=== PATIENT | female | born 1955 | race Caucasian/White ===

== ENCOUNTER → 2016-09-08 | Outpatient (CLI) | payer OTHER ==
[~2016-09-08] MED LIST: ASPI81TA21 PO; ATEN50TA PO; ATOR-22 PO; INSUINJ4 SQ; KETO2SHA; LTN/10 PO; METF1000 PO; NVLGI SC; NYST80OI; SERT50TA PO; SITA100T3 PO; TYLOTC500 PO
== END | disposition home or self-care (01) ==
LOC: C.LABPVFM 14:44
PROVIDERS: ATTEND Family Medicine
DX: J02.9 Acute pharyngitis, unspecified (principal)

== ENCOUNTER → 2016-10-02 | Outpatient (CLI) | payer OTHER ==
[2016-10-02 12:37] LABS: BLOOD UREA NITROGEN 16 mg/dl (7-18); BUN/CREATININE RATIO 17.6 (10-20); CALCIUM 9.3 mg/dl (8.5-10.1); CARBON DIOXIDE 29 mmol/L (21-32); CHLORIDE 99 mmol/L (98-107); CREATININE 0.89 mg/dl (0.60-1.20); GLUCOSE 185 mg/dl (70-99); POTASSIUM 4.6 mmol/L (3.5-5.1); SODIUM 136 mmol/L (136-145)
[2016-10-02 12:48] LABS: ESTIMATED AVERAGE GLUCOSE 157 mg/dl; HA1C FLAG Normal (Normal)
== END | disposition home or self-care (01) ==
LOC: C.LABBFT 07:46
PROVIDERS: ATTEND Nurse Practitioner Family
DX: Z11.59 Encounter for screening for other viral diseases (principal); E11.9 Type 2 diabetes mellitus without complications

== ENCOUNTER → 2016-10-03 | Outpatient (CLI) | payer OTHER ==
[2016-10-03 15:27] LABS: RATIO 21.9 mcg/mg (0-30.0)
== END | disposition home or self-care (01) ==
LOC: C.LABSPEC 14:01
PROVIDERS: ATTEND Nurse Practitioner Family
DX: E11.9 Type 2 diabetes mellitus without complications (principal)

== ENCOUNTER → 2016-10-29 | Outpatient (CLI) | payer OTHER | END | disposition home or self-care (01) | LOC: C.LABPVFM 12:23 | PROVIDERS: ATTEND Nurse Practitioner | DX: R30.0 Dysuria (principal) ==

== ENCOUNTER → 2016-11-18 | Outpatient (CLI) | payer OTHER | END | disposition home or self-care (01) | LOC: C.LABSPEC 17:09 | PROVIDERS: ATTEND Urology | DX: R10.2 Pelvic and perineal pain (principal) ==

== ENCOUNTER → 2017-02-06 | Outpatient (CLI) | payer OTHER ==
--- NOTE | 2017-02-06 16:01 | MAMMOGRAPHY REPORT ---
BILATERAL DIGITAL SCREENING MAMMOGRAM WITH CAD: 02/06/2017 CLINICAL HISTORY: Routine screening. Patient has no complaints. TECHNIQUE: Current study was also evaluated with a Computer Aided Detection (CAD) system. Bilateral CC and MLO views were obtained. COMPARISON: Comparison is made to exams dated: 08/01/2009 mammogram - [facility], 08/03/2008, 08/03/2008, 07/31/2008, and 07/29/2007. BREAST COMPOSITION: There are scattered areas of fibroglandular density in both breasts. FINDINGS: No suspicious masses, calcifications, or areas of architectural distortion are noted in ei ther breast. There has been no significant interval change compared to prior exams. Scattered bilate ral benign-appearing calcifications are noted. IMPRESSION: ACR BI-RADS CATEGORY 2: BENIGN There is no mammographic evidence of malignancy. A 1 year screening mammogram is recommended. The pa tient will receive written notification of the results. Approximately 10% of breast cancers are not detected with mammography. A negative mammographic report should not delay biopsy if a clinically suggestive mass is present. Liliana Oliveira M.D. ah/:02/06/2017 14:50:08 Superintendent [employer]: Karissa RICE(R)(M), [facility] letter sent: Normal 1/2 BI-RADS Code: ACR BI-RADS Category 2: Benign
== END | disposition home or self-care (01) ==
LOC: C.MAMM 14:24
PROVIDERS: ATTEND Nurse Practitioner
DX: Z12.31 Encounter for screening mammogram for malignant neoplasm of breast (principal)

== ENCOUNTER → 2017-04-29 | Outpatient (CLI) | payer OTHER ==
[2017-04-29 12:30] LABS: ALT/SGPT 23 U/L (12-78); BLOOD UREA NITROGEN 18 mg/dl (7-18); CALCIUM 9.5 mg/dl (8.5-10.1); CARBON DIOXIDE 29 mmol/L (21-32); CHLORIDE 98 mmol/L (98-107); CHOLESTEROL 174 mg/dl (0-200); CREATININE 0.94 mg/dl (0.60-1.20); GLUCOSE 209 mg/dl (70-99); MAGNESIUM 2.3 mg/dl (1.8-2.4); POTASSIUM 4.2 mmol/L (3.5-5.1); SODIUM 133 mmol/L (136-145); TRIGLYCERIDES 207 mg/dl (0-150); VERY LOW DENSITY LIPOPROT CALC 41 mg/dl
[2017-04-29 12:36] LABS: ESTIMATED AVERAGE GLUCOSE 169 mg/dl; HA1C FLAG Normal (Normal)
[2017-04-29 12:39] LABS: ALB/GLOB RATIO 0.9 (0.9-2); ALKALINE PHOSPHATASE 75 U/L (45-117); AST/SGOT 14 U/L (15-37); CHOLESTEROL/HDL RATIO 3.6; HDL CHOLESTEROL 48 mg/dl; LDL CHOLESTEROL CALCULATED 85 mg/dl
== END | disposition home or self-care (01) ==
LOC: C.LABBFT 07:41
PROVIDERS: ATTEND Nurse Practitioner
DX: E11.9 Type 2 diabetes mellitus without complications (principal); G62.9 Polyneuropathy, unspecified; E78.5 Hyperlipidemia, unspecified; E83.42 Hypomagnesemia

== ENCOUNTER → 2017-10-23 | Outpatient (CLI) | payer OTHER | END | disposition home or self-care (01) | LOC: C.LABPVFM 18:06 | PROVIDERS: ATTEND Nurse Practitioner Family | DX: R39.9 Unspecified symptoms and signs involving the genitourinary system (principal) ==

== ENCOUNTER → 2017-11-16 | Outpatient (CLI) | payer OTHER ==
--- NOTE | 2017-11-16 11:07 | DIAGNOSTIC IMAGING REPORT ---
CHEST 2 VIEWS ROUTINE CLINICAL HISTORY: 62 years-old Female presenting with COPD with acute bronchitis. TECHNIQUE: PA and lateral views of the chest were obtained. COMPARISON: 11/09/2013. FINDINGS: Atherosclerosis of the aortic arch. Tortuosity of the descending thoracic aorta. Cardiac silhouette top normal in size. Lungs and pleural spaces clear. Degenerative changes of the thoracic spine. Upper abdomen normal. IMPRESSION: 1. No acute cardiopulmonary disease. Electronically signed by: Carlos A Mccain M.D. 11/16/2017 11:06 AM Dictated Date/Time: 11/16/2017 11:04 AM
== END | disposition home or self-care (01) ==
LOC: C.RADPV 10:51
PROVIDERS: ATTEND Nurse Practitioner
DX: J44.0 Chronic obstructive pulmonary disease with (acute) lower respiratory infection (principal)

== ENCOUNTER 2017-12-01 15:45 | Emergency (ER) | payer OTHER ==
[~2017-12-01] VITALS: Ht 165.1 cm; Wt 117.2 kg
[~2017-12-01 15:45] MED LIST changes: +ASPI-319 PO; -ASPI81TA21 PO
[2017-12-01 15:52] VITALS: TEMP 36.4
[2017-12-01] MEDS ORDERED: ONDANSETRON INJ 2 MG/ML 2 ML VIAL IV STA (15:57)
[2017-12-01] MEDS ORDERED: SODIUM CHLORIDE 0.9% 1000ML 1,000 ML IV STA (15:57)
--- NOTE | 2017-12-01 16:16 | DIAGNOSTIC IMAGING REPORT ---
CHEST ONE VIEW PORTABLE CLINICAL HISTORY: Acute change in mental status. Weakness. COMPARISON STUDY: 11/16/2017 FINDINGS: The cardiac and mediastinal contours are normal. There is no evidence of focal pulmonary consolidation. There is no evidence of failure. No pleural effusions are visualized.[ There is minor left basilar atelectasis. IMPRESSION: No active disease in the chest. Electronically signed by: Kory Nicholson M.D. 12/01/2017 4:15 PM Dictated Date/Time: 12/01/2017 4:14 PM
[2017-12-01 16:40] VITALS: Ht 165.1 cm; Wt 117.2 kg
[2017-12-01 16:42] VITALS: O2SAT 92
[2017-12-01 16:59] LABS: BASO % 0.7 %; BASO ABS # 0.07 K/uL (0-0.2); EOS % 4.7 %; EOS ABS # 0.46 K/uL (0-0.5); HEMATOCRIT 39.7 % (37-47); HEMOGLOBIN 13.4 g/dL (12.0-16.0); IG# 0.02 K/uL (0.00-0.02); LYMPH % 13.2 %; MEAN CELL VOLUME 84.8 fL (80-100); MEAN CORPUSCULAR HEMOGLOBIN 28.6 pg (25-34); MEAN CORPUSCULAR HGB CONC 33.8 g/dl (32-36); MEAN PLATELET VOLUME 9.9 fL (7.4-10.4); MONO % 11.1 %; MONO ABS # 1.09 K/uL (0.11-0.59); NEUT % 70.1 %; NEUT ABS # 6.92 K/uL (1.4-6.5); PLATELET COUNT 231 K/uL (130-400); RED CELL DISTRIBUTION WIDTH CV 16.2 % (11.5-14.5); WHITE BLOOD COUNT 9.86 K/uL (4.8-10.8)
--- NOTE | 2017-12-01 17:03 | DIAGNOSTIC IMAGING REPORT ---
CT HEAD WITHOUT CONTRAST (CT) CLINICAL HISTORY: Acute change in mental status. COMPARISON STUDY: No previous studies for comparison. TECHNIQUE: Axial CT of the brain is performed from the vertex to the skull base. IV contrast was not administered for this examination. A dose lowering technique was utilized adhering to the principles of ALARA. CT DOSE: 601.98 mGy.cm FINDINGS: No intra or extra-axial mass lesions are visualized. There is no CT evidence of acute cortical infarction. There is no evidence of midline shift. There is no acute hemorrhage. No calvarial fractures are visualized. There are patchy white matter hypodensities likely on a small vessel basis. There is a small right cerebellar lacunar infarct There is no evidence of pathologic ventricular dilatation. There is no evidence of acute sinusitis IMPRESSION: No acute intracranial findings Electronically signed by: Kory Nicholson M.D. 12/01/2017 5:02 PM Dictated Date/Time: 12/01/2017 5:01 PM
[2017-12-01 17:07] LABS: INR 0.9 (0.9-1.1)
[2017-12-01 17:17] LABS: ALBUMIN 3.8 gm/dl (3.4-5.0); ALT/SGPT 20 U/L (12-78); AST/SGOT 10 U/L (15-37); BLOOD UREA NITROGEN 15 mg/dl (7-18); CALCIUM 9.4 mg/dl (8.5-10.1); CARBON DIOXIDE 29 mmol/L (21-32); CREATININE 0.92 mg/dl (0.60-1.20); GLUCOSE 148 mg/dl (70-99); LIPASE 176 U/L (73-393); POTASSIUM 3.7 mmol/L (3.5-5.1); SODIUM 134 mmol/L (136-145)
[2017-12-01 17:27] LABS: ALKALINE PHOSPHATASE 70 U/L (45-117); TOTAL PROTEIN 7.7 gm/dl (6.4-8.2)
[2017-12-01] MEDS ORDERED: METO50TA8 PO (17:33)
[2017-12-01] MEDS ORDERED: MAGN400T6 PO (17:33)
[2017-12-01] MEDS ORDERED: FLUT0.15 NAE (17:33)
[2017-12-01] MEDS ORDERED: METF-384 PO (17:33)
[2017-12-01] MEDS ORDERED: SIMV20TA2 PO (17:33)
[2017-12-01] MEDS ORDERED: DSWCR TOP (17:33)
[2017-12-01] MEDS ORDERED: ASPI81TA28 PO (17:33)
[2017-12-01] MEDS ORDERED: GABA-112 PO (17:33)
[2017-12-01] MEDS ORDERED: NVLGI/PEN SQ (17:33)
[2017-12-01] MEDS ORDERED: UMEC1AER INH (17:33)
[2017-12-01] MEDS ORDERED: SERT-234 PO (17:33)
[2017-12-01] MEDS ORDERED: HYDR12.55 PO (17:33)
[2017-12-01] MEDS ORDERED: FLUT1INH INH (17:33)
[2017-12-01] MEDS ORDERED: LISI-729 PO (17:33)
[2017-12-01] MEDS ORDERED: INSU1.2I SQ (17:33)
[2017-12-01] MEDS ORDERED: ONDA4TAB10 SL (18:32)
[2017-12-01] MEDS ORDERED: MECL1TAB42 PO (18:32)
--- NOTE | 2017-12-01 19:06 | EMERGENCY ROOM VISIT NOTE ---
History Report prepared by Areli: Maira Reyes Under the Supervision of: Dr. Cedric Muhammad D.O. First contact with patient: 15:55 Chief Complaint: DIZZY Stated Complaint: DIZZY,VOMITING,SWEATING,CHEST PAIN History of Present Illness The patient is a 62 year old female who presents to the Emergency Room with complaints of an episode of dizziness around 1400 today. The patient started having a frontal headache earlier today. She then started having left ear ache and pain down her shoulder and back. She is having jabbing pains in her left chest. Then at work today, she got up to put away a file and started feeling very dizzy. The room seemed to be spinning. She sat down and became diaphoretic. She had a hard time walking and her coworker had to help her to the bathroom where she vomited. She has never experienced this before. She does not identify anything that improves or worsens her symptoms. She currently has a mild headache and some chest pain. She denies any history of stroke or [place]. Source of History: patient Onset: 1400 Position: head Quality: other (dizziness) Timing: other (episodic) Associated Symptoms: + headache, + diaphoresis, + chest pain, + vomiting, + back pain Note: Pt reports left ear pain. Review of Systems See HPI for pertinent positives & negatives. A total of 10 systems reviewed and were otherwise negative. Past Medical & Surgical Medical Problems: (1) Diabetes (2) Hypertension Family History Diabetes mellitus Heart disease Hypertension Kidney disease Kidney stones Social History Smoking Status: Former Smoker Alcohol Use: occasionally Drug Use: none Marital Status: Occupation Status: employed Current/Historical Medications Scheduled Aspirin (Aspirin Ec), 81 MG PO DAILY Fluticasone Furoate-Vilanterol (Breo Ellipta), 1 PUFF INH DAILY Fluticasone Propionate (Nasal) (Flonase Allergy Relief), 1 SPRAY RADU BID Gabapentin (Neurontin), 200 MG PO HS Hydrochlorothiazide (Hydrochlorothiazide), 12.5 MG PO DAILY Insulin Aspart (Novolog Flexpen), 1 DOSE SQ AC Insulin Glargine (Toujeo Solostar), 90 UNITS SQ HS Lisinopril (Prinivil), 5 MG PO DAILY Magnesium Oxide (Mag-Ox), 400 MG PO DAILY Metformin Hcl (Glucophage), 1,000 MG PO BID Metoprolol Succ (Toprol Xl) (Toprol-Xl), 50 MG PO DAILY Ondasetron Odt (Zofran Odt), 4 MG SL Q6H Sertraline (Zoloft), 100 MG PO DAILY Simvastatin (Zocor), 20 MG PO HS Umeclidinium-Vilanterol (Anoro Ellipta 62.5-25 Mcg/INH), 1 PUFF INH DAILY Scheduled PRN Desonide 0.05% (Desowen 0.05%), 1 APPLN TOP UD PRN for PSORIASIS Meclizine Hcl (Meclizine Hcl), 1 TAB PO TID PRN for Dizziness or Vertigo Allergies Coded Allergies: Codeine (Verified Allergy, Unknown, `, 12/01/17) Physical Exam Vital Signs Date Time Temp Pulse Resp B/P (MAP) Pulse Ox O2 Delivery O2 Flow Rate FiO2 12/01/17 19:29 81 20 146/76 95 Room Air 12/01/17 17:38 72 12/01/17 17:31 80 16 124/82 92 Room Air 12/01/17 16:43 85 20 142/74 92 Room Air 12/01/17 16:42 92 Room Air 12/01/17 16:42 92 Room Air 12/01/17 15:52 36.4 84 16 141/91 95 Room Air Physical Exam GENERAL: Patient is awake, alert, and mildly anxious appearing. EYES: The conjunctivae are clear. The pupils are round and reactive. EARS, NOSE, MOUTH AND THROAT: The nose is without any evidence of any deformity. Mucous membranes are moist tongue is midline NECK: The neck is nontender and supple. RESPIRATORY: Normal respiratory effort is noted there is no evidence of wheezing rhonchi or rales CARDIOVASCULAR: Regular rate and rhythm noted there no murmurs rubs or gallops normal S1 normal S2 GASTROINTESTINAL: The abdomen is soft. Bowel sounds are present in all quadrants. Abdomen is nontender MUSCULOSKELETAL/EXTREMITIES: There is no evidence of gross deformity full range of motion is noted in the hips and shoulders SKIN: There is no obvious evidence of any rash. There are no petechiae, pallor or cyanosis noted. NEUROLOGIC: Patient is awake alert and oriented x3 strength is symmetric patellar reflexes are 2+ bilaterally Medical Decision & Procedures ER Provider Diagnostic Interpretation: X-ray results as stated below per interpretation by me and the radiologist. Radiology results as stated below per my review and radiologist interpretation: CHEST ONE VIEW PORTABLE CLINICAL HISTORY: Acute change in mental status. Weakness. COMPARISON STUDY: 11/16/2017 FINDINGS: The cardiac and mediastinal contours are normal. There is no evidence of focal pulmonary consolidation. There is no evidence of failure. No pleural effusions are visualized.[ There is minor left basilar atelectasis. IMPRESSION: No active disease in the chest. Electronically signed by: Kory Nicholson M.D. 12/01/2017 4:15 PM Dictated Date/Time: 12/01/2017 4:[address] HEAD WITHOUT CONTRAST (CT) CLINICAL HISTORY: Acute change in mental status. COMPARISON STUDY: No previous studies for comparison. TECHNIQUE: Axial CT of the brain is performed from the vertex to the skull base. IV contrast was not administered for this examination. A dose lowering technique was utilized adhering to the principles of ALARA. CT DOSE: 601.98 mGy.cm FINDINGS: No intra or extra-axial mass lesions are visualized. There is no CT evidence of acute cortical infarction. There is no evidence of midline shift. There is no acute hemorrhage. No calvarial fractures are visualized. There are patchy white matter hypodensities likely on a small vessel basis. There is a small right cerebellar lacunar infarct There is no evidence of pathologic ventricular dilatation. There is no evidence of acute sinusitis IMPRESSION: No acute intracranial findings Electronically signed by: Kory Nicholson M.D. 12/01/2017 5:02 PM Dictated Date/Time: 12/01/2017 5:01 PM Laboratory Results 12/01/17 16:35 Red Blood Count 4.68, Mean Corpuscular Volume 84.8, Mean Corpuscular Hemoglobin 28.6, Mean Corpuscular Hemoglobin Concent 33.8, Mean Platelet Volume 9.9, Neutrophils (%) (Auto) 70.1, Lymphocytes (%) (Auto) 13.2, Monocytes (%) (Auto) 11.1, Eosinophils (%) (Auto) 4.7, Basophils (%) (Auto) 0.7, Neutrophils # (Auto ) 6.92, Lymphocytes # (Auto) 1.30, Monocytes # (Auto) 1.09, Eosinophils # (Auto ) 0.46, Basophils # (Auto) 0.07 12/01/17 16:35 Test 12/01/17 16:35 12/01/17 18:10 White Blood Count 9.86 K/uL (4.8-10.8) Red Blood Count 4.68 M/uL (4.2-5.4) Hemoglobin 13.4 g/dL (12.0-16.0) Hematocrit 39.7 % (37-47) Mean Corpuscular Volume 84.8 fL (80-100) Mean Corpuscular Hemoglobin 28.6 pg (25-34) Mean Corpuscular Hemoglobin Concent 33.8 g/dl (32-36) Platelet Count 231 K/uL (130-400) Mean Platelet Volume 9.9 fL (7.4-10.4) Neutrophils (%) (Auto) 70.1 % Lymphocytes (%) (Auto) 13.2 % Monocytes (%) (Auto) 11.1 % Eosinophils (%) (Auto) 4.7 % Basophils (%) (Auto) 0.7 % Neutrophils # (Auto) 6.92 K/uL (1.4-6.5) Lymphocytes # (Auto) 1.30 K/uL (1.2-3.4) Monocytes # (Auto) 1.09 K/uL (0.11-0.59) Eosinophils # (Auto) 0.46 K/uL (0-0.5) Basophils # (Auto) 0.07 K/uL (0-0.2) RDW Standard Deviation 50.0 fL (36.4-46.3) RDW Coefficient of Variation 16.2 % (11.5-14.5) Immature Granulocyte % (Auto) 0.2 % Immature Granulocyte # (Auto) 0.02 K/uL (0.00-0.02) Prothrombin Time 9.4 SECONDS (9.0-12.0) Prothromb Time International Ratio 0.9 (0.9-1.1) Activated Partial Thromboplast Time 27.0 SECONDS (21.0-31.0) Partial Thromboplastin Ratio 1.0 Anion Gap 8.0 mmol/L (3-11) Est Creatinine Clear Calc Drug Dose 81.2 ml/min Estimated GFR () 77.3 Estimated GFR (Non- 66.7 BUN/Creatinine Ratio 15.9 (10-20) Calcium Level 9.4 mg/dl (8.5-10.1) Magnesium Level 2.1 mg/dl (1.8-2.4) Total Bilirubin 0.3 mg/dl (0.2-1) Direct Bilirubin < 0.1 mg/dl (0-0.2) Aspartate Amino Transf (AST/SGOT) 10 U/L (15-37) Alanine Aminotransferase (ALT/SGPT) 20 U/L (12-78) Alkaline Phosphatase 70 U/L (45-117) Troponin I < 0.015 ng/ml (0-0.045) Total Protein 7.7 gm/dl (6.4-8.2) Albumin 3.8 gm/dl (3.4-5.0) Lipase 176 U/L (73-393) Thyroid Stimulating Hormone (TSH) 1.080 uIu/ml (0.300-4.500) Urine Color YELLOW Urine Appearance CLEAR (CLEAR) Urine pH 6.0 (4.5-7.5) Urine Specific [place] 1.016 (1.000-1.030) Urine Protein NEG (NEG) Urine Glucose (UA) 1+ (NEG) Urine Ketones NEG (NEG) Urine Occult Blood NEG (NEG) Urine Nitrite NEG (NEG) Urine Bilirubin NEG (NEG) Urine Urobilinogen NEG (NEG) Urine Leukocyte Esterase SMALL (NEG) Urine WBC (Auto) 1-5 /hpf (0-5) Urine RBC (Auto) 0-4 /hpf (0-4) Urine Hyaline Casts (Auto) 0 /lpf (0-5) Urine Epithelial Cells (Auto) 20-30 /lpf (0-5) Urine Bacteria (Auto) NEG (NEG) Laboratory results per my review. Medications Administered Medications (Trade) Dose Ordered Sig/Cyn Route Start Time Stop Time Status Last Admin Dose Admin Ondansetron HCl (Zofran Inj) 4 mg NOW STAT IV 12/01/17 15:57 12/01/17 15:59 DC 12/01/17 16:33 4 MG Sodium Chloride 1,000 ml @ 999 mls/hr Q1H1M STAT IV 12/01/17 15:57 12/01/17 16:57 DC 12/01/17 16:33 999 MLS/HR ECG Per My Interpretation Indication: chest pain Rate (beats per minute): 84 Rhythm: normal sinus Findings: no ectopy, other (no acute ST segment abnormality) Comparison ECG Date: 29-Jul-2012 Change: no significant change ED Course 1556: The patient was evaluated in room C7. A complete history and physical examination were performed. 1557: NSS 1,000 ml @ 999 mls/hr IV, Zofran Inj 4 mg IV. 182: Upon reevaluation, the patient is resting comfortably. I discussed the results and treatment plan with her. She verbalized agreement of the treatment plan. She was discharged home. 193: The patient is ambulating normally on discharge. Medical Decision Prior records/ancillary studies reviewed. Triage Nursing notes reviewed. The patient's history was concerning for dizziness and vertigo. Differential diagnosis: Etiologies such as benign positional vertigo, dehydration, hypovolemia, anemia, tumor, infection, hypoglycemia, electrolyte abnormalities, cardiac sources, intracerebral event, toxicologic, neurologic, as well as others were entertained. The patient is a 62-year-old female who presented to the emergency department for an evaluation of vertigo. The patient was treated with IV fluids and Zofran in the emergency department. On subsequent reevaluation she was feeling much better. I discussed patient's laboratory and radiographic studies with her. I also discussed some of the causes of vertigo. I do not feel this represents a central cause for vertigo at this time given the patient's symptoms and her workup. She was encouraged to continue all medications as prescribed and follow-up with her primary care physician. She was also encouraged to discuss further workup as well as MRI of the brain or possibly referral to ENT if symptoms do not improve. Otherwise she was encouraged to return the emergency department immediately if symptoms change worsening the need arises. Medication Reconcilliation Current Medication List: was personally reviewed by me Blood Pressure Screening Patient's blood pressure: Normal blood pressure Blood pressure disposition: Did not require urgent referral Impression Primary Impression: Vertigo Scribe Attestation The scribe's documentation has been prepared under my direction and personally reviewed by me in its entirety. I confirm that the note above accurately reflects all work, treatment, procedures, and medical decision making performed by me. Departure Information Dispostion Home / Self-Care Prescriptions Meclizine Hcl (MECLIZINE HCL) 25 Mg Tab 1 TAB PO TID Y for Dizziness or Vertigo for 10 Days, #30 TAB Prov: Cedric Muhammad, DO 12/01/17 Ondasetron Odt (ZOFRAN ODT) 4 Mg Tab 4 MG SL Q6H for Nausea, #15 TAB Prov: Cedric Muhammad, 12/01/17 Referrals Lizy Ngo C.R.N.P (PCP) Forms HOME CARE DOCUMENTATION FORM, IMPORTANT VISIT INFORMATION Patient Instructions ED Dizziness [facility], My [facility] Additional Instructions Call your family doctor to schedule a follow-up appointment. Rest and avoid any strenuous activity. Try to avoid driving until you are feeling better. Discussed the possibility with your family doctor that he may require further study such as an ear nose and throat evaluation or an MRI of the brain. Return to the emergency department immediately if symptoms change worsen or the need arises.
[2017-12-01 19:29] VITALS: BP 146/76; PULSE 81; O2SAT 95
== END 2017-12-01 19:31 | disposition home or self-care (01) ==
LOC: C.EDB 15:46 → C.EDC 19:31
DX: R42 Dizziness and giddiness (principal); H92.02 Otalgia, left ear; M25.519 Pain in unspecified shoulder; M54.9 Dorsalgia, unspecified; R07.9 Chest pain, unspecified; R61 Generalized hyperhidrosis; E11.9 Type 2 diabetes mellitus without complications; I10 Essential (primary) hypertension; Z79.82 Long term (current) use of aspirin; Z79.899 Other long term (current) drug therapy; Z79.4 Long term (current) use of insulin; Z79.84 Long term (current) use of oral hypoglycemic drugs; Z79.51 Long term (current) use of inhaled steroids; Z88.6 Allergy status to analgesic agent; Z83.3 Family history of diabetes mellitus; Z82.49 Family history of ischemic heart disease and other diseases of the circulatory system; Z84.1 Family history of disorders of kidney and ureter

== ENCOUNTER → 2017-12-25 | Outpatient (CLI) | payer OTHER ==
[~2017-12-25] MED LIST changes: -ASPI-319 PO; +ASPI81TA28 PO; -ATEN50TA PO; -ATOR-22 PO; +DSWCR TOP; +FLUT0.15 NAE; +FLUT1INH INH; +GABA-112 PO; +HYDR12.55 PO; +INSU1.2I SQ; -INSUINJ4 SQ; -KETO2SHA; +LISI-729 PO; -LTN/10 PO; +MAGN400T6 PO; +METF-384 PO; -METF1000 PO; +METO50TA8 PO; -NVLGI SC; +NVLGI/PEN SQ; -NYST80OI; +ONDA4TAB10 SL; +SERT-234 PO; -SERT50TA PO; +SIMV20TA2 PO; -SITA100T3 PO; -TYLOTC500 PO; +UMEC1AER INH
--- NOTE | 2017-12-25 14:37 | DIAGNOSTIC IMAGING REPORT ---
L-SPINE MIN 4 VIEWS ROUTINE HISTORY: Pain LOW BACK PAIN COMPARISON: None. FINDINGS: There is no fracture. Minimal grade 1 anterolisthesis of L4 on L5. This is approximately 3 mm. Moderate degenerative change posterior elements. Considerable degenerative disc change L5-S1. IMPRESSION: 1. Considerable degenerative disc change L5-S1. 2. Grade 1 anterolisthesis of L4 and L5 associated with degenerative changes of the posterior elements. 3. Otherwise negative study. The above report was generated using voice recognition software. It may contain grammatical, syntax or spelling errors. Electronically signed by: Humberto Finnegan M.D. 12/25/2017 2:35 PM Dictated Date/Time: 12/25/2017 2:34 PM
[2017-12-26 06:49] LABS: HEMOGLOBIN A1C 7.6 % (4.5-5.6)
== END | disposition home or self-care (01) ==
LOC: C.LABPVFM 13:58
PROVIDERS: ATTEND Nurse Practitioner
DX: M54.5 Low back pain (principal); M25.511 Pain in right shoulder; E11.9 Type 2 diabetes mellitus without complications; E55.9 Vitamin D deficiency, unspecified; M53.87 Other specified dorsopathies, lumbosacral region

== ENCOUNTER → 2018-03-10 | Outpatient (CLI) | payer OTHER ==
--- NOTE | 2018-03-15 10:40 | POLYSOMNOGRAPH REPORT ---
CLINICAL DATA: The patient is a 62-year-old female with a BMI of 44.28. She has symptoms including snoring, daytime sleepiness, and morning headache. This was an in-lab overnight polysomnography. SLEEP ARCHITECTURE: The total sleep period was 405.5 minutes. The total sleep time was 259 minutes. The sleep efficiency was severely reduced to 56%. The sleep onset latency was markedly prolonged to 57.5 minutes. REM latency was prolonged to 322 minutes. There was only 1 REM period during the night. Sleep consisted of stage N1 9%, stage N2 82%, stage N3 0%, stage REM 10%. AROUSAL DATA: The patient had a total of 77 arousals including 18 spontaneous, 31 respiratory, 1 PLM, and 27 snoring arousals. The arousal index was 18. PLM DATA: The patient had a total of 40 periodic limb movements of sleep for a PLM index of 9.3. There was only 1 arousal associated with limb movements for a PLM arousal index of 0.2. EKG DATA: The cardiac rates ranged from 58-97 beats per minute. The average heart rate was 80 beats per minute. RESPIRATORY DATA: Ms. Duron had a total of 161 respiratory events including 9 obstructive apneas and 152 hypopneas. Hypopneas were scored according to the 4% desaturation rule. The longest apnea was 41.4 seconds. The mean duration of the hypopneas was 17.8 seconds. The apnea hypopnea index was elevated at 37.3 events per hour. This represents moderately severe obstructive sleep apnea. OXIMETRY DATA: The average saturation for the night was 87%. The minimum saturation was 62%. There was a total of 331.2 minutes with saturations less than 89%. ACCIDENT REPORT CLERK COMMENTS: Ms. Duron slept in the right, left, and supine positions. No cardiac arrhythmia noted. No bruxism noted. Snoring was noted and scored as a 3 on a scale of 1 through 5. Ms. Duron awoke to use the restroom 4 times during the night. She stated she does not sleep as well as she does in her own bed. The patient was very restless, tossing and turning, drinking water, and up to the restroom often. She had wanted to end the study at 1:30 a.m. but kept going. Respiratory events were seen when she did sleep. IMPRESSION: 1. Obstructive sleep apnea - moderately severe. 2. Nocturnal hypoxia. COMMENTS: The patient has moderately severe sleep apnea. Most of the events occurred in the second half of the night. There was a greater frequency of the events when she was supine. Her apnea hypopnea index in the supine position was 47. Events were also increased during REM sleep. She had severe oxygen desaturations at times. This was most pronounced during REM sleep. RECOMMENDATIONS: 1. It is advised that the patient be given a trial of nasal CPAP. 2. Weight loss is advised in light of the elevation of body mass index at 44.28. 3. The patient should avoid sleeping in the supine position. During the study, she had increased events while she was supine.
== END | disposition home or self-care (01) ==
LOC: C.NEUR 20:00
PROVIDERS: ATTEND Physician Assistant
DX: G47.33 Obstructive sleep apnea (adult) (pediatric) (principal); G47.36 Sleep related hypoventilation in conditions classified elsewhere

== ENCOUNTER → 2018-03-11 | Outpatient (CLI) | payer OTHER ==
[2018-03-11 13:10] LABS: BLOOD UREA NITROGEN 26 mg/dl (7-18); CREATININE 1.17 mg/dl (0.60-1.20)
== END | disposition home or self-care (01) ==
LOC: C.LABPVFM 07:01
PROVIDERS: ATTEND Nurse Practitioner Family
DX: E11.9 Type 2 diabetes mellitus without complications (principal); I73.9 Peripheral vascular disease, unspecified

== ENCOUNTER → 2018-03-15 | Outpatient (CLI) | payer OTHER ==
--- NOTE | 2018-03-15 10:30 | DIAGNOSTIC IMAGING REPORT ---
(CHEST) THORAX WITHOUT CT DOSE: 793.57 mGy.cm CLINICAL HISTORY: 62 years-old Female with J98.4 Chronic restrictive lung disease TECHNIQUE: Multiaxial CT images of the chest were performed without contrast. A dose lowering technique was utilized adhering to the principles of ALARA. COMPARISON: CTA abdomen and pelvis of same day, chest radiograph 12/01/2017 FINDINGS: Hypodense 1.5 x 1.2 cm nodule of the left thyroid lobe with adjacent coarse calcification. Mildly prominent mediastinal lymph nodes are present along with a mildly enlarged right peritracheal 1.7 x 1.07 renal lymph node on image 105 series 4. This lymph node demonstrates a normal-appearing fatty hilum. The heart is normal in size without pericardial effusion. Coronary arterial and aortic annular calcifications are noted. There is is no thoracic aortic aneurysm identified. The left vertebral artery emanates strictly from the aortic arch. The unopacified pulmonary arterial tree is unremarkable. Mild paraseptal emphysematous changes about the lung apices. No pneumothorax or pleural effusion. Minimal dependent subsegmental bibasilar groundglass densities suggest atelectasis. Ill-defined 9 mm subpleural groundglass opacity of the lateral basal segment left lower lobe on image 175 series 4. There are 2 solid nodules within the right lung apex measuring up to 2 mm which are likely benign. No suspicious appearing pulmonary nodules. The central airways appear patent. No acute process of the imaged upper abdomen. Hepatic steatosis. Soft tissues are unremarkable. Calcifications are noted about the left breast parenchyma. The bones appear to be intact. Multilevel spondylitic spurring of the spine. IMPRESSION: 1. Mild emphysema without acute intrathoracic abnormality identified. 2. Minimal dependent subsegmental bibasilar groundglass opacities suggest atelectasis with scarring. 3. Ill-defined 9 mm groundglass opacity of the lateral basal segment left lower lobe may also reflect atelectasis or scarring, however precautionary follow-up CT of the chest recommended to exclude progressive abnormality. 4. Mildly enlarged right paratracheal lymph node is likely reactive. Please refer to below summary of Fleischner criteria recommendations for follow-up of incidental CT nodules (Ryan Edwards, Guidelines for management of small pulmonary nodules detected on CT scans: A statement from the Fleischner Society, Radiology 237: [phone].) Note: newly detected indeterminate nodule in persons 35 years of age or older. * Low risk patients: minimal or absent history of smoking and/or other known risk factors * high risk patients: history of smoking or of other known risk factors (e.g. first degree relative with lung cancer, or exposure to asbestos, radon, uranium) * if a nodule up to 8 mm is partly solid or is ground glass further follow-up is required after 24 months to exclude possible slow growing adenocarcinoma (GA) SUBSOLID NODULES Solitary pure ground-glass nodule * nodule size <6 mm - no CT follow-up required * nodule size >=6 mm - follow-up CT at 6-12 months, then every 2 years until 5 years The above report was generated using voice recognition software. It may contain grammatical, syntax or spelling errors. Electronically signed by: Melvin King M.D. 03/15/2018 10:28 AM Dictated Date/Time: 03/15/2018 10:16 AM
== END | disposition home or self-care (01) ==
LOC: C.CTS 09:53
PROVIDERS: ATTEND Physician Assistant
DX: J98.4 Other disorders of lung (principal); I73.9 Peripheral vascular disease, unspecified

== ENCOUNTER → 2018-03-15 | Outpatient (CLI) | payer OTHER ==
[~2018-03-15] MED LIST changes: +OPTIRAY 320 IV PRN
--- NOTE | 2018-03-15 10:39 | DIAGNOSTIC IMAGING REPORT ---
CT ANGIO AA PRAVEENA LE RUNOFF CT DOSE: 2435.01 mGy.cm CLINICAL HISTORY: Peripheral arterial disease. TECHNIQUE: CT angiography of the abdomen and legs was performed in a dynamic helical fashion during intravenous administration 118 cc of series of Optiray 320. MIP imaging was acquired. A dose lowering technique was utilized adhering to the principles of ALARA. COMPARISON STUDY: None. FINDINGS: The lung bases reveal atelectatic changes. There is hepatic steatosis. No hepatic masses are visualized. Visualized portions of the gallbladder are unremarkable. No splenic lesions are visualized. No pancreatic masses are visualized. There are no adrenal masses. No solid renal masses are visualized. There is no hydronephrosis. There is colonic diverticulosis. There are uterine fibroids present. There is mild bladder wall thickening. There is mild atheromatous plaque within the abdominal aorta. There is no evidence of aortic stenosis. There is no evidence of aortic aneurysm. There is no evidence of superior mesenteric artery or celiac artery stenosis. There is no evidence of renal artery stenosis. Inferior mesenteric artery is patent. There are mild atheromatous changes present within the right common and external iliac arteries. There is no evidence of hemodynamically significant stenosis. There is no evidence for hemodynamically significant right common femoral artery stenosis. There are mild to moderate atheromatous changes present within the distal superficial femoral artery and proximal popliteal artery. There is no evidence of hemodynamically significant stenosis. There are atheromatous changes present within the 3 runoff vessels, but three-vessel runoff is visualized to the ankle. There are moderate atheromatous changes present within the left common and external iliac arteries. There is no evidence of hemodynamically significant stenosis. There is no evidence of hemodynamically significant left common femoral artery stenosis. There is scattered atheromatous plaque within the superficial femoral artery. There is no evidence of hemodynamic significant left superficial femoral artery stenosis. There are minor atheromatous changes within the left popliteal artery. There is no evidence of left popliteal artery hemodynamically significant stenosis. There is three-vessel runoff on the left at the level the ankle. IMPRESSION: 1. No evidence of aortic aneurysm 2. No evidence of celiac, superior mesenteric, or renal artery stenosis 3. Mild atheromatous changes within both lower extremities, but no evidence of hemodynamically significant stenosis. Three-vessel runoff to both ankles. Electronically signed by: Kory Nicholson M.D. 03/15/2018 10:38 AM Dictated Date/Time: 03/15/2018 10:27 AM
== END | disposition home or self-care (01) ==
LOC: C.CTS 09:23
PROVIDERS: ATTEND Internal Medicine Interventional Cardiology
DX: I73.9 Peripheral vascular disease, unspecified (principal)

== ENCOUNTER 2022-02-09 22:55 | Inpatient (IN) ==
[2022-02-09] MEDS ORDERED: MoRPHine SULFATE 4 MG/ML 1 ML CARP\\VIAL IV STA (23:12)
[2022-02-09] MEDS ORDERED: ONDANSETRON INJ 2 MG/ML 2 ML VIAL IV STA (23:12)
[2022-02-09] MEDS ORDERED: SODIUM CHLORIDE 0.9% 1000ML 1,000 ML IV ONE (23:12)
--- NOTE | 2022-02-09 23:18 | Emergency Department Note ---
History of Present Illness General Chief complaint: Shortness of Breath/Dyspnea Stated complaint: SOB, NAUSEA Time Seen by Provider: 02/09/22 23:04 History of Present Illness Maximum Pain Intensity: 7 This 66-year-old female patient significant past medical history of diabetes and hypertension as well as morbid obesity presents to the emergency department today for evaluation of epigastric abdominal pain, right shoulder pain, and some associated shortness of breath. The patient states symptoms began about 2 hours prior to arrival. She has not taken any medications for her symptoms. She states she ate spaghetti for dinner last night. Symptoms began after lying down and going to sleep. The patient notes her pain is a 7/10. She is also experiencing some right shoulder pain. She states the pain in the epigastrium is causing some shortness of breath. The patient denies any chest pain. There is some nausea without vomiting. The patient does have a history of pancreatitis, and states her symptoms she is experiencing at this time feels somewhat similar in nature. She rates her pain 7/10 and describes it as sharp and burning. Home Medications Medication Instructions Recorded Confirmed Type aspirin 81 mg tablet,delayed 81 mg PO QAM tab 03/21/19 02/09/22 History release lancets 33 gauge (Guo Xian Scientific and Technical CorporationTouch Delica #100 ea 03/21/19 10/25/21 History Lancets) mupirocin 2 % topical ointment 1 appln TOP BID #15 gm 09/02/19 02/09/22 Rx inhalational spacing device #1 ea 09/28/19 10/25/21 Rx (Aerochamber MV) nebulizers (Compact Ultrasonic #1 ea 01/12/20 10/25/21 Rx Nebulizer) diphenhydramine 25 1 tab PO HS 05/06/21 02/09/22 History mg-acetaminophen 500 mg tablet (Tylenol PM Extra Strength) pen needle, diabetic 32 gauge x #500 ea 07/25/21 10/25/21 Rx 5/32" (BD Ultra-Fine Melissa Pen Needle) Novolog Flexpen U-100 Insulin 100 See Rx Instructions SQ TIDM #45 ml 09/23/21 02/09/22 Rx unit/mL (3 mL) subcutaneous NS (insulin aspart U-100) blood sugar diagnostic (Guo X[employer] and [employer] CorporationTouch #500 ea 12/02/21 Rx Verio test strips) desonide 0.05 % topical cream 1 applic TOPICAL DAILY PRN #180 g 12/02/21 02/09/22 Rx hydrochlorothiazide 12.5 mg capsule 12.5 mg PO QAM #90 cap 12/02/21 02/09/22 Rx metformin 1,000 mg tablet 1,000 mg PO BID #180 tab 12/02/21 02/09/22 Rx metoprolol succinate 50 mg 50 mg PO QAM #90 tab 12/02/21 02/09/22 Rx tablet,extended release 24 hr pantoprazole 40 mg tablet,delayed 40 mg PO DAILY #90 tab 12/02/21 02/09/22 Rx release sertraline 100 mg tablet (Zoloft) 100 mg PO HS #90 tab 12/02/21 02/09/22 Rx simvastatin 20 mg tablet 20 mg PO QPM #90 tab 12/02/21 02/09/22 Rx fluocinolone 0.01 % topical body 1 applic TOPICAL BID PRN #354.84 ml 12/09/21 02/09/22 Rx oil insulin glargine U-300 conc 300 90 unit SUBCUT HS #27 ml 12/09/21 02/09/22 Rx unit/mL (1.5 mL) subcutaneous pen (Toujeo SoloStar U-300 Insulin) nitrofurantoin 100 mg PO Q12H 7 Days #14 cap 02/06/22 02/09/22 Rx monohydrate/macrocrystals 100 mg capsule (Macrobid) Allergies Allergy/AdvReac Type Severity Reaction Status Date / Time amoxicillin [From Augmentin] AdvReac Intermediate nausea Verified 02/09/22 23:54 clavulanic acid AdvReac Intermediate nausea Verified 02/09/22 23:54 [From Augmentin] codeine AdvReac Intermediate Gastrointestinal Verified 02/09/22 23:54 Upset Past Med/Surg History Medical History Anxiety Belching Bladder wall thickening Bloating COPD (chronic obstructive pulmonary disease) no inh DM type 2 (diabetes mellitus, type 2) Epigastric pain History of pancreatitis unk etiology HLD (hyperlipidemia) HTN (hypertension) Morbid obesity Osteoarthritis PAD (peripheral artery disease) PONV (postoperative nausea and vomiting) Sleep apnea unable to tolerate CPAP SOB (shortness of breath) on exertion recent echo with [facility] pulm --> per pt, [facility] pulm recommending stress test (pt unsure of echo results) -- stress test not yet scheduled. Surgical History H/O colonoscopy History of cardiac cath History of tonsillectomy and adenoidectomy History of tooth extraction History of tubal ligation History of wisdom tooth extraction Family History Unknown No problems noted. Mother Diabetes Kidney stone Hypertension Grandfather No problems noted. Aunt Breast cancer Grandfather (Maternal) Diabetes Other Family history non-contributory No family history of abnormal heart rhythm Denies family history of Ovarian cancer Prostate cancer Colorectal cancer Social History Smoking Status: Former smoker Tobacco Type: Cigarettes Cigarettes Per Day: 50-60; Second Hand Exposure: No; Hx Alcohol Use: Yes Hx Substance Use: No Preferred Language: Swazi Communication Ability: Effective Inspector Receiving Required: No Beliefs That Will Affect Care: Episcopalian Episcopalian Beliefs: Confucianist Current Living Situation: Spouse Feels Safe at Home: Yes caffeine: Yes (coffee) Dental Care, Regularly: No Physical Activity Frequency: Does not Exercise Seatbelt Use: sometimes Sunscreen Use: No Assistive Devices: Denture - Upper, Denture - Lower and Glasses Review of Systems A total of 10 systems reviewed and were otherwise negative Physical Exam Vital Signs Vital Signs - 24 hr 02/09/22 22:59 02/09/22 23:07 02/09/22 23:23 Temperature 36.1 C L Temperature Source Temporal Artery Scan Pulse Rate 94 H 90 Pulse Rate from SpO2 Sensor 90 Respiratory Rate 19 20 Respiratory Effort / Characteristics Non-Labored Spontaneous Respiratory Depth Normal Respiratory Pattern Regular Blood Pressure 217/108 H Blood Pressure Mean 144 Pulse Oximetry 92 92 93 Oxygen Delivery Method Room Air Room Air Oxygen Flow Rate Sepsis Recent Fever Within 48 Hours No Sepsis New/Unexplained Change in Mental Status N/A Sepsis Action Taken by Nursing No Action Required Oxygen Flow Rate - Titration Pulse Oximetry Post Tiitration 02/09/22 23:30 02/10/22 00:00 02/10/22 00:06 Temperature Temperature Source Pulse Rate 89 87 Pulse Rate from SpO2 Sensor 89 87 Respiratory Rate 18 19 Respiratory Effort / Characteristics Respiratory Depth Respiratory Pattern Blood Pressure 176/91 H 188/113 H Blood Pressure Mean 119 138 Pulse Oximetry 95 96 88 L Oxygen Delivery Method Nasal Cannula Oxygen Flow Rate 0 Sepsis Recent Fever Within 48 Hours Sepsis New/Unexplained Change in Mental Status Sepsis Action Taken by Nursing Oxygen Flow Rate - Titration 2 Pulse Oximetry Post Tiitration 95 02/10/22 00:45 02/10/22 00:47 02/10/22 00:49 Temperature Temperature Source Pulse Rate 113 H 103 H Pulse Rate from SpO2 Sensor 103 H Respiratory Rate 22 23 Respiratory Effort / Characteristics Respiratory Depth Respiratory Pattern Blood Pressure 219/85 H Blood Pressure Mean 129 Pulse Oximetry 66 L 86 L Oxygen Delivery Method Room Air Oxygen Flow Rate Sepsis Recent Fever Within 48 Hours Sepsis New/Unexplained Change in Mental Status Sepsis Action Taken by Nursing Oxygen Flow Rate - Titration Pulse Oximetry Post Tiitration 02/10/22 01:00 02/10/22 01:30 02/10/22 02:00 Temperature Temperature Source Pulse Rate 92 H 92 H 91 H Pulse Rate from SpO2 Sensor 91 H 92 H 91 H Respiratory Rate 20 19 29 H Respiratory Effort / Characteristics Respiratory Depth Respiratory Pattern Blood Pressure 182/91 H 187/102 H 160/77 H Blood Pressure Mean 121 130 104 Pulse Oximetry 96 96 95 Oxygen Delivery Method Oxygen Flow Rate Sepsis Recent Fever Within 48 Hours Sepsis New/Unexplained Change in Mental Status Sepsis Action Taken by Nursing Oxygen Flow Rate - Titration Pulse Oximetry Post Tiitration 02/10/22 02:30 02/10/22 03:00 Temperature Temperature Source Pulse Rate 90 87 Pulse Rate from SpO2 Sensor 89 87 Respiratory Rate 28 H 20 Respiratory Effort / Characteristics Respiratory Depth Respiratory Pattern Blood Pressure 160/88 H 160/82 H Blood Pressure Mean 112 108 Pulse Oximetry 94 93 Oxygen Delivery Method Oxygen Flow Rate Sepsis Recent Fever Within 48 Hours Sepsis New/Unexplained Change in Mental Status Sepsis Action Taken by Nursing Oxygen Flow Rate - Titration Pulse Oximetry Post Tiitration VITALS: Vitals are noted on the nurse's note and reviewed by myself. Vital signs stable. GENERAL: This is a 66-year-old obese, in no acute distress, nondiaphoretic, well-developed well-nourished. SKIN: The skin was without rashes, erythema, edema, or bruising. There is no tenting of the skin. Capillary refill less than 2 seconds. HEAD: Normocephalic atraumatic. EYES: Conjunctivae without injection, sclerae without icterus. NECK: Supple without nuchal rigidity. No lymphadenopathy. Cervical spine is nontender. No JVD. HEART: Regular rate and rhythm without murmurs gallops or rubs. LUNGS: Clear to auscultation bilaterally without wheezes, rales or rhonchi. No retractions or accessory muscle use. ABDOMEN: Positive bowel sounds x 4. Epigastric tenderness palpation. Abdomen is soft, nontender, without masses or organomegaly. Browning sign negative. No guarding or rebound tenderness. No CVA tenderness bilaterally MUSCULOSKELETAL: No muscle atrophy, erythema, or edema noted. Full range of motion without joint tenderness in all extremities. No tenderness to palpation. Normal gait. Strength 5/5 throughout. NEURO: Patient was alert and oriented to person place and time. No focal neurological deficits. Course Course The patient was seen and evaluated as above. An order was placed for continuous cardiac monitoring. The monitor shows a normal sinus rhythm at a rate of 87 bpm. IV access obtained, labs drawn. Patient medicated with IV fluids, morphine, Zofran, GI cocktail, Pepcid Imaging performed and reviewed by myself, Dr. Muhammad, and radiologist as noted. Labs reviewed by myself. I discussed the findings with the patient at bedside. I discussed the case with my attending. We discussed the case with Dr. Patrick, [place] Hospitalist physician. He did agree to see and evaluate the patient. Please see his dictation regarding ongoing management of this patient Administered Medications Discontinued Medications Al Hydrox/Mg Hydrox/Simethicone (Gi Cocktail Ed Use) 1 dose PO ONE ONE Stop: 02/09/22 23:22 Last Admin: 02/10/22 00:02 Dose: 1 dose Documented by: [id number] Sodium Chloride (Nss 1000ml) 1,000 mls @ 999 mls/hr IV .Q1H1M ONE Stop: 02/10/22 00:12 Last Admin: 02/09/22 23:22 Dose: 999 mls/hr Documented by: [id number] Famotidine (Pepcid 20mg Iv Push) 20 mg in 5 mls @ 2.5 mls/min IV NOW STA Stop: 02/09/22 23:22 Last Admin: 02/09/22 23:23 Dose: 2.5 mls/min Documented by: [id number] Ceftriaxone Sodium (Rocephin) 2,000 mg in 70 mls @ 140 mls/hr IV NOW STA Stop: 02/10/22 01:51 Last Infusion: 02/10/22 02:47 Dose: 0 mls/hr Documented by: [id number] Admin: 02/10/22 02:10 Dose: 140 mls/hr Documented by: [id number] Ioversol (Optiray 320 100ml) 100 ml IV ONCE ONE Stop: 02/10/22 00:42 Last Admin: 02/10/22 00:42 Dose: 93 ml Documented by: [id number] Morphine Sulfate (Morphine Sulfate 4 Mg/Ml 1 Ml Carp\\Vial) 4 mg IV NOW STA Stop: 02/09/22 23:13 Last Admin: 02/09/22 23:23 Dose: Not Given Documented by: [id number] Ondansetron HCl (Ondansetron Inj 2 Mg/Ml 2 Ml Vial) 4 mg IV NOW STA Stop: 02/09/22 23:13 Last Admin: 02/09/22 23:21 Dose: 4 mg Documented by: [id number] Medical Decision Making Differential Diagnosis Etiologies such as appendicitis, diverticulitis, obstruction, inflammatory bowel disease, renal colic, PUD, biliary pathology, pancreatitis, mesenteric ischemia, aortic pathology, infections, genitourinary, UTI, perforated viscus, cardiac etiology, pulmonary etiology, as well as others were entertained. Medical Records Attestation: I reviewed the patient's medical records. Home Medications Current Medication List: was personally reviewed by me Laboratory Data Attestation: I reviewed the patient's lab results. Leukocytosis with a white blood cell count of 11.37. No significant anemia, thrombocytopenia. Renal, hepatic function, and electrolytes without significant abnormality. Lipase 28. INR 0.9. High-sensitivity troponin 4.9. Urinalysis negative for evidence of infection. Influenza, COVID-19 testing negative Result diagrams: 02/09/22 23:12 02/09/22 23:12 Lab Results 02/09/22 02/09/22 02/09/22 Range/Units 23:12 23:12 23:12 WBC 11.37 H (4.8-10.8) K/uL RBC 4.92 (4.2-5.4) M/uL Hgb 12.5 (12.0-16.0) g/dL Hct 39.6 (37-47) % MCV 80.5 (80-100) fL MCH 25.4 (25-34) pg MCHC 31.6 L (32-36) g/dL RDW Std Deviation 48.9 H (36.4-46.3) fL RDW Coeff of Radha 16.6 H (11.5-14.5) % Plt Count 260 (130-400) K/uL MPV 10.0 (7.4-10.4) fL Immature Gran % (Auto) 0.3 % Neut % (Auto) 72.6 % Lymph % (Auto) 10.2 % Brooks % (Auto) 11.4 % Eos % (Auto) 5.0 % Baso % (Auto) 0.5 % Neut # (Auto) 8.25 H (1.4-6.5) K/uL Lymph # (Auto) 1.16 L (1.2-3.4) K/uL Brooks # (Auto) 1.30 H (0.11-0.59) K/uL Eos # (Auto) 0.57 H (0-0.5) K/uL Baso # (Auto) 0.06 (0-0.2) K/uL Immature Gran # (Auto) 0.03 H (0.00-0.02) K/uL PT 9.8 (9.0-12.0) Seconds INR 0.9 (0.9-1.1) APTT 27.9 (21.0-31.0) Seconds PTT Ratio 1.0 Sodium 134 L (136-145) mmol/L Potassium 4.2 (3.5-5.1) mmol/L Chloride 96 L (98-107) mmol/L Carbon Dioxide 28 (21-32) mmol/L Anion Gap 10 (3-11) BUN 16 (6-23) mg/dl Creatinine 0.87 (0.6-1.2) mg/dl Est Cr Clr Drug Dosing 81.5 ml/min Est GFR ( Amer) 80.5 ml/min Est GFR (Non-Af Amer) 69.4 ml/min BUN/Creatinine Ratio 18.4 (10-20) Glucose 249 H (70-99(Fasting)) mg/dl Calcium 9.6 (8.5-10.1) mg/dl Magnesium 1.7 (1.7-2.4) mg/dl Total Bilirubin 0.4 (0.2-1.0) mg/dl AST 13 (13-39) U/L ALT 12 (7-52) U/L Alkaline Phosphatase 65 (34-104) U/L Troponin I High Sens 4.9 (0-14) pg/ml Total Protein 7.2 (6.0-8.3) gm/dl Albumin 3.9 (3.4-5.0) gm/dl Globulin 3.3 (2.5-4.0) gm/dl Albumin/Globulin Ratio 1.2 (0.9-2) Lipase 28 (11-82) U/L Urine Color Urine Appearance (Clear) Urine pH (4.5-7.5) Ur Specific [place] (1.000-1.030) Urine Protein (Negative) Urine Glucose (UA) (Negative) Urine Ketones (Negative) Urine Blood (Negative) Urine Nitrite (Negative) Urine Bilirubin (Negative) Urine Urobilinogen (Negative) Ur Leukocyte Esterase (Negative) Urine WBC (Auto) (0-5) /hpf Urine RBC (Auto) (0-4) /hpf U Hyaline Cast (Auto) (0-5) /lpf U Epithel Cells (Auto) (0-5) /lpf Urine Bacteria (Auto) (Negative) SARS-CoV-2 (PCR) (Negative) Influenza Type A (PCR) (Neg) Influenza Type B (PCR) (Neg) RSV (RT-PCR) (Neg) 02/10/22 02/10/22 Range/Units 00:50 01:15 WBC (4.8-10.8) K/uL RBC (4.2-5.4) M/uL Hgb (12.0-16.0) g/dL Hct (37-47) % MCV (80-100) fL MCH (25-34) pg MCHC (32-36) g/dL RDW Std Deviation (36.4-46.3) fL RDW Coeff of Radha (11.5-14.5) % Plt Count (130-400) K/uL MPV (7.4-10.4) fL Immature Gran % (Auto) % Neut % (Auto) % Lymph % (Auto) % Brooks % (Auto) % Eos % (Auto) % Baso % (Auto) % Neut # (Auto) (1.4-6.5) K/uL Lymph # (Auto) (1.2-3.4) K/uL Brooks # (Auto) (0.11-0.59) K/uL Eos # (Auto) (0-0.5) K/uL Baso # (Auto) (0-0.2) K/uL Immature Gran # (Auto) (0.00-0.02) K/uL PT (9.0-12.0) Seconds INR (0.9-1.1) APTT (21.0-31.0) Seconds PTT Ratio Sodium (136-145) mmol/L Potassium (3.5-5.1) mmol/L Chloride (98-107) mmol/L Carbon Dioxide (21-32) mmol/L Anion Gap (3-11) BUN (6-23) mg/dl Creatinine (0.6-1.2) mg/dl Est Cr Clr Drug Dosing ml/min Est GFR ( Amer) ml/min Est GFR (Non-Af Amer) ml/min BUN/Creatinine Ratio (10-20) Glucose (70-99(Fasting)) mg/dl Calcium (8.5-10.1) mg/dl Magnesium (1.7-2.4) mg/dl Total Bilirubin (0.2-1.0) mg/dl AST (13-39) U/L ALT (7-52) U/L Alkaline Phosphatase (34-104) U/L Troponin I High Sens (0-14) pg/ml Total Protein (6.0-8.3) gm/dl Albumin (3.4-5.0) gm/dl Globulin (2.5-4.0) gm/dl Albumin/Globulin Ratio (0.9-2) Lipase (11-82) U/L Urine Color Yellow Urine Appearance Cloudy A (Clear) Urine pH 5.0 (4.5-7.5) Ur Specific [place] 1.035 H (1.000-1.030) Urine Protein 2+ H (Negative) Urine Glucose (UA) Negative (Negative) Urine Ketones Trace H (Negative) Urine Blood Negative (Negative) Urine Nitrite Negative (Negative) Urine Bilirubin Negative (Negative) Urine Urobilinogen Negative (Negative) Ur Leukocyte Esterase Trace H (Negative) Urine WBC (Auto) 10-30 H (0-5) /hpf Urine RBC (Auto) 0-4 (0-4) /hpf U Hyaline Cast (Auto) 1-5 (0-5) /lpf U Epithel Cells (Auto) >30 H (0-5) /lpf Urine Bacteria (Auto) Negative (Negative) SARS-CoV-2 (PCR) NEGATIVE (Negative) Influenza Type A (PCR) Negative (Neg) Influenza Type B (PCR) Negative (Neg) RSV (RT-PCR) Negative (Neg) Imaging Data My Impression: CXR, reviewed by myself: Cardiomegaly, pulmonary vascular congestion, no free air under the diaphragm Radiologist's Impression: CT ABDOMEN & PELVIS With Contrast: No evidence of acute intra-abdominal pathology. The gallbladder is decompressed. Moderate to the pancreas. The common bile duct is normal. No evidence of hydronephrosis or urinary calculi. The appendix is normal. There is millimeters fat-containing umbilical hernia. Diverticulosis of the descending and sigmoid colon. Calcified fibroid uterus. Mild to heavy calcified atherosclerotic disease of the aorta and iliac arteries. Advanced disc degeneration at L5-S1. Comparison made to prior CT scan of the abd omen pelvis from2018. Radiologist: Irene Nava MD ECG Data Attestation: I personally reviewed and interpreted this ECG as follows: Indication: + abdominal pain and + SOB/dyspnea Rate (beats per minute): 93 Rhythm: + normal sinus ECG Jones: + Normal ECG ST segments: no ST depression, no ST elevation or no T-wave inversions Comparison ECG Date: from (08/05/2018) Change: no significant change Blood Pressure Blood Pressure Findings: Elevated blood pressure MDM Narrative This 66-year-old female patient presents to the emergency department today for evaluation of sudden onset of epigastric pain, right shoulder pain, and shortness of breath which she associated to be with the pain. The patient had the above work-up. Cardiac work-up generally negative. Lipase 28. CT imaging of the abdomen/pelvis without acute intra-abdominal pathology. Chest x-ray with some mild cardiomegaly, pulmonary vascular congestion, slightly increased from previous. Patient's abdominal pain did improve with medications provided, Pepcid, GI cocktail, morphine, and Zofran. Suspect some reflux given patient's onset of symptoms after eating spaghetti. I discussed case with my attending physician. The patient did have an episode of hypoxia at 66% on room air while ambulating to the bathroom. She does seem to desat with any ambulation and significant movement. The patient will be admitted to the hospitalist service due to the hypoxia. Please see hospitalist dictation regarding ongoing management care of this patient The chart was completed utilizing [employer] Speech voice recognition software. Grammatical errors, random word insertions, pronoun errors, and incomplete sentences are an occasional consequence of this system due to software limitations, ambient noise, and hardware issues. Any formal questions or concerns about the content, text, or information contained within the body of this dictation should be directly addressed to the provider for clarification. Impression & Plan Epigastric abdominal pain, Dyspnea on exertion, Hypoxia Discharge Plan Visit Data Chief Complaint: Shortness of Breath/Dyspnea Stated Complaint: SOB, NAUSEA ED Provider: Cedric Muhammad ED Midlevel Provider: Sury Smith Discharge Problem: Epigastric abdominal pain, Dyspnea on exertion, Hypoxia Patient Disposition: Admitted As Inpatient Forms Stand Alone Forms: My [facility] Prescriptions Prescriptions: No Action (DME) pen needle, diabetic [BD Ultra-Fine Melissa Pen Needle] 32 gauge x 5/32" needle See Dose Instructions .ROUTE .MEDSUPPLY Qty: 500 RF: 1 Novolog Flexpen U-100 Insulin 100 unit/mL (3 mL) insulin pen See Rx Instructions SQ TIDM Qty: 45 RF: 3 metoprolol succinate 50 mg tablet extended release 24 hr 50 mg PO QAM Qty: 90 RF: 3 (DME) OneTouch Verio test strips Strip See Dose Instructions .ROUTE .MEDSUPPLY Qty: 500 RF: 3 desonide 0.05 % cream 1 applic topical DAILY PRN (Reason: skin irritation) Qty: 180 RF: 3 pantoprazole 40 mg tablet,delayed release (DR/EC) 40 mg PO DAILY Qty: 90 RF: 3 simvastatin 20 mg tablet 20 mg PO QPM Qty: 90 RF: 3 metformin 1,000 mg tablet 1,000 mg PO BID Qty: 180 RF: 3 sertraline [Zoloft] 100 mg tablet 100 mg PO HS Qty: 90 RF: 3 hydrochlorothiazide 12.5 mg capsule 12.5 mg PO QAM Qty: 90 RF: 3 Toujeo SoloStar U-300 Insulin 300 unit/mL (1.5 mL) insulin pen 90 unit subcut HS Qty: 27 RF: 3 fluocinolone 0.01 % oil 1 applic topical BID PRN (Reason: itching) Qty: 354.84 RF: 3 nitrofurantoin monohyd/m-cryst [Macrobid] 100 mg capsule 100 mg PO Q12H 7 Days Qty: 14 RF: 0 (DME) Aerochamber MV Spacer See Rx Instructions .ROUTE .MEDSUPPLY Qty: 1 RF: 0 mupirocin 2 % ointment 1 appln TOP BID Qty: 15 RF: 0 (DME) lancets [OneTouch Delica Lancets] 33 gauge misc See Dose Instructions .ROUTE .MEDSUPPLY Qty: 100 RF: 0 (DME) Compact Ultrasonic Nebulizer Misc See Rx Instructions .ROUTE .MEDSUPPLY Qty: 1 RF: 0 aspirin 81 mg tablet,delayed release (DR/EC) 81 mg PO QAM RF: 0 diphenhydramine-acetaminophen [Tylenol PM Extra Strength] 25-500 mg Tablet 1 tab PO HS RF: 0 Referrals Referrals: Lizy Ngo CRNP [Primary Care Provider] -
[2022-02-09] MEDS ORDERED: FAMOTIDINE 20MG IV PUSH 20 MG/5 ML SYR IV STA (23:21)
[2022-02-09] MEDS ORDERED: GI COCKTAIL ED USE PO ONE (23:21)
[2022-02-09 23:24] LABS: Basophils # (auto) 0.06 K/uL (0-0.2); Basophils % (auto) 0.5 %; Eosinophils # (auto) 0.57 K/uL (0-0.5); Hematocrit (blood only) 39.6 % (37-47); Hemoglobin 12.5 g/dL (12.0-16.0); Immature Granulocytes # (auto) 0.03 K/uL (0.00-0.02); Immature Granulocytes % (auto) 0.3 %; Lymphocytes # (auto) 1.16 K/uL (1.2-3.4); Lymphocytes % (auto) 10.2 %; Mean Corpuscular Hemoglobin 25.4 pg (25-34); Mean Corpuscular Hgb Conc 31.6 g/dL (32-36); Mean Corpuscular Volume 80.5 fL (80-100); Monocytes % (auto) 11.4 %; Neutrophils # (auto) 8.25 K/uL (1.4-6.5); Neutrophils % (auto) 72.6 %; Platelet Count 260 K/uL (130-400); RDW Coefficient of Variation 16.6 % (11.5-14.5); RDW Standard Deviation 48.9 fL (36.4-46.3); Red Blood Count 4.92 M/uL (4.2-5.4); White Blood Count 11.37 K/uL (4.8-10.8)
[2022-02-09 23:49] LABS: INR 0.9 (0.9-1.1); Partial Thromboplastin Time 27.9 Seconds (21.0-31.0); Prothrombin Time 9.8 Seconds (9.0-12.0)
[2022-02-09 23:56] LABS: Troponin I High Sensitivity 4.9 pg/ml (0-14)
[2022-02-09 23:57] LABS: Albumin Globulin Ratio 1.2 (0.9-2); Albumin Level 3.9 gm/dl (3.4-5.0); BUN Creatinine Ratio 18.4 (10-20); Bilirubin,Total 0.4 mg/dl (0.2-1.0); Calcium 9.6 mg/dl (8.5-10.1); Creatinine Clr Calc Pharmacy 81.5 ml/min; Est GFR (African American) 80.5 ml/min; Est GFR (Non-African American) 69.4 ml/min; Globulin 3.3 gm/dl (2.5-4.0); Magnesium 1.7 mg/dl (1.7-2.4); Potassium 4.2 mmol/L (3.5-5.1); Total Protein 7.2 gm/dl (6.0-8.3)
[2022-02-10] MEDS ORDERED: OPTIRAY 320 100ml IV ONE (00:41)
[2022-02-10 01:07] LABS: Appearance Urine Cloudy (Clear); Bacteria Urine Automated Negative (Negative); Bilirubin Urine Negative (Negative); Blood Urine Negative (Negative); Color Urine Yellow; Epithelial Cell Urine Auto >30 /lpf (0-5); Glucose Urine UA Negative (Negative); Ketones Urine Trace (Negative); Leukocyte Esterase Urine Trace (Negative); Nitrite Urine Negative (Negative); Protein Urine 2+ (Negative); RBC Urine Automated 0-4 /hpf (0-4); Specific Gravity Urine 1.035 (1.000-1.030); Urobilinogen Urine Negative (Negative)
[2022-02-10] MEDS ORDERED: cefTRIAXone SODIUM 2,000 MG/70 ML BAG IV STA (01:22)
[2022-02-10 02:15] LABS: Influenza A virus by PCR Negative (Neg); Influenza B virus by PCR Negative (Neg); RSV by PCR Negative (Neg); SARS CoV2 RNA(COVID-19) InHosp NEGATIVE (Negative)
[2022-02-10] MEDS ORDERED: GLUCAGON FOR INJ 1 MG VIAL SQ PRN (03:23)
[2022-02-10] MEDS ORDERED: GLUCOSE 40% GEL 15 GM TUBE PO PRN (03:23)
[2022-02-10] MEDS ORDERED: GLUCOSE 10 TABS/TUBE PO PRN (03:23)
[2022-02-10] MEDS ORDERED: CARBOHYDRATES FOR HYPOGLYCEMIA PO PRN (03:23)
[2022-02-10] MEDS ORDERED: DEXTROSE 50% 50 ML SYRINGE IV PRN (03:23)
--- NOTE | 2022-02-10 04:42 | History & Physical Report ---
Date of Service February 10, 2022 Assessment & Plan (1) Chest pain: Plan: Chest and epigastric pain/dyspnea/hypoxia/LV dysfunction noted on echocardiogram/hypertension The patient will be admitted to telemetry for serial cardiac enzymes, serial EKG's, cardiac rhythm monitoring and a 2-D echocardiogram with Dopplers. Continue metoprolol succinate, HCTZ, aspirin. Multiple risk factors for vascular disease: Hypertension, diabetes mellitus, obesity, family history and hyperlipidemia If cardiac work-up is negative, attention should be turned to her esophagus, as she has had dilatation of esophageal stricture by Dr. Oconnell last year (2) Hypoxia: Plan: Hypoxia /obesity hypoventilation syndrome/chronic restrictive lung disease- Nasal cannula oxygen, titrate to keep pulse ox 90-92% May benefit from a trial of inhalers and consideration for sleep study once cardiac work-up is complete (3) Diabetes mellitus: Plan: Diabetes mellitus- In hospital reduce glargine from 90 to 60 units subcu at bedtime Placed on NovoLog coverage scale Check hemoglobin A1c (4) S/P balloon dilatation of esophageal stricture: Plan: Did undergo dilatation by Dr. Oconnell last year, with a recurrence that may have caused her symptoms that she had this evening (5) Hyperlipidemia: Plan: Continue simvastatin Check a fasting lipid panel (6) PAD (peripheral artery disease): (7) Depression: Plan: Continue sertraline (8) Chronic restrictive lung disease: (9) Hypertension: Plan: Continue metoprolol succinate, HCTZ and aspirin (10) Ventricular diastolic dysfunction determined by echocardiography: Plan: See above History of Present Illness Chief Complaint: The patient presents to the emergency department with complaint of epigastric abdominal discomfort, right shoulder pain and shortness of breath that she felt that she was laying down trying to sleep this evening. Primary Care Provider: NAZ Ayala The patient is a 66-year-old female with a past medical history including esophageal stricture status postdilatation, hypertension, hyperlipidemia, dep ression, lumbosacral degenerative disc disease, chronic restrictive lung disease, PAD, vitamin D deficiency, JACQUIE and obesity. The patient reports that she had spaghetti for dinner late last evening, and hours later while attempting to sleep developed the above symptoms. She became more concerned when she developed sweats, that that did not seem to be improving, called her , who brought her to the ED for assessment. Allergies Allergy/AdvReac Type Severity Reaction Status Date / Time amoxicillin [From Augmentin] AdvReac Intermediate nausea Verified 02/09/22 23:54 clavulanic acid AdvReac Intermediate nausea Verified 02/09/22 23:54 [From Augmentin] codeine AdvReac Intermediate Gastrointestinal Verified 02/09/22 23:54 Upset Home Medications Medication Instructions Recorded Confirmed Type aspirin 81 mg tablet,delayed 81 mg PO QAM tab 03/21/19 02/09/22 History release lancets 33 gauge (OneTouch Delica #100 ea 03/21/19 10/25/21 History Lancets) mupirocin 2 % topical ointment 1 appln TOP BID #15 gm 09/02/19 02/09/22 Rx inhalational spacing device #1 ea 09/28/19 10/25/21 Rx (Aerochamber MV) nebulizers (Compact Ultrasonic #1 ea 01/12/20 10/25/21 Rx Nebulizer) diphenhydramine 25 1 tab PO HS 05/06/21 02/09/22 History mg-acetaminophen 500 mg tablet (Tylenol PM Extra Strength) pen needle, diabetic 32 gauge x #500 ea 07/25/21 10/25/21 Rx 5/32" (BD Ultra-Fine Melissa Pen Needle) Novolog Flexpen U-100 Insulin 100 See Rx Instructions SQ TIDM #45 ml 09/23/21 02/09/22 Rx unit/mL (3 mL) subcutaneous NS (insulin aspart U-100) blood sugar diagnostic [facility]a 12/02/21 Rx Verio test strips) desonide 0.05 % topical cream 1 applic TOPICAL DAILY PRN #180 g 12/02/21 02/09/22 Rx hydrochlorothiazide 12.5 mg capsule 12.5 mg PO QAM #90 cap 12/02/21 02/09/22 Rx metformin 1,000 mg tablet 1,000 mg PO BID #180 tab 12/02/21 02/09/22 Rx metoprolol succinate 50 mg 50 mg PO QAM #90 tab 12/02/21 02/09/22 Rx tablet,extended release 24 hr pantoprazole 40 mg tablet,delayed 40 mg PO DAILY #90 tab 12/02/21 02/09/22 Rx release sertraline 100 mg tablet (Zoloft) 100 mg PO HS #90 tab 12/02/21 02/09/22 Rx simvastatin 20 mg tablet 20 mg PO QPM #90 tab 12/02/21 02/09/22 Rx fluocinolone 0.01 % topical body 1 applic TOPICAL BID PRN #354.84 ml 12/09/21 02/09/22 Rx oil insulin glargine U-300 conc 300 90 unit SUBCUT HS #27 ml 12/09/21 02/09/22 Rx unit/mL (1.5 mL) subcutaneous pen (Toujeo SoloStar U-300 Insulin) nitrofurantoin 100 mg PO Q12H 7 Days #14 cap 02/06/22 02/09/22 Rx monohydrate/macrocrystals 100 mg capsule (Macrobid) Past Med/Surg History Medical History (Updated 02/10/22 @ 04:35 by Pb Patrick MD) Anxiety Belching Bladder wall thickening Bloating COPD (chronic obstructive pulmonary disease) no inh DM type 2 (diabetes mellitus, type 2) Epigastric pain History of pancreatitis unk etiology HLD (hyperlipidemia) HTN (hypertension) Morbid obesity Osteoarthritis PAD (peripheral artery disease) PONV (postoperative nausea and vomiting) Sleep apnea unable to tolerate CPAP SOB (shortness of breath) on exertion recent echo with S pulm --> per pt, S pulm recommending stress test (pt unsure of echo results) -- stress test not yet scheduled. Surgical History (Updated 02/10/22 @ 04:35 by Pb Patrick MD) H/O colonoscopy History of cardiac cath approx 10 years ago - [place] - no stents History of tonsillectomy and adenoidectomy History of tooth extraction History of tubal ligation History of wisdom tooth extraction S/P balloon dilatation of esophageal stricture Family History Unknown No problems noted. Mother Diabetes Kidney stone Hypertension Grandfather No problems noted. Aunt Breast cancer Grandfather (Maternal) Diabetes Other Family history non-contributory No family history of abnormal heart rhythm Denies family history of Ovarian cancer Prostate cancer Colorectal cancer Social History Smoking Status: Former smoker Tobacco Type: Cigarettes Cigarettes Per Day: 50-60; Second Hand Exposure: No; Hx Alcohol Use: Yes Hx Substance Use: No Preferred Language: Bots[place] Communication Ability: Effective Oracle Sql Developer Required: No Beliefs That Will Affect Care: Gnosticism Gnosticism Beliefs: Baptism Current Living Situation: Spouse Feels Safe at Home: Yes caffeine: Yes (coffee) Dental Care, Regularly: No Physical Activity Frequency: Does not Exercise Seatbelt Use: sometimes Sunscreen Use: No Assistive Devices: Denture - Upper, Denture - Lower and Glasses Review of Systems Review of Systems: The patient denies palpitations, lower extremity swelling, sore throat, fevers, chills, sweats, nausea, vomiting, diarrhea , constipation, pelvic pain, blood in urine or stool, dysuria, urinary frequency or urgency, lightheadedness, dizziness, headache, memory loss, loss of consciousness, rash, abnormal bruising or bleeding, imbalance, focal or generalized weakness, numbness or tingling in arms or legs, generalized arthralgias or myalgias, back or neck pain, or night sweats. The review of systems is otherwise negative other than for that already noted above, and at least 10 systems have been reviewed. Physical Exam Physical Exam: The patient is awake, alert and oriented 3, well developed and well nourished, normocephalic and atraumatic, lying in bed and in no acute distress. HEENT--PERRL, EOMI, mucous membranes and oropharynx normal. Neck--supple. No JVD. No bruits. Thyroid normal, trachea midline, no adenopathy. Heart--normal S1 and S2. No murmurs, rubs or gallops. Lungs--clear bilaterally, no respiratory distress, no accessory muscle use. Abdomen--normal bowel sounds and soft. Nontender. Nondistended. Obese Extremities--no cyanosis or clubbing. No edema. Dermatologic--normal skin turgor, normal color, no abnormal lymph nodes, no rash. Neurologic--cranial nerves II through XII grossly intact. Rheumatologic--normal range of motion. Psychiatric--normal affect. Results & Data Results & Data ([facility]) Vital Signs (Past 12 Hours) Vital Signs Temp Pulse Resp BP Pulse Ox 02/10/22 03:00 87 20 160/82 H 93 02/10/22 02:30 90 28 H 160/88 H 94 02/10/22 02:00 91 H 29 H 160/77 H 95 02/10/22 01:30 92 H 19 187/102 H 96 02/10/22 01:00 92 H 20 182/91 H 96 02/10/22 00:49 103 H 23 219/85 H 86 L 02/10/22 00:47 113 H 22 02/10/22 00:45 66 L 02/10/22 00:06 88 L 02/10/22 00:00 87 19 188/113 H 96 02/09/22 23:30 89 18 176/91 H 95 02/09/22 23:23 90 20 93 02/09/22 23:07 92 02/09/22 22:59 36.1 C L 94 H 19 217/108 H 92 Laboratory Results Laboratory Results WBC 11.37 K/uL (4.8-10.8) H 02/09/22 23:12 RBC 4.92 M/uL (4.2-5.4) 02/09/22 23:12 Hgb 12.5 g/dL (12.0-16.0) 02/09/22 23:12 Hct 39.6 % (37-47) 02/09/22 23:12 MCV 80.5 fL (80-100) 02/09/22 23:12 MCH 25.4 pg (25-34) 02/09/22 23:12 MCHC 31.6 g/dL (32-36) L 02/09/22 23:12 RDW Std Deviation 48.9 fL (36.4-46.3) H 02/09/22 23:12 RDW Coeff of Radha 16.6 % (11.5-14.5) H 02/09/22 23:12 Plt Count 260 K/uL (130-400) 02/09/22 23:12 MPV 10.0 fL (7.4-10.4) 02/09/22 23:12 Immature Gran % (Auto) 0.3 % 02/09/22 23:12 Neut % (Auto) 72.6 % 02/09/22 23:12 Lymph % (Auto) 10.2 % 02/09/22 23:12 [place] % (Auto) 11.4 % 02/09/22 23:12 Eos % (Auto) 5.0 % 02/09/22 23:12 Baso % (Auto) 0.5 % 02/09/22 23:12 Neut # (Auto) 8.25 K/uL (1.4-6.5) H 02/09/22 23:12 Lymph # (Auto) 1.16 K/uL (1.2-3.4) L 02/09/22 23:12 [place] # (Auto) 1.30 K/uL (0.11-0.59) H 02/09/22 23:12 Eos # (Auto) 0.57 K/uL (0-0.5) H 02/09/22 23:12 Baso # (Auto) 0.06 K/uL (0-0.2) 02/09/22 23:12 Immature Gran # (Auto) 0.03 K/uL (0.00-0.02) H 02/09/22 23:12 PT 9.8 Seconds (9.0-12.0) 02/09/22 23:12 INR 0.9 (0.9-1.1) 02/09/22 23:12 APTT 27.9 Seconds (21.0-31.0) 02/09/22 23:12 PTT Ratio 1.0 02/09/22 23:12 Sodium 134 mmol/L (136-145) L 02/09/22 23:12 Potassium 4.2 mmol/L (3.5-5.1) 02/09/22 23:12 Chloride 96 mmol/L (98-107) L 02/09/22 23:12 Carbon Dioxide 28 mmol/L (21-32) 02/09/22 23:12 Anion Gap 10 (3-11) 02/09/22 23:12 BUN 16 mg/dl (6-23) 02/09/22 23:12 Creatinine 0.87 mg/dl (0.6-1.2) 02/09/22 23:12 Est Cr Clr Drug Dosing 81.5 ml/min 02/09/22 23:12 Est GFR ( Amer) 80.5 ml/min 02/09/22 23:12 Est GFR (Non-Af Amer) 69.4 ml/min 02/09/22 23:12 BUN/Creatinine Ratio 18.4 (10-20) 02/09/22 23:12 Glucose 249 mg/dl (70-99(Fasting)) H 02/09/22 23:12 Calcium 9.6 mg/dl (8.5-10.1) 02/09/22 23:12 Magnesium 1.7 mg/dl (1.7-2.4) 02/09/22 23:12 Total Bilirubin 0.4 mg/dl (0.2-1.0) 02/09/22 23:12 AST 13 U/L (13-39) 02/09/22 23:12 ALT 12 U/L (7-52) 02/09/22 23:12 Alkaline Phosphatase 65 U/L (34-104) 02/09/22 23:12 Troponin I High Sens 4.9 pg/ml (0-14) 02/09/22 23:12 Total Protein 7.2 gm/dl (6.0-8.3) 02/09/22 23:12 Albumin 3.9 gm/dl (3.4-5.0) 02/09/22 23:12 Globulin 3.3 gm/dl (2.5-4.0) 02/09/22 23:12 Albumin/Globulin Ratio 1.2 (0.9-2) 02/09/22 23:12 Lipase 28 U/L (11-82) 02/09/22 23:12 Urine Color Yellow 02/10/22 00:50 Urine Appearance Cloudy (Clear) A 02/10/22 00:50 Urine pH 5.0 (4.5-7.5) 02/10/22 00:50 Ur Specific [place] 1.035 (1.000-1.030) H 02/10/22 00:50 Urine Protein 2+ (Negative) H 02/10/22 00:50 Urine Glucose (UA) Negative (Negative) 02/10/22 00:50 Urine Ketones Trace (Negative) H 02/10/22 00:50 Urine Blood Negative (Negative) 02/10/22 00:50 Urine Nitrite Negative (Negative) 02/10/22 00:50 Urine Bilirubin Negative (Negative) 02/10/22 00:50 Urine Urobilinogen Negative (Negative) 02/10/22 00:50 Ur Leukocyte Esterase Trace (Negative) H 02/10/22 00:50 Urine WBC (Auto) 10-30 /hpf (0-5) H 02/10/22 00:50 Urine RBC (Auto) 0-4 /hpf (0-4) 02/10/22 00:50 U Hyaline Cast (Auto) 1-5 /lpf (0-5) 02/10/22 00:50 U Epithel Cells (Auto) >30 /lpf (0-5) H 02/10/22 00:50 Urine Bacteria (Auto) Negative (Negative) 02/10/22 00:50 SARS-CoV-2 (PCR) NEGATIVE (Negative) 02/10/22 01:15 Influenza Type A (PCR) Negative (Neg) 02/10/22 01:15 Influenza Type B (PCR) Negative (Neg) 02/10/22 01:15 RSV (RT-PCR) Negative (Neg) 02/10/22 01:15 Code Status & VTE Plan Code Status Full code VTE Prophylaxis Plan VTE Prophylaxis will be ordered: Yes PG Care Time/CCT Total # of Minutes Spent Total Time Spent with Patient: Total time spent is greater than 50% in coordination of care (as documented) at patient's floor/unit and/or counseling patient: Coding Level of Care Code 76975 Initial Inpt Care Lvl 3 Diagnoses Hypoxia R09.02 Diabetes mellitus E11.9 Depression F32.9 Hyperlipidemia E78.5 PAD (peripheral artery disease) I73.9 Chest pain R07.9 Chronic restrictive lung disease J98.4 S/P balloon dilatation of esophageal stricture Z98.890 Hypertension I10 Ventricular diastolic dysfunction determined by echocardiography I51.9
[2022-02-10] MEDS ORDERED: NITROGLYCERIN SL 0.4 MG/TAB TAB SL PRN (05:31)
[2022-02-10] MEDS ORDERED: ACETAMINOPHEN 325 MG TAB PO PRN (05:31)
[2022-02-10] MEDS ORDERED: ONDANSETRON INJ 2 MG/ML 2 ML VIAL IV PRN (05:31)
--- NOTE | 2022-02-10 06:49 | XRay Report ---
XR chest 1V portable HISTORY: 66 years-old Female Dyspnea acute shortness of breath COMPARISON: CT abdomen and pelvis of same day, chest radiograph 02/21/2020 TECHNIQUE: Portable AP view of the chest FINDINGS: The cardiac silhouette is enlarged. Atherosclerosis of the thoracic aorta. No pneumothorax, pleural e ffusion, airspace consolidation or overt pulmonary edema. There is unchanged interstitial coarsening of the lung bases with suggested pulmonary vascular congestion. Degenerative changes of the shoulders and spine. Right shoulder rotator cuff calcific tendinosis. Gaseous distention of the stomach. IMPRESSION: Cardiomegaly with pulmonary vascular congestion. ACT 112: Negative or not required by law. The above report was generated using voice recognition software. It may contain grammatical, syntax o r spelling errors. Electronically signed by: Carlos King M.D. 02/10/2022 6:48 AM
--- NOTE | 2022-02-10 07:30 | CT Scan Report ---
CT OF THE ABDOMEN AND PELVIS WITH CONTRAST CLINICAL HISTORY: Epigastric pain. COMPARISON STUDY: Pelvic ultrasound August 28, 2020. CT of the abdomen and pelvis September 27, 2018 . TECHNIQUE: Following IV administration of 93 mL of Optiray, axial images of the abdomen and pelvis we re obtained from the lung bases to the proximal femurs. Images were reviewed in the axial, sagittal, and coronal planes. IV contrast was administered without complication. Automated exposure control wa s utilized for the study. A dose lowering technique was utilized adhering to the principles of ALARA . CT DOSE: 1601.92 mGy.cm FINDINGS: A 6 mm solid noncalcified right lower lobe nodule on axial image 32 of 481 is new since [facility] CT of October 06, 2019. This mild interlobular septal thickening within the lower lungs. Mild car diomegaly is noted. No pneumatosis, free air or portal venous gas is present. Mild splenomegaly is un changed. There is probable hepatic steatosis. No hepatic lesions are present. There is no biliary or pancreatic ductal dilatation. Adrenal glands, kidneys and pancreas are unremarkable. There is no sushil pancreatic or pericholecystic infiltration. Colonic diverticulosis is noted without evidence for acut e diverticulitis. There is no evidence for a bowel obstruction. The appendix is normal. Multiple susp ected fibroids are similar to prior CT. Moderately enlarged right inguinal lymph nodes have increased in size since prior exam. Index right inguinal node measures 1.9 cm in short axis diameter. It previ ously measured 1.4 cm. Left inguinal lymph nodes are within normal limits. IMPRESSION: 1. No acute process within the abdomen or pelvis. 2. Moderately enlarged right inguinal lymph nodes which have increased in size since prior exam. Thes e are pathologically indeterminate. This finding will be called/faxed to ordering provider at time of dictation. 3. New 6 mm right lower lobe pulmonary nodule. Nonemergent chest CT is recommended for further evalua tion of the lungs. 4. Colonic diverticulosis without evidence for acute diverticulitis. No bowel obstruction. No bowel w all thickening. ACT 112: Positive. There are findings on this exam that require communication between the performing entity and the patient following Patient Test Result Information Act ([place] Act 112) guidelines. Electronically signed by: Rolando Paz M.D. 02/10/2022 7:28 AM
[2022-02-10 07:43] LABS: Estimated Average Glucose 183 mg/dl
[2022-02-10] MEDS: ASPIRIN 81 MG ECTAB PO SCH (08:00)
[2022-02-10] MEDS: METOPROLOL SUCC 50MG EXT REL TAB PO SCH (08:00)
[2022-02-10] MEDS: PANTOprazole 40 MG TAB PO SCH (08:00)
[2022-02-10] MEDS: hydroCHLOROthiazide 25 MG TAB PO SCH (08:01)
[2022-02-10] MEDS: MUPIROCIN 2% OINT 22 GM TUBE TOP SCH ×2 (08:03→20:50)
[2022-02-10] MEDS: INSULIN ASPART PER UNIT SC SCH ×4 (08:09→20:53)
--- NOTE | 2022-02-10 08:31 | Electrocardiogram Report ---
Test Reason : Blood Pressure : / mmHG Vent. Rate : 093 BPM Atrial Rate : 093 BPM P-R Int : 134 ms QRS Dur : 078 ms QT Int : 352 ms P-R-T Axes : 043 007 042 degrees QTc Int : 437 ms Normal sinus rhythm Normal ECG When compared with ECG of 05-AUG-2018 15:08, No significant change was found Confirmed by Steve Maddox ([id number]) on 02/10/2022 8:31:19 AM Referred By: REFERRED SELF Confirmed By:Steve Maddox
[2022-02-10] MEDS ORDERED: ASPIRIN 81 MG ECTAB PO SCH (09:00)
[2022-02-10] MEDS ORDERED: metFORMIN HCL 500 MG TAB PO SCH (09:00)
--- NOTE | 2022-02-10 09:42 | CT Scan Report ---
CT OF THE CHEST WITHOUT IV CONTRAST CLINICAL HISTORY: lung nodule follow up COMPARISON STUDY: Chest CT December 09, 2018. Chest CT October 14, 2019, Chest radiograph February [address] DOSE: 939.60 mGy.cm TECHNIQUE: Axial images of the chest were obtained without IV contrast. Images were reviewed in the axial, sagittal, and coronal planes. IV contrast was not administered for this examination. Automat ed exposure control was utilized for the study. A dose lowering technique was utilized adhering to t he principles of ALARA. FINDINGS: Mild cardiomegaly is noted. There is no pericardial effusion. Mildly enlarged mediastinal lymph nodes have increased in size since prior chest CT of October 14, 2019. Index right paratrachea l lymph node on image 106 of 291 measures 1.1 cm in short axis diameter. Index subcarinal lymph node measures 1.1 cm. Prominent right axillary lymph node measures 0.9 cm in short axis diameter. There is no pneumothorax or pleural effusion. Hypodense left lobe thyroid nodule similar to prior CT. A 6 mm solid noncalcified right lower lobe pulmonary nodule on axial image 198 of [address] of Sep ru2019. A 5 mm left lower lobe nodule on image 165 has slightly increased in size. An adjacen t smaller nodule has also slightly increased in size. Additional smaller nodules are unchanged. Inter lobular septal thickening is noted with mild groundglass opacities. There is mild upper lobe prior do minant paraseptal emphysema. No consolidation to suggest pneumonia. No acute fracture or suspicious l esion within the visualized bony thorax. IMPRESSION: 1. 6 mm solid noncalcified right lower lobe pulmonary nodule which is new since CT of October 14 20. This is pathologically indeterminate and can be followed according to the attached recommendation s. 2. Slight increase in size of several adjacent left lower lobe pulmonary nodules which measure up to 5 mm. These can be assessed on follow-up CT. 3. Mildly enlarged mediastinal lymph nodes and prominent right axillary lymph node, as described abov e. This adenopathy is nonspecific and can be assessed on follow-up CT. A lymphoproliferative process cannot be excluded. 4. Findings suggestive of mild interstitial pulmonary edema. 5. Cardiomegaly. Please refer to below summary of Fleischner criteria recommendations for follow-up of incidental CT n cathie Edwards, Guidelines for management of small pulmonary nodules detected on CT scans: A star younger from the Fleischner Society, Radiology 237: 168-510 1992.) SOLID NODULES Solitary nodule size: <6 mm * low risk patients: no follow-up needed * high risk patients: optional CT at 12 months Solitary nodule size: 6-8 mm * low risk patients: follow-up at 6-12 months, then consider further follow-up at 18-24 months * high risk patients: initial follow-up CT at 6-12 months and then at 18-24 months if no change Solitary nodule size: >8 mm * either low or high risk patients - consider follow-up CT at 3 months, and/or CT-PET, and/or biopsy Multiple nodules size: <6 mm * low risk patients: no routine follow-up * high risk patients: optional CT at 12 months Multiple nodules size: 6-8 mm * low risk patients: follow-up at 3-6 months, then consider further follow-up at 18-24 months * high risk patients: follow-up at 3-6 months, then at 18-24 months if no change Multiple nodules size: >8 mm * low risk patients: follow-up at 3-6 months, then consider further follow-up at 18-24 months * high risk patients: follow-up at 3-6 months, then at 18-24 months if no change Note: newly detected indeterminate nodule in persons 35 years of age or older. * low risk patients: minimal or absent history of smoking and/or other known risk factors * high risk patients: history of smoking or of other known risk factors (e.g. first degree relative with lung cancer, or exposure to asbestos, radon, uranium) * if a nodule up to 8 mm is partly solid or is ground glass further follow-up is required after 24 m onths to exclude possible slow growing adenocarcinoma ([place]) ACT 112: Positive. There are findings on this exam that require communication between the performing entity and the patient following Patient Test Result Information Act ([place] Act 112) guidelines. Electronically signed by: Rolando Paz M.D. 02/10/2022 9:39 AM
--- NOTE | 2022-02-10 10:01 | XCELERA ---
[id number]
--- NOTE | 2022-02-10 18:13 | Hospitalist Progress Note ---
Date of Service February 10, 2022 Assessment & Plan (1) Chest pain: Plan: Cardiac chest pain, suspect epigastric EKG without acute ST segment changes on admission A1c 8.0, suboptimal control discussed with patient. Postprandial hyperglycemia, SSI tightened. High-sensitivity troponin 4.9, 4.6 on recheck Very low suspicion for ACS. On morning assessment no clinical signs of ACS Symptoms have resolved at time of bedside assessment, patient is tolerating p.o. without pain/difficulty swallowing We will continue to follow overnight, if remaining stable outpatient referral to GI for follow-up and repeat endoscopy as outpatient. Did have stricture dilation by Dr. Oconnell within the last year Echo with EF 55-60%, LV normal in structure and function. No regional wall motion abnormalities appreciated. 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 Metformin held on admit. Hypoxia No wheezing on exam, trace basilar crackles ?Obesity hypoventilation syndrome vs mild pulm edema Recommend outpatient sleep study and PFTs when at baseline CT with mild interstitial pulmonary edema, trialed Lasix p.o. dose x1 No overt heart failure, EF normal Pulmonary nodules, inguinal lymphadenopathy CT chest shows 6 mm noncalcified right lower lobe pulmonary nodule new, slight increase in adjacent left lobe pulmonary nodules up to 5 mm. Prominent right axillary lymph node and mildly enlarged mediastinal lymph node. Recommended for repeat CT in 3 months Inguinal lymphadenopathy previously stable for multiple years with increase of 0.4 cm.? Reactive. Does have history of intermittent overlying right inguinal psoriasis. Did discuss briefly with onc, recommend interval CT follow-up at 3 months, could consider excisional biopsy if superficial not easily palpated on exam. Patient okay with 3-month surveillance at this time. Stable fibroids similar to prior CT. No sign of [employer] OFFICER malignancy on CT abdomen. (2) Hypoxia: Plan: As noted (3) Diabetes mellitus: Plan: As noted (4) S/P balloon dilatation of esophageal stricture: Plan: Did undergo dilatation by Dr. Oconnell last year, with a recurrence that may have caused her symptoms that she had this evening (5) Hyperlipidemia: Plan: Continue simvastatin (6) PAD (peripheral artery disease): (7) Depression: Plan: Continue sertraline (8) Chronic restrictive lung disease: (9) Hypertension: Plan: Continue metoprolol succinate, HCTZ and aspirin (10) Ventricular diastolic dysfunction determined by echocardiography: Plan: See above Admission and Anticipated Discharge Date Admission Date: February 10, 2022 Jose Ortiz is seen at the bedside this morning and on afternoon reassessment. She reports that her symptoms have resolved, she has not had recurrent chest pain, chest pressure, shoulder pain, shortness of breath, difficulty breathing. She does endorse that she has a psoriasis flare intermittently which sometimes develops plaques at her right inguinal fold. Otherwise she reports she feels okay. No cough. Review of Systems Review of Systems: All systems reviewed & are unremarkable except as noted in Subjective Physical Exam Physical Exam: General: A&Ox3. NAD. Cooperative. HEENT: Atraumatic, normocephalic. Vision and hearing grossly intact Pulm: Trace basilar crackles which clear on deep breathing, otherwise clear with good air movement Symmetrical chest rise. No increase in work of breathing. No respiratory distress. Cardiac: RRR, -mrg. Radial pulses intact and symmetrical. Abdominal: Nontender, nondistended, soft. BS present. Inguinal adenopathy appreciated on CT not able to be appreciated on physical exam. No focal mass or tenderness. Overlying rash with light scale is present. No erythema/purulence/discharge. Lower extremities are intact, sensation intact in hands and feet to soft touch. No ulcerations. Left leg with keratotic growth, patient reports she follows with dermatology for this and has been noted to be benign Results & Data Results & Data ([facility]) Vital Signs (Past 12 Hours) Vital Signs Temp Pulse Pulse Resp BP Pulse Ox 02/10/22 16:00 69 02/10/22 15:09 36.4 C L 76 18 136/84 95 02/10/22 11:08 37.0 C 76 18 160/82 H 97 02/10/22 08:00 80 96 02/10/22 07:58 36.3 C L 64 21 160/74 H 94 PG Care Time/CCT Total # of Minutes Spent Total Time Spent with Patient: Total time spent is greater than 50% in coordination of care (as documented) at patient's floor/unit and/or counseling patient: Coding Level of Care Code 07086 Subseq Hosp Care Lvl 2 Diagnoses Chest pain R07.9 Hypoxia R09.02 Diabetes mellitus E11.9 S/P balloon dilatation of esophageal stricture Z98.890 Hyperlipidemia E78.5 PAD (peripheral artery disease) I73.9 Depression F32.9 Chronic restrictive lung disease J98.4 Hypertension I10 Ventricular diastolic dysfunction determined by echocardiography I51.9
[2022-02-10] MEDS ORDERED: INSULIN GLARGINE SOLOSTAR 100 UNITS/ML 3 ML PEN SC SCH ×2 (21:00)
[2022-02-10] MEDS ORDERED: diphenhydrAMINE Capsule 25 MG CAP PO SCH (21:00)
[2022-02-10] MEDS ORDERED: ACETAMINOPHEN 500 MG TAB PO SCH (21:00)
[2022-02-10] MEDS ORDERED: SIMVASTATIN 20 MG TAB PO SCH (21:00)
[2022-02-10] MEDS ORDERED: SERTRALINE HCL 100 MG TABLET PO SCH (21:00)
[2022-02-11 07:07] LABS: Basophils # (auto) 0.04 K/uL (0-0.2); Basophils % (auto) 0.4 %; Eosinophils # (auto) 0.42 K/uL (0-0.5); Eosinophils % (auto) 4.2 %; Hemoglobin 11.8 g/dL (12.0-16.0); Immature Granulocytes # (auto) 0.04 K/uL (0.00-0.02); Immature Granulocytes % (auto) 0.4 %; Lymphocytes # (auto) 0.87 K/uL (1.2-3.4); Lymphocytes % (auto) 8.6 %; Mean Corpuscular Hemoglobin 24.1 pg (25-34); Mean Corpuscular Hgb Conc 30.3 g/dL (32-36); Mean Corpuscular Volume 79.6 fL (80-100); Monocytes # (auto) 0.92 K/uL (0.11-0.59); Monocytes % (auto) 9.1 %; Neutrophils # (auto) 7.77 K/uL (1.4-6.5); Neutrophils % (auto) 77.3 %; Platelet Count 247 K/uL (130-400); RDW Coefficient of Variation 16.7 % (11.5-14.5); RDW Standard Deviation 48.1 fL (36.4-46.3); White Blood Count 10.06 K/uL (4.8-10.8)
[2022-02-11 07:18] LABS: Albumin Level 3.8 gm/dl (3.4-5.0); BUN Creatinine Ratio 22.5 (10-20); Calcium 9.1 mg/dl (8.5-10.1); Creatinine Clr Calc Pharmacy 88.4 ml/min; Est GFR (Non-African American) 76.8 ml/min; Phosphorus 3.8 mg/dl (2.5-4.9); Potassium 4.2 mmol/L (3.5-5.1)
--- NOTE | 2022-02-11 08:09 | Electrocardiogram Report ---
Test Reason : Blood Pressure : / mmHG Vent. Rate : 083 BPM Atrial Rate : 083 BPM P-R Int : 146 ms QRS Dur : 078 ms QT Int : 376 ms P-R-T Axes : 058 020 039 degrees QTc Int : 441 ms Normal sinus rhythm Normal ECG When compared with ECG of 09-FEB-2022 23:07, No significant change was found Confirmed by Steve Maddox ([id number]) on 02/11/2022 8:09:45 AM Referred By: REFERRED SELF Confirmed By:Steve Maddox
[2022-02-11] MEDS: PANTOprazole 40 MG TAB PO SCH (08:11)
[2022-02-11] MEDS: ASPIRIN 81 MG ECTAB PO SCH (08:12)
[2022-02-11] MEDS: MUPIROCIN 2% OINT 22 GM TUBE TOP SCH (08:12)
[2022-02-11] MEDS: METOPROLOL SUCC 50MG EXT REL TAB PO SCH (08:12)
[2022-02-11] MEDS: hydroCHLOROthiazide 25 MG TAB PO SCH (08:12)
[2022-02-11] MEDS: INSULIN ASPART PER UNIT SC SCH ×2 (08:13→12:08)
[2022-02-11 08:40] LABS: Ferritin 26.8 ng/ml (8-388)
[2022-02-11] MEDS ORDERED: FUROSEMIDE 20 MG TAB PO SCH (09:00)
[2022-02-11] MEDS ORDERED: IRON SUCROSE 300 MG in SODIUM CHLORIDE 0.9% 250 ML IV ONE (10:30)
--- NOTE | 2022-02-11 11:55 | Discharge Summary ---
Date of Service February 11, 2022 Admission HPI Per Admitting Provider The patient is a 66-year-old female with a past medical history including esophageal stricture status postdilatation, hypertension, hyperlipidemia, depression, lumbosacral degenerative disc disease, chronic restrictive lung disease, PAD, vitamin D deficiency, JACQUIE and obesity. The patient reports that she had spaghetti for dinner late last evening, and hours later while attempting to sleep developed the above symptoms. She became more concerned when she developed sweats, that that did not seem to be improving, called her , who brought her to the ED for assessment. Principal Diagnosis Noncardiac chest pain Discharge Exam General: A&Ox3. NAD. Cooperative. HEENT: Atraumatic, normocephalic. Vision and hearing grossly intact Pulm: CTAB with good air movement Symmetrical chest rise. No increase in work of breathing. No respiratory distress. Cardiac: RRR, -mrg. Radial pulses intact and symmetrical. Abdominal: Trace epigastric tenderness, nondistended, soft. BS present. Discharge Data Allergies Allergy/AdvReac Type Severity Reaction Status Date / Time amoxicillin [From Augmentin] AdvReac Intermediate nausea Verified 02/09/22 23:54 clavulanic acid AdvReac Intermediate nausea Verified 02/09/22 23:54 [From Augmentin] codeine AdvReac Intermediate Gastrointestinal Verified 02/09/22 23:54 Upset Consultations 02/10/22 02:35 ED Decision to Admit Stat Ordered Studies 02/09/22 23:12 CT abd pelvis IV con only Urgent 02/10/22 07:46 CT chest diagnostic wo con Routine Hospital Course (1) Chest pain: Diana is a six 6-year-[age] female who presented with chest pain and for cardiac rule out. EKG did not show any acute ST segment abnormalities, high- sensitivity troponin was normal, and she did not show any further clinical signs of ACS. Her chest pain did improve although she had intermittent epigastric discomfort but was tolerating meals well without pain/nausea/vomiting at time of discharge. Echo showed normal LV structure and function and EF of 55-60%. Iron studies showed iron deficiency with a xf Saturation of 11%. She received 1 dose of Venofer, was discharged to continue oral iron supplementation every other day. Her imaging evaluation did show an inguinal lymph node increased in size, and pulmonary nodules as noted below. Colon cancer screening required. To do as outpatient: 1. Follow-up with PCP. Repeat CBC, continue iron supplementations, repeat iron studies in 3 to 6 months as outpatient 2. Follow-up with GI, consider outpatient EGD. Patient symptoms improved, has had stricture dilation last year. 3. Continue ferrous sulfate 325 mg every other day 4. Repeat CT of both the chest and inguinal region for surveillance in 3 months. Discussed briefly with oncology, given her history and overlying psoriasis would perform the CT of the inguinal region at 3 months rather than 1 month. If remains enlarged or concerns for pathologic change, would pursue excisional biopsy at that time. Colonoscopy as below 5. No acute bleeding, patient with iron deficiency anemia. No history of colorectal cancer. Colon diverticulosis appreciated without diverticulitis on imaging. 6. Close interval followup for outpatient colonoscopy/colon cancer screening. Iron deficiency, Needs colon cancer screening evidence of chronic iron deficiency without active bleeding Hemoglobin stable during admission, no signs of active bleeding. hgb 12.5 at admit Venofer given, oral iron repletion ordered Given iron deficiency anemia and lymph node as noted above recommend patient have close follow-up outpatient colonoscopy Cardiac chest pain, suspect noncardiac EKG without acute ST segment changes on admission A1c 8.0, suboptimal control discussed with patient. Postprandial hyperglycemia, SSI tightened. High-sensitivity troponin 4.9, 4.6 on recheck Very low suspicion for ACS. On morning assessment no clinical signs of ACS Symptoms have resolved at time of bedside assessment, patient is tolerating p.o. without pain/difficulty swallowing Echo with EF 55-60%, LV normal in structure and function. No regional wall motion abnormalities appreciated. Hypertension Continue hydrochlorothiazide Continue metoprolol succinate Continue aspirin Normotensive on assessment today Type 2 diabetes mellitus A1c 8.0% Insulin dose reduced on admission for hospital diet, with hyperglycemia and high 100s, SSI narrowed to 25/10 STUNTMAN regimen: Metformin 1 g twice daily, NovoLog, glargine 90 units at bedtime. Metformin held on admit. Hypoxia No wheezing on exam, trace basilar crackles ?Obesity hypoventilation syndrome vs mild pulm edema Recommend outpatient sleep study and PFTs when at baseline CT with mild interstitial pulmonary edema, trialed Lasix p.o. dose x1 No overt heart failure, EF normal Pulmonary nodules, inguinal lymphadenopathy CT chest shows 6 mm noncalcified right lower lobe pulmonary nodule new, slight increase in adjacent left lobe pulmonary nodules up to 5 mm. Prominent right axillary lymph node and mildly enlarged mediastinal lymph node. Recommended for repeat CT in 3 months Inguinal lymphadenopathy previously stable for multiple years with increase of 0.4 cm.? Reactive. Does have history of intermittent overlying right inguinal psoriasis. Did discuss briefly with onc, recommend interval CT follow-up at 3 months, could consider excisional biopsy if superficial not easily palpated on exam. Patient okay with 3-month surveillance at this time. Stable fibroids similar to prior CT. No sign of CAD INTERN malignancy on CT abdomen. - Colon cancer screneing as above History of esophageal stricture, GERD Has seen GI for dilation in the past Continue PPI, continue famotidine Symptoms improved at time of discharge Discharge outpatient GI follow-up and potential outpatient EGD. Colonoscopy as previously noted Hemoglobin stable during admission, iron deficiency treated as noted (2) Hypoxia: As noted (3) Diabetes mellitus: As noted (4) S/P balloon dilatation of esophageal stricture: Did undergo dilatation by Dr. Oconnell last year, with a recurrence that may have caused her symptoms that she had this evening (5) Hyperlipidemia: Continue simvastatin (6) PAD (peripheral artery disease): (7) Depression: Continue sertraline (8) Chronic restrictive lung disease: (9) Hypertension: Continue metoprolol succinate, HCTZ and aspirin (10) Ventricular diastolic dysfunction determined by echocardiography: See above Total Time Total Time Spent Total Time Spent (In Minutes): Total time spend day of discharge 70 minutes including counseling, direct patient care, documentation, and review of labs/images. Discharge Plan Discharge Items Patient Disposition: Home - Self-Care Reason For Visit: CHEST PAIN, SOB Discharge Diagnosis: Noncardiac chest pain Activity: Resume your previous activity Non-emergency contact: Primary Care Provider and Administrative Technician Call non-emergency contact if: you have any medication questions, your symptoms worsen and your pain is not controlled Follow-up/Referrals: Lizy Ngo CRNP [Primary Care Provider] - 02/19/22 11:30 am Juan Oconnell DO [Physician] - 02/18/22 1:00 pm (THIS APPOINTMENT WILL BE WITH HIS PAKEVYN.) Diet: Heart Healthy Addtl Attending Provider Instructions: You are seen in the hospital for chest pain. You had a cardiac eval including an EKG which did not show any signs of ischemia, serial high-sensitivity troponins which did not show any elevation suggestive of heart damage, and a ultrasound of your heart which showed normal heart pumping and wall motion. It is unlikely that your symptoms were coming from your heart. You do have a history of esophageal stricture with dilation. On day of discharge you have had improvement in your symptoms, and were tolerating a regular diet. You are breathing well on room air, your heart rate was normal, and you were doing clinically well at time of discharge. During your hospitalization pulmonary nodules and inguinal lymphadenopathy was appreciated. A CT of your chest showed a 6 mm noncalcified right lower lobe pulmonary nodule new, slight increase in adjacent left lobe pulmonary nodules up to 5 mm. Prominent right axillary lymph node and mildly enlarged mediastinal lymph node. He also had a right inguinal lymph node which had previously been slightly enlarged but stable for several years which was slightly increased and with overlying psoriasis. This was discussed during admission, and was not freely palpable for easy excision. Was discussed with oncology, recommended for interval CT follow-up of both the chest and inguinal lymph node at 3 months. During mission a peripheral smear did not show any lymphocyte abnormalities, however your red blood cells did show evidence of low iron. Follow-up iron studies showed that you are iron deficient. You are prescribed IV iron x1 during hospitalization, and every other day iron when you return home. You did not show evidence of acute bleeding during admission, and your hemoglobin was stable. Low iron and abnormal lymph nodes can be concerning for colorectal cancer. It is important to have colon cancer screening. Your hemoglobin was stable, and you did not have active bleeding so this can be performed as an outpatient. A followup appointment is being scheduled for you with GI. You have been prescribed ferrous sulfate 325 mg by mouth every other day. This can cause your stools to be dark, and cause constipation. Please have a follow-up visit with your primary care provider to discuss your CT findings above and to make sure appropriate follow-up is scheduled. A follow-up appoint is being scheduled for you with your day porter, they may wish to schedule a repeat endoscopy for you as an outpatient. If your symptoms worsen or return, or you are unable to tolerate solids/liquids please seek medical reevaluation. If you develop any new or worsening symptoms including fever, chills, sweats, chest pain, chest pressure, difficulty breathing, uncontrolled nausea/vomiting, rash, wheezing, passing out or nearly passing out, bleeding, black/bloody bowel movements, or other new or concerning symptoms please call your primary care physician, or call 911 for re-evaluation in the emergency department if you are very concerned. Pending Studies at Discharge: No Stand-Alone Forms: [facility] [employer], Smoking Cessation Medications and DC Order Prescriptions: New ferrous sulfate 325 mg (65 mg iron) tablet,delayed release (DR/EC) 325 mg PO Q OTHER DAY Qty: 30 RF: 0 famotidine 10 mg tablet 10 mg PO BID PRN (Reason: gerd) Qty: 60 RF: 0 Continued (DME) pen needle, diabetic [BD Ultra-Fine Melissa Pen Needle] 32 gauge x 5/32" needle See Dose Instructions .ROUTE .MEDSUPPLY Qty: 500 RF: 1 Novolog Flexpen U-100 Insulin 100 unit/mL (3 mL) insulin pen See Rx Instructions SQ TIDM Qty: 45 RF: 3 metoprolol succinate 50 mg tablet extended release 24 hr 50 mg PO QAM Qty: 90 RF: 3 (DME) OneTouch Verio test strips Strip See Dose Instructions .ROUTE .MEDSUPPLY Qty: 500 RF: 3 desonide 0.05 % cream 1 applic topical DAILY PRN (Reason: skin irritation) Qty: 180 RF: 3 pantoprazole 40 mg tablet,delayed release (DR/EC) 40 mg PO DAILY Qty: 90 RF: 3 simvastatin 20 mg tablet 20 mg PO QPM Qty: 90 RF: 3 metformin 1,000 mg tablet 1,000 mg PO BID Qty: 180 RF: 3 sertraline [Zoloft] 100 mg tablet 100 mg PO HS Qty: 90 RF: 3 hydrochlorothiazide 12.5 mg capsule 12.5 mg PO QAM Qty: 90 RF: 3 Toujeo SoloStar U-300 Insulin 300 unit/mL (1.5 mL) insulin pen 90 unit subcut HS Qty: 27 RF: 3 fluocinolone 0.01 % oil 1 applic topical BID PRN (Reason: itching) Qty: 354.84 RF: 3 nitrofurantoin monohyd/m-cryst [Macrobid] 100 mg capsule 100 mg PO Q12H 7 Days Qty: 14 RF: 0 (DME) Aerochamber MV Spacer See Rx Instructions .ROUTE .MEDSUPPLY Qty: 1 RF: 0 mupirocin 2 % ointment 1 appln TOP BID Qty: 15 RF: 0 (DME) lancets [OneTouch Delica Lancets] 33 gauge misc See Dose Instructions .ROUTE .MEDSUPPLY Qty: 100 RF: 0 (DME) Compact Ultrasonic Nebulizer Misc See Rx Instructions .ROUTE .MEDSUPPLY Qty: 1 RF: 0 aspirin 81 mg tablet,delayed release (DR/EC) 81 mg PO QAM RF: 0 diphenhydramine-acetaminophen [Tylenol PM Extra Strength] 25-500 mg Tablet 1 tab PO HS RF: 0 Discharge Orders: Discharge Order (Routine); Ordered 02/11/22 Ordered By: Carlos A Niño/Other Patient Handouts: Managing Type 2 Diabetes Admission Data Admit Date/Time: 02/10/22 04:26 Attending Provider: Carlos A Tai Admit Provider: Pb Patrick Primary Care Provider: Lizy Ngo Other Providers: Pb Patrick Other Interventions: Discharge Summary Assessment (RN) Last Done: 02/11/22 12:19 Coding Level of Care Code D/C DAY MANAGEMENT >30 MINS Diagnoses Chest pain R07.9 Hypoxia R09.02 Diabetes mellitus E11.9 S/P balloon dilatation of esophageal stricture Z98.890 Hyperlipidemia E78.5 PAD (peripheral artery disease) I73.9 Depression F32.9 Chronic restrictive lung disease J98.4 Hypertension I10 Ventricular diastolic dysfunction determined by echocardiography I51.9
[2022-02-11] MEDS ORDERED: INSULIN GLARGINE SOLOSTAR 100 UNITS/ML 3 ML PEN SC SCH ×3 (21:00)
== END 2022-02-11 13:12 | disposition home or self-care (01) | DRG 392 ==
LOC: ED 22:55 → 2S 02-10 04:26 → SUATTDRO 02-10 04:26 → 2S 02-10 05:23 → 2W 02-10 18:24

== ENCOUNTER 2023-04-09 03:30 | Observation (INO) ==
[2023-04-09] MEDS ORDERED: LORazepam 2 MG/1 ML VIAL IV STA (05:15)
[2023-04-09] MEDS ORDERED: SODIUM CHLORIDE 0.9% 500 ML IV ONE (05:15)
[2023-04-09] MEDS ORDERED: ONDANSETRON INJ 2 MG/ML 2 ML VIAL IV STA (05:15)
--- NOTE | 2023-04-09 05:25 | Emergency Department Note ---
Impression & Plan Intractable vomiting, Vertigo Admit to the [facility] ED Provider Note NAME: KIMMY FERRARA AGE: 67 SEX: F ARRIVES VIA: Walk-In INFORMANT: Patient ED PROVIDER(S): Anna Rodriguez DO CHIEF COMPLAINT: Nausea/vomiting/diarrhea; dizziness PLAN: Disposition: Admit to the [facility] Condition: Guarded MEDICAL DECISION MAKING: This is a 67-year-old female patient who presents to the emergency department with severe nausea/vomiting/diarrhea and dizziness. The patient was seen here in the emergency department earlier today with similar presentation. A comprehensive work-up was performed and she was diagnosed with vertigo. Patient was feeling much better and was discharged home. Around 2 AM this morning, the patient's symptoms returned and she was unable to walk. Her brought her back to the emergency department for further evaluation. Laboratory studies reveal no significant electrolyte abnormality. The patient is not hypoglycemic. There is no significant leukocytosis to suggest new infection. There is no evidence of DIRK. Patient was given a dose of IV Zofran for her nausea and a dose of IV Ativan for the vertiginous symptoms. Upon repeat assessment, the patient was sleeping soundly. The patient underwent a comprehensive work-up yesterday here in the emergency department to rule out a posterior circulation stroke including CT of the brain, CTA of the head and neck which were all interpreted by radiology as negative. The patient has tried taking meclizine at home but has gotten no relief of her symptoms. She has received IV normal saline solution here in the ER along with IV Ativan. I have discussed the case with the overnight physician who will pass along the information to the daylight team. Triage Nursing notes reviewed and agree with them. Additional history obtained from patient's who is at the bedside Prior medical records reviewed including her ED visit from yesterday Vital Signs: reviewed and remarkable for mild hypertension Differential diagnosis: Vertigo, dehydration, posterior circulation stroke ER treatment provided: IV normal saline bolus IV Zofran IV Ativan Diagnostics interpreted by me: ECG: Normal sinus rhythm at a rate of [address] segment elevation or signs of ischemia. There is no ectopy. Cardiac Monitoring: Normal sinus rhythm at a rate of 85 Laboratory studies: See below HPI: 67/F arrives for evaluation of nausea/vomiting/diarrhea. Patient awoke at 2 AM with significant recurrence of her symptoms. She was unable to walk. She had significant vomiting and diarrhea. Her was able to help her to the bathroom. By history, the patient developed lightheadedness and nausea 3 days ago. She went to sleep that evening and woke up the next day feeling normal. She had a normal day. Yesterday morning she woke up feeling nauseated again and then developed significant dizziness, vomiting and diarrhea which brought her to the emergency department yesterday. She had comprehensive work-up at that time to rule out posterior circulation stroke as well as other etiologies. She was diagnosed with vertigo and treated with IV fluids, meclizine and lorazepam. The patient was feeling well upon discharge. She went home and slept around 4 PM in the evening until 7 PM. She awoke at that time to eat and take her usual evening medication. Her explains that she went back to sleep at that time. The patient then awoke at 2 AM this morning with the above symptoms. PAST MEDICAL HISTORY:See Below PAST SURGICAL HISTORY:See Below FAMILY HISTORY:See Below SOCIAL HISTORY:See Below HOME MEDICATIONS:See list ALLERGIES:See list VITALS:See Below PHYSICAL EXAMINATION: HEENT: Head - normocephalic and atraumatic. Pupils are equal, round, and reactive to light. Extraocular eye muscles are intact and sclera are anicteric. Ears - bilaterally patent canals with noninjected tympanic membranes and no evidence of hemotympanum. Nose - moist nasal mucosa without discharge. Mouth - moist buccal mucosa. Oropharynx is nonerythematous and there is no tonsillar exudate or edema noted. Neck: Supple; no JVD or cervical lymphadenopathy. Heart: Regular rate and rhythm. There is a normal S1 and S2 with no murmurs, clicks, or gallops appreciated. Lungs: Clear to auscultation bilaterally with no wheezes, rales, or rhonchi. Abdomen: Soft, completely nontender, nondistended, with good bowel sounds. There are no palpable pulsatile masses or hepatosplenomegaly. There is no guarding, rigidity, or rebound noted. Extremities: No evidence of cyanosis, clubbing, or edema. There are easily palpable peripheral pulses. Neuro:The patient is awake and alert, oriented to day, time, and place. Muscle strength is 5/5 in all 4 extremities. 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 There are no cerebellar signs. ED COURSE: Times/Reassessments: 445: Patient was evaluated in room A-10. A complete history and physical was performed. A twelve-lead EKG was obtained as described above. An order was placed for continuous cardiac monitoring. The patient was in a normal sinus rhythm at a rate of 85. An IV lock was initiated and labs were drawn as above to compare to yesterday's labs. The patient was bolused with IV normal saline solution and given a dose of IV Zofran and IV Ativan. Patient was sleeping at this time. Anna Rodriguez DO Past Med/Surg History Medical History Anxiety Bladder wall thickening COPD (chronic obstructive pulmonary disease) Diabetes mellitus Esophageal dysphagia History of COVID-19 History of pancreatitis HLD (hyperlipidemia) HTN (hypertension) Inguinal adenopathy Mediastinal lymphadenopathy Osteoarthritis Peripheral neuropathy PONV (postoperative nausea and vomiting) Pulmonary nodule, left Sleep apnea Surgical History H/O colonoscopy History of cardiac cath History of esophagogastroduodenoscopy (EGD) History of lymph node biopsy History of tonsillectomy and adenoidectomy History of tooth extraction History of tubal ligation History of wisdom tooth extraction S/P balloon dilatation of esophageal stricture S/P cataract surgery Family History Unknown No problems noted. Mother Diabetes Kidney stone Hypertension Grandfather No problems noted. Aunt Breast cancer Grandfather (Maternal) Diabetes Other Family history non-contributory No family history of abnormal heart rhythm Denies family history of Ovarian cancer Prostate cancer Colorectal cancer Social History Smoking Status: Former smoker Tobacco Type: Cigarettes Age Started Using Tobacco: 14; Age Quit Using Tobacco: 54; packs per day: 2; Cigarettes Per Day: 50-60; Second Hand Exposure: No; Do You Dip or Chew Tobacco: No; Hx Alcohol Use: Yes Alcohol type: hard liquor Alcohol Intake Frequency: 2-4 x/Month Hx Substance Use: No Preferred Language: Salvadorean Communication Ability: Effective Visual Impairment: No Limitations Hearing Ability: Normal Creative Services Intern Required: No Beliefs That Will Affect Care: None marital status: Current Living Situation: Spouse current occupational status: employed current occupation: [employer] How many Children do You have: 1 Feels Safe at Home: Yes Childhood Exposure to Second-Hand Smoke: Yes Diet: regular caffeine: Yes (coffee) during the past year weight has: decreased > 10 lbs Dental Care, Regularly: No Physical Activity Frequency: Does not Exercise Seatbelt Use: never Sunscreen Use: No Assistive Devices: Denture - Upper, Denture - Lower and Glasses Allergies Allergies Allergy/AdvReac Type Severity Reaction Status Date / Time amoxicillin [From Augmentin] AdvReac Intermediate nausea Verified 04/08/23 10:49 clavulanic acid AdvReac Intermediate nausea Verified 04/08/23 10:49 [From Augmentin] codeine AdvReac Intermediate Gastrointestinal Verified 04/08/23 10:49 Upset Home Meds Home Medications Medication Instructions Recorded Confirmed aspirin 81 mg tablet,delayed 81 mg PO QAM 03/21/19 04/08/23 release diphenhydramine 25 1 tab PO HS 05/06/21 04/08/23 mg-acetaminophen 500 mg tablet (Tylenol PM Extra Strength) mupirocin 2 % topical ointment 1 appln topical BID PRN Skin 09/05/22 04/08/23 Irritation insulin aspart U-100 100 unit/mL See Rx Instructions subcut TIDM 11/17/22 04/08/23 (3 mL) subcutaneous pen (Novolog FlexPen U-100 Insulin aspart) simvastatin 20 mg tablet 20 mg PO HS 02/13/23 04/08/23 Previous Rx's Medication Instructions Recorded desonide 0.05 % topical cream 1 applic topical DAILY PRN skin 12/02/21 irritation #180 grams miscellaneous medical supply #1 ea 05/22/22 Diabetic Shoes #1 ea 05/30/22 lancing device with lancets kit #1 ea 07/04/22 (MafengwoTouch Delica Plus Lancing Device kit) lancets 33 gauge ([employer] Delica #400 ea 07/07/22 Lancets) blood sugar diagnostic (GridXuch #400 ea 07/09/22 Ultra Test strips) blood-glucose meter (GridXuch #1 ea 07/30/22 Verio Meter) metoprolol succinate 50 mg 50 mg PO QAM #90 tabs 11/03/22 tablet,extended release 24 hr sertraline 100 mg tablet (Zoloft) 100 mg PO HS #90 tabs 11/03/22 omeprazole 40 mg capsule,delayed 40 mg PO DAILY #90 caps 11/17/22 release metformin 1,000 mg tablet 1,000 mg PO BID #180 tabs 12/03/22 Diabetic Shoes #1 ea 01/07/23 insulin glargine U-300 conc 300 100 unit (0.3333 mL) subcut HS #27 02/10/23 unit/mL (1.5 mL) subcutaneous pen mL (Toujeo SoloStar U-300 Insulin) losartan 50 mg-hydrochlorothiazide 1 tab PO DAILY #90 tabs 02/24/23 12.5 mg tablet clobetasol 0.05 % topical cream 1 applic topical DAILY #30 grams 03/18/23 meclizine 25 mg tablet 25 mg PO TID PRN dizziness #30 tabs 04/08/23 Results & Data (ED) Vital Signs Vital Signs - 24 hr 04/09/23 03:40 04/09/23 04:04 04/09/23 03:51 Temperature 36.8 C Temperature Source Temporal Artery Scan Pulse Rate 87 90 Pulse Rate [Apical] 85 Pulse Rhythm [Apical] Pulse Strength [Apical] Respiratory Rate 16 18 Respiratory Effort / Characteristics Non-Labored Spontaneous Respiratory Depth Normal Respiratory Pattern Regular Blood Pressure 156/83 H Blood Pressure [Right Arm] 152/76 H Blood Pressure Mean 107 Blood Pressure Mean [Right Arm] 101 Blood Pressure Position [Right Arm] Pulse Oximetry 91 92 Oxygen Delivery Method Room Air Room Air Oxygen Flow Rate Sepsis Recent Fever Within 48 Hours No Sepsis New/Unexplained Change in Mental Status No Sepsis Action Taken by Nursing No Action Required Oxygen Flow Rate - Titration Pulse Oximetry Post Tiitration 04/09/23 04:11 04/09/23 05:28 04/09/23 05:29 Temperature Temperature Source Pulse Rate 91 H Pulse Rate [Apical] 89 Pulse Rhythm [Apical] Pulse Strength [Apical] Respiratory Rate 18 18 Respiratory Effort / Characteristics Respiratory Depth Respiratory Pattern Blood Pressure Blood Pressure [Right Arm] 145/86 H Blood Pressure Mean Blood Pressure Mean [Right Arm] 105 Blood Pressure Position [Right Arm] Pulse Oximetry 88 L 94 95 Oxygen Delivery Method Nasal Cannula Nasal Cannula Oxygen Flow Rate 0 2 2 Sepsis Recent Fever Within 48 Hours Sepsis New/Unexplained Change in Mental Status Sepsis Action Taken by Nursing Oxygen Flow Rate - Titration 2 Pulse Oximetry Post Tiitration 93 04/09/23 07:00 Temperature Temperature Source Pulse Rate Pulse Rate [Apical] 88 Pulse Rhythm [Apical] Regular Pulse Strength [Apical] Normal Respiratory Rate 18 Respiratory Effort / Characteristics Non-Labored Respiratory Depth Normal Respiratory Pattern Regular Blood Pressure Blood Pressure [Right Arm] 145/86 H Blood Pressure Mean Blood Pressure Mean [Right Arm] 105 Blood Pressure Position [Right Arm] Lying Pulse Oximetry 95 Oxygen Delivery Method Room Air Oxygen Flow Rate Sepsis Recent Fever Within 48 Hours Sepsis New/Unexplained Change in Mental Status Sepsis Action Taken by Nursing Oxygen Flow Rate - Titration Pulse Oximetry Post Tiitration Laboratory Data 04/09/23 05:15 04/09/23 05:15 Lab Results 04/09/23 04/09/23 Range/Units 05:15 05:15 WBC 11.05 H (4.8-10.8) K/ul RBC 4.80 (4.20-5.40) M/uL Hgb 12.6 (12.0-16.0) g/dl Hct 40.1 (37.0-47.0) % MCV 83.5 (80.0-100.0) fL MCH 26.3 (25.0-34.0) pg MCHC 31.4 L (32.0-36.0) g/dL RDW Std Deviation 50.4 H (36.4-46.3) fL RDW Coeff of Radha 16.6 H (11.5-14.5) % Plt Count 244 (130-400) K/uL MPV 10.6 (9.4-12.4) fL Immature Gran % (Auto) 0.4 % Neut % (Auto) 84.0 % Lymph % (Auto) 7.8 % Deuel % (Auto) 7.2 % Eos % (Auto) 0.3 % Baso % (Auto) 0.3 % Neut # (Auto) 9.29 H (1.40-6.50) K/uL Lymph # (Auto) 0.86 L (1.20-3.40) K/uL Deuel # (Auto) 0.80 H (0.11-0.59) K/uL Eos # (Auto) 0.03 (0.00-0.50) K/uL Baso # (Auto) 0.03 (0.00-0.20) K/uL Immature Gran # (Auto) 0.04 (0.01-0.20) K/uL Sodium 138 (136-145) mmol/L Potassium 4.0 (3.5-5.1) mmol/L Chloride 101 (98-107) mmol/L Carbon Dioxide 27 (21-32) mmol/L Anion Gap 10 (3-11) BUN 18 (6-23) mg/dl Creatinine 0.71 (0.6-1.2) mg/dl Est Cr Clr Drug Dosing Not Reportable Est GFR ( Amer) 102.2 ml/min Est GFR (Non-Af Amer) 88.1 ml/min BUN/Creatinine Ratio 25.4 H (10-20) Glucose 175 H (70-99(Fasting)) mg/dl Calcium 9.3 (8.6-10.3) mg/dl Total Bilirubin 0.4 (0.2-1.0) mg/dl AST 11 L (13-39) U/L ALT 11 (7-52) U/L Alkaline Phosphatase 62 (34-104) U/L Troponin I High Sens 3.5 D (0-14) pg/ml Total Protein 7.3 (6.0-8.3) gm/dl Albumin 4.0 (3.4-5.0) gm/dl Globulin 3.3 (2.5-4.0) gm/dl Albumin/Globulin Ratio 1.2 (0.9-2) Administered Medications Discontinued Medications Sodium Chloride (Nss) 500 mls @ 999 mls/hr IV .Q31M ONE Stop: 04/09/23 05:45 Last Infusion: 04/09/23 06:11 Dose: 0 mls/hr Documented By: Admin: 04/09/23 05:25 Dose: 999 mls/hr Documented By: JENNIFER Lorazepam (Lorazepam 2 Mg/1 Ml Vial) 1 mg IV NOW STA Stop: 04/09/23 05:16 Last Admin: 04/09/23 05:22 Dose: 1 mg Documented By: JENNIFER Ondansetron HCl (Ondansetron Inj 2 Mg/Ml 2 Ml Vial) 4 mg IV NOW STA Stop: 04/09/23 05:16 Last Admin: 04/09/23 05:22 Dose: 4 mg Documented By: JENNIFER Discharge Plan Visit Data Chief Complaint: Vertigo Stated Complaint: VERTIGO ED Provider: Anna Rodriguez Discharge Problem: Intractable vomiting, Vertigo Forms Stand Alone Forms: My [facility] Prescriptions Prescriptions: No Action desonide 0.05 % cream 1 applic topical DAILY PRN (Reason: skin irritation) Qty: 180 3RF (DME) miscellaneous medical supply [facility] [place], [place] See Rx Instructions .ROUTE .MEDSUPPLY Qty: 1 0RF Rx Instructions: pulse oximeter to be used as needed. J98.4, U07.1 (DME) lancing device with lancets [OneTouch Delica Plus Lanc Dev] Kit See Rx Instructions .Route Qty: 1 0RF Rx Instructions: TEST 4 TIMES DAILY OR DIRECTED (DME) lancets [OneTouch Delica Lancets] 33 [place] [facility] [place] Dose Instructions .ROUTE .MEDSUPPLY Qty: 400 3RF Rx Instructions: Test blood sugars 4 times daily or as directed (DME) OneTouch Ultra Test Strip See Rx Instructions .Route Qty: 400 3RF Rx Instructions: TEST 4 TIMES DAILY OR DIRECTED sertraline [Zoloft] 100 mg tablet 100 mg PO HS Qty: 90 3RF metoprolol succinate 50 mg tablet extended release 24 hr 50 mg PO QAM Qty: 90 3RF Rx Instructions: TAKE ONE TABLET BY MOUTH ONE TIME DAILY metformin 1,000 mg tablet 1,000 mg PO BID Qty: 180 3RF Rx Instructions: TAKE ONE TABLET BY MOUTH TWICE DAILY Toujeo SoloStar U-300 Insulin 300 unit/mL (1.5 mL) insulin pen 100 unit subcut HS Qty: 27 3RF losartan-hydrochlorothiazide 50-12.5 mg tablet 1 tab PO DAILY Qty: 90 2RF Rx Instructions: Take one tablet by mouth once daily. (DME) Diabetic Shoes [facility] [place], [place] See Rx Instructions .Route Qty: 1 0RF Rx Instructions: As directed-E11.69 Novolog FlexPen U-100 Insulin 100 unit/mL (3 mL) insulin pen See Rx Instructions SQ TIDM Rx Instructions: subcut three times daily with meals 30 units- breakfast, Lunch = 25 units, Dinner = 20 units plus sliding scale, max 80 u daily omeprazole 40 mg capsule,delayed release(DR/EC) 40 mg PO DAILY Qty: 90 3RF Rx Instructions: Take one tablet once daily. (DME) Diabetic Shoes Misc See Rx Instructions .Route Qty: 1 0RF Rx Instructions: As directed-E11.9 (DME) blood-glucose meter [OneTouch Verio Meter] Misc See Rx Instructions .Route Qty: 1 0RF Rx Instructions: As directed clobetasol 0.05 % cream 1 applic topical DAILY Qty: 30 2RF aspirin 81 mg tablet,delayed release (DR/EC) 81 mg PO QAM mupirocin 2 % ointment 1 appln TOP BID PRN (Reason: Skin Irritation) meclizine 25 mg tablet 25 mg PO TID PRN (Reason: dizziness) Qty: 30 0RF diphenhydramine-acetaminophen [Tylenol PM Extra Strength] 25-500 mg Tablet 1 tab PO HS simvastatin 20 mg tablet 20 mg PO HS Referrals Referrals: Manju Khan MD [Primary Care Provider] -
[2023-04-09 05:50] LABS: Basophils # (auto) 0.03 K/uL (0.00-0.20); Basophils % (auto) 0.3 %; Eosinophils # (auto) 0.03 K/uL (0.00-0.50); Eosinophils % (auto) 0.3 %; Hematocrit (blood only) 40.1 % (37.0-47.0); Hemoglobin 12.6 g/dl (12.0-16.0); Immature Granulocytes # (auto) 0.04 K/uL (0.01-0.20); Immature Granulocytes % (auto) 0.4 %; Lymphocytes # (auto) 0.86 K/uL (1.20-3.40); Lymphocytes % (auto) 7.8 %; Mean Corpuscular Hemoglobin 26.3 pg (25.0-34.0); Mean Corpuscular Hgb Conc 31.4 g/dL (32.0-36.0); Mean Corpuscular Volume 83.5 fL (80.0-100.0); Mean Platelet Volume 10.6 fL (9.4-12.4); Monocytes % (auto) 7.2 %; Neutrophils # (auto) 9.29 K/uL (1.40-6.50); Platelet Count 244 K/uL (130-400); RDW Coefficient of Variation 16.6 % (11.5-14.5); RDW Standard Deviation 50.4 fL (36.4-46.3); White Blood Count 11.05 K/ul (4.8-10.8)
[2023-04-09 06:10] LABS: Alanine Aminotransferase 11 U/L (7-52); Albumin Globulin Ratio 1.2 (0.9-2); Alkaline Phosphatase 62 U/L (34-104); Anion Gap 10 (3-11); Aspartate Aminotransferase 11 U/L (13-39); BUN Creatinine Ratio 25.4 (10-20); Bilirubin,Total 0.4 mg/dl (0.2-1.0); Blood Urea Nitrogen 18 mg/dl (6-23); Calcium 9.3 mg/dl (8.6-10.3); Carbon Dioxide 27 mmol/L (21-32); Chloride 101 mmol/L (98-107); Est GFR (African American) 102.2 ml/min; Est GFR (Non-African American) 88.1 ml/min; Globulin 3.3 gm/dl (2.5-4.0); Glucose 175 mg/dl (70-99(Fasting)); Sodium 138 mmol/L (136-145); Total Protein 7.3 gm/dl (6.0-8.3)
[2023-04-09 06:18] LABS: Troponin I High Sensitivity 3.5 pg/ml (0-14)
[2023-04-09] MEDS ORDERED: GLUCOSE 10 TAB/TUBE PO PRN (11:03)
[2023-04-09] MEDS ORDERED: CARBOHYDRATES FOR HYPOGLYCEMIA PO PRN (11:03)
[2023-04-09] MEDS ORDERED: GLUCOSE 40% GEL 15 GM TUBE PO PRN (11:03)
[2023-04-09] MEDS ORDERED: GLUCAGON FOR INJ 1 MG VIAL SQ PRN (11:03)
[2023-04-09] MEDS ORDERED: DEXTROSE 50% 50 ML SYRINGE IV PRN (11:03)
[2023-04-09] MEDS ORDERED: Patient's HEIGHT &/or WEIGHT Needed STA (11:08)
[2023-04-09] MEDS ORDERED: methylPREDNISolone 40 MG in SYRINGE 0 ML IV SCH (11:30)
--- NOTE | 2023-04-09 11:35 | History & Physical Report ---
Date of Service April 09, 2023 Assessment & Plan (1) Vertigo: Plan: This appears to be benign positional vertigo. Brain MRI scan negative for CVA. We will treat with scheduled meclizine, parenteral steroids, and bedrest. (2) Diabetes mellitus type 2 in obese: Plan: Lantus discontinued. Start NPH insulin 30 units twice daily with breakfast and supper. Sliding scale coverage (3) Hypertension: Plan: Stable. Continue current medical manage (4) Hyperlipidemia: Plan: Stable. Continue current medical manage (5) Morbid obesity with BMI of 40.0-44.9, adult: Plan: Significant weight loss recommended (6) Chronic restrictive lung disease: Plan: Stable. No intervention necessary at this time Plan Hopefully home soon on meclizine dosing and a tapering dose of prednisone Admission and Anticipated Discharge Date Admission Date: April 09, 2023 History of Present Illness Chief Complaint: Vertigo, nausea and vomiting Primary Care Provider: Manju Khan MD 67-year-old female in previously good health who developed vertigo 3 to 4 days ago accompanied by nausea and vomiting. She has been seen twice now in the ED. The other day her brain MRI scan was negative for acute CVA. She has no focal weakness or loss of vision. This appears to be benign positional vertigo. She will be placed on observation for meclizine, Solu-Medrol, and nausea treatment. She states she takes Lantus 100 units at bedtime. Insulin will be switched to NPH 30 units twice daily along with sliding scale coverage. Diabetic diet ordered. Hopefully she will improve rapidly and can go home tomorrow, April 10 Allergies Allergy/AdvReac Type Severity Reaction Status Date / Time amoxicillin [From Augmentin] AdvReac Intermediate nausea Verified 04/08/23 10:49 clavulanic acid AdvReac Intermediate nausea Verified 04/08/23 10:49 [From Augmentin] codeine AdvReac Intermediate Gastrointestinal Verified 04/08/23 10:49 Upset Home Medications Medication Instructions Recorded Confirmed Type aspirin 81 mg tablet,delayed 81 mg PO QAM 03/21/19 04/09/23 History release diphenhydramine 25 1 tab PO HS 05/06/21 04/09/23 History mg-acetaminophen 500 mg tablet (Tylenol PM Extra Strength) desonide 0.05 % topical cream 1 applic topical DAILY PRN skin 12/02/21 04/09/23 Rx irritation #180 grams miscellaneous medical supply #1 ea 05/22/22 04/02/23 Rx Diabetic Shoes #1 ea 05/30/22 04/02/23 Rx lancing device with lancets kit #1 ea 07/04/22 04/02/23 Rx ([employer] TechnologiesTouch Delica Plus Lancing Device kit) lancets 33 gauge ([employer]Touch Delica #400 ea 07/07/22 04/02/23 Rx Lancets) blood sugar diagnostic (OneTouch #400 ea 07/09/22 04/02/23 Rx Ultra Test strips) blood-glucose meter (OneTouch #1 ea 07/30/22 04/02/23 Rx Verio Meter) mupirocin 2 % topical ointment 1 appln topical BID PRN Skin 09/05/22 04/09/23 History Irritation metoprolol succinate 50 mg 50 mg PO QAM #90 tabs 11/03/22 04/09/23 Rx tablet,extended release 24 hr sertraline 100 mg tablet (Zoloft) 100 mg PO HS #90 tabs 11/03/22 04/09/23 Rx insulin aspart U-100 100 unit/mL See Rx Instructions subcut TIDM 11/17/22 04/09/23 History (3 mL) subcutaneous pen (Novolog FlexPen U-100 Insulin aspart) omeprazole 40 mg capsule,delayed 40 mg PO DAILY #90 caps 11/17/22 04/09/23 Rx release metformin 1,000 mg tablet 1,000 mg PO BID #180 tabs 12/03/22 04/09/23 Rx Diabetic Shoes #1 ea 01/07/23 04/02/23 Rx insulin glargine U-300 conc 300 100 unit (0.3333 mL) subcut HS #27 02/10/23 Rx unit/mL (1.5 mL) subcutaneous pen mL (Toujeo SoloStar U-300 Insulin) simvastatin 20 mg tablet 20 mg PO HS 02/13/23 04/09/23 History losartan 50 mg-hydrochlorothiazide 1 tab PO DAILY #90 tabs 02/24/23 04/09/23 Rx 12.5 mg tablet clobetasol 0.05 % topical cream 1 applic topical DAILY #30 grams 03/18/23 04/09/23 Rx meclizine 25 mg tablet 25 mg PO TID PRN dizziness #30 tabs 04/08/23 04/09/23 Rx Past Med/Surg History Medical History Anxiety Bladder wall thickening COPD (chronic obstructive pulmonary disease) Diabetes mellitus Esophageal dysphagia History of COVID-19 History of pancreatitis HLD (hyperlipidemia) HTN (hypertension) Inguinal adenopathy Mediastinal lymphadenopathy Osteoarthritis Peripheral neuropathy PONV (postoperative nausea and vomiting) Pulmonary nodule, left Sleep apnea Surgical History H/O colonoscopy History of cardiac cath History of esophagogastroduodenoscopy (EGD) History of lymph node biopsy History of tonsillectomy and adenoidectomy History of tooth extraction History of tubal ligation History of wisdom tooth extraction S/P balloon dilatation of esophageal stricture S/P cataract surgery Family History Unknown No problems noted. Mother Diabetes Kidney stone Hypertension Grandfather No problems noted. Aunt Breast cancer Grandfather (Maternal) Diabetes Other Family history non-contributory No family history of abnormal heart rhythm Denies family history of Ovarian cancer Prostate cancer Colorectal cancer Social History Smoking Status: Former smoker Tobacco Type: Cigarettes Age Started Using Tobacco: 14; Age Quit Using Tobacco: 54; packs per day: 2; Cigarettes Per Day: 50-60; Second Hand Exposure: No; Do You Dip or Chew Tobacco: No; Hx Alcohol Use: Yes Alcohol type: hard liquor Alcohol Intake Frequency: 2-4 x/Month Hx Substance Use: No Preferred Language: Armenian Communication Ability: Effective Visual Impairment: No Limitations Hearing Ability: Normal Bmet Required: No Beliefs That Will Affect Care: None marital status: Current Living Situation: Spouse current occupational status: employed current occupation: [employer] How many Children do You have: 1 Feels Safe at Home: Yes Childhood Exposure to Second-Hand Smoke: Yes Diet: regular caffeine: Yes (coffee) during the past year weight has: decreased > 10 lbs Dental Care, Regularly: No Physical Activity Frequency: Does not Exercise Seatbelt Use: never Sunscreen Use: No Assistive Devices: Denture - Upper, Denture - Lower and Glasses Review of Systems Review of Systems: Constitutional-no fever or chills ENT-no blurred vision, no double vision, no epistaxis, no sore throat Respiratory-no cough, no wheezing, no shortness of breath Cardiac-no palpitations, no chest pain, no syncope GI-no nausea, vomiting, diarrhea, melena, hematochezia -no urinary retention, no urinary incontinence, no dysuria, no hematuria Musculoskeletal-no joint pain, no muscle tenderness Skin-no bruising, no rashes, no pruritus Neuro-vertigo. No focal weakness Psych-no depression, no anxiety Physical Exam Physical Exam: General-alert and oriented x3, no fevers, no chills HEENT-head atraumatic and normocephalic, pupils equal and reactive to light, extraocular muscles intact. No overt nystagmus Neck-no lymphadenopathy or thyromegaly, trachea midline Chest-clear to auscultation percussion. No rales wheezing or rhonchi Cardiac-regular rate and rhythm, normal S1 and S2 Abdomen-normal bowel sounds, nontender, no hepatosplenomegaly Extremities-no cyanosis, clubbing, or edema Neuro-cranial nerves II through XII intact, motor and sensory function within normal limits, strength symmetrical , no focal deficits Psych-normal affect, normal mood Results & Data Results & Data Vital Signs (Past 12 Hours) Vital Signs Temp Pulse Pulse Resp BP BP Pulse Ox 04/09/23 09:00 84 18 145/86 H 97 04/09/23 07:48 88 04/09/23 07:00 88 18 145/86 H 95 04/09/23 05:29 91 H 18 95 04/09/23 05:28 89 18 145/86 H 94 04/09/23 04:11 88 L 04/09/23 03:51 90 04/09/23 04:04 85 18 152/76 H 92 04/09/23 03:40 36.8 C 87 16 156/83 H 91 O2 Del Method O2 Flow Rate 04/09/23 09:00 Room Air 04/09/23 07:48 04/09/23 07:00 Room Air 04/09/23 05:29 Nasal Cannula 2 04/09/23 05:28 Nasal Cannula 2 04/09/23 04:11 0 04/09/23 03:51 04/09/23 04:04 Room Air 04/09/23 03:40 Room Air Laboratory Results 04/09/23 05:15 04/09/23 05:15 PG Care Time/CCT Total # of Minutes Spent Total Time Spent with Patient: Total time spent is greater than 50% in coordination of care (as documented) at patient's floor/unit and/or counseling patient: Coding Level of Care Code 04278 INT INP/OBS CARE 3/75MIN Diagnoses Vertigo R42 Diabetes mellitus type 2 in obese E11.69; E66.9 Hypertension I10 Hyperlipidemia E78.5 Morbid obesity with BMI of 40.0-44.9, adult E66.01; Z68.41 Chronic restrictive lung disease J98.4
[2023-04-09] MEDS ORDERED: ONDANSETRON INJ 2 MG/ML 2 ML VIAL IV PRN (12:04)
[2023-04-09] MEDS: methylPREDNISolone 40 MG in SYRINGE 0 ML IV SCH ×2 (12:11→19:33)
[2023-04-09] MEDS: INSULIN HUMAN NPH SC SCH ×2 (12:11→17:37)
[2023-04-09] MEDS: SODIUM CHLORIDE 0.9% 1000ML 1,000 ML IV SCH ×2 (12:14→22:32)
[2023-04-09] MEDS: INSULIN ASPART PER UNIT CHARGE SC SCH ×3 (13:30→21:49)
[2023-04-09] MEDS: MECLIZINE HCL 25 MG TAB PO SCH ×2 (14:22→21:20)
--- NOTE | 2023-04-09 16:59 | Electrocardiogram Report ---
Test Reason : Blood Pressure : / mmHG Vent. Rate : 088 BPM Atrial Rate : 088 BPM P-R Int : 116 ms QRS Dur : 076 ms QT Int : 378 ms P-R-T Axes : 024 005 049 degrees QTc Int : 457 ms Normal sinus rhythm Normal ECG When compared with ECG of 08-APR-2023 09:22, No significant change was found Confirmed by Steve Maddox ([id number]) on 04/09/2023 4:59:16 PM Referred By: REFERRED SELF Confirmed By:Steve Maddox
[2023-04-09] MEDS: metFORMIN HCL 500 MG TAB PO SCH (17:39)
[2023-04-09] MEDS: ACETAMINOPHEN 325 MG TAB PO PRN (17:39)
[2023-04-09] MEDS: SERTRALINE HCL 100 MG TABLET PO SCH (21:20)
[2023-04-10] MEDS: methylPREDNISolone 40 MG in SYRINGE 0 ML IV SCH ×3 (04:09→19:34)
[2023-04-10] MEDS: INSULIN ASPART PER UNIT CHARGE SC SCH ×4 (07:53→21:12)
[2023-04-10] MEDS: ASPIRIN 81 MG ECTAB PO SCH (08:32)
[2023-04-10] MEDS: INSULIN HUMAN NPH SC SCH ×2 (08:32→16:46)
[2023-04-10] MEDS: MECLIZINE HCL 25 MG TAB PO SCH ×3 (08:32→19:34)
[2023-04-10] MEDS: metFORMIN HCL 500 MG TAB PO SCH ×2 (08:32→16:47)
[2023-04-10] MEDS: METOPROLOL SUCC 50MG EXT REL TAB PO SCH (08:32)
[2023-04-10] MEDS: ACETAMINOPHEN 325 MG TAB PO PRN ×2 (08:36→21:17)
[2023-04-10] MEDS: SODIUM CHLORIDE 0.9% 1000ML 1,000 ML IV SCH ×2 (11:38→22:39)
--- NOTE | 2023-04-10 14:45 | Hospitalist Progress Note ---
Date of Service April 10, 2023 Assessment & Plan (1) Vertigo: Plan: This appears to be benign positional vertigo. Brain MRI scan negative for CVA. We will treat with scheduled meclizine, parenteral steroids, and bedrest. Improving (2) Diabetes mellitus type 2 in obese: Plan: Lantus discontinued. Start NPH insulin 30 units twice daily with breakfast and supper. Sliding scale coverage. Glucose has improved considerably (3) Hypertension: Plan: Stable. Continue current medical manage (4) Hyperlipidemia: Plan: Stable. Continue current medical manage (5) Morbid obesity with BMI of 40.0-44.9, adult: Plan: Significant weight loss recommended (6) Chronic restrictive lung disease: Plan: Stable. No intervention necessary at this time Plan Hopefully home soon on meclizine dosing and a tapering dose of prednisone. Lantus has also been discontinued and she is now on NPH insulin. Probably tomorrow, April 11 Admission and Anticipated Discharge Date Admission Date: April 09, 2023 Subjective Awake and alert. No distress. She looks and feels better. Probable discharge to home tomorrow, April 11. Glucose is stable at 135 this morning. Oral intake is not at baseline. Continue IV fluids for now. We will discontinue hydrochlorothiazide permanently due to its propensity to cause hyperglycemia in some patients Review of Systems Review of Systems: Constitutional-no fever or chills ENT-no blurred vision, no double vision, no epistaxis, no sore throat Respiratory-no cough, no wheezing, no shortness of breath Cardiac-no palpitations, no chest pain, no syncope GI-no nausea, vomiting, diarrhea, melena, hematochezia -no urinary retention, no urinary incontinence, no dysuria, no hematuria Musculoskeletal-no joint pain, no muscle tenderness Skin-no bruising, no rashes, no pruritus Neuro-vertigo. No focal weakness Psych-no depression, no anxiety Physical Exam Physical Exam: General-alert and oriented x3, no fevers, no chills HEENT-head atraumatic and normocephalic, pupils equal and reactive to light, extraocular muscles intact. No overt nystagmus Neck-no lymphadenopathy or thyromegaly, trachea midline Chest-clear to auscultation percussion. No rales wheezing or rhonchi Cardiac-regular rate and rhythm, normal S1 and S2 Abdomen-normal bowel sounds, nontender, no hepatosplenomegaly Extremities-no cyanosis, clubbing, or edema Neuro-cranial nerves II through XII intact, motor and sensory function within normal limits, strength symmetrical , no focal deficits Psych-normal affect, normal mood Results & Data Results & Data Vital Signs (Past 12 Hours) Vital Signs Temp Pulse Resp BP Pulse Ox O2 Del Method O2 Flow Rate 04/10/23 07:44 36.9 C 86 19 124/66 97 Nasal Cannula 2 Laboratory Results 04/09/23 05:15 04/09/23 05:15 PG Care Time/CCT Total # of Minutes Spent Total Time Spent with Patient: Total time spent is greater than 50% in coordination of care (as documented) at patient's floor/unit and/or counseling patient: Coding Level of Care Code 43149 SUB INP/OBS CARE 3/50MIN Diagnoses Vertigo R42 Diabetes mellitus type 2 in obese E11.69; E66.9 Hypertension I10 Hyperlipidemia E78.5 Morbid obesity with BMI of 40.0-44.9, adult E66.01; Z68.41 Chronic restrictive lung disease J98.4
[2023-04-10] MEDS: SERTRALINE HCL 100 MG TABLET PO SCH (19:34)
[2023-04-11] MEDS: methylPREDNISolone 40 MG in SYRINGE 0 ML IV SCH ×2 (02:43→10:48)
[2023-04-11] MEDS: INSULIN ASPART PER UNIT CHARGE SC SCH ×2 (08:08→12:19)
[2023-04-11] MEDS: ASPIRIN 81 MG ECTAB PO SCH (08:09)
[2023-04-11] MEDS: MECLIZINE HCL 25 MG TAB PO SCH (08:09)
[2023-04-11] MEDS: metFORMIN HCL 500 MG TAB PO SCH (08:09)
[2023-04-11] MEDS: METOPROLOL SUCC 50MG EXT REL TAB PO SCH (08:09)
[2023-04-11] MEDS: INSULIN HUMAN NPH SC SCH (08:12)
[2023-04-11] MEDS ORDERED: LOSARTAN POTASSIUM 50 MG TAB PO SCH (10:15)
[2023-04-11] MEDS: SODIUM CHLORIDE 0.9% 1000ML 1,000 ML IV SCH (10:50)
[2023-04-11] MEDS: ACETAMINOPHEN 325 MG TAB PO PRN (10:52)
--- NOTE | 2023-04-11 12:18 | Discharge Summary ---
Date of Service April 11, 2023 Admission HPI Per Admitting Provider 67-year-old female in previously good health who developed vertigo 3 to 4 days ago accompanied by nausea and vomiting. She has been seen twice now in the ED. The other day her brain MRI scan was negative for acute CVA. She has no focal weakness or loss of vision. This appears to be benign positional vertigo. She will be placed on observation for meclizine, Solu-Medrol, and nausea treatment. She states she takes Lantus 100 units at bedtime. Insulin will be switched to NPH 30 units twice daily along with sliding scale coverage. Diabetic diet ordered. Hopefully she will improve rapidly and can go home tomorrow, April 10 Principal Diagnosis Benign positional vertigo, uncontrolled type 2 diabetes Discharge Exam General-alert and oriented x3, no fevers, no chills HEENT-head atraumatic and normocephalic, pupils equal and reactive to light, extraocular muscles intact. No overt nystagmus Neck-no lymphadenopathy or thyromegaly, trachea midline Chest-clear to auscultation percussion. No rales wheezing or rhonchi Cardiac-regular rate and rhythm, normal S1 and S2 Abdomen-normal bowel sounds, nontender, no hepatosplenomegaly Extremities-no cyanosis, clubbing, or edema Neuro-cranial nerves II through XII intact, motor and sensory function within normal limits, strength symmetrical , no focal deficits Psych-normal affect, normal mood Discharge Data Allergies Allergy/AdvReac Type Severity Reaction Status Date / Time amoxicillin [From Augmentin] AdvReac Intermediate nausea Verified 04/08/23 10:49 clavulanic acid AdvReac Intermediate nausea Verified 04/08/23 10:49 [From Augmentin] codeine AdvReac Intermediate Gastrointestinal Verified 04/08/23 10:49 Upset Consultations 04/09/23 07:12 ED Decision to Admit Stat Hospital Course (1) Vertigo: This appears to be benign positional vertigo. Brain MRI scan negative for CVA. Much improved with meclizine, parenteral steroids, and bedrest. She will continue meclizine at discharge along with a prednisone tapering dose (2) Diabetes mellitus type 2 in obese: Lantus discontinued. Glucose is much better controlled on NPH insulin 30 units twice daily with breakfast and supper. Sliding scale coverage. NPH dosage may need to be down titrated further as she weans off the prednisone. She has been instructed on how to do this herself (3) Hypertension: Stable. Hydrochlorothiazide has been discontinued since thiazide diuretics can aggravate hyperglycemia. Losartan was restarted todayApril 11 (4) Hyperlipidemia: Stable. Continue current medical manage (5) Morbid obesity with BMI of 40.0-44.9, adult: Significant weight loss recommended (6) Chronic restrictive lung disease: Stable. No intervention necessary at this time Plan Home todayApril 11 Total Time Total Time Spent Total Time Spent (In Minutes): 45 minutes Discharge Plan Discharge Items Patient Disposition: Home - Self-Care Reason For Visit: BPV Discharge Diagnosis: Benign positional vertigo, uncontrolled type 2 diabetes Activity: Resume your previous activity Non-emergency contact: Primary Care Provider Call non-emergency contact if: your symptoms worsen Follow-up/Referrals: Manju Khan MD [Primary Care Provider] - Diet: Carb Consistent or DM2 Addtl Attending Provider Instructions: Stop Lantus and Toujeo. Continue NPH insulin as directed twice daily. Take meclizine for 5 more days along with a tapering dose of prednisone. Hydrochlorothiazide has also been discontinued Pending Studies at Discharge: No Stand-Alone Forms: My niid[employer]to, Work/School Release, Smoking Cessation Medications and DC Order Prescriptions: New losartan 50 mg Tablet 50 mg PO QAM Qty: 30 0RF meclizine 25 mg Tablet 25 mg PO TID Qty: 20 0RF Humulin N NPH Insulin KwikPen 100 unit/mL (3 mL) insulin pen 30 unit subcut BID Qty: 15 3RF prednisone 10 mg tablet See Rx Instructions .ROUTE .COMPLEX Qty: 12 0RF Rx Instructions: 10 mg orally 3 times a day for 2 days, then 10 mg twice a day for 2 days, then 10 mg once a day for 2 days, then stop Continued desonide 0.05 % cream 1 applic topical DAILY PRN (Reason: skin irritation) Qty: 180 3RF (DME) miscellaneous medical supply Misc See Rx Instructions .ROUTE .MEDSUPPLY Qty: 1 0RF Rx Instructions: pulse oximeter to be used as needed. J98.4, U07.1 (DME) lancing device with lancets [[employer] Delica Plus Lanc Dev] Kit See Rx Instructions .Route Qty: 1 0RF Rx Instructions: TEST 4 TIMES DAILY OR DIRECTED (DME) lancets [OneTouch Delica Lancets] 33 gauge misc See Dose Instructions .ROUTE .MEDSUPPLY Qty: 400 3RF Rx Instructions: Test blood sugars 4 times daily or as directed (DME) OneTouch Ultra Test Strip See Rx Instructions .Route Qty: 400 3RF Rx Instructions: TEST 4 TIMES DAILY OR DIRECTED sertraline [Zoloft] 100 mg tablet 100 mg PO HS Qty: 90 3RF metoprolol succinate 50 mg tablet extended release 24 hr 50 mg PO QAM Qty: 90 3RF Rx Instructions: TAKE ONE TABLET BY MOUTH ONE TIME DAILY metformin 1,000 mg tablet 1,000 mg PO BID Qty: 180 3RF Rx Instructions: TAKE ONE TABLET BY MOUTH TWICE DAILY (DME) Diabetic Shoes Misc See Rx Instructions .Route Qty: 1 0RF Rx Instructions: As directed-E11.69 omeprazole 40 mg capsule,delayed release(DR/EC) 40 mg PO DAILY Qty: 90 3RF Rx Instructions: Take one tablet once daily. (DME) Diabetic Shoes Misc See Rx Instructions .Route Qty: 1 0RF Rx Instructions: As directed-E11.9 (DME) blood-glucose meter [OneTouch Verio Meter] Mis See Rx Instructions .Route Qty: 1 0RF Rx Instructions: As directed clobetasol 0.05 % cream 1 applic topical DAILY Qty: 30 2RF aspirin 81 mg tablet,delayed release (DR/EC) 81 mg PO QAM mupirocin 2 % ointment 1 appln TOP BID PRN (Reason: Skin Irritation) diphenhydramine-acetaminophen [Tylenol PM Extra Strength] 25-500 mg Tablet 1 tab PO HS simvastatin 20 mg tablet 20 mg PO HS Discontinued Toujeo SoloStar U-300 Insulin 300 unit/mL (1.5 mL) insulin pen 100 unit subcut HS Qty: 27 3RF losartan-hydrochlorothiazide 50-12.5 mg tablet 1 tab PO DAILY Qty: 90 2RF Rx Instructions: Take one tablet by mouth once daily. Novolog FlexPen U-100 Insulin 100 unit/mL (3 mL) insulin pen See Rx Instructions SQ TIDM Rx Instructions: subcut three times daily with meals 30 units- breakfast, Lunch = 25 units, Dinner = 20 units plus sliding scale, max 80 u daily meclizine 25 mg tablet 25 mg PO TID PRN (Reason: dizziness) Qty: 30 0RF Discharge Orders: Discharge Order (Routine); Ordered 04/11/23 Ordered By: Naman Damian Admission Data Admit Date/Time: 04/09/23 09:59 Attending Provider: Naman Damian Admit Provider: Naman Damian Primary Care Provider: Manju Khan Other Providers: Naman Damian Coding Level of Care Code 71286 INP/OBS DISCH >30 MIN Diagnoses Vertigo R42 Diabetes mellitus type 2 in obese E11.69; E66.9 Hypertension I10 Hyperlipidemia E78.5 Morbid obesity with BMI of 40.0-44.9, adult E66.01; Z68.41 Chronic restrictive lung disease J98.4
== END 2023-04-11 13:34 | disposition home or self-care (01) ==
LOC: ED 03:30 → EDINP 03:30 → 3E 19:44

== ENCOUNTER 2023-10-01 13:20 | Inpatient (IN) ==
--- NOTE | 2023-10-01 13:38 | ED Triage Note ---
Date of Service October 01, 2023 Provider in Triage Author: [place] History of Present Illness This patient was briefly evaluated while in triage. An abbreviated physical exam was performed. This patient is a 68-year-old Female who presents to the ED for evaluation of multiple complaints. The patient reports that she was diagnosed with a UTI last week. She had another repeat urinalysis on Thursday, with cultures completed yesterday. The patient is currently on an antibiotic. Patient reports that a week and a half ago, she also had a CT scan last week, showing an enlarged spleen and liver. The patient reports difficulty breathing since awakening this morning. The patient called her PCP, who recommended that she come to the emergency department to rule out sepsis. The patient reports pain everywhere. Physical Exam CONSTITUTIONAL: Healthy and well nourished. Patient does not appear toxic. HEENT: No scleral icterus or conjunctival injection. NECK: Full active range of motion without discomfort. LYMPHATICS: No cervical chain adenopathy. RESPIRATORY: Patient is mildly tachypneic with distant breath sounds. No crackles, wheezing or rhonchi. CARDIOVASCULAR: Tachycardic but regular rhythm with no murmurs, rubs or gallops. GASTROINTESTINAL: Bowel sounds present in all quadrants. INTEGUMENTARY: No rash or other significant dermatologic conditions noted. HEMATOLOGIC: No ecchymosis or petechiae. PSYCHIATRIC: Positive affect. NEUROLOGIC: No focal neurologic deficits noted. Initial orders for labs and / or imaging were placed and patient was placed in the waiting area until a bed is available. Please see further documentation for the full ED course.
--- NOTE | 2023-10-01 13:54 | Emergency Department Note ---
Impression & Plan Acute hypoxemic respiratory failure, Pulmonary edema, Septic shock ED Provider Note Name: KIMMY FERRARA Age: 68 Sex: Female Arrives Via: Walk-In Informant: Patient, who gives further information regarding patient's recent history ED Provider: Bola Esposito MD Chief Complaint: Respiratory distress Impression: As per impressions above Medical Decision Making: Very pleasant 68-year-old female with a history of GERD, hypertension, diabetes, hyperlipidemia who has had recurrent UTIs and notes recent UTI that was started on Macrobid a few days ago. Patient with rapidly worsening shortness of breath throughout this morning. Not feeling well generalized ill. On arrival patient is hypoxic low-grade fever. Septic workup initiated. Chest x-ray initially questionable infiltrates at bases no overt lobar infiltrate. Patient rapidly decompensated while in department requiring increasing oxygenation and then becoming more more obtunded. With obtundation she was noted to vomit at 1 point though no clear aspiration per nursing. With all this clearly intubation was indicated I discussed this with the at bedside he is agreeable to it. Patient's blood pressure initially was quite hypertensive though difficult to tell if this was body habitus and stress. Prior to intubation patient blood pressure in the 200s but postintubation blood pressure in the 90s when good pressure was able to be taken with outpatient agitated. She was not given any antihypertensives of note. Intubation right relatively smoothly. I did opt to use rocuronium as patient's initial potassium was elevated though no clear evidence of hyperkalemia on other workup so I think this was just hemolyzed [id number] test. During intubation patient was noted to be difficult to bag. There is no clear secretions within the trachea but there was some retained secretions in the posterior pharynx. Did take him minute or so to bag her back up and she definitely was requiring some increased peak pressures. Patient is becoming increasingly febrile and with difficulty bagging her we did go ahead and give her some steroids DuoNeb empiric antibiotics. She had been initially given a liter of fluids but on chest x-ray now has what appears to be either pulmonary edema versus ARDS. I am a bit hesitant to give further boluses of fluid in the setting of concern for fluid overload thus after initial liter and developing hypotension she was switched to Levophed. Given the rapid respiratory compromise and tachycardia and a father who had had history of PEs we proceeded to get a CT PE scan of the chest. This does not reveal any PEs but does show possible infiltrate/aspiration versus pulmonary edema versus viral infection. Reviewed with critical care team early on who agree with approach broad-spectrum antibiotics and pending viral panels. Discussed ventilatory management as well. Hospitalist was consulted as well who evaluated her and placed admission orders. Patient had multiple peripheral IVs. 1 did infiltrate however no evidence of neurovascular compromise no evidence of compartment syndrome on my evaluation. Plan for warm compresses. She is still able to receive Levophed and propofol. Discussed with hospitalist and plan still is to go to ICU and evaluate for central line. Multiple repeat evaluations patient throughout the entirety of her stay. Extensive discussion with family including and daughter and son-in-law. Triage/Nursing Notes reviewed by Me Differential:Reactive airway disease, pneumonia, pneumothorax, COPD, CHF, infections, cardiac ischemia, pulmonary embolism, musculoskeletal, gastrointestinal, as well as other pathologies. Vital Signs: reviewed and remarkable for hypoxia, febrile, hyper then hypotensive Interventions: 1 L normal saline bolus IV, Zosyn IV, vancomycin IV, Decadron IV, DuoNeb continuous, Levophed IV, propofol IV, fentanyl IV Labs:ED labs Reviewed by me and remarkable for multiple lab abnormalities including elevated white blood cell count, elevated lactic acid. COVID testing is negative on [employer]. Multiple other tests reviewed by me Imagin view chest x-ray on arrival interpretation by me reveals questionable infiltrates versus poor inspiratory effort no overt lobar infiltrate. 1 view chest x-ray postintubation per my interpretation reveals ET tube in proper position with bilateral infiltrates consistent with ARDS/pulmonary edema which are new from previous chest x-ray. CT of the chest angiography. Informal interpretation by me reveals no significant pulmonary embolism but does show diffuse inflammatory changes throughout questionable aspirations bilateral lower lungs as well as peripheral infiltrates. EKG:As per my interpretation. Indication shortness of breath. Sinus tachycardia 120 bpm QTc of 435. There is no ectopy nor ischemia. When compared to EKG of April 09, 2023 there is no significant change noted. Cardiac/Tele Monitoring: Cardiac Monitoring: An Order was placed for continuous cardiac monitoring. The monitor shows a rate of 120 with a sinus tach rhythm. Consults:Dr Maribel SOLO & Dr Zaire GIBBS Hospitalist Plan: Disposition: Hospitalization Condition: Critically ill History of Present Illness: 68-year-old female arrives for evaluation of shortness of breath. Patient notes she has been dealing with UTI fevers chills for the last few days. She was diagnosed with E. coli UTI and started on an antibiotic yesterday. This morning she awoke feeling severely shortness of breath. She notes she was able to get to work but she was so short of breath getting around she left early. She was advised to come to the ER for evaluation. Patient states that she just feels like she cannot catch her breath. She denies any specific chest pain, syncope, lightheadedness, leg swelling, calf pain or other concerning signs or symptoms. She has no history of DVT or PE but she does note that her father of a PE. She denies any nausea, vomiting, other concerning signs or symptoms. She does have a history of COPD and does note some mild wheezing last few hours but this feels different than her typical respiratory issues. Past Medical History: Recurrent UTIs, GERD, hypertension, diabetes, hyperlipidemia Home Medications:See Below Allergies: Augmentin, codeine Vitals:Blood Pressure: 167/83, Pulse 117, RR 18, T 37.5C, O2 80% on RA Physical Exam: GENERAL: Patient is ill appearing and in moderate distress. RESPIRATORY: Moderate tachypnea and dyspnea with mild expiratory wheezing though otherwise lung negron are clear. CARDIOVASCULAR: Tachycardic no murmur appreciated EXTREMITIES: Normal motion all extremities, no cyanosis, no edema. NEUROLOGIC: Alert and oriented. No focal neurologic deficits appreciated SKIN: No rash, no jaundice, no diaphoresis. PSYCH: Appropriate GCS: 15 ED Course: Times/Reassessments: Many repeat evaluations of patient throughout stay. With development of hypotension she was started on Levophed Sepsis Re-evaluation: 3:50pm on 10/01/23. Sepsis focused examination completed by me and showed patient hypotensive febrile. Given IV Tylenol and started on Levophed. Sats much improved and bagging a bit easier. Procedures: Endotracheal Intubation Indication: Respiratory Failure The patient was being bagged by respiratory with BVM. Suction, airway equipment, RSI drugs, respiratory equipment, and appropriate personnel were prepared prior to the initiation of the procedure. Dentures were removed and patient was deeply suctioned. A time out was taken. Induction was performed with rocuronium and etomidate. After observing the clinical benefit of the medications, the airway was easily visualized utilizing a #3 glide scope. A 7.5 size ETT tube was placed atraumatically to 23 cm using standard technique. The cuff inflated without signs of malfunction. There were bilateral breath sounds, positive colormetric change, no gastric sounds, a good capnography waveform, and post procedure pulse oximetry was 92%. Post intubation sedation and paralysis was administered using fentanyl and propofol. There were no complications. Critical Care: I have personally spent 120 minutes of critical care time in the direct management of this patient. Acute respiratory failure with development of septic shock requiring resuscitation and management.. This was a life/limb threatening event. This 120 minutes is in excess of all separately billable procedures. Bola Esposito MD Past Med/Surg History Medical History (Updated 10/01/23 @ 16:49 by Carlos A Tai MD) Hyperlipidemia Diabetes mellitus type 2 in obese Diabetes mellitus Type 2 Mediastinal lymphadenopathy History of COVID-19 05/2022; congestion and resolved. Inguinal adenopathy Esophageal dysphagia Osteoarthritis History of pancreatitis unk etiology Anxiety HLD (hyperlipidemia) HTN (hypertension) Sleep apnea unable to tolerate CPAP COPD (chronic obstructive pulmonary disease) no inh PONV (postoperative nausea and vomiting) Pulmonary nodule, left Peripheral neuropathy Chronic restrictive lung disease Bladder wall thickening Morbid obesity with BMI of 40.0-44.9, adult Hypertension Surgical History S/P cataract surgery History of lymph node biopsy History of esophagogastroduodenoscopy (EGD) S/P balloon dilatation of esophageal stricture History of tooth extraction History of wisdom tooth extraction History of tonsillectomy and adenoidectomy History of cardiac cath History of tubal ligation H/O colonoscopy Family History Unknown No problems noted. Mother Diabetes Kidney stone Hypertension Grandfather No problems noted. Aunt Breast cancer Grandfather (Maternal) Diabetes Other Family history non-contributory No family history of abnormal heart rhythm Denies family history of Ovarian cancer Prostate cancer Colorectal cancer Social History Smoking Status: Never smoker Tobacco Type: Cigarettes Age Started Using Tobacco: 14; Age Quit Using Tobacco: 54; packs per day: 2; Cigarettes Per Day: 50-60; Second Hand Exposure: No; Do You Dip or Chew Tobacco: No; Hx Alcohol Use: Yes Alcohol type: wine Alcohol Intake Frequency: 2-4 x/Month Hx Substance Use: No Preferred Language: R[place] Communication Ability: Effective Visual Impairment: No Limitations Hearing Ability: Normal Client Integration Manager Required: No Beliefs That Will Affect Care: None marital status: Current Living Situation: Alone current occupational status: employed current occupation: [employer] How many Children do You have: 1 Feels Safe at Home: Yes Childhood Exposure to Second-Hand Smoke: Yes Diet: regular caffeine: Yes (coffee) during the past year weight has: decreased > 10 lbs Dental Care, Regularly: No Physical Activity Frequency: Does not Exercise Seatbelt Use: never Sunscreen Use: No Assistive Devices: Cane and Scooter/Electric Scooter Allergies Allergies Allergy/AdvReac Type Severity Reaction Status Date / Time amoxicillin [From Augmentin] AdvReac Intermediate nausea Verified 08/31/23 08:47 clavulanic acid AdvReac Intermediate nausea Verified 08/31/23 08:47 [From Augmentin] codeine AdvReac Intermediate Gastrointestinal Verified 08/31/23 08:47 Upset Home Meds Home Medications Medication Instructions Recorded Confirmed aspirin 81 mg tablet,delayed 81 mg PO QAM 03/21/19 10/01/23 release blood-glucose sensor (Dexcom G7 08/31/23 08/31/23 Sensor device) B12 See Rx Instructions .Route .COMPLEX 10/01/23 10/01/23 Vitamin D3 See Rx Instructions .Route .COMPLEX 10/01/23 10/01/23 diphenhydramine 25 2 tab PO HS 10/01/23 10/01/23 mg-acetaminophen 500 mg tablet (Tylenol PM Extra Strength) insulin aspart U-100 100 unit/mL 0 unit subcut UD 10/01/23 10/01/23 (3 mL) subcutaneous pen (Novolog FlexPen U-100 Insulin aspart) Previous Rx's Medication Instructions Recorded miscellaneous medical supply #1 ea 05/22/22 lancing device with lancets kit #1 ea 07/04/22 (IntelliChemuch DelBirthday Gorilla Plus Lancing Device kit) lancets 33 gauge ([employer]Line #400 ea 07/07/22 Lancets) blood sugar diagnostic (Best Before Media #400 ea 07/09/22 Ultra Test strips) blood-glucose meter (OneTouch #1 ea 07/30/22 Verio Meter) metoprolol succinate 50 mg 50 mg PO QAM #90 tabs 11/03/22 tablet,extended release 24 hr sertraline 100 mg tablet (Zoloft) 100 mg PO HS #90 tabs 11/03/22 omeprazole 40 mg capsule,delayed 40 mg PO DAILY #90 caps 11/17/22 release metformin 1,000 mg tablet 1,000 mg PO BID #180 tabs 12/03/22 insulin glargine U-300 conc 300 100 unit (0.3333 mL) subcut DAILY 04/21/23 unit/mL (3 mL) subcutaneous pen 90 days #30 mL (Toujeo Max U-300 SoloStar) losartan 50 mg-hydrochlorothiazide 1 tab PO DAILY #90 tabs 08/03/23 12.5 mg tablet simvastatin 40 mg tablet 40 mg PO HS #90 tabs 09/16/23 Results & Data (ED) Vital Signs Vital Signs - 24 hr 10/01/23 13:34 10/01/23 13:43 10/01/23 13:50 Temperature 37.5 C Temperature Source Temporal Artery Scan Pulse Rate 120 H 117 H 117 H Pulse Rate from SpO2 Sensor 118 H Respiratory Rate 18 34 H Respiratory Effort / Characteristics Non-Labored Spontaneous Respiratory Depth Normal Blood Pressure 167/83 H Blood Pressure Mean 111 Pulse Oximetry 80 L 97 Oxygen Delivery Method Room Air Fraction of Inspired Oxygen Sepsis Recent Fever Within 48 Hours No Sepsis New/Unexplained Change in Mental Status No Sepsis Action Taken by Nursing No Action Required End-Tidal CO2 10/01/23 13:50 10/01/23 14:00 10/01/23 14:10 Temperature Temperature Source Pulse Rate 120 H 120 H 128 H Pulse Rate from SpO2 Sensor 120 H 119 H 128 H Respiratory Rate 37 H 32 H 32 H Respiratory Effort / Characteristics Respiratory Depth Blood Pressure Blood Pressure Mean Pulse Oximetry 96 75 L 99 Oxygen Delivery Method Fraction of Inspired Oxygen Sepsis Recent Fever Within 48 Hours Sepsis New/Unexplained Change in Mental Status Sepsis Action Taken by Nursing End-Tidal CO2 10/01/23 14:20 10/01/23 14:28 10/01/23 14:28 Temperature Temperature Source Pulse Rate 133 H 135 H Pulse Rate from SpO2 Sensor 133 H 134 H Respiratory Rate 25 H Respiratory Effort / Characteristics Respiratory Depth Blood Pressure 224/164 H Blood Pressure Mean 179 Pulse Oximetry 97 90 Oxygen Delivery Method Fraction of Inspired Oxygen Sepsis Recent Fever Within 48 Hours Sepsis New/Unexplained Change in Mental Status Sepsis Action Taken by Nursing End-Tidal CO2 10/01/23 14:30 10/01/23 14:30 10/01/23 14:36 Temperature Temperature Source Pulse Rate 133 H Pulse Rate from SpO2 Sensor 134 H Respiratory Rate Respiratory Effort / Characteristics Respiratory Depth Blood Pressure 209/158 H 248/146 H Blood Pressure Mean 189 191 Pulse Oximetry 88 L Oxygen Delivery Method Fraction of Inspired Oxygen Sepsis Recent Fever Within 48 Hours Sepsis New/Unexplained Change in Mental Status Sepsis Action Taken by Nursing End-Tidal CO2 10/01/23 14:36 10/01/23 14:40 10/01/23 14:40 Temperature Temperature Source Pulse Rate 138 H 156 H Pulse Rate from SpO2 Sensor 138 H 156 H Respiratory Rate Respiratory Effort / Characteristics Respiratory Depth Blood Pressure 187/121 H Blood Pressure Mean 130 Pulse Oximetry 87 L 92 Oxygen Delivery Method Fraction of Inspired Oxygen Sepsis Recent Fever Within 48 Hours Sepsis New/Unexplained Change in Mental Status Sepsis Action Taken by Nursing End-Tidal CO2 10/01/23 14:45 10/01/23 14:45 10/01/23 14:50 Temperature Temperature Source Pulse Rate 147 H Pulse Rate from SpO2 Sensor 147 H Respiratory Rate Respiratory Effort / Characteristics Respiratory Depth Blood Pressure 219/108 H 162/94 H Blood Pressure Mean 140 119 Pulse Oximetry 94 Oxygen Delivery Method Fraction of Inspired Oxygen Sepsis Recent Fever Within 48 Hours Sepsis New/Unexplained Change in Mental Status Sepsis Action Taken by Nursing End-Tidal CO2 10/01/23 14:50 10/01/23 14:55 10/01/23 14:55 Temperature 38.2 C H 38.7 C H Temperature Source Pulse Rate 148 H 133 H Pulse Rate from SpO2 Sensor 148 H 133 H Respiratory Rate 18 Respiratory Effort / Characteristics Respiratory Depth Blood Pressure 114/69 Blood Pressure Mean 86 Pulse Oximetry 96 97 Oxygen Delivery Method Fraction of Inspired Oxygen Sepsis Recent Fever Within 48 Hours Sepsis New/Unexplained Change in Mental Status Sepsis Action Taken by Nursing End-Tidal CO2 68 10/01/23 14:57 10/01/23 14:57 10/01/23 15:00 Temperature 38.9 C H Temperature Source Pulse Rate 129 H Pulse Rate from SpO2 Sensor 127 H Respiratory Rate 20 Respiratory Effort / Characteristics Respiratory Depth Blood Pressure 97/63 L 92/60 L Blood Pressure Mean 73 76 Pulse Oximetry 96 Oxygen Delivery Method Fraction of Inspired Oxygen Sepsis Recent Fever Within 48 Hours Sepsis New/Unexplained Change in Mental Status Sepsis Action Taken by Nursing End-Tidal CO2 61 10/01/23 15:00 10/01/23 15:05 10/01/23 15:05 Temperature 39.2 C H 39.4 C H Temperature Source Pulse Rate 128 H 127 H Pulse Rate from SpO2 Sensor 128 H 126 H Respiratory Rate 20 24 Respiratory Effort / Characteristics Respiratory Depth Blood Pressure 80/52 L Blood Pressure Mean 63 Pulse Oximetry 97 97 Oxygen Delivery Method Fraction of Inspired Oxygen Sepsis Recent Fever Within 48 Hours Sepsis New/Unexplained Change in Mental Status Sepsis Action Taken by Nursing End-Tidal CO2 63 51 10/01/23 15:30 10/01/23 15:31 10/01/23 15:32 Temperature 39.4 C H Temperature Source Pulse Rate 124 H 112 H Pulse Rate from SpO2 Sensor 111 H Respiratory Rate 24 24 Respiratory Effort / Characteristics Respiratory Depth Blood Pressure 77/51 L Blood Pressure Mean 62 Pulse Oximetry 96 97 Oxygen Delivery Method Fraction of Inspired Oxygen 100 Sepsis Recent Fever Within 48 Hours Sepsis New/Unexplained Change in Mental Status Sepsis Action Taken by Nursing End-Tidal CO2 48 50 10/01/23 15:32 10/01/23 15:35 10/01/23 15:35 Temperature 39.3 C H 39.3 C H Temperature Source Pulse Rate 110 H 107 H Pulse Rate from SpO2 Sensor 110 H 107 H Respiratory Rate 24 24 Respiratory Effort / Characteristics Respiratory Depth Blood Pressure 79/49 L Blood Pressure Mean 58 Pulse Oximetry 97 97 Oxygen Delivery Method Fraction of Inspired Oxygen Sepsis Recent Fever Within 48 Hours Sepsis New/Unexplained Change in Mental Status Sepsis Action Taken by Nursing End-Tidal CO2 51 50 10/01/23 15:40 10/01/23 15:45 10/01/23 15:46 Temperature 39.2 C H 39.1 C H Temperature Source Pulse Rate 110 H 110 H Pulse Rate from SpO2 Sensor 111 H 109 H Respiratory Rate 24 24 Respiratory Effort / Characteristics Respiratory Depth Blood Pressure 86/50 L Blood Pressure Mean 63 Pulse Oximetry 97 97 Oxygen Delivery Method Fraction of Inspired Oxygen Sepsis Recent Fever Within 48 Hours Sepsis New/Unexplained Change in Mental Status Sepsis Action Taken by Nursing End-Tidal CO2 50 51 10/01/23 15:46 10/01/23 15:50 10/01/23 15:50 Temperature 39.1 C H 39.0 C H Temperature Source Pulse Rate 109 H 105 H Pulse Rate from SpO2 Sensor 108 H 105 H Respiratory Rate 24 24 Respiratory Effort / Characteristics Respiratory Depth Blood Pressure 91/56 L Blood Pressure Mean 61 Pulse Oximetry 97 98 Oxygen Delivery Method Fraction of Inspired Oxygen Sepsis Recent Fever Within 48 Hours Sepsis New/Unexplained Change in Mental Status Sepsis Action Taken by Nursing End-Tidal CO2 51 50 10/01/23 15:55 10/01/23 15:55 Temperature 38.9 C H Temperature Source Pulse Rate 101 H Pulse Rate from SpO2 Sensor 101 H Respiratory Rate 25 H Respiratory Effort / Characteristics Respiratory Depth Blood Pressure 94/58 L Blood Pressure Mean 82 Pulse Oximetry 96 Oxygen Delivery Method Fraction of Inspired Oxygen Sepsis Recent Fever Within 48 Hours Sepsis New/Unexplained Change in Mental Status Sepsis Action Taken by Nursing End-Tidal CO2 49 Laboratory Data 10/01/23 14:20 10/01/23 14:37 Lab Results 10/01/23 10/01/23 10/01/23 Range/Units 14:20 14:37 14:50 WBC 20.04 H (4.8-10.8) K/ul RBC 5.40 (4.20-5.40) M/uL Hgb 13.9 (12.0-16.0) g/dl Hct 44.1 (37.0-47.0) % MCV 81.7 (80.0-100.0) fL MCH 25.7 (25.0-34.0) pg MCHC 31.5 L (32.0-36.0) g/dL RDW Std Deviation 48.8 H (36.4-46.3) fL RDW Coeff of Radha 17.1 H (11.5-14.5) % Plt Count 241 (130-400) K/uL MPV 10.6 (9.4-12.4) fL Immature Gran % (Auto) 0.6 % Neut % (Auto) 92.2 % Lymph % (Auto) 2.9 % Mchenry % (Auto) 3.1 % Eos % (Auto) 0.8 % Baso % (Auto) 0.4 % Neut # (Auto) 18.44 H (1.40-6.50) K/uL Lymph # (Auto) 0.59 L (1.20-3.40) K/uL [place]hen[place] # (Auto) 0.63 H (0.11-0.59) K/uL Eos # (Auto) 0.17 (0.00-0.50) K/uL Baso # (Auto) 0.08 (0.00-0.20) K/uL Immature Gran # (Auto) 0.13 (0.01-0.20) K/uL Toxic Vacuolation 1+ ESR 56 H (0-30) mm/hr PT Cancelled INR Cancelled VBG pH 7.10 L (7.36-7.41) VBG pCO2 108 H (38-50) mmHg VBG pO2 50 mmHg VBG HCO3 34 mmol/L VBG O2 Saturation 67.3 % VBG Base Excess 0.1 mEq/L Sodium 135 L (136-145) mmol/L Potassium 4.1 (3.5-5.1) mmol/L Chloride 97 L (98-107) mmol/L Carbon Dioxide 31 (21-32) mmol/L Anion Gap 7 (3-11) BUN 17 (6-23) mg/dl Creatinine 0.89 (0.6-1.2) mg/dl Est Cr Clr Drug Dosing 78.5 ml/min Est GFR ( Amer) 77.2 ml/min Est GFR (Non-Af Amer) 66.6 ml/min BUN/Creatinine Ratio 19.1 (10-20) Glucose 163 H (70-99(Fasting)) mg/dl Lactate 2.9 H* (0.4-2.0) mmol/L Calcium 9.5 (8.6-10.3) mg/dl Total Bilirubin 0.3 (0.2-1.0) mg/dl AST 14 (13-39) U/L ALT 11 (7-52) U/L Alkaline Phosphatase 65 (34-104) U/L Troponin I High Sens 7.0 (0-14) pg/ml C-Reactive Protein 4.74 H (0-0.5) mg/dl B-Natriuretic Peptide 76 (0-100) pg/ml Total Protein 7.8 (6.0-8.3) gm/dl Albumin 4.4 (3.4-5.0) gm/dl Globulin 3.4 (2.5-4.0) gm/dl Albumin/Globulin Ratio 1.3 (0.9-2) Procalcitonin Cancelled Urine Color Yellow Urine Appearance Clear (Clear) Urine pH 5.5 (4.5-7.5) Ur Specific [place] 1.023 (1.000-1.030) Urine Protein 4+ H (Negative) Urine Glucose (UA) Negative (Negative) Urine Ketones Negative (Negative) Urine Blood 1+ H (Negative) Urine Nitrite Negative (Negative) Urine Bilirubin Negative (Negative) Urine Urobilinogen Negative (Negative) Ur Leukocyte Esterase Negative (Negative) Urine WBC (Auto) >30 H (0-5) /hpf Urine RBC (Auto) 5-10 H (0-4) /hpf U Hyaline Cast (Auto) 1-5 (0-5) /lpf U Epithel Cells (Auto) >30 H (0-5) /lpf Urine Bacteria (Auto) Negative (Negative) Ur Renal Epithelial Cell Not Reportable Adenovirus (PCR) (NotDetected) B. pertussis DNA (PCR) (NotDetected) B.parapertussis DNA PCR (NotDetected) C. pneumoniae DNA (PCR) (NotDetected) Coronavirus OC43 (PCR) (NotDetected) Coronavirus HKU1 (PCR) (NotDetected) Coronavirus 229E (PCR) (NotDetected) SARS-CoV-2 (PCR) (NotDetected) Coronavirus NL63 (PCR) (NotDetected) Human Metapneumovir PCR (NotDetected) Influenza Type A (PCR) (NotDetected) Influenza Type B (PCR) (NotDetected) M. pneumoniae (PCR) (NotDetected) Parainfluenza 1 (PCR) (NotDetected) Parainfluenza 2 (PCR) (NotDetected) Parainfluenza 3 (PCR) (NotDetected) Parainfluenza 4 (PCR) (NotDetected) RSV (PCR) (NotDetected) Entero/Rhino (PCR) (NotDetected) 10/01/23 Range/Units 15:31 WBC (4.8-10.8) K/ul RBC (4.20-5.40) M/uL Hgb (12.0-16.0) g/dl Hct (37.0-47.0) % MCV (80.0-100.0) fL MCH (25.0-34.0) pg MCHC (32.0-36.0) g/dL RDW Std Deviation (36.4-46.3) fL RDW Coeff of Radha (11.5-14.5) % Plt Count (130-400) K/uL MPV (9.4-12.4) fL Immature Gran % (Auto) % Neut % (Auto) % Lymph % (Auto) % [place] % (Auto) % Eos % (Auto) % Baso % (Auto) % Neut # (Auto) (1.40-6.50) K/uL Lymph # (Auto) (1.20-3.40) K/uL [place] # (Auto) (0.11-0.59) K/uL Eos # (Auto) (0.00-0.50) K/uL Baso # (Auto) (0.00-0.20) K/uL Immature Gran # (Auto) (0.01-0.20) K/uL Toxic Vacuolation ESR (0-30) mm/hr PT INR VBG pH (7.36-7.41) VBG pCO2 (38-50) mmHg VBG pO2 mmHg VBG HCO3 mmol/L VBG O2 Saturation % VBG Base Excess mEq/L Sodium (136-145) mmol/L Potassium (3.5-5.1) mmol/L Chloride (98-107) mmol/L Carbon Dioxide (21-32) mmol/L Anion Gap (3-11) BUN (6-23) mg/dl Creatinine (0.6-1.2) mg/dl Est Cr Clr Drug Dosing ml/min Est GFR ( Amer) ml/min Est GFR (Non-Af Amer) ml/min BUN/Creatinine Ratio (10-20) Glucose (70-99(Fasting)) mg/dl Lactate (0.4-2.0) mmol/L Calcium (8.6-10.3) mg/dl Total Bilirubin (0.2-1.0) mg/dl AST (13-39) U/L ALT (7-52) U/L Alkaline Phosphatase (34-104) U/L Troponin I High Sens (0-14) pg/ml C-Reactive Protein (0-0.5) mg/dl B-Natriuretic Peptide (0-100) pg/ml Total Protein (6.0-8.3) gm/dl Albumin (3.4-5.0) gm/dl Globulin (2.5-4.0) gm/dl Albumin/Globulin Ratio (0.9-2) Procalcitonin Urine Color Urine Appearance (Clear) Urine pH (4.5-7.5) Ur Specific [place] (1.000-1.030) Urine Protein (Negative) Urine Glucose (UA) (Negative) Urine Ketones (Negative) Urine Blood (Negative) Urine Nitrite (Negative) Urine Bilirubin (Negative) Urine Urobilinogen (Negative) Ur Leukocyte Esterase (Negative) Urine WBC (Auto) (0-5) /hpf Urine RBC (Auto) (0-4) /hpf U Hyaline Cast (Auto) (0-5) /lpf U Epithel Cells (Auto) (0-5) /lpf Urine Bacteria (Auto) (Negative) Ur Renal Epithelial Cell Adenovirus (PCR) Not Detected (NotDetected) B. pertussis DNA (PCR) Not Detected (NotDetected) B.parapertussis DNA PCR Not Detected (NotDetected) C. pneumoniae DNA (PCR) Not Detected (NotDetected) Coronavirus OC43 (PCR) Not Detected (NotDetected) Coronavirus HKU1 (PCR) Not Detected (NotDetected) Coronavirus 229E (PCR) Not Detected (NotDetected) SARS-CoV-2 (PCR) Not Detected (NotDetected) Coronavirus NL63 (PCR) Not Detected (NotDetected) Human Metapneumovir PCR Not Detected (NotDetected) Influenza Type A (PCR) Not Detected (NotDetected) Influenza Type B (PCR) Not Detected (NotDetected) M. pneumoniae (PCR) Not Detected (NotDetected) Parainfluenza 1 (PCR) Not Detected (NotDetected) Parainfluenza 2 (PCR) Not Detected (NotDetected) Parainfluenza 3 (PCR) Not Detected (NotDetected) Parainfluenza 4 (PCR) Not Detected (NotDetected) RSV (PCR) Not Detected (NotDetected) Entero/Rhino (PCR) Not Detected (NotDetected) Administered Medications Propofol (Diprivan) 1,000 mg in 100 mls @ 14.4 mls/hr IV .Q6H57M [facility]; Protocol Stop: 10/04/23 14:44 Last Admin: 10/01/23 16:12 Dose: 20 mcg/kg/min, 14.4 mls/hr Documented By: KELSEY Co-signed By: MI Vancomycin HCl 2,500 mg/ (Sodium Chloride) 550 mls @ 200 mls/hr IV NOW ONE Stop: 10/01/23 17:36 Last Admin: 10/01/23 15:54 Dose: 200 mls/hr Documented By: KELSEY Norepinephrine Bitartrate (Levophed/D5w) 4 mg in 250 mls @ 22.5 mls/hr IV .Q11H7M [facility]; Protocol Stop: 10/31/23 15:59 Last Titration: 10/01/23 16:08 Dose: 0.07 mcg/kg/min, 31.5 mls/hr Documented By: Admin: 10/01/23 15:35 Dose: 0.01 mcg/kg/min, 4.5 mls/hr Documented By: KELSEY Co-signed By: MARGO Discontinued Medications Fentanyl Citrate (Fentanyl Citrate Pf 100 Mcg/2 Ml Vial) 100 mcg IV NOW STA Stop: 10/01/23 14:42 Last Admin: 10/01/23 14:49 Dose: 100 mcg Documented By: SANDRA Sodium Chloride (Nss) 1,000 mls @ 999 mls/hr IV .Q1H1M STA Stop: 10/01/23 14:38 Last Admin: 10/01/23 14:49 Dose: 999 mls/hr Documented By: SANDRA Sodium Chloride (Nss) 1,000 mls @ 999 mls/hr IV .Q1H1M ONE Stop: 10/01/23 15:40 Last Admin: 10/01/23 15:54 Dose: 999 mls/hr Documented By: KELSEY Acetaminophen (Ofirmev) 1,000 mg in 100 mls @ 400 mls/hr IV NOW STA Stop: 10/01/23 15:10 Last Admin: 10/01/23 15:05 Dose: 400 mls/hr Documented By: JAY JAY Ioversol (Optiray 320 125ml) 118 ml IV ONCE ONE Stop: 10/01/23 15:22 Last Admin: 10/01/23 15:21 Dose: 118 ml Documented By: MARLENE Miscellaneous (Rapid Sequence Induction Bag) Confirm Administered Dose 1 each N/A .STK-MED ONE Stop: 10/01/23 14:27 Last Admin: 10/01/23 15:56 Dose: 1 each Documented By: KELSEY Lr (Stat Iv Infusion Titration Per Protocol) 1 each N/A NOW STA Stop: 10/01/23 15:48 Last Admin: 10/01/23 15:53 Dose: 0.05 each Documented By: KELSEY Norepinephrine Bitartrate (Norepinephrine/D5w 4 Mg/250 Ml) Confirm Administered Dose 4 mg IV .STK-MED ONE Stop: 10/01/23 15:02 Last Admin: 10/01/23 15:55 Dose: Not Given Documented By: KELSEY Imaging Data Radiologist's Impression: Chest X-Ray 10/01/23 13:38 XR chest 1V portable CLINICAL HISTORY: Hypoxia. COMPARISON STUDY: Chest radiograph September 01, 2023. Chest CT November 18, 2022. FINDINGS: Patient is mildly rotated. No pneumothorax or pleural effusion is present. Mild left basilar opacity favors atelectasis or epicardial fat pad. No consolidation to suggest pneumonia. Cardiomegaly is unchanged. Mediastinal contours are stable. There is no evidence for pulmonary edema. IMPRESSION: No acute cardiopulmonary findings. No significant change in appearance of the chest. ACT 112: Negative or not required by law. Electronically signed by: Rolando Paz M.D. 10/01/2023 2:19 PM Chest CTA 10/01/23 13:50 CT ANGIOGRAPHY OF THE CHEST, PULMONARY EMBOLUS PROTOCOL CLINICAL HISTORY: PE - hypoxia/tachycardia. COMPARISON STUDY: Chest CT November 18, 2022. Chest radiograph performed earlier today. TECHNIQUE: Following IV administration of 118 mL of Optiray, helical axial images of the chest were obtained utilizing the pulmonary embolus protocol. Maximal intensity projections and sagittal and coronal reformats were viewed on an independent 3D workstation. IV contrast was administered without complication. Automated exposure control was utilized for the study. A dose lowering technique was utilized adhering to the principles of ALARA. CT DOSE: 917.52 mGy.cm FINDINGS: Tip of endotracheal tube is 4.1 cm above the angel. Tip of nasogastric tube is within the gastric fundus. No pulmonary emboli are identified. There is no thoracic aortic dissection. There is mild cardiomegaly. No pericardial effusion. Mildly enlarged mediastinal and bilateral hilar lymph nodes are present. Index right paratracheal lymph node on image 164 of 231 measures 2 x 1 cm. There is no pneumothorax. No pleural effusion. Moderate dependent airspace opacities within the lungs are present. There are is interlobular septal thickening groundglass opacities within the lungs. Central airways are patent. IMPRESSION: 1. No pulmonary emboli identified. 2. Satisfactory positioning of the endotracheal and nasogastric tubes. 3. Moderate interstitial and alveolar pulmonary edema. 4. Superimposed dependent multifocal airspace opacities. The findings favor superimposed pneumonia or aspiration pneumonitis. 5. Prominent mediastinal and bilateral hilar lymph nodes. These may be reactive/related to pulmonary edema. ACT 112: Negative or not required by law. Electronically signed by: Rolando Paz M.D. 10/01/2023 3:52 PM Chest X-Ray 10/01/23 14:40 SUPINE PORTABLE AP CHEST RADIOGRAPH CLINICAL HISTORY: Intubation. COMPARISON STUDY: Chest radiograph performed earlier today. Chest CT November 18, 2022. FINDINGS: The tip of the endotracheal tube is 4.1 cm above the angel. Tip of nasogastric tube is within the gastric fundus. Interstitial thickening has developed. In part, this could be technical. Cardiomegaly is again noted. There is no interstitial thickening and patchy right lung opacities have developed. Allowing for supine technique, cardiomediastinal silhouette is stable. No pneumothorax or pleural effusion is identified. IMPRESSION: 1. Satisfactory positioning of the endotracheal and nasogastric tubes. 2. Interval development of interstitial thickening and patchy right lung opacities. Although possibly technical, the findings favor pulmonary edema or less likely an infectious process. ACT 112: Negative or not required by law. Electronically signed by: Rolando Paz M.D. 10/01/2023 3:04 PM Discharge Plan Visit Data Chief Complaint: Urinary Symptoms Stated Complaint: SOB, UTI, REF BY DOC, POSS SEPSIS ED Provider: Bola Esposito Discharge Problem: Acute hypoxemic respiratory failure, Pulmonary edema, Septic shock Forms Stand Alone Forms: [email or web address] Prescriptions Prescriptions: No Action (DME) miscellaneous medical supply Misc See Rx Instructions .ROUTE .MEDSUPPLY Qty: 1 0RF Rx Instructions: pulse oximeter to be used as needed. J98.4, U07.1 (DME) lancing device with lancets [5 Star QuarterbackTouch Delica Plus Lanc Dev] Kit See Rx Instructions .Route Qty: 1 0RF Rx Instructions: TEST 4 TIMES DAILY OR DIRECTED (DME) lancets [OneTouch Delica Lancets] 33 gauge [facility] [place] See Dose Instructions .ROUTE .MEDSUPPLY Qty: 400 3RF Rx Instructions: Test blood sugars 4 times daily or as directed (DME) OneTouch Ultra Test Strip See Rx Instructions .Route Qty: 400 3RF Rx Instructions: TEST 4 TIMES DAILY OR DIRECTED sertraline [Zoloft] 100 mg tablet 100 mg PO HS Qty: 90 3RF metoprolol succinate 50 mg tablet extended release 24 hr 50 mg PO QAM Qty: 90 3RF Rx Instructions: TAKE ONE TABLET BY MOUTH ONE TIME DAILY metformin 1,000 mg tablet 1,000 mg PO BID Qty: 180 3RF Rx Instructions: TAKE ONE TABLET BY MOUTH TWICE DAILY simvastatin 40 mg tablet 40 mg PO HS Qty: 90 1RF (DME) Dexcom G7 Sensor Device See Rx Instructions .ROUTE Rx Instructions: As directed omeprazole 40 mg capsule,delayed release(DR/EC) 40 mg PO DAILY Qty: 90 3RF Rx Instructions: Take one tablet once daily. (DME) blood-glucose meter [5 Star QuarterbackTouch Verio Meter] [facility] [place] See Rx Instructions .Route Qty: 1 0RF Rx Instructions: As directed losartan-hydrochlorothiazide 50-12.5 mg tablet 1 tab PO DAILY Qty: 90 3RF Rx Instructions: Take ONE tablet by mouth once daily. Toujeo Max U-300 SoloStar 300 unit/mL (3 mL) insulin pen 100 unit subcut DAILY 90 Days Qty: 30 3RF aspirin 81 mg tablet,delayed release (DR/EC) 81 mg PO QAM B12 See Rx Instructions .ROUTE .COMPLEX Rx Instructions: unknown dose diphenhydramine-acetaminophen [Tylenol PM Extra Strength] 25-500 mg Tablet 2 tab PO HS Vitamin D3 See Rx Instructions .ROUTE .COMPLEX Rx Instructions: unknown dose insulin aspart U-100 [Novolog FlexPen U-100 Insulin] 100 unit/mL (3 mL) insulin pen 0 unit subcut UD Rx Instructions: 35 u @breakfast 30 u @ lunch 25u @ supper Referrals Referrals: Manju Khan MD [Primary Care Provider] -
--- NOTE | 2023-10-01 14:21 | XRay Report ---
XR chest 1V portable CLINICAL HISTORY: Hypoxia. COMPARISON STUDY: Chest radiograph September 01, 2023. Chest CT November 18, 2022. FINDINGS: Patient is mildly rotated. No pneumothorax or pleural effusion is present. Mild left basila r opacity favors atelectasis or epicardial fat pad. No consolidation to suggest pneumonia. Cardiomega ly is unchanged. Mediastinal contours are stable. There is no evidence for pulmonary edema. IMPRESSION: No acute cardiopulmonary findings. No significant change in appearance of the chest. ACT 112: Negative or not required by law. Electronically signed by: Rolando Paz M.D. 10/01/2023 2:19 PM
[2023-10-01 14:47] LABS: Base Excess VBG 0.1 mEq/L; HCO3 VBG 34 mmol/L; Oxygen Saturation VBG 67.3 %; PCO2 VBG 108 mmHg (38-50); PO2 VBG 50 mmHg
[2023-10-01] MEDS: SODIUM CHLORIDE 0.9% 1,000 ML IV STA (14:49)
[2023-10-01] MEDS: fentaNYL citrate PF 100 MCG/2 ML VIAL IV STA (14:49)
[2023-10-01 14:51] LABS: Hematocrit (blood only) 44.1 % (37.0-47.0); Hemoglobin 13.9 g/dl (12.0-16.0); Mean Corpuscular Hemoglobin 25.7 pg (25.0-34.0); Mean Corpuscular Hgb Conc 31.5 g/dL (32.0-36.0); Mean Corpuscular Volume 81.7 fL (80.0-100.0); Mean Platelet Volume 10.6 fL (9.4-12.4); Platelet Count 241 K/uL (130-400); RDW Coefficient of Variation 17.1 % (11.5-14.5); RDW Standard Deviation 48.8 fL (36.4-46.3); White Blood Count 20.04 K/ul (4.8-10.8)
[2023-10-01] MEDS ORDERED: VANCOMYCIN CONSULT ACTIVE PRN (14:52)
[2023-10-01] MEDS: ACETAMINOPHEN 1,000 MG/100 ML VIAL IV STA (15:05)
--- NOTE | 2023-10-01 15:06 | XRay Report ---
SUPINE PORTABLE AP CHEST RADIOGRAPH CLINICAL HISTORY: Intubation. COMPARISON STUDY: Chest radiograph performed earlier today. Chest CT November 18, 2022. FINDINGS: The tip of the endotracheal tube is 4.1 cm above the angel. Tip of nasogastric tube is wit hin the gastric fundus. Interstitial thickening has developed. In part, this could be technical. Card iomegaly is again noted. There is no interstitial thickening and patchy right lung opacities have dev eloped. Allowing for supine technique, cardiomediastinal silhouette is stable. No pneumothorax or ple ural effusion is identified. IMPRESSION: 1. Satisfactory positioning of the endotracheal and nasogastric tubes. 2. Interval development of interstitial thickening and patchy right lung opacities. Although possibly technical, the findings favor pulmonary edema or less likely an infectious process. ACT 112: Negative or not required by law. Electronically signed by: Rolando Paz M.D. 10/01/2023 3:04 PM
[2023-10-01 15:10] LABS: Albumin Globulin Ratio 1.3 (0.9-2); Albumin Level 4.4 gm/dl (3.4-5.0); BUN Creatinine Ratio 19.1 (10-20); Bilirubin,Total 0.3 mg/dl (0.2-1.0); C Reactive Protein 4.74 mg/dl (0-0.5); Calcium 9.5 mg/dl (8.6-10.3); Creatinine Clr Calc Pharmacy 78.5 ml/min; Est GFR (African American) 77.2 ml/min; Est GFR (Non-African American) 66.6 ml/min; Globulin 3.4 gm/dl (2.5-4.0); Potassium 4.1 mmol/L (3.5-5.1); Total Protein 7.8 gm/dl (6.0-8.3)
[2023-10-01 15:10] LABS: Appearance Urine Clear (Clear); Bacteria Urine Automated Negative (Negative); Bilirubin Urine Negative (Negative); Blood Urine 1+ (Negative); Color Urine Yellow; Epithelial Cell Urine Auto >30 /lpf (0-5); Glucose Urine UA Negative (Negative); Ketones Urine Negative (Negative); Leukocyte Esterase Urine Negative (Negative); Nitrite Urine Negative (Negative); Protein Urine 4+ (Negative); Specific Gravity Urine 1.023 (1.000-1.030); Urobilinogen Urine Negative (Negative); WBC Urine Automated >30 /hpf (0-5); pH Urine 5.5 (4.5-7.5)
[2023-10-01 15:12] LABS: Basophils # (auto) 0.08 K/uL (0.00-0.20); Basophils % (auto) 0.4 %; Eosinophils # (auto) 0.17 K/uL (0.00-0.50); Eosinophils % (auto) 0.8 %; Immature Granulocytes # (auto) 0.13 K/uL (0.01-0.20); Immature Granulocytes % (auto) 0.6 %; Lymphocytes # (auto) 0.59 K/uL (1.20-3.40); Lymphocytes % (auto) 2.9 %; Monocytes # (auto) 0.63 K/uL (0.11-0.59); Monocytes % (auto) 3.1 %; Neutrophils # (auto) 18.44 K/uL (1.40-6.50); Neutrophils % (auto) 92.2 %; Toxic Vacuolation 1+
[2023-10-01] MEDS: OPTIRAY 320 125ml IV ONE (15:21)
[2023-10-01] MEDS: NOREPINEPHRINE/D5W 4 MG/250 ML PLCT IV SCH (15:35)
[2023-10-01] MEDS: STAT IV Infusion **Titration per Protocol STA ×2 (15:53→18:59)
--- NOTE | 2023-10-01 15:53 | CT Scan Report ---
CT ANGIOGRAPHY OF THE CHEST, PULMONARY EMBOLUS PROTOCOL CLINICAL HISTORY: PE - hypoxia/tachycardia. COMPARISON STUDY: Chest CT November 18, 2022. Chest radiograph performed earlier today. TECHNIQUE: Following IV administration of 118 mL of Optiray, helical axial images of the chest were o btained utilizing the pulmonary embolus protocol. Maximal intensity projections and sagittal and cor onal reformats were viewed on an independent 3D workstation. IV contrast was administered without co mplication. Automated exposure control was utilized for the study. A dose lowering technique was ut ilized adhering to the principles of ALARA. CT DOSE: 917.52 mGy.cm FINDINGS: Tip of endotracheal tube is 4.1 cm above the angel. Tip of nasogastric tube is within the gastric fundus. No pulmonary emboli are identified. There is no thoracic aortic dissection. There is mild cardiomegaly. No pericardial effusion. Mildly enlarged mediastinal and bilateral hilar lymph no juan miguel are present. Index right paratracheal lymph node on image 164 of 231 measures 2 x 1 cm. There is no pneumothorax. No pleural effusion. Moderate dependent airspace opacities within the lungs are pres ent. There are is interlobular septal thickening groundglass opacities within the lungs. Central airw ays are patent. IMPRESSION: 1. No pulmonary emboli identified. 2. Satisfactory positioning of the endotracheal and nasogastric tubes. 3. Moderate interstitial and alveolar pulmonary edema. 4. Superimposed dependent multifocal airspace opacities. The findings favor superimposed pneumonia or aspiration pneumonitis. 5. Prominent mediastinal and bilateral hilar lymph nodes. These may be reactive/related to pulmonary edema. ACT 112: Negative or not required by law. Electronically signed by: Rolando Paz M.D. 10/01/2023 3:52 PM
[2023-10-01] MEDS: SODIUM CHLORIDE 0.9% 1,000 ML IV ONE (15:54)
[2023-10-01] MEDS: VANCOMYCIN HCL 2,500 MG in SODIUM CHLORIDE 0.9% 500 ML IV ONE (15:54)
[2023-10-01] MEDS: NOREPINEPHRINE/D5W 4 MG/250 ML IV ONE (15:55)
[2023-10-01] MEDS: RAPID SEQUENCE INDUCTION BAG ONE (15:56)
[2023-10-01] MEDS ORDERED: ETOMIDATE 2 MG/ML 20 ML VIAL IV ONE (16:10)
[2023-10-01] MEDS ORDERED: ROCURONIUM BROMIDE 10 MG/ML 5 ML VIAL IV ONE (16:10)
[2023-10-01] MEDS: propofoL 1,000 MG/100 ML VIAL IV SCH (16:12)
--- NOTE | 2023-10-01 16:29 | History & Physical Report ---
Date of Service October 01, 2023 Assessment & Plan (1) Acute on chronic hypoxic respiratory failure: Plan: Acute hypoxic respiratory failure -DDx includes multifocal pneumonia, COVID,/pulmonary edema, negative pressure edema following aspiration event, and flash pulmonary edema 2/2 hypertensive emergency Patient is febrile on reassessment. With progressive shortness of breath since this morning, no prior history of CHF. Per family did have dry cough for 1 day. BioFire negative CTA with no evidence of PE. Multifocal airspace opacities consistent with superimposed pneumonia/aspiration pneumonitis are present. Patient has additional interstitial and alveolar pulmonary edema. Received Zosyn/vancomycin while in the ER Continued on cefepime/vancomycin. MRSA nare pending Patient is now hypotensive on pressors, no antihypertensive treatment indica diane Intubated, sedated. VBG 7.1/108/50/34, acute respiratory acidosis. ABG ordered x2 Stat echo completed, pending. Troponin is negative. No ischemic changes EKG shows NSR with normal intervals, normal QRS complexes, no ST elevation or depression, and no arrhythmias. (2) Sepsis: Plan: Severe sepsis with shock and elevated lactic Hypotensive, currently on norepinephrine uptitrated to 0.7. Goal MAP > 65 Suspected pulmonary source, treated with antibiotics as above. UA is contaminated but noninfected appearing. 4+ protein? Hypertensive nephropathy. Was placed on Macrobid as an outpatient, UCx from 09/28 positive for pansensitive E. coli which is covered by antibiotics as otherwise noted Lactate repeat ordered. 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 If prescribed 100 units insulin Toujeo at bedtime, and Lantus 35 units breakfast, 30 units lunch, 25 units NovoLog. While n.p.o. long-acting insulin reduced by 30% and sliding scale ordered based on 70 units of basal requirement. Pharmacy glycemic consult ordered due to critical illness and high requirement (4) COPD (chronic obstructive pulmonary disease): Plan: Reported history and With former tobacco use in remission. No home inhalers. PFTs 08/2019 with FEV1/FVC ratio 0.77 at that time, moderate restrictive disease (5) HTN (hypertension): Plan: Hypertension ? Hypertensive emergency on admission with pressures greater than 200 systolic, subsequently decompensated and hypotensive Metoprolol, losartanhydrochlorothiazide held. Resume MTP IV when BP stable to prevent BB withdrawal (6) Obstructive sleep apnea (adult) (pediatric): Plan: Intubated Plan DVT prophylaxis: Lovenox Disposition: ICU CODE STATUS: Full code Diet: N.p.o. History of Present Illness Primary Care Provider: Manju Khan MD Patient is seen in the ER, history is limited due to critical illness and intubation. Collateral collected from family at bedside. Diana felt overall well and was in her normal state of health last night. She woke up and did take her morning medications Fatigued and possible mild cough per but otherwise OK, slightly short of breath. went to work but left early due to feeling tired and unwell, reportedly left work due to worsened dyspnea. Was diagnosed with a UTI and started on Macrobid yesterday. Shortness of breath developed throughout the day today causing her to leave work early and come to the ER. Could not catch her breath while in the ER, continue to feel that she is planning. Was undergoing initial workup at that time and was hypertensive patient had an episode of vomiting and subsequently became confused and with respiratory distress and required intubation. Per family she did seem confused before she vomited this was new compared to this morning. Reports that she had not expressed any chest pain, chest pressure, or fevers. Had not had syncope/presyncope. No prior history of heart failure. Blood pressure has been otherwise reasonably well-controlled recently. Does have diabetes on fairly high insulin requirements and follows with endocrine for this Medical History: Reviewed Medications: Reviewed Surgical History: Reviewed Family history: Reviewed Allergies: Reviewed Social History: Former tobacco use in remission >10 yrs. No etoh use per family. Code Status: Full Allergies Allergy/AdvReac Type Severity Reaction Status Date / Time amoxicillin [From Augmentin] AdvReac Intermediate nausea Verified 08/31/23 08:47 clavulanic acid AdvReac Intermediate nausea Verified 08/31/23 08:47 [From Augmentin] codeine AdvReac Intermediate Gastrointestinal Verified 08/31/23 08:47 Upset Home Medications Medication Instructions Recorded Confirmed Type aspirin 81 mg tablet,delayed 81 mg PO QAM 03/21/19 10/01/23 History release miscellaneous medical supply #1 ea 05/22/22 08/03/23 Rx lancing device with lancets kit #1 ea 07/04/22 08/03/23 Rx (CHOOMOGOTouch Delica Plus Lancing Device kit) lancets 33 gauge (CHOOMOGOTouch Delica #400 ea 07/07/22 08/03/23 Rx Lancets) blood sugar diagnostic (OneTouch #400 ea 07/09/22 08/03/23 Rx Ultra Test strips) blood-glucose meter (OneTouch #1 ea 07/30/22 08/03/23 Rx Verio Meter) metoprolol succinate 50 mg 50 mg PO QAM #90 tabs 11/03/22 10/01/23 Rx tablet,extended release 24 hr sertraline 100 mg tablet (Zoloft) 100 mg PO HS #90 tabs 11/03/22 10/01/23 Rx omeprazole 40 mg capsule,delayed 40 mg PO DAILY #90 caps 11/17/22 10/01/23 Rx release metformin 1,000 mg tablet 1,000 mg PO BID #180 tabs 12/03/22 10/01/23 Rx insulin glargine U-300 conc 300 100 unit (0.3333 mL) subcut DAILY 04/21/23 10/01/23 Rx unit/mL (3 mL) subcutaneous pen 90 days #30 mL (Toujeo Max U-300 SoloStar) losartan 50 mg-hydrochlorothiazide 1 tab PO DAILY #90 tabs 08/03/23 10/01/23 Rx 12.5 mg tablet blood-glucose sensor (Dexcom G7 08/31/23 08/31/23 History Sensor device) simvastatin 40 mg tablet 40 mg PO HS #90 tabs 09/16/23 10/01/23 Rx B12 See Rx Instructions .Route .COMPLEX 10/01/23 10/01/23 History Vitamin D3 See Rx Instructions .Route .COMPLEX 10/01/23 10/01/23 History diphenhydramine 25 2 tab PO HS 10/01/23 10/01/23 History mg-acetaminophen 500 mg tablet (Tylenol PM Extra Strength) insulin aspart U-100 100 unit/mL 0 unit subcut UD 10/01/23 10/01/23 History (3 mL) subcutaneous pen (Novolog FlexPen U-100 Insulin aspart) Past Med/Surg History Medical History (Updated 10/01/23 @ 18:40 by Adalberto López MD, [facility]) Hyperlipidemia Diabetes mellitus type 2 in obese Diabetes mellitus Type 2 Mediastinal lymphadenopathy History of COVID-19 05/2022; congestion and resolved. Inguinal adenopathy Esophageal dysphagia Osteoarthritis History of pancreatitis unk etiology Anxiety HLD (hyperlipidemia) HTN (hypertension) Sleep apnea unable to tolerate CPAP COPD (chronic obstructive pulmonary disease) no inh PONV (postoperative nausea and vomiting) Pulmonary nodule, left Peripheral neuropathy Chronic restrictive lung disease Bladder wall thickening Morbid obesity with BMI of 40.0-44.9, adult Hypertension Surgical History S/P cataract surgery History of lymph node biopsy History of esophagogastroduodenoscopy (EGD) S/P balloon dilatation of esophageal stricture History of tooth extraction History of wisdom tooth extraction History of tonsillectomy and adenoidectomy History of cardiac cath 2013 - no stents History of tubal ligation H/O colonoscopy Family History Unknown No problems noted. Mother Diabetes Kidney stone Hypertension Grandfather No problems noted. Aunt Breast cancer Grandfather (Maternal) Diabetes Other Family history non-contributory No family history of abnormal heart rhythm Denies family history of Ovarian cancer Prostate cancer Colorectal cancer Social History Smoking Status: Never smoker Tobacco Type: Cigarettes Age Started Using Tobacco: 14; Age Quit Using Tobacco: 54; packs per day: 2; Cigarettes Per Day: 50-60; Second Hand Exposure: No; Do You Dip or Chew Tobacco: No; Hx Alcohol Use: Yes Alcohol type: wine Alcohol Intake Frequency: 2-4 x/Month Hx Substance Use: No Preferred Language: Faroese Communication Ability: Effective Visual Impairment: No Limitations Hearing Ability: Normal Epic Ambulatory Analysts Required: No Beliefs That Will Affect Care: None marital status: Current Living Situation: Alone current occupational status: employed current occupation: [employer] How many Children do You have: 1 Feels Safe at Home: Yes Childhood Exposure to Second-Hand Smoke: Yes Diet: regular caffeine: Yes (coffee) during the past year weight has: decreased > 10 lbs Dental Care, Regularly: No Physical Activity Frequency: Does not Exercise Seatbelt Use: never Sunscreen Use: No Assistive Devices: Cane and Scooter/Electric Scooter Physical Exam Physical Exam: General: Intubated, sedated HEENT: Atraumatic, normocephalic. PERLAA. Pulm: Diffusely coarse, scattered expiratory wheezes. ETT in place. Symmetrical chest rise. Cardiac: regular, tachycardic, -mrg. Radial pulses intact and symmetrical. Abdominal: nondistended, soft. BS present. Results & Data Results & Data Vital Signs (Past 12 Hours) Vital Signs Temp Pulse Resp BP Pulse Ox O2 Del Method FiO2 10/01/23 15:55 38.9 C H 101 H 25 H 96 10/01/23 15:55 94/58 L 10/01/23 15:50 39.0 C H 105 H 24 98 10/01/23 15:50 91/56 L 10/01/23 15:46 39.1 C H 109 H 24 97 10/01/23 15:46 86/50 L 10/01/23 15:45 39.1 C H 110 H 24 97 10/01/23 15:40 39.2 C H 110 H 24 97 10/01/23 15:35 79/49 L 10/01/23 15:35 39.3 C H 107 H 24 97 10/01/23 15:32 39.3 C H 110 H 24 97 10/01/23 15:32 77/51 L 10/01/23 15:31 39.4 C H 112 H 24 97 10/01/23 15:30 124 H 24 96 100 10/01/23 15:05 39.4 C H 127 H 24 97 10/01/23 15:05 80/52 L 10/01/23 15:00 39.2 C H 128 H 20 97 10/01/23 15:00 92/60 L 10/01/23 14:57 97/63 L 10/01/23 14:57 38.9 C H 129 H 20 96 10/01/23 14:55 38.7 C H 133 H 18 97 10/01/23 14:55 114/69 10/01/23 14:50 38.2 C H 148 H 96 10/01/23 14:50 162/94 H 10/01/23 14:45 147 H 94 10/01/23 14:45 219/108 H 10/01/23 14:40 187/121 H 10/01/23 14:40 156 H 92 10/01/23 14:36 138 H 87 L 10/01/23 14:36 248/146 H 10/01/23 14:30 133 H 88 L 10/01/23 14:30 209/158 H 10/01/23 14:28 135 H 90 10/01/23 14:28 224/164 H 10/01/23 14:20 133 H 25 H 97 10/01/23 14:10 128 H 32 H 99 10/01/23 14:00 120 H 32 H 75 L 10/01/23 13:50 120 H 37 H 96 10/01/23 13:50 117 H 10/01/23 13:43 117 H 34 H 97 10/01/23 13:34 37.5 C 120 H 18 167/83 H 80 L Room Air PG Care Time/CCT Total # of Minutes Spent Total Time Spent with Patient: Total time spent is greater than 50% in coordination of care (as documented) at patient's floor/unit and/or counseling patient: Coding Level of Care Code 58289 INT INP/OBS CARE 3/75MIN Diagnoses Acute on chronic hypoxic respiratory failure J96.21 Sepsis A41.9 Diabetes mellitus type 2 in obese E11.69; E66.9 COPD (chronic obstructive pulmonary disease) J44.9 HTN (hypertension) I10 Obstructive sleep apnea (adult) (pediatric) G47.33
[2023-10-01] MEDS ORDERED: PROPOFOL BOLUS FROM BAG IV PRN (16:34)
[2023-10-01] MEDS ORDERED: STAT IV Infusion **Titration per Protocol STA (16:34)
[2023-10-01 16:40] LABS: Adenovirus PCR Not Detected (NotDetected); Bordetella parapertussis PCR Not Detected (NotDetected); Bordetella pertussis PCR Not Detected (NotDetected); Chlamydia pneumoniae PCR Not Detected (NotDetected); Coronavirus 229E PCR Not Detected (NotDetected); Coronavirus CoV-2 (COVID19)PCR Not Detected (NotDetected); Coronavirus HKU1 PCR Not Detected (NotDetected); Coronavirus NL63 PCR Not Detected (NotDetected); Coronavirus OC43PCR Not Detected (NotDetected); Human Metapneumovirus PCR Not Detected (NotDetected); Influenza A PCR Not Detected (NotDetected); Influenza B PCR Not Detected (NotDetected); Mycoplasma pneumoniae PCR Not Detected (NotDetected); Parainfluenza Virus 1 PCR Not Detected (NotDetected); Parainfluenza Virus 2 PCR Not Detected (NotDetected); Parainfluenza Virus 3 PCR Not Detected (NotDetected); Parainfluenza Virus 4 PCR Not Detected (NotDetected); Respiratory Syncytial VirusPCR Not Detected (NotDetected); Rhinovirus/Enterovirus PCR Not Detected (NotDetected)
[2023-10-01] MEDS ORDERED: propofoL 1,000 MG/100 ML VIAL IV SCH (16:45)
[2023-10-01 17:31] LABS: Prothrombin Time 10.9 Seconds (9.0-12.0)
--- NOTE | 2023-10-01 17:39 | XCELERA ---
[id number] \\[email or web address]\[id number]
--- NOTE | 2023-10-01 18:02 | Critical Care Consultation ---
Date of Consultation October 01, 2023 Assessment & Plan (1) Sepsis: (2) Acute on chronic hypoxic respiratory failure: (3) Diabetes mellitus type 2 in obese: (4) Diabetic nephropathy associated with type 2 diabetes mellitus: (5) Urinary frequency: (6) HTN (hypertension): (7) Metabolic encephalopathy: (8) Obstructive sleep apnea (adult) (pediatric): (9) COPD (chronic obstructive pulmonary disease): Plan Reason Critically Ill: 68-year-old female with past medical history hypertension, diabetes, JACQUIE, presented to the hospital for shortness of breath. Needed to be intubated in the ER Neuro - [facility] ICU: Unable to assess --Metabolic encephalopathy TSH within normal limit Did have systolic blood pressure in the 200s in the ED. Hypertensive emergency is a possibility CT head has been ordered Cardiac - -- Hypertensive emergency Blood pressure responded to sedation and paralytics Continue to monitor EKG 10/01/2023 1352: shows normal sinus rhythm, normal axis, no ST-T wave changes Respiratory - -- VDRF Likely secondary to multilobar pneumonia Continue with ventilatory support Keep RASS -1 Daily sedation holidays and SBT's --History of COPD -- History of JACQUIE GI - No acute issues RENAL/LYTES - -- Monitor BUNs/creatinine Avoid nephrotoxic medication - Continue with Ross catheter ENDO - -- Diabetes type 2 Continue with ICU hyperglycemia protocol HEME - -- Leukocytosis Likely reactive to sepsis -- Monitor H&H ID - -- Multilobar pneumonia Respiratory bio fire negative for everything on 10/01/2023 Continue broad-spectrum antibiotics Procalcitonin 1.61, BNP 76 UA was negative for bacteria and leukocyte esterase --Prophylaxis VTE: Lovenox GI: Pantoprazole Lines: Peripheral Diet: N.p.o. Plan: Give loading dose of vancomycin, follow-up nasal MRSA if that is negative okay to discontinue vancomycin Continue with cefepime given allergy to amoxicillin Follow-up blood culture and urine culture Follow sputum culture Repeat ABG Follow-up repeat lactate, follow-up 2D echo Follow-up CT head I have personally spent 62 minutes of critical care time in the direct management of this patient. This is a life/limb threatening event. This includes time spent evaluating patient, direct bedside care, chart review, placing orders, interpretation of diagnostic studies, discussion with consultants, patient, and family members, as well as other required patient management activities. This time is exclusive of all separately billable procedures, and teaching time and separate from and in addition to any other critical care service time. History of Present Illness History of Present Illness 68-year-old female presented to the hospital with complaints of generalized weakness Past medical history: Hypertension, diabetes, obesity Pulmonary consulted as she was intubated in the ED History was obtained from previous chart as well as signout from Dr. Esposito as well as Dr. Talavera As per the charting patient was feeling shortness of breath at work. She was recently diagnosed with UTI for which she got Macrobid In the ED initially her vitals are within normal range. But she developed hypertensive emergency which was followed by throwing up and respiratory distress which required intubation. At the time of examination patient was intubated. Tidal volume 400, respiratory 25, PEEP of 10, 70% FiO2. Patient was given Zosyn in the ED. Allergies Allergy/AdvReac Type Severity Reaction Status Date / Time amoxicillin [From Augmentin] AdvReac Intermediate nausea Verified 08/31/23 08:47 clavulanic acid AdvReac Intermediate nausea Verified 08/31/23 08:47 [From Augmentin] codeine AdvReac Intermediate Gastrointestinal Verified 08/31/23 08:47 Upset Home Medications Medication Instructions Recorded Confirmed Type aspirin 81 mg tablet,delayed 81 mg PO QAM 03/21/19 10/01/23 History release miscellaneous medical supply #1 ea 05/22/22 08/03/23 Rx lancing device with lancets kit #1 ea 07/04/22 08/03/23 Rx (iSTAR Delica Plus Lancing Device kit) lancets 33 gauge (GameCrush #400 ea 07/07/22 08/03/23 Rx Lancets) blood sugar diagnostic (iSTAR #400 ea 07/09/22 08/03/23 Rx Ultra Test strips) blood-glucose meter (iSTAR #1 ea 07/30/22 08/03/23 Rx Verio Meter) metoprolol succinate 50 mg 50 mg PO QAM #90 tabs 11/03/22 10/01/23 Rx tablet,extended release 24 hr sertraline 100 mg tablet (Zoloft) 100 mg PO HS #90 tabs 11/03/22 10/01/23 Rx omeprazole 40 mg capsule,delayed 40 mg PO DAILY #90 caps 11/17/22 10/01/23 Rx release metformin 1,000 mg tablet 1,000 mg PO BID #180 tabs 12/03/22 10/01/23 Rx insulin glargine U-300 conc 300 100 unit (0.3333 mL) subcut DAILY 04/21/23 10/01/23 Rx unit/mL (3 mL) subcutaneous pen 90 days #30 mL (Toujeo Max U-300 SoloStar) losartan 50 mg-hydrochlorothiazide 1 tab PO DAILY #90 tabs 08/03/23 10/01/23 Rx 12.5 mg tablet blood-glucose sensor (Dexcom G7 08/31/23 08/31/23 History Sensor device) simvastatin 40 mg tablet 40 mg PO HS #90 tabs 09/16/23 10/01/23 Rx B12 See Rx Instructions .Route .COMPLEX 10/01/23 10/01/23 History Vitamin D3 See Rx Instructions .Route .COMPLEX 10/01/23 10/01/23 History diphenhydramine 25 2 tab PO HS 10/01/23 10/01/23 History mg-acetaminophen 500 mg tablet (Tylenol PM Extra Strength) insulin aspart U-100 100 unit/mL 0 unit subcut UD 10/01/23 10/01/23 History (3 mL) subcutaneous pen (Novolog FlexPen U-100 Insulin aspart) Patient History Medical History (Updated 10/01/23 @ 18:40 by Adalberto López MD, [facility]) Hyperlipidemia Diabetes mellitus type 2 in obese Diabetes mellitus Type 2 Mediastinal lymphadenopathy History of COVID-19 05/2022; congestion and resolved. Inguinal adenopathy Esophageal dysphagia Osteoarthritis History of pancreatitis unk etiology Anxiety HLD (hyperlipidemia) HTN (hypertension) Sleep apnea unable to tolerate CPAP COPD (chronic obstructive pulmonary disease) no inh PONV (postoperative nausea and vomiting) Pulmonary nodule, left Peripheral neuropathy Chronic restrictive lung disease Bladder wall thickening Morbid obesity with BMI of 40.0-44.9, adult Hypertension Surgical History S/P cataract surgery History of lymph node biopsy History of esophagogastroduodenoscopy (EGD) S/P balloon dilatation of esophageal stricture History of tooth extraction History of wisdom tooth extraction History of tonsillectomy and adenoidectomy History of cardiac cath 2013 - no stents History of tubal ligation H/O colonoscopy Family History Unknown No problems noted. Mother Diabetes Kidney stone Hypertension Grandfather No problems noted. Aunt Breast cancer Grandfather (Maternal) Diabetes Other Family history non-contributory No family history of abnormal heart rhythm Denies family history of Ovarian cancer Prostate cancer Colorectal cancer Social History Smoking Status: Never smoker Tobacco Type: Cigarettes Age Started Using Tobacco: 14; Age Quit Using Tobacco: 54; packs per day: 2; Cigarettes Per Day: 50-60; Second Hand Exposure: No; Do You Dip or Chew Tobacco: No; Hx Alcohol Use: Yes Alcohol type: wine Alcohol Intake Frequency: 2-4 x/Month Hx Substance Use: No Preferred Language: Citizen Of [place] Communication Ability: Effective Visual Impairment: No Limitations Hearing Ability: Normal Iap Displays Analyst Required: No Beliefs That Will Affect Care: None marital status: Current Living Situation: Alone current occupational status: employed current occupation: [employer] How many Children do You have: 1 Feels Safe at Home: Yes Childhood Exposure to Second-Hand Smoke: Yes Diet: regular caffeine: Yes (coffee) during the past year weight has: decreased > 10 lbs Dental Care, Regularly: No Physical Activity Frequency: Does not Exercise Seatbelt Use: never Sunscreen Use: No Assistive Devices: Cane and Scooter/Electric Scooter Review of Systems 2 Review of Systems: Unobtainable due to endotracheal tube Physical Exam 2 Physical Exam: Constitutional: No acute distress HEENT: EOMI, PERRLA Respiratory system: Decreased air entry bilaterally, no wheeze, no rhonchi, positive crackles bilateral lower lobes CVS: S1-S2 positive, no murmurs or gallops Abdomen: Soft, nontender, nondistended, positive bowel sounds x4, obese Extremities: +2 pulses bilaterally radialis/ dorsalis pedis, no cyanosis, +1 pitting edema bilateral lower extremity Neuro: Sedated Psych: Unable to assess G/U: Positive Ross Skin: no rashes, warm and dry Lymphatic: no cervical or axillary lymphadenopathy Results & Data Results & Data Vital Signs (Past 12 Hours) Vital Signs Temp Pulse Resp BP Pulse Ox O2 Del Method FiO2 10/01/23 17:55 38.3 C H 83 98 10/01/23 17:55 113/71 10/01/23 17:50 109/74 10/01/23 17:50 38.3 C H 84 97 10/01/23 17:45 102/82 10/01/23 17:45 38.3 C H 84 97 10/01/23 17:40 38.3 C H 86 95 10/01/23 17:40 103/74 10/01/23 17:40 103/74 10/01/23 17:35 38.2 C H 84 97 10/01/23 17:35 113/71 10/01/23 17:30 38.2 C H 83 25 H 96 10/01/23 17:30 112/77 10/01/23 17:25 110/72 10/01/23 17:25 38.2 C H 82 25 H 97 10/01/23 17:20 113/68 10/01/23 17:20 38.2 C H 82 25 H 97 10/01/23 17:15 38.3 C H 83 25 H 97 10/01/23 17:15 116/69 10/01/23 17:10 38.3 C H 83 25 H 96 10/01/23 17:10 115/68 10/01/23 17:05 106/65 10/01/23 17:05 38.4 C H 82 25 H 96 10/01/23 17:00 38.4 C H 83 25 H 95 10/01/23 17:00 90/62 L 10/01/23 16:55 38.4 C H 79 25 H 92 10/01/23 16:50 38.4 C H 76 25 H 93 10/01/23 16:45 38.4 C H 80 25 H 87 L 10/01/23 16:44 73/42 L 10/01/23 16:44 38.4 C H 80 25 H 91 10/01/23 16:42 38.4 C H 80 25 H 95 10/01/23 16:40 38.4 C H 84 25 H 94 10/01/23 16:35 38.4 C H 92 H 25 H 94 10/01/23 16:30 38.4 C H 90 25 H 94 10/01/23 16:30 87/56 L 10/01/23 16:25 38.4 C H 91 H 25 H 95 10/01/23 16:25 88/59 L 10/01/23 16:20 38.5 C H 94 H 25 H 94 10/01/23 16:20 96/62 L 10/01/23 16:15 91/60 L 10/01/23 16:15 38.6 C H 99 H 25 H 93 10/01/23 16:10 38.6 C H 106 H 25 H 93 10/01/23 16:10 90/68 L 10/01/23 16:05 38.7 C H 99 H 25 H 93 10/01/23 16:05 82/52 L 10/01/23 16:00 38.8 C H 101 H 25 H 94 10/01/23 16:00 87/58 L 10/01/23 15:55 38.9 C H 101 H 25 H 96 10/01/23 15:55 94/58 L 10/01/23 15:50 39.0 C H 105 H 24 98 10/01/23 15:50 91/56 L 10/01/23 15:46 39.1 C H 109 H 24 97 10/01/23 15:46 86/50 L 10/01/23 15:45 39.1 C H 110 H 24 97 10/01/23 15:40 39.2 C H 110 H 24 97 10/01/23 15:35 79/49 L 10/01/23 15:35 39.3 C H 107 H 24 97 10/01/23 15:32 39.3 C H 110 H 24 97 10/01/23 15:32 77/51 L 10/01/23 15:31 39.4 C H 112 H 24 97 10/01/23 15:30 124 H 24 96 100 10/01/23 15:05 39.4 C H 127 H 24 97 10/01/23 15:05 80/52 L 10/01/23 15:00 39.2 C H 128 H 20 97 10/01/23 15:00 92/60 L 10/01/23 14:57 97/63 L 10/01/23 14:57 38.9 C H 129 H 20 96 10/01/23 14:55 38.7 C H 133 H 18 97 10/01/23 14:55 114/69 10/01/23 14:50 38.2 C H 148 H 96 10/01/23 14:50 162/94 H 10/01/23 14:45 147 H 94 10/01/23 14:45 219/108 H 10/01/23 14:40 187/121 H 10/01/23 14:40 156 H 92 10/01/23 14:36 138 H 87 L 10/01/23 14:36 248/146 H 10/01/23 14:30 133 H 88 L 10/01/23 14:30 209/158 H 10/01/23 14:28 135 H 90 10/01/23 14:28 224/164 H 10/01/23 14:20 133 H 25 H 97 10/01/23 14:10 128 H 32 H 99 10/01/23 14:00 120 H 32 H 75 L 10/01/23 13:50 120 H 37 H 96 10/01/23 13:50 117 H 10/01/23 13:43 117 H 34 H 97 10/01/23 13:34 37.5 C 120 H 18 167/83 H 80 L Room Air Laboratory Results 10/01/23 14:20 10/01/23 14:37 Coding Level of Care Code 62812 CRITICAL CARE 1ST 30-74M Diagnoses Sepsis A41.9 Acute on chronic hypoxic respiratory failure J96.21 Diabetes mellitus type 2 in obese E11.69; E66.9 Diabetic nephropathy associated with type 2 diabetes mellitus E11.21 Urinary frequency R35.0 HTN (hypertension) I10 Metabolic encephalopathy G93.41 Obstructive sleep apnea (adult) (pediatric) G47.33 COPD (chronic obstructive pulmonary disease) J44.9
[2023-10-01] MEDS: PROPOFOL BOLUS FROM BAG IV PRN (18:14)
[2023-10-01] MEDS: PIPERACILLIN/TAZOBACTAM 4.5 GM/100 ML BAG IV ONE (18:42)
[2023-10-01] MEDS ORDERED: CARBOHYDRATES FOR HYPOGLYCEMIA PO PRN (18:55)
[2023-10-01] MEDS ORDERED: GLUCOSE 10 TAB/TUBE PO PRN (18:55)
[2023-10-01] MEDS ORDERED: GLUCOSE 40% GEL 15 GM TUBE PO PRN (18:55)
[2023-10-01] MEDS ORDERED: GLUCAGON FOR INJ 1 MG VIAL SQ PRN (18:55)
[2023-10-01] MEDS ORDERED: PHARMACY GLYCEMIC MGMT CONSULT PRN (18:55)
[2023-10-01] MEDS: ONDANSETRON INJ 2 MG/ML 2 ML VIAL ONE (18:59)
[2023-10-01] MEDS: PROPOFOL IV EMULSION 10 MG/ML 100 ML VIAL IV ONE (19:00)
[2023-10-01] MEDS: fentaNYL citrate 2,500 MCG/250 ML BAG IV SCH (19:01)
--- NOTE | 2023-10-01 19:43 | Pharmacy Report ---
Pharmacy PK ABX Note - Date of Service October 01, 2023 - Assessment and Plan Assessment 68 year old F receiving vancomycin/cefepime for treatment of sepsis- pulmonary source. Patient febrile on admission (Tmax 39.3 C), WBC 20, Procalcitonin 1.61. Patient is currently intubated requiring vasopressors. Pertinent microbiologic data includes: pending MRSA nasal swab, blood cultures and urine culture pending. Plan Vancomycin * Loading dose: 2500 mg IV x 1 * Maintenance dose: 1250 mg IV every 18 hours * Regimen is predicted to achieve target AUC/RAYMOND of 400-600 mg/L.hr * Random level to be ordered if continued >48 hours Pharmacy will continue to follow and will adjust dose/frequency as necessary. Thank you. Pharmacy has transitioned to AUC monitoring for vancomycin. AUC/RAYMOND is the preferred PK/PD target and is associated with decreased risk of nephrotoxicity compared to traditional trough targets.
[2023-10-01 20:09] LABS: iSTAT Allen Test Pass; iSTAT Art Bld Gas pCO2 Correct 48 mmHg (35-46); iSTAT Art Bld Gas pH Corrected 7.353 (7.35-7.45); iSTAT Arterial Blood Gas HCO3 27 meg/L (19-24); iSTAT Arterial Blood Gas pCO2 48 mmHg (35-46); iSTAT Arterial Blood Gas pH 7.35 (7.35-7.45); iSTAT Arterial Blood Gas pO2 81 mmHg (80-95); iSTAT Arterial Blood Gas pO2 C 81; iSTAT Carbon Dioxide 28 mmol/L (24-31); iSTAT FiO2 50 %; iSTAT Hematocrit 39 % (37-47); iSTAT Hemoglobin 13.3 g/dl (12.0-16.0); iSTAT Potassium 4.2 mmol/L (3.3-5.0); iSTAT Site R Radial; iSTAT Sodium 132 mmol/L (135-144)
[2023-10-01] MEDS: CEFEPIME 2,000 MG in SYRINGE 0 ML IV SCH (20:18)
[2023-10-01] MEDS: ENOXAPARIN INJ 40 MG/0.4 ML SYR SQ SCH (20:18)
--- NOTE | 2023-10-01 20:29 | CT Scan Report ---
Exam(s): CT HEAD Without Contrast EXAM: CT Head Without Intravenous Contrast CLINICAL HISTORY: Reason for exam: acute AMS. TECHNIQUE: Axial computed tomography images of the head/brain without intravenous contrast. CTDI is 36.74 mGy and DLP is 625.8 mGy-cm. Automated exposure control was utilized for the study. A dose lowering technique was utilized adhering to the principles of ALARA. COMPARISON: No relevant prior studies available. FINDINGS: Brain: No hemorrhage, extra-axial fluid collection, mass effect, or edema. Ventricles: Unremarkable. Bones/joints: Unremarkable. No fracture. Soft tissues: Unremarkable. Sinuses: Opacified right maxillary sinus. Mastoid air cells: Unremarkable as visualized. IMPRESSION: 1. No acute intracranial abnormality. Electronically signed by: Óscar Kathleen MD 10/01/23 20:29 PM
[2023-10-01] MEDS: INSULIN ASPART PER UNIT CHARGE SC SCH (20:39)
[2023-10-01] MEDS ORDERED: ICU Protocol for HYPERglycemia SCH (21:00)
[2023-10-02] MEDS ORDERED: STAT IV Infusion **Titration per Protocol STA (01:02)
[2023-10-02] MEDS: ACETAMINOPHEN 1,000 MG/100 ML VIAL IV PRN (01:28)
[2023-10-02] MEDS: INSULIN REGULAR 250 UNITS in SODIUM CHLORIDE 0.9% 247.5 ML IV SCH (01:39)
[2023-10-02] MEDS: INSULIN PROTOCOL GOAL RANGE ONE (01:42)
[2023-10-02] MEDS: SEVERE STRESS LEVEL ONE (01:43)
[2023-10-02] MEDS: VANCOMYCIN HCL 1,250 MG in SODIUM CHLORIDE 0.9% 250 ML IV SCH (03:06)
[2023-10-02 04:49] LABS: Basophils # (auto) 0.08 K/uL (0.00-0.20); Basophils % (auto) 0.5 %; Eosinophils % (auto) 1.4 %; Hematocrit (blood only) 39.2 % (37.0-47.0); Hemoglobin 12.2 g/dl (12.0-16.0); Immature Granulocytes # (auto) 0.07 K/uL (0.01-0.20); Immature Granulocytes % (auto) 0.5 %; Lymphocytes # (auto) 0.48 K/uL (1.20-3.40); Lymphocytes % (auto) 3.3 %; Mean Corpuscular Hemoglobin 25.3 pg (25.0-34.0); Mean Corpuscular Hgb Conc 31.1 g/dL (32.0-36.0); Mean Corpuscular Volume 81.2 fL (80.0-100.0); Mean Platelet Volume 10.7 fL (9.4-12.4); Monocytes # (auto) 1.28 K/uL (0.11-0.59); Monocytes % (auto) 8.7 %; Neutrophils # (auto) 12.56 K/uL (1.40-6.50); Neutrophils % (auto) 85.6 %; Platelet Count 259 K/uL (130-400); RDW Coefficient of Variation 16.9 % (11.5-14.5); RDW Standard Deviation 49.1 fL (36.4-46.3); Red Blood Count 4.83 M/uL (4.20-5.40); White Blood Count 14.67 K/ul (4.8-10.8)
[2023-10-02 05:06] LABS: Albumin Globulin Ratio 1.1 (0.9-2); Albumin Level 3.3 gm/dl (3.4-5.0); BUN Creatinine Ratio 20.3 (10-20); Bilirubin,Total 0.5 mg/dl (0.2-1.0); Calcium 8.6 mg/dl (8.6-10.3); Est GFR (African American) 49.7 ml/min; Est GFR (Non-African American) 42.9 ml/min; Globulin 3.1 gm/dl (2.5-4.0); Magnesium 1.5 mg/dl (1.7-2.4); Potassium 3.5 mmol/L (3.5-5.1); Total Protein 6.4 gm/dl (6.0-8.3)
--- NOTE | 2023-10-02 05:35 | Electrocardiogram Report ---
Test Reason : Blood Pressure : / mmHG Vent. Rate : 120 BPM Atrial Rate : 120 BPM P-R Int : 158 ms QRS Dur : 078 ms QT Int : 308 ms P-R-T Axes : 054 035 052 degrees QTc Int : 435 ms Sinus tachycardia Possible Left atrial enlargement Borderline ECG When compared with ECG of 09-APR-2023 03:52, No significant change was found Confirmed by Jackson Woody ([id number]) on 10/02/2023 5:34:44 AM Referred By: REFERRED SELF Confirmed By:Jackson Woody
--- NOTE | 2023-10-02 07:16 | Critical Care Progress Note ---
Date of Service October 02, 2023 Assessment & Plan (1) Sepsis: (2) Acute on chronic hypoxic respiratory failure: (3) Diabetes mellitus type 2 in obese: (4) Diabetic nephropathy associated with type 2 diabetes mellitus: (5) Urinary frequency: (6) HTN (hypertension): (7) Metabolic encephalopathy: (8) Obstructive sleep apnea (adult) (pediatric): (9) COPD (chronic obstructive pulmonary disease): Plan Reason Critically Ill: 68-year-old female with past medical history hypertension, diabetes, JACQUIE, presented to the hospital for shortness of breath. Needed to be intubated in the ER Neuro - [facility] ICU: Unable to assess --Metabolic encephalopathy --> resolved TSH within normal limit Did have systolic blood pressure in the 200s in the ED. Hypertensive emergency is a possibility CT head negative for any abnormalities Cardiac - --Elevated troponin Likely type II WA Trending down EKG does not show any ST-T wave changes, PVCs appreciated 2D echo 10/01/2023: EF 60-65%, RV not well-visualized, grade 1 diastolic dysfunction, RVSP normal -- Hypertensive emergency Blood pressure responded to sedation and paralytics Continue to monitor EKG 10/01/2023 1352: shows normal sinus rhythm, normal axis, no ST-T wave changes Respiratory - -- VDRF Likely secondary to multilobar pneumonia Continue with ventilatory support Keep RASS -1 Daily sedation holidays and SBT's --History of COPD -- History of JACQUIE Unable to tolerate CPAP GI - No acute issues RENAL/LYTES - -- DIRK Monitor BUN/creatinine Avoid nephrotoxic medications Strict ins and outs - Continue with Ross catheter ENDO - -- Diabetes type 2 Continue with ICU hyperglycemia protocol HEME - -- Leukocytosis Likely reactive to sepsis -- Monitor H&H ID - -- Multilobar pneumonia Respiratory bio fire negative for everything on 10/01/2023 Continue broad-spectrum antibiotics Nasal MRSA negative, vancomycin discontinued 10/02/2023 Procalcitonin 1.61, BNP 76 UA was negative for bacteria and leukocyte esterase Urine culture was positive for pansensitive E. coli on 09/28/2023 --Prophylaxis VTE: Lovenox GI: Pantoprazole Lines: Peripheral Diet: N.p.o. Plan: In/out: +3.4 L, urine output 700 mL AB.35/48/81 10/50% DC vancomycin. Potassium and magnesium being replaced Start the patient on D5 NS at 75 mill an hour given the DIRK.. Follow-up urine lites Add levofloxacin given the history of nausea and diarrhea, multilobar pneumonia QTc is 490. Keep a close eye on it Put the patient on pressure support with trial of extubation today. I have personally spent 43 minutes of critical care time in the direct management of this patient. This is a life/limb threatening event. This includes time spent evaluating patient, direct bedside care, chart review, placing orders, interpretation of diagnostic studies, discussion with consultants, patient, and family members, as well as other required patient management activities. This time is exclusive of all separately billable procedures, and teaching time and separate from and in addition to any other critical care service time. Admission and Anticipated Discharge Date Admission Date: October 01, 2023 Subjective Patient seen and examined at bedside. No acute distress, no events overnight Was on propofol 20 and fentanyl 25 at time of examination. Levophed 0.05 Patient was RASS -1 and she was answering all the questions appropriately Denied any headache, no nausea, no vomiting No chest pain, no abdominal pain. Patient's daughter was also in the room Review of Systems 2 Review of Systems: All systems reviewed & are unremarkable except as noted in Subjective and Unobtainable due to endotracheal tube Physical Exam 2 Physical Exam: Constitutional: No acute distress HEENT: EOMI, PERRLA Respiratory system: Decreased air entry bilaterally, no wheeze, no rhonchi, positive crackles bilateral lower lobes CVS: S1-S2 positive, no murmurs or gallops Abdomen: Soft, nontender, nondistended, positive bowel sounds x4, obese Extremities: +2 pulses bilaterally radialis/ dorsalis pedis, no cyanosis, +1 pitting edema bilateral lower extremity Neuro: Sedated, RASS -1, moving all extremities appropriately Psych: Unable to assess G/U: Positive Ross Skin: no rashes, warm and dry Lymphatic: no cervical or axillary lymphadenopathy Results & Data Results & Data Vital Signs (Past 12 Hours) Vital Signs Temp Pulse Pulse Resp BP BP Pulse Ox 10/02/23 06:30 103/56 L 10/02/23 06:30 37.4 C 71 26 H 10/02/23 06:15 102/57 L 10/02/23 06:15 37.4 C 71 26 H 10/02/23 06:00 101/53 L 10/02/23 06:00 37.5 C 72 26 H 10/02/23 05:45 94/57 L 10/02/23 05:45 37.5 C 73 26 H 10/02/23 05:30 97/58 L 10/02/23 05:30 37.5 C 72 26 H 10/02/23 05:15 37.5 C 73 26 H 10/02/23 05:15 103/57 L 10/02/23 05:00 102/58 L 10/02/23 05:00 37.6 C H 72 26 H 94 10/02/23 04:45 104/56 L 10/02/23 04:45 37.6 C H 71 26 H 10/02/23 04:30 100/53 L 10/02/23 04:30 37.6 C H 72 26 H 10/02/23 04:29 72 27 H 98 10/02/23 04:15 98/54 L 10/02/23 04:15 37.7 C H 74 26 H 10/02/23 04:00 90/61 L 10/02/23 04:00 37.7 C H 75 26 H 94 10/02/23 04:00 10/02/23 03:45 95/56 L 10/02/23 03:45 37.7 C H 74 26 H 10/02/23 03:30 37.8 C H 76 26 H 10/02/23 03:30 93/56 L 10/02/23 03:15 96/53 L 10/02/23 03:15 37.8 C H 73 26 H 10/02/23 03:00 91/58 L 10/02/23 03:00 37.9 C H 76 26 H 10/02/23 02:45 38.0 C H 79 26 H 10/02/23 02:45 89/55 L 10/02/23 02:30 91/58 L 10/02/23 02:30 37.9 C H 77 26 H 10/02/23 02:15 97/60 L 10/02/23 02:15 38.0 C H 79 26 H 10/02/23 02:00 91/64 L 10/02/23 02:00 38.0 C H 77 26 H 96 10/02/23 01:45 99/54 L 02/16/24 01:45 38.0 C H 79 26 H 10/02/23 01:43 26 H 10/02/23 01:30 99/56 L 10/02/23 01:30 38.0 C H 79 26 H 10/02/23 01:15 96/55 L 10/02/23 01:15 37.9 C H 78 31 H 10/02/23 01:00 100/56 L 10/02/23 01:00 37.9 C H 79 28 H 10/02/23 00:45 101/54 L 10/02/23 00:45 37.9 C H 79 28 H 10/02/23 00:30 104/56 L 10/02/23 00:30 37.9 C H 77 28 H 10/02/23 00:15 37.8 C H 79 28 H 10/02/23 00:15 104/54 L 10/02/23 00:00 97/64 L 10/02/23 00:00 37.8 C H 77 28 H 10/02/23 00:00 10/01/23 23:46 76 10/01/23 23:45 96/62 L 10/01/23 23:45 37.8 C H 77 28 H 10/01/23 23:30 37.8 C H 76 28 H 10/01/23 23:30 100/60 10/01/23 23:15 98/65 L 10/01/23 23:15 37.8 C H 78 28 H 10/01/23 23:01 37.8 C H 77 24 98 10/01/23 23:01 96/63 L 10/01/23 23:00 37.8 C H 75 24 10/01/23 22:51 76 28 H 99 10/01/23 22:45 111/65 10/01/23 22:45 37.8 C H 75 28 H 10/01/23 22:30 110/64 10/01/23 22:30 37.8 C H 76 28 H 10/01/23 22:16 37.8 C H 77 28 H 99 10/01/23 22:16 109/65 10/01/23 22:15 37.8 C H 75 28 H 10/01/23 22:07 164/82 H 10/01/23 22:07 37.7 C H 77 28 H 99 10/01/23 22:02 37.7 C H 81 28 H 99 10/01/23 22:02 95/46 L 10/01/23 22:00 37.7 C H 74 28 H 99 10/01/23 21:58 93/41 L 10/01/23 21:58 37.7 C H 79 28 H 99 10/01/23 21:51 10/01/23 21:46 37.7 C H 77 39 H 98 10/01/23 21:45 37.7 C H 76 31 H 98 10/01/23 21:31 37.8 C H 77 48 H 98 10/01/23 21:31 105/60 10/01/23 21:30 37.7 C H 74 39 H 98 10/01/23 21:15 37.9 C H 76 28 H 98 10/01/23 21:15 112/60 10/01/23 21:10 37.9 C H 79 28 H 98 10/01/23 21:01 97/42 L 10/01/23 21:01 38.0 C H 79 28 H 97 10/01/23 21:00 38.0 C H 79 28 H 98 10/01/23 20:55 38 C H 80 28 H 116/45 L 98 10/01/23 20:50 38.0 C H 84 28 H 97 10/01/23 20:46 38.0 C H 83 28 H 97 10/01/23 20:40 81 28 H 98 10/01/23 20:32 128/54 L 10/01/23 20:32 83 28 H 97 10/01/23 20:30 82 28 H 97 10/01/23 20:25 84 28 H 96 10/01/23 20:01 87 28 H 96 10/01/23 20:00 10/01/23 19:50 84 25 H 97 10/01/23 19:40 38.3 C H 83 25 H 97 10/01/23 19:31 120/50 L 10/01/23 19:31 38.3 C H 87 25 H 97 10/01/23 19:30 84 10/01/23 19:30 84 25 H 97 10/01/23 19:20 85 25 H 97 10/01/23 19:16 89 25 H 97 O2 Del Method FiO2 10/02/23 06:30 10/02/23 06:30 10/02/23 06:15 10/02/23 06:15 10/02/23 06:00 10/02/23 06:00 10/02/23 05:45 10/02/23 05:45 10/02/23 05:30 10/02/23 05:30 10/02/23 05:15 10/02/23 05:15 10/02/23 05:00 10/02/23 05:00 10/02/23 04:45 10/02/23 04:45 10/02/23 04:30 10/02/23 04:30 10/02/23 04:29 50 10/02/23 04:15 10/02/23 04:15 10/02/23 04:00 10/02/23 04:00 10/02/23 04:00 50 10/02/23 03:45 10/02/23 03:45 10/02/23 03:30 10/02/23 03:30 10/02/23 03:15 10/02/23 03:15 10/02/23 03:00 10/02/23 03:00 10/02/23 02:45 10/02/23 02:45 10/02/23 02:30 10/02/23 02:30 10/02/23 02:15 10/02/23 02:15 10/02/23 02:00 10/02/23 02:00 10/02/23 01:45 10/02/23 01:45 10/02/23 01:43 10/02/23 01:30 10/02/23 01:30 10/02/23 01:15 10/02/23 01:15 10/02/23 01:00 10/02/23 01:00 10/02/23 00:45 10/02/23 00:45 10/02/23 00:30 10/02/23 00:30 10/02/23 00:15 10/02/23 00:15 10/02/23 00:00 10/02/23 00:00 10/02/23 00:00 50 10/01/23 23:46 10/01/23 23:45 10/01/23 23:45 10/01/23 23:30 10/01/23 23:30 10/01/23 23:15 10/01/23 23:15 10/01/23 23:01 10/01/23 23:01 10/01/23 23:00 10/01/23 22:51 50 10/01/23 22:45 10/01/23 22:45 10/01/23 22:30 10/01/23 22:30 10/01/23 22:16 10/01/23 22:16 10/01/23 22:15 10/01/23 22:07 10/01/23 22:07 10/01/23 22:02 10/01/23 22:02 10/01/23 22:00 10/01/23 21:58 10/01/23 21:58 10/01/23 21:51 Mechanical Vent 50 10/01/23 21:46 10/01/23 21:45 10/01/23 21:31 10/01/23 21:31 10/01/23 21:30 10/01/23 21:15 10/01/23 21:15 10/01/23 21:10 10/01/23 21:01 10/01/23 21:01 10/01/23 21:00 10/01/23 20:55 Mechanical Vent 50 10/01/23 20:50 10/01/23 20:46 10/01/23 20:40 10/01/23 20:32 10/01/23 20:32 10/01/23 20:30 10/01/23 20:25 10/01/23 20:01 50 10/01/23 20:00 50 10/01/23 19:50 10/01/23 19:40 10/01/23 19:31 10/01/23 19:31 10/01/23 19:30 10/01/23 19:30 10/01/23 19:20 10/01/23 19:16 Laboratory Results 10/02/23 03:56 10/02/23 03:56 Coding Level of Care Code 05860 CRITICAL CARE 1ST 30-74M Diagnoses Sepsis A41.9 Acute on chronic hypoxic respiratory failure J96.21 Diabetes mellitus type 2 in obese E11.69; E66.9 Diabetic nephropathy associated with type 2 diabetes mellitus E11.21 Urinary frequency R35.0 HTN (hypertension) I10 Metabolic encephalopathy G93.41 Obstructive sleep apnea (adult) (pediatric) G47.33 COPD (chronic obstructive pulmonary disease) J44.9
[2023-10-02] MEDS: INSULIN ASPART PER UNIT CHARGE SC SCH (07:41)
[2023-10-02] MEDS: fentaNYL BOLUS from BAG IV PRN (07:41)
[2023-10-02] MEDS: MAGNESIUM SULFATE / D5W 1 GM/100 ML BAG IV SCH (07:53)
[2023-10-02 08:42] LABS: Troponin I High Sensitivity 613.8 pg/ml (0-14)
[2023-10-02 09:16] LABS: iSTAT Arterial Blood Gas HCO3 29 meg/L (19-24); iSTAT Arterial Blood Gas pCO2 65 mmHg (35-46); iSTAT Arterial Blood Gas pH 7.25 (7.35-7.45); iSTAT Arterial Blood Gas pO2 126 mmHg (80-95); iSTAT Carbon Dioxide 31 mmol/L (24-31); iSTAT Hematocrit 36 % (37-47); iSTAT Hemoglobin 12.2 g/dl (12.0-16.0); iSTAT Potassium 3.7 mmol/L (3.3-5.0); iSTAT Sodium 130 mmol/L (135-144)
--- NOTE | 2023-10-02 11:17 | Hospitalist Progress Note ---
Date of Service October 02, 2023 Assessment & Plan (1) Acute on chronic hypoxic respiratory failure: Plan: -Patient presented to the emergency department with worsening shortness of breath and was intubated -Etiology could be hypertensive urgency, sepsis pulmonary edema, obstructive sleep apnea, pneumonia BioFire negative CTA with no evidence of PE. Multifocal airspace opacities consistent with superimposed pneumonia/aspiration pneumonitis are present. Patient has additional interstitial and alveolar pulmonary edema. Received Zosyn/vancomycin while in the ER Continued on cefepime/vancomycin. 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 If prescribed 100 units insulin Toujeo at bedtime, and Lantus 35 units breakfast, 30 units lunch, 25 units NovoLog. While n.p.o. long-acting insulin reduced by 30% and sliding scale ordered based on 70 units of basal requirement. Pharmacy glycemic consult ordered due to critical illness and high requirement (4) COPD (chronic obstructive pulmonary disease): Plan: Reported history and With former tobacco use in remission. No home inhalers. PFTs 08/2019 with FEV1/FVC ratio 0.77 at that time, moderate restrictive disease (5) HTN (hypertension): Plan: Blood pressure was in 200 systolic upon admission However currently 118/63 (6) Obstructive sleep apnea (adult) (pediatric): Plan: Intubated Plan DVT prophylaxis: Lovenox Disposition: ICU CODE STATUS: Full code Diet: N.p.o. Admission and Anticipated Discharge Date Admission Date: October 01, 2023 Subjective Patient seen and examined, daughter by the bedside. Patient is still intubated and ventilated however she is awake and alert because sedation has been turned down Review of Systems Review of Systems: All systems reviewed are negative, apart from the ones contained in the history. Physical Exam Physical Exam: The patient is awake, alert and oriented 3, well developed and well nourished, normocephalic and atraumatic, lying in bed and in no acute distress. HEENT--PERRL, EOMI, mucous membranes and oropharynx mildly dry Neck--supple. No JVD. No bruits. Thyroid normal, trachea midline, no adenopathy. Heart--normal S1 and S2. No murmurs, rubs or gallops. Lungs--clear bilaterally, no respiratory distress, no accessory muscle use. Abdomen--normal bowel sounds and soft. Extremities--no cyanosis or clubbing. No edema. Dermatologic--normal skin turgor, normal color, no abnormal lymph nodes, no rash. Neurologic--cranial nerves II through XII grossly intact. Rheumatologic--normal range of motion. Psychiatric--normal affect. Results & Data Results & Data Vital Signs (Past 12 Hours) Vital Signs Temp Pulse Resp BP Pulse Ox O2 Del Method FiO2 10/02/23 09:00 118/63 10/02/23 09:00 99.3 F 90 16 93 10/02/23 08:45 113/63 10/02/23 08:45 99.3 F 88 17 95 10/02/23 08:30 88/60 L 10/02/23 08:30 99.3 F 80 11 L 90 10/02/23 08:30 50 10/02/23 08:28 91/53 L 10/02/23 08:28 99.3 F 76 26 H 93 10/02/23 08:16 99.3 F 79 26 H 92 10/02/23 08:16 86/50 L 10/02/23 08:15 99.3 F 77 26 H 92 10/02/23 08:00 108/61 10/02/23 08:00 99.3 F 80 26 H 91 10/02/23 08:00 86 10/02/23 08:00 Mechanical Vent 10/02/23 07:51 86 27 H 97 40 10/02/23 07:46 99.3 F 82 26 H 95 10/02/23 07:46 93/50 L 10/02/23 07:45 99.3 F 81 26 H 96 10/02/23 07:31 99.3 F 83 23 96 10/02/23 07:31 125/59 L 10/02/23 07:30 99.3 F 81 23 84 L 10/02/23 07:30 40 10/02/23 07:15 120/63 10/02/23 07:15 99.3 F 70 26 H 10/02/23 07:00 99.3 F 71 26 H 10/02/23 07:00 101/57 L 10/02/23 06:45 104/57 L 10/02/23 06:45 99.3 F 73 26 H 10/02/23 06:30 103/56 L 10/02/23 06:30 99.3 F 71 26 H 10/02/23 06:15 102/57 L 10/02/23 06:15 99.3 F 71 26 H 10/02/23 06:00 101/53 L 10/02/23 06:00 99.5 F 72 26 H 10/02/23 05:45 94/57 L 10/02/23 05:45 99.5 F 73 26 H 10/02/23 05:30 97/58 L 10/02/23 05:30 99.5 F 72 26 H 10/02/23 05:15 99.5 F 73 26 H 10/02/23 05:15 103/57 L 10/02/23 05:00 102/58 L 10/02/23 05:00 99.7 F H 72 26 H 94 10/02/23 04:45 104/56 L 10/02/23 04:45 99.7 F H 71 26 H 10/02/23 04:30 100/53 L 10/02/23 04:30 99.7 F H 72 26 H 10/02/23 04:29 72 27 H 98 50 10/02/23 04:15 98/54 L 10/02/23 04:15 99.9 F H 74 26 H 10/02/23 04:00 90/61 L 10/02/23 04:00 99.9 F H 75 26 H 94 10/02/23 04:00 50 10/02/23 03:45 95/56 L 10/02/23 03:45 99.9 F H 74 26 H 10/02/23 03:30 100.0 F H 76 26 H 10/02/23 03:30 93/56 L 10/02/23 03:15 96/53 L 10/02/23 03:15 100.0 F H 73 26 H 02/16/24 03:00 91/58 L 02/16/24 03:00 100.2 F H 76 26 H 10/02/23 02:45 100.4 F H 79 26 H 10/02/23 02:45 89/55 L 10/02/23 02:30 91/58 L 10/02/23 02:30 100.2 F H 77 26 H 10/02/23 02:15 97/60 L 10/02/23 02:15 100.4 F H 79 26 H 10/02/23 02:00 91/64 L 10/02/23 02:00 100.4 F H 77 26 H 96 10/02/23 01:45 99/54 L 10/02/23 01:45 100.4 F H 79 26 H 10/02/23 01:43 26 H 10/02/23 01:30 99/56 L 10/02/23 01:30 100.4 F H 79 26 H 10/02/23 01:15 96/55 L 10/02/23 01:15 100.2 F H 78 31 H 10/02/23 01:00 100/56 L 10/02/23 01:00 100.2 F H 79 28 H 10/02/23 00:45 101/54 L 10/02/23 00:45 100.2 F H 79 28 H 10/02/23 00:30 104/56 L 10/02/23 00:30 100.2 F H 77 28 H 10/02/23 00:15 100.0 F H 79 28 H 10/02/23 00:15 104/54 L 10/02/23 00:00 97/64 L 10/02/23 00:00 100.0 F H 77 28 H 10/02/23 00:00 50 10/01/23 23:46 76 10/01/23 23:45 96/62 L 10/01/23 23:45 100.0 F H 77 28 H 10/01/23 23:30 100.0 F H 76 28 H 10/01/23 23:30 100/60 10/01/23 23:15 98/65 L 10/01/23 23:15 100.0 F H 78 28 H PG Care Time/CCT Total # of Minutes Spent Total Time Spent with Patient: Total time spent is greater than 50% in coordination of care (as documented) at patient's floor/unit and/or counseling patient: Coding Level of Care Code 60782 SUB INP/OBS CARE 2/35MIN Diagnoses Acute on chronic hypoxic respiratory failure J96.21 Sepsis A41.9 Diabetes mellitus type 2 in obese E11.69; E66.9 COPD (chronic obstructive pulmonary disease) J44.9 HTN (hypertension) I10 Obstructive sleep apnea (adult) (pediatric) G47.33 Time Spent (min) 35
[2023-10-02] MEDS: D5W AND NSS 1,000 ML IV ONE (11:35)
[2023-10-02] MEDS: LANTUS PER UNIT CHARGE SC ONE ×2 (11:36→21:45)
[2023-10-02] MEDS: levoFLOXacin/D5W 750 MG/150 ML BAG IV SCH (11:36)
[2023-10-02] MEDS: POTASSIUM CHLORIDE / WTR 10 MEQ/100 ML PLCT IV SCH (11:36)
[2023-10-02] MEDS ORDERED: LANTUS PER UNIT CHARGE SQ SCH (12:00)
--- NOTE | 2023-10-02 12:14 | Electrocardiogram Report ---
Test Reason : Blood Pressure : / mmHG Vent. Rate : 086 BPM Atrial Rate : 086 BPM P-R Int : 142 ms QRS Dur : 080 ms QT Int : 410 ms P-R-T Axes : 033 027 037 degrees QTc Int : 490 ms Sinus rhythm with occasional Premature ventricular complexes Prolonged QT Abnormal ECG When compared with ECG of 01-OCT-2023 13:52, Premature ventricular complexes are now Present Confirmed by Cedric Harman ([id number]) on 10/02/2023 12:14:17 PM Referred By: REFERRED SELF Confirmed By:Cedric Harman
--- NOTE | 2023-10-02 12:24 | Pharmacy Report ---
Pharmacy Glycemic Short Note 2 - Date of Service October 02, 2023 - Glycemic Short BSG Results (Last 24 hours): 10/01/23 10/01/23 10/02/23 14:37 20:32 00:24 Glucose 163 H POC Glucose 251 H 268 H 10/02/23 10/02/23 10/02/23 01:34 02:37 03:41 Glucose POC Glucose 258 H 243 H 235 H 10/02/23 10/02/23 10/02/23 03:56 04:42 05:44 Glucose 228 H POC Glucose 222 H 186 H 10/02/23 10/02/23 07:34 09:56 Glucose POC Glucose 181 H 141 H OUTPATIENT ANTIDIABETIC REGIMEN: * Toujeo 100 units SC daily * Novolog FlexPen, 35 units w breakfast, 30 units w lunch, and 25 units w supper * Metformin 1000 mg po BID * HbA1c 7.5% on 08/31/23 ASSESSMENT: * 68 yo F w T2DM intubated in ICU 2nd multilobar PNA. Insulin drip started yesterday for hyperglycemia. No concern for DKA (AG and CO2 wnl) nor HHS (not hyperosmolar). * Discussed on ICU rounds today - complex case including high outpatient insulin requirements, currently NPO, starting [id number] IVF, prior inpatient history with significantly reduced insulin requirements as compared to reported outpatient regimen, and currently on pressors. OK to start basal insulin, but since unclear requirements, NPO plus ICU status, will start with very low dose. If the low dose successfully titrates insulin drip down, OK to stop. If not, will re-evaluate again tomorrow. PLAN FOR INPATIENT GLYCEMIC CONTROL: * Hold outpatient oral diabetes medications * Basal insulin * Lantus 30 units SQ x1 now. Additional 10-20 units tonight based on insulin drip rate, assuming drip is still >1 unit/hr * Continue insulin drip for now. Adjust goal to 140-180 mg/dL (to help facilitate dose reduction/transition off drip). Currently running at 4.4 units/hr * Insulin drip transition parameters (both) * BSG < 180 mg/dL x2 consecutive checks * Insulin drip rate < 1 unit/hr * Bolus insulin * None for now since NPO and on insulin drip
[2023-10-02] MEDS: [UNRECOGNIZED DRUG - OTHER] ONE (12:55)
[2023-10-02 14:05] LABS: Appearance Urine Turbid (Clear); Bacteria Urine Automated Negative (Negative); Bilirubin Urine Negative (Negative); Blood Urine Negative (Negative); Color Urine Dark Yellow; Epithelial Cell Urine Auto >30 /lpf (0-5); Glucose Urine UA Negative (Negative); Ketones Urine Negative (Negative); Leukocyte Esterase Urine Trace (Negative); Nitrite Urine Negative (Negative); Protein Urine 1+ (Negative); RBC Urine Automated 0-4 /hpf (0-4); Specific Gravity Urine 1.037 (1.000-1.030); Urobilinogen Urine Negative (Negative); WBC Urine Automated >30 /hpf (0-5)
[2023-10-02 14:16] LABS: Cast Urine Automated 0 /lpf (0-5)
[2023-10-02 14:33] LABS: Creatinine Urine Random 94.8 mg/dl; Potassium Random Urine 80.3 mmol/L
[2023-10-03] MEDS: DEXTROSE 50% 50 ML SYRINGE IV PRN (02:16)
[2023-10-03 04:46] LABS: Basophils # (auto) 0.02 K/uL (0.00-0.20); Basophils % (auto) 0.3 %; Eosinophils # (auto) 0.21 K/uL (0.00-0.50); Eosinophils % (auto) 2.9 %; Hematocrit (blood only) 34.7 % (37.0-47.0); Hemoglobin 10.8 g/dl (12.0-16.0); Immature Granulocytes # (auto) 0.03 K/uL (0.01-0.20); Immature Granulocytes % (auto) 0.4 %; Lymphocytes # (auto) 0.39 K/uL (1.20-3.40); Lymphocytes % (auto) 5.4 %; Mean Corpuscular Hemoglobin 25.7 pg (25.0-34.0); Mean Corpuscular Hgb Conc 31.1 g/dL (32.0-36.0); Mean Corpuscular Volume 82.6 fL (80.0-100.0); Mean Platelet Volume 10.4 fL (9.4-12.4); Monocytes # (auto) 0.73 K/uL (0.11-0.59); Monocytes % (auto) 10.1 %; Neutrophils # (auto) 5.86 K/uL (1.40-6.50); Neutrophils % (auto) 80.9 %; Platelet Count 167 K/uL (130-400); RDW Coefficient of Variation 17.2 % (11.5-14.5); RDW Standard Deviation 51.2 fL (36.4-46.3); White Blood Count 7.24 K/ul (4.8-10.8)
[2023-10-03 05:07] LABS: Albumin Globulin Ratio 1.1 (0.9-2); Albumin Level 3.3 gm/dl (3.4-5.0); Bilirubin,Total 0.5 mg/dl (0.2-1.0); Calcium 8.3 mg/dl (8.6-10.3); Creatinine Clr Calc Pharmacy 85.5 ml/min; Est GFR (African American) 85.2 ml/min; Est GFR (Non-African American) 73.5 ml/min; Potassium 3.8 mmol/L (3.5-5.1); Total Protein 6.3 gm/dl (6.0-8.3)
--- NOTE | 2023-10-03 07:33 | Critical Care Progress Note ---
Date of Service October 03, 2023 Assessment & Plan (1) Sepsis: (2) Acute on chronic hypoxic respiratory failure: (3) Diabetes mellitus type 2 in obese: (4) Diabetic nephropathy associated with type 2 diabetes mellitus: (5) Urinary frequency: (6) HTN (hypertension): (7) Metabolic encephalopathy: (8) Obstructive sleep apnea (adult) (pediatric): (9) COPD (chronic obstructive pulmonary disease): Plan Reason Critically Ill: 68-year-old female with past medical history hypertension, diabetes, JACQUIE, presented to the hospital for shortness of breath. Needed to be intubated in the ER Neuro - [facility] ICU: Unable to assess --Metabolic encephalopathy --> resolved TSH within normal limit Did have systolic blood pressure in the 200s in the ED. Hypertensive emergency is a possibility CT head negative for any abnormalities Cardiac - --Elevated troponin Likely type II IL Trending down EKG does not show any ST-T wave changes, PVCs appreciated 2D echo 10/01/2023: EF 60-65%, RV not well-visualized, grade 1 diastolic dysfunction, RVSP normal --Prolonged QTc QTc 490 on 10/02/2023 --> 469 10/03/2023 -- S/p hypertensive emergency Blood pressure responded to sedation and paralytics Continue to monitor EKG 10/01/2023 1352: shows normal sinus rhythm, normal axis, no ST-T wave changes Respiratory - -- S/p VDRF Likely secondary to multilobar pneumonia Extubated 10/02/2023 Continue with antibiotics for multilobar pneumonia --History of COPD -- History of JACQUIE Unable to tolerate CPAP GI - No acute issues RENAL/LYTES - -- S/p DIRK Monitor BUN/creatinine Avoid nephrotoxic medications Strict ins and outs - Continue with Ross catheter ENDO - -- Diabetes type 2 Continue with ICU hyperglycemia protocol HEME - -- Leukocytosis Likely reactive to sepsis -- Monitor H&H ID - -- Multilobar pneumonia Respiratory bio fire negative for everything on 10/01/2023 Continue broad-spectrum antibiotics Nasal MRSA negative, vancomycin discontinued 10/02/2023 Procalcitonin 1.61, BNP 76 UA was negative for bacteria and leukocyte esterase Urine culture was positive for pansensitive E. coli on 09/28/2023 --Prophylaxis VTE: Lovenox GI: Pantoprazole Lines: Peripheral Diet: N.p.o. Plan: In/out: +650, urine output 1560 Slight drop in hemoglobin compared to yesterday. Repeat H&H later today Potassium being replaced Continue with antibiotics Follow-up sputum culture Recommend BiPAP nightly and as needed shortness of breath Okay to be downgrade to medical floor Please note the above document was generated using voice recognition software. It may contain grammatical, syntax or spelling errors.Any formal questions or concerns about the content, text or information contained within the body of this dictation should be directly addressed to the provider for clarification. Admission and Anticipated Discharge Date Admission Date: October 01, 2023 Subjective Patient seen and examined at bedside. No acute distress, no adverse events overnight. Did use BiPAP overnight Was saturating 92% on 4 L nasal cannula. Was able to tolerate clear liquid diet. Will advance the diet Denies any headache, no nausea, no vomiting Asking if she could go home Bringing up dark brownish phlegm Review of Systems 2 Review of Systems: All systems reviewed & are unremarkable except as noted in Subjective Physical Exam 2 Physical Exam: Constitutional: No acute distress HEENT: EOMI, PERRLA Respiratory system: Decreased air entry bilaterally, no wheeze, no rhonchi, positive crackles bilateral lower lobes CVS: S1-S2 positive, no murmurs or gallops Abdomen: Soft, nontender, nondistended, positive bowel sounds x4, obese Extremities: +2 pulses bilaterally radialis/ dorsalis pedis, no cyanosis, +1 pitting edema bilateral lower extremity Neuro: Awake alert oriented x 3 Psych: Normal mood and affect G/U: Positive Ross Skin: no rashes, warm and dry Lymphatic: no cervical or axillary lymphadenopathy Results & Data Results & Data Vital Signs (Past 12 Hours) Vital Signs Temp Pulse Resp BP Pulse Ox O2 Del Method O2 Flow Rate 10/03/23 06:30 37.3 C 93 H 19 92 10/03/23 06:15 37.3 C 94 H 19 92 10/03/23 06:00 124/58 L 10/03/23 06:00 124/58 L 10/03/23 06:00 37.3 C 93 H 19 92 10/03/23 06:00 124/58 L 10/03/23 05:59 37.2 C 95 H 17 92 10/03/23 05:45 37.2 C 94 H 18 93 10/03/23 05:30 37.2 C 94 H 19 94 10/03/23 05:15 37.3 C 97 H 16 94 10/03/23 05:00 137/56 L 10/03/23 05:00 137/56 L 10/03/23 05:00 137/56 L 10/03/23 05:00 37.3 C 98 H 17 94 10/03/23 04:45 37.4 C 102 H 17 94 10/03/23 04:30 37.4 C 96 H 18 93 10/03/23 04:15 37.5 C 95 H 21 93 10/03/23 04:00 124/55 L 10/03/23 04:00 37.4 C 96 H 20 92 10/03/23 03:45 37.5 C 98 H 20 94 10/03/23 03:40 98 H 37 H 93 10/03/23 03:30 37.5 C 96 H 20 94 10/03/23 03:15 37.6 C H 100 H 21 93 10/03/23 03:00 37.6 C H 99 H 20 94 10/03/23 03:00 131/54 L 10/03/23 02:45 37.7 C H 99 H 20 93 10/03/23 02:30 37.7 C H 94 H 24 94 10/03/23 02:15 37.7 C H 97 H 20 89 L 10/03/23 02:00 124/46 L 10/03/23 02:00 37.6 C H 95 H 19 89 L 10/03/23 01:45 37.6 C H 96 H 23 91 10/03/23 01:30 37.6 C H 99 H 21 90 10/03/23 01:15 37.6 C H 101 H 20 92 10/03/23 01:00 116/53 L 10/03/23 01:00 37.6 C H 100 H 20 91 10/03/23 00:45 37.6 C H 100 H 25 H 91 10/03/23 00:30 37.6 C H 100 H 25 H 91 10/03/23 00:15 37.6 C H 99 H 22 92 10/03/23 00:00 125/50 L 10/03/23 00:00 37.6 C H 98 H 22 93 10/03/23 00:00 97 H 02/16/24 23:45 37.5 C 98 H 17 93 10/02/23 23:41 101 H 18 94 10/02/23 23:30 37.5 C 100 H 19 92 10/02/23 23:15 37.5 C 102 H 20 91 10/02/23 23:00 126/56 L 10/02/23 23:00 37.5 C 106 H 19 90 10/02/23 22:45 37.6 C H 105 H 22 91 10/02/23 22:30 37.6 C H 103 H 19 91 10/02/23 22:15 37.6 C H 105 H 16 89 L 10/02/23 22:00 37.6 C H 104 H 25 H 90 10/02/23 21:45 37.7 C H 101 H 32 H 92 10/02/23 21:30 37.7 C H 114 H 19 90 10/02/23 21:15 37.7 C H 98 H 20 92 10/02/23 21:01 37.7 C H 97 H 18 92 10/02/23 21:01 123/54 L 10/02/23 21:00 37.7 C H 99 H 17 92 10/02/23 20:45 37.7 C H 102 H 21 90 10/02/23 20:30 37.7 C H 103 H 22 90 10/02/23 20:15 37.7 C H 100 H 19 91 10/02/23 20:00 126/57 L 10/02/23 20:00 37.7 C H 100 H 18 90 10/02/23 20:00 Nasal Cannula 3 10/02/23 19:45 37.6 C H 98 H 22 91 FiO2 10/03/23 06:30 10/03/23 06:15 10/03/23 06:00 10/03/23 06:00 10/03/23 06:00 10/03/23 06:00 10/03/23 05:59 10/03/23 05:45 10/03/23 05:30 10/03/23 05:15 10/03/23 05:00 10/03/23 05:00 10/03/23 05:00 10/03/23 05:00 10/03/23 04:45 10/03/23 04:30 10/03/23 04:15 10/03/23 04:00 10/03/23 04:00 10/03/23 03:45 10/03/23 03:40 45 10/03/23 03:30 10/03/23 03:15 10/03/23 03:00 10/03/23 03:00 10/03/23 02:45 10/03/23 02:30 10/03/23 02:15 10/03/23 02:00 10/03/23 02:00 10/03/23 01:45 10/03/23 01:30 10/03/23 01:15 10/03/23 01:00 10/03/23 01:00 10/03/23 00:45 10/03/23 00:30 10/03/23 00:15 10/03/23 00:00 10/03/23 00:00 10/03/23 00:00 10/02/23 23:45 10/02/23 23:41 35 10/02/23 23:30 10/02/23 23:15 10/02/23 23:00 10/02/23 23:00 10/02/23 22:45 10/02/23 22:30 10/02/23 22:15 10/02/23 22:00 10/02/23 21:45 10/02/23 21:30 10/02/23 21:15 10/02/23 21:01 10/02/23 21:01 10/02/23 21:00 10/02/23 20:45 10/02/23 20:30 10/02/23 20:15 10/02/23 20:00 10/02/23 20:00 10/02/23 20:00 10/02/23 19:45 Laboratory Results 10/03/23 04:06 10/03/23 04:06 Diagnostic Findings 10/03/23 04:06 10/03/23 04:06 Coding Level of Care Code 32828 SUB INP/OBS CARE 3/50MIN Diagnoses Sepsis A41.9 Acute on chronic hypoxic respiratory failure J96.21 Diabetes mellitus type 2 in obese E11.69; E66.9 Diabetic nephropathy associated with type 2 diabetes mellitus E11.21 Urinary frequency R35.0 HTN (hypertension) I10 Metabolic encephalopathy G93.41 Obstructive sleep apnea (adult) (pediatric) G47.33 COPD (chronic obstructive pulmonary disease) J44.9
[2023-10-03 08:34] LABS: Magnesium 2.4 mg/dl (1.7-2.4); Phosphorus 2.9 mg/dl (2.5-4.9)
[2023-10-03] MEDS: INSULIN ASPART PER UNIT CHARGE SC SCH (08:40)
[2023-10-03] MEDS: LANTUS PER UNIT CHARGE SC ONE (08:41)
[2023-10-03 08:43] LABS: Troponin I High Sensitivity 235.9 pg/ml (0-14)
[2023-10-03] MEDS: POTASSIUM CHLORIDE CRTAB 20 MEQ TABCR PO ONE (10:13)
[2023-10-03] MEDS: ASPIRIN 81 MG ECTAB PO SCH (11:45)
[2023-10-03] MEDS: METOPROLOL SUCC 50MG EXT REL TAB PO SCH (11:45)
[2023-10-03] MEDS: PANTOprazole 40 MG TAB PO SCH (11:45)
--- NOTE | 2023-10-03 13:37 | Hospitalist Progress Note ---
Date of Service October 03, 2023 Assessment & Plan (1) Acute on chronic hypoxic respiratory failure: Plan: -Patient presented to the emergency department with worsening shortness of breath and was intubated -Etiology could be hypertensive urgency, sepsis pulmonary edema, obstructive sleep apnea, pneumonia BioFire negative CTA with no evidence of PE. Multifocal airspace opacities consistent with superimposed pneumonia/aspiration pneumonitis are present. Patient has additional interstitial and alveolar pulmonary edema. Received Zosyn/vancomycin while in the ER Continued on cefepime/vancomycin. 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 While n.p.o. long-acting insulin reduced by 30% and sliding scale ordered based on 70 units of basal requirement. Pharmacy glycemic consult ordered due to critical illness and high requirement (4) COPD (chronic obstructive pulmonary disease): Plan: Reported history and With former tobacco use in remission. No home inhalers. PFTs 08/2019 with FEV1/FVC ratio 0.77 at that time, moderate restrictive disease (5) HTN (hypertension): Plan: Blood pressure now under better control 150/90 today (6) Obstructive sleep apnea (adult) (pediatric): Plan: Continue BiPAP at night Plan DVT prophylaxis: Lovenox Disposition: Continue to monitor in stepdown hopefully discharge in next 48 hours CODE STATUS: Full code Diet: N.p.o. Admission and Anticipated Discharge Date Admission Date: October 01, 2023 Subjective Patient seen and examined, has been liberated from the vent, sitting up in the chair, saturating well on 4 L oxygen through nasal cannula. Will transfer out of ICU Review of Systems Review of Systems: All systems reviewed are negative, apart from the ones contained in the history. Physical Exam Physical Exam: The patient is awake, alert and oriented 3, well developed and well nourished, normocephalic and atraumatic, lying in bed and in no acute distress. HEENT--PERRL, EOMI, mucous membranes and oropharynx mildly dry Neck--supple. No JVD. No bruits. Thyroid normal, trachea midline, no adenopathy. Heart--normal S1 and S2. No murmurs, rubs or gallops. Lungs--clear bilaterally, no respiratory distress, no accessory muscle use. Abdomen--normal bowel sounds and soft. Extremities--no cyanosis or clubbing. No edema. Dermatologic--normal skin turgor, normal color, no abnormal lymph nodes, no rash. Neurologic--cranial nerves II through XII grossly intact. Rheumatologic--normal range of motion. Psychiatric--normal affect. Results & Data Results & Data Vital Signs (Past 12 Hours) Vital Signs Temp Pulse Resp BP Pulse Ox O2 Del Method O2 Flow Rate 10/03/23 10:30 98.4 F 86 16 150/90 H 100 10/03/23 10:00 86 21 10/03/23 09:30 87 18 10/03/23 09:00 96 H 24 10/03/23 08:30 99.0 F 94 H 18 92 10/03/23 08:00 126/54 L 10/03/23 08:00 126/54 L 10/03/23 08:00 99.1 F 92 H 18 91 10/03/23 08:00 Nasal Cannula 4 10/03/23 08:00 93 H 10/03/23 07:30 99.1 F 98 H 15 90 10/03/23 07:00 99.1 F 93 H 21 92 10/03/23 07:00 127/61 10/03/23 07:00 127/61 10/03/23 06:30 99.1 F 93 H 19 92 10/03/23 06:15 99.1 F 94 H 19 92 10/03/23 06:00 124/58 L 10/03/23 06:00 124/58 L 10/03/23 06:00 99.1 F 93 H 19 92 10/03/23 06:00 124/58 L 10/03/23 05:59 99.0 F 95 H 17 92 10/03/23 05:45 99.0 F 94 H 18 93 10/03/23 05:30 99.0 F 94 H 19 94 10/03/23 05:15 99.1 F 97 H 16 94 10/03/23 05:00 137/56 L 10/03/23 05:00 137/56 L 10/03/23 05:00 137/56 L 10/03/23 05:00 99.1 F 98 H 17 94 10/03/23 04:45 99.3 F 102 H 17 94 10/03/23 04:30 99.3 F 96 H 18 93 10/03/23 04:15 99.5 F 95 H 21 93 10/03/23 04:00 124/55 L 10/03/23 04:00 99.3 F 96 H 20 92 10/03/23 03:45 99.5 F 98 H 20 94 10/03/23 03:40 98 H 37 H 93 10/03/23 03:30 99.5 F 96 H 20 94 10/03/23 03:15 99.7 F H 100 H 21 93 10/03/23 03:00 99.7 F H 99 H 20 94 10/03/23 03:00 131/54 L 10/03/23 02:45 99.9 F H 99 H 20 93 10/03/23 02:30 99.9 F H 94 H 24 94 10/03/23 02:15 99.9 F H 97 H 20 89 L 10/03/23 02:00 124/46 L 10/03/23 02:00 99.7 F H 95 H 19 89 L 10/03/23 01:45 99.7 F H 96 H 23 91 FiO2 10/03/23 10:30 10/03/23 10:00 10/03/23 09:30 10/03/23 09:00 10/03/23 08:30 10/03/23 08:00 10/03/23 08:00 10/03/23 08:00 10/03/23 08:00 10/03/23 08:00 10/03/23 07:30 10/03/23 07:00 10/03/23 07:00 10/03/23 07:00 10/03/23 06:30 10/03/23 06:15 10/03/23 06:00 10/03/23 06:00 10/03/23 06:00 10/03/23 06:00 10/03/23 05:59 10/03/23 05:45 10/03/23 05:30 10/03/23 05:15 10/03/23 05:00 10/03/23 05:00 10/03/23 05:00 10/03/23 05:00 10/03/23 04:45 10/03/23 04:30 10/03/23 04:15 10/03/23 04:00 10/03/23 04:00 10/03/23 03:45 10/03/23 03:40 45 10/03/23 03:30 10/03/23 03:15 10/03/23 03:00 10/03/23 03:00 10/03/23 02:45 10/03/23 02:30 10/03/23 02:15 10/03/23 02:00 10/03/23 02:00 10/03/23 01:45 PG Care Time/CCT Total # of Minutes Spent Total Time Spent with Patient: Total time spent is greater than 50% in coordination of care (as documented) at patient's floor/unit and/or counseling patient: Coding Level of Care Code 50963 SUB INP/OBS CARE 2/35MIN Diagnoses Acute on chronic hypoxic respiratory failure J96.21 Sepsis A41.9 Diabetes mellitus type 2 in obese E11.69; E66.9 COPD (chronic obstructive pulmonary disease) J44.9 HTN (hypertension) I10 Obstructive sleep apnea (adult) (pediatric) G47.33 Time Spent (min) 35
[2023-10-03] MEDS: SERTRALINE HCL 100 MG TABLET PO SCH (20:45)
[2023-10-03] MEDS: SIMVASTATIN 40 MG TAB PO SCH (20:45)
[2023-10-03] MEDS: LANTUS PER UNIT CHARGE SC SCH (21:06)
[2023-10-04 06:39] LABS: Basophils # (auto) 0.04 K/uL (0.00-0.20); Basophils % (auto) 0.5 %; Eosinophils # (auto) 0.32 K/uL (0.00-0.50); Eosinophils % (auto) 4.2 %; Hematocrit (blood only) 34.1 % (37.0-47.0); Hemoglobin 10.6 g/dl (12.0-16.0); Immature Granulocytes # (auto) 0.02 K/uL (0.01-0.20); Immature Granulocytes % (auto) 0.3 %; Lymphocytes # (auto) 0.65 K/uL (1.20-3.40); Lymphocytes % (auto) 8.5 %; Mean Corpuscular Hemoglobin 25.5 pg (25.0-34.0); Mean Corpuscular Hgb Conc 31.1 g/dL (32.0-36.0); Mean Corpuscular Volume 82.2 fL (80.0-100.0); Mean Platelet Volume 10.2 fL (9.4-12.4); Monocytes # (auto) 0.89 K/uL (0.11-0.59); Monocytes % (auto) 11.7 %; Neutrophils # (auto) 5.71 K/uL (1.40-6.50); Neutrophils % (auto) 74.8 %; Platelet Count 174 K/uL (130-400); RDW Coefficient of Variation 17.2 % (11.5-14.5); RDW Standard Deviation 50.9 fL (36.4-46.3); Red Blood Count 4.15 M/uL (4.20-5.40); White Blood Count 7.63 K/ul (4.8-10.8)
[2023-10-04 06:53] LABS: Albumin Globulin Ratio 1.1 (0.9-2); Albumin Level 3.3 gm/dl (3.4-5.0); BUN Creatinine Ratio 26.4 (10-20); Bilirubin,Total 0.5 mg/dl (0.2-1.0); Calcium 8.9 mg/dl (8.6-10.3); Creatinine Clr Calc Pharmacy 97.7 ml/min; Est GFR (African American) 99.7 ml/min; Est GFR (Non-African American) 86.1 ml/min; Globulin 2.9 gm/dl (2.5-4.0); Potassium 4.3 mmol/L (3.5-5.1); Total Protein 6.2 gm/dl (6.0-8.3)
--- NOTE | 2023-10-04 07:55 | Electrocardiogram Report ---
Test Reason : Blood Pressure : / mmHG Vent. Rate : 089 BPM Atrial Rate : 089 BPM P-R Int : 128 ms QRS Dur : 074 ms QT Int : 386 ms P-R-T Axes : 040 023 047 degrees QTc Int : 469 ms Poor data quality, interpretation may be adversely affected Normal sinus rhythm Low voltage QRS Nonspecific ST abnormality Abnormal ECG When compared with ECG of 02-OCT-2023 10:08, Premature ventricular complexes are no longer Present Confirmed by Syed Benjamin ([id number]) on 10/04/2023 7:54:35 AM Referred By: REFERRED SELF Confirmed By:Syed Benjamin
--- NOTE | 2023-10-04 11:40 | Hospitalist Progress Note ---
Date of Service October 04, 2023 Assessment & Plan (1) Acute on chronic hypoxic respiratory failure: Plan: -Patient presented to the emergency department with worsening shortness of breath and was intubated -Etiology could be hypertensive urgency, sepsis pulmonary edema, obstructive sleep apnea, pneumonia BioFire negative CTA with no evidence of PE. Multifocal airspace opacities consistent with superimposed pneumonia/aspiration pneumonitis are present. Patient has additional interstitial and alveolar pulmonary edema. Received Zosyn/vancomycin while in the ER Continued on cefepime/vancomycin. 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 If prescribed 100 units insulin Toujeo at bedtime, and Lantus 35 units breakfast, 30 units lunch, 25 units NovoLog. While n.p.o. long-acting insulin reduced by 30% and sliding scale ordered based on 70 units of basal requirement. Pharmacy glycemic consult ordered due to critical illness and high requirement (4) COPD (chronic obstructive pulmonary disease): Plan: Reported history and With former tobacco use in remission. No home inhalers. PFTs 08/2019 with FEV1/FVC ratio 0.77 at that time, moderate restrictive disease (5) HTN (hypertension): Plan: Blood pressure now under better control 150/90 today (6) Obstructive sleep apnea (adult) (pediatric): Plan: Continue BiPAP at night (7) Acute UTI: Plan: Urinalysis suggestive Urine cultures growing E. coli pansensitive Discharge home on p.o. Levaquin for 5 days Plan DVT prophylaxis: Lovenox Disposition: Wean down oxygen, hopefully discharge in next 24 hours CODE STATUS: Full code Diet: N.p.o. Admission and Anticipated Discharge Date Admission Date: October 01, 2023 Subjective Patient seen and examined today, sitting up in the chair currently on 2 L oxygen through nasal cannula, feels much improved. Wants to go home Review of Systems Review of Systems: All systems reviewed are negative, apart from the ones contained in the history. Physical Exam Physical Exam: The patient is awake, alert and oriented 3, well developed and well nourished, normocephalic and atraumatic, lying in bed and in no acute distress. HEENT--PERRL, EOMI, mucous membranes and oropharynx mildly dry Neck--supple. No JVD. No bruits. Thyroid normal, trachea midline, no adenopathy. Heart--normal S1 and S2. No murmurs, rubs or gallops. Lungs--clear bilaterally, no respiratory distress, no accessory muscle use. Abdomen--normal bowel sounds and soft. Extremities--no cyanosis or clubbing. No edema. Dermatologic--normal skin turgor, normal color, no abnormal lymph nodes, no rash. Neurologic--cranial nerves II through XII grossly intact. Rheumatologic--normal range of motion. Psychiatric--normal affect. Results & Data Results & Data Vital Signs (Past 12 Hours) Vital Signs Temp Pulse Resp BP Pulse Ox 10/04/23 11:21 97.3 F L 87 26 H 133/88 90 10/04/23 03:09 98.1 F 81 19 177/80 H 92 10/04/23 01:31 86 10/04/23 00:00 86 PG Care Time/CCT Total # of Minutes Spent Total Time Spent with Patient: Total time spent is greater than 50% in coordination of care (as documented) at patient's floor/unit and/or counseling patient: Coding Level of Care Code 02384 SUB INP/OBS CARE 2/35MIN Diagnoses Acute on chronic hypoxic respiratory failure J96.21 Sepsis A41.9 Diabetes mellitus type 2 in obese E11.69; E66.9 COPD (chronic obstructive pulmonary disease) J44.9 HTN (hypertension) I10 Obstructive sleep apnea (adult) (pediatric) G47.33 Acute UTI N39.0 Time Spent (min) 35
--- NOTE | 2023-10-04 14:30 | Discharge Summary ---
Date of Service October 04, 2023 Admission HPI Per Admitting Provider Patient is seen in the ER, history is limited due to critical illness and intubation. Collateral collected from family at bedside. Diana felt overall well and was in her normal state of health last night. She woke up and did take her morning medications Fatigued and possible mild cough per but otherwise OK, slightly short of breath. went to work but left early due to feeling tired and unwell, reportedly left work due to worsened dyspnea. Was diagnosed with a UTI and started on Macrobid yesterday. Shortness of breath developed throughout the day today causing her to leave work early and come to the ER. Could not catch her breath while in the ER, continue to feel that she is planning. Was undergoing initial workup at that time and was hypertensive patient had an episode of vomiting and subsequently became confused and with respiratory distress and required intubation. Per family she did seem confused before she vomited this was new compared to this morning. Reports that she had not expressed any chest pain, chest pressure, or fevers. Had not had syncope/presyncope. No prior history of heart failure. Blood pressure has been otherwise reasonably well-controlled recently. Does have diabetes on fairly high insulin requirements and follows with endocrine for this Medical History: Reviewed Medications: Reviewed Surgical History: Reviewed Family history: Reviewed Allergies: Reviewed Social History: Former tobacco use in remission >10 yrs. No etoh use per family. Code Status: Full Principal Diagnosis Acute on chronic hypoxic respite failure, acute UTI Discharge Exam The patient is awake, alert and oriented 3, well developed and well nourished, normocephalic and atraumatic, lying in bed and in no acute distress. HEENT--PERRL, EOMI, mucous membranes and oropharynx mildly dry Neck--supple. No JVD. No bruits. Thyroid normal, trachea midline, no adenopathy. Heart--normal S1 and S2. No murmurs, rubs or gallops. Lungs--clear bilaterally, no respiratory distress, no accessory muscle use. Abdomen--normal bowel sounds and soft. Extremities--no cyanosis or clubbing. No edema. Dermatologic--normal skin turgor, normal color, no abnormal lymph nodes, no rash. Neurologic--cranial nerves II through XII grossly intact. Rheumatologic--normal range of motion. Psychiatric--normal affect. Discharge Data Allergies Allergy/AdvReac Type Severity Reaction Status Date / Time amoxicillin [From Augmentin] AdvReac Intermediate nausea Verified 08/31/23 08:47 clavulanic acid AdvReac Intermediate nausea Verified 08/31/23 08:47 [From Augmentin] codeine AdvReac Intermediate Gastrointestinal Verified 08/31/23 08:47 Upset Consultations 10/01/23 15:52 Consult Patient Account Analyst Routine 10/01/23 17:15 ED Decision to Admit Stat Ordered Studies 10/01/23 13:50 CT angio chest PE protocol Stat 10/01/23 16:38 CT head/brain wo con Stat Hospital Course (1) Acute on chronic hypoxic respiratory failure: -Patient presented to the emergency department with worsening shortness of breath and was intubated -Etiology could be hypertensive urgency, sepsis pulmonary edema, obstructive sleep apnea, pneumonia BioFire negative CTA with no evidence of PE. Multifocal airspace opacities consistent with superimposed pneumonia/aspiration pneumonitis are present. Patient has additional interstitial and alveolar pulmonary edema. Received Zosyn/vancomycin while in the ER Continued on cefepime/vancomycin. 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 While n.p.o. long-acting insulin reduced by 30% and sliding scale ordered based on 70 units of basal requirement. Pharmacy glycemic consult ordered due to critical illness and high requirement (4) COPD (chronic obstructive pulmonary disease): Reported history and With former tobacco use in remission. No home inhalers. PFTs 08/2019 with FEV1/FVC ratio 0.77 at that time, moderate restrictive disease (5) HTN (hypertension): Blood pressure now under better control 150/90 today (6) Obstructive sleep apnea (adult) (pediatric): Continue BiPAP at night (7) Acute UTI: Urinalysis suggestive Urine cultures growing E. coli pansensitive Discharge home on p.o. Levaquin for 5 days Plan DVT prophylaxis: Lovenox Disposition: Wean down oxygen, hopefully discharge in next 24 hours CODE STATUS: Full code Diet: N.p.o. Total Time Total Time Spent Total Time Spent (In Minutes): 35 Discharge Plan Discharge Items Patient Disposition: Home - Home Health Services Reason For Visit: ACUTE RESPIRATORY FAILURE Discharge Diagnosis: acute resp failure, UTI Activity: Resume your previous activity Non-emergency contact: Primary Care Provider Call non-emergency contact if: you have any medication questions and your symptoms worsen Follow-up/Referrals: Manju Khan MD [Primary Care Provider] - Diet: Regular Addtl Attending Provider Instructions: please follow up with your regular PCP as soon as possible Pending Studies at Discharge: No Stand-Alone Forms: My [employer], Smoking Cessation Medications and DC Order Prescriptions: New levofloxacin 500 mg tablet 500 mg PO DAILY 5 Days Qty: 5 0RF Continued (DME) miscellaneous medical supply [facility] [place] See Rx Instructions .ROUTE .MEDSUPPLY Qty: 1 0RF Rx Instructions: pulse oximeter to be used as needed. J98.4, U07.1 (DME) lancing device with lancets [OneTouch Delica Plus Lanc Dev] Kit See Rx Instructions .Route Qty: 1 0RF Rx Instructions: TEST 4 TIMES DAILY OR DIRECTED (DME) lancets [OneTouch Delica Lancets] 33 gauge [facility] [place] See Dose Instructions .ROUTE .MEDSUPPLY Qty: 400 3RF Rx Instructions: Test blood sugars 4 times daily or as directed (DME) OneTouch Ultra Test Strip See Rx Instructions .Route Qty: 400 3RF Rx Instructions: TEST 4 TIMES DAILY OR DIRECTED sertraline [Zoloft] 100 mg tablet 100 mg PO HS Qty: 90 3RF metoprolol succinate 50 mg tablet extended release 24 hr 50 mg PO QAM Qty: 90 3RF Rx Instructions: TAKE ONE TABLET BY MOUTH ONE TIME DAILY metformin 1,000 mg tablet 1,000 mg PO BID Qty: 180 3RF Rx Instructions: TAKE ONE TABLET BY MOUTH TWICE DAILY simvastatin 40 mg tablet 40 mg PO HS Qty: 90 1RF (DME) Dexcom G7 Sensor Device See Rx Instructions .ROUTE Rx Instructions: As directed omeprazole 40 mg capsule,delayed release(DR/EC) 40 mg PO DAILY Qty: 90 3RF Rx Instructions: Take one tablet once daily. (DME) blood-glucose meter [OneTouch Verio Meter] Misc See Rx Instructions .Route Qty: 1 0RF Rx Instructions: As directed losartan-hydrochlorothiazide 50-12.5 mg tablet 1 tab PO DAILY Qty: 90 3RF Rx Instructions: Take ONE tablet by mouth once daily. Toujeo Max U-300 SoloStar 300 unit/mL (3 mL) insulin pen 100 unit subcut DAILY 90 Days Qty: 30 3RF aspirin 81 mg tablet,delayed release (DR/EC) 81 mg PO QAM B12 See Rx Instructions .ROUTE .COMPLEX Rx Instructions: unknown dose diphenhydramine-acetaminophen [Tylenol PM Extra Strength] 25-500 mg Tablet 2 tab PO HS Vitamin D3 See Rx Instructions .ROUTE .COMPLEX Rx Instructions: unknown dose insulin aspart U-100 [Novolog FlexPen U-100 Insulin] 100 unit/mL (3 mL) insulin pen 0 unit subcut UD Rx Instructions: 35 u @breakfast 30 u @ lunch 25u @ supper Discharge Orders: Discharge Order (Routine); Ordered 10/04/23 Ordered By: Dequan Neves Admission Data Admit Date/Time: 10/01/23 16:47 Attending Provider: Dequan Neves Admit Provider: Carlos A Tai Primary Care Provider: Manju Khan Other Providers: Adalberto López; Carlos A Tai Coding Level of Care Code 64428 INP/OBS DISCH >30 MIN Diagnoses Acute on chronic hypoxic respiratory failure J96.21 Sepsis A41.9 Diabetes mellitus type 2 in obese E11.69; E66.9 COPD (chronic obstructive pulmonary disease) J44.9 HTN (hypertension) I10 Obstructive sleep apnea (adult) (pediatric) G47.33 Acute UTI N39.0 Time Spent (min) 35
== END 2023-10-04 16:11 | disposition home health service (06) | DRG 871 ==
LOC: ED 13:20 → SUATTDRO 16:47 → 1E 16:47 → 2E 10-03 09:56
DX: E11.9 Type 2 diabetes mellitus without complications; Z88.5 Allergy status to narcotic agent; N39.0 Urinary tract infection, site not specified; B96.20 Unspecified Escherichia coli [E. coli] as the cause of diseases classified elsewhere; J44.9 Chronic obstructive pulmonary disease, unspecified; Z79.899 Other long term (current) drug therapy; Z79.82 Long term (current) use of aspirin; J96.21 Acute and chronic respiratory failure with hypoxia; Z88.1 Allergy status to other antibiotic agents; G47.33 Obstructive sleep apnea (adult) (pediatric); E78.5 Hyperlipidemia, unspecified; Z79.4 Long term (current) use of insulin; A41.9 Sepsis, unspecified organism; R65.21 Severe sepsis with septic shock; G93.41 Metabolic encephalopathy; I10 Essential (primary) hypertension; K21.9 Gastro-esophageal reflux disease without esophagitis

== ENCOUNTER 2023-10-16 14:06 | Inpatient (IN) ==
[2023-10-16] MEDS: ALBUT/IPRATROP 3MG/0.5MG NEB 3 ML VIAL NEB STA (14:35)
--- NOTE | 2023-10-16 14:46 | XRay Report ---
XR chest 1V portable CLINICAL HISTORY: Dyspnea COMPARISON STUDY: Chest CT October 01, 2023. FINDINGS: There is no pneumothorax. Possible small bilateral pleural effusions. Bibasilar opacities a re present. Airspace opacities within lungs have improved since prior CT. Cardiomegaly with pulmonary vascular congestion. IMPRESSION: 1. Cardiomegaly with pulmonary vascular congestion. Possible small bilateral pleural effusions. 2. Bibasilar opacities, improved since prior CT. ACT 112: Negative or not required by law. Electronically signed by: Rolando Paz M.D. 10/16/2023 2:45 PM
[2023-10-16 14:50] LABS: iSTAT Creatinine 0.8 mg/dl (0.6-1.3); iSTAT Hemoglobin 13.3 g/dl (12.0-16.0); iSTAT Ionized Calcium 1.18 mmol/l (1.12-1.32); iSTAT Potassium 3.8 mmol/L (3.3-5.0)
[2023-10-16] MEDS: OPTIRAY 320 125ml IV ONE (14:57)
[2023-10-16] MEDS: ALBUT/IPRATROP 3MG/0.5MG NEB 3 ML VIAL ONE (15:15)
[2023-10-16] MEDS: SODIUM CHLORIDE 0.9% 500 ML IV ONE (15:15)
--- NOTE | 2023-10-16 15:15 | CT Scan Report ---
CT ANGIOGRAM OF THE CHEST CLINICAL HISTORY: Dyspnea COMPARISON STUDY: Chest CT scans dated 10/01/2023 and 12/09/2018. TECHNIQUE: Following the IV administration of 118 cc of Optiray 320, CT angiogram of the chest was pe rformed from the upper abdomen to the thoracic inlet utilizing the pulmonary embolus protocol. Images are reviewed in the axial, sagittal, and coronal planes. 3-D MIPS images are created and assessed. I V contrast was administered without complication. A dose lowering technique was utilized adhering to the principles of ALARA. CT DOSE: 881.15 mGy.cm FINDINGS: Thyroid: Mildly enlarged and heterogeneous. Thoracic aorta: There is atherosclerotic calcification of the thoracic aorta, which is normal in jm refugio and demonstrates 4-vessel variant arch anatomy. No dissection is seen. Pulmonary vasculature: The pulmonary trunk is normal in caliber. There are no filling defects identif ied in main, lobar, or segmental pulmonary branches to suggest pulmonary embolus. Evaluation of the p eripheral branches is compromised by motion artifact. Heart: The heart is mildly enlarged and without pericardial effusion. There are coronary artery calci fications. Lungs and pleural spaces: There is mild emphysematous change. Mild interlobular septal thickening is noted. Evaluation of the lung parenchyma is degraded by motion artifact. Dependent consolidation is s een at both lung bases. There is also airspace consolidation in the right middle lobe and lingula. Th e trachea and central airways are clear. Trace pleural effusions are noted. A 6 mm right middle lobe nodule image #90 is new from 11/18/2022, as is an adjacent 3 mm right middle lobe nodule on image #93. 2-3 mm right upper lobe pulmonary nodules seen on images #162, #155, and #150 unchanged from older pr ior examinations and of low suspicion. Mediastinum: There are mildly enlarged mediastinal lymph nodes. A pretracheal node measures up to 16 mm short axis. Prevascular lymph nodes measure up to 10 mm in short axis, and AP window nodes measure up to 11 mm short axis. Gloria: Clear. Axillae: There is no axillary lymphadenopathy. Upper abdomen: There is a small hiatal hernia. Partially visualized upper abdominal viscera is within normal limits. Skeletal structures: The skeletal structures are osteopenic. Degenerative change is noted in the shou lders and spine. No lytic or blastic bony lesions are seen. IMPRESSION: 1. Motion degraded examination. 2. There is no evidence of pulmonary embolus in the main, lobar, or segmental pulmonary arteries. 3. Cardiomegaly and emphysema. Mild intralobular septal thickening suggests fluid overload/congestive change. Correlate clinically. 4. Trace pleural effusions. 5. Bibasilar consolidation as above. This likely represents pneumonia/aspiration pneumonitis. Clinica l correlation will be required and radiographic follow-up to resolution is recommended. 6. There are 2 right middle lobe pulmonary nodules measuring up to 6 mm. These were not seen on 023 and may be inflammatory. A follow-up chest CT in 3-4 months time is recommended for reassessment. 7. Mildly enlarged mediastinal lymph nodes have increased in size from 11/18/2022. These are likely darrel ctive and can also be reassessed at follow-up. 8. Additional findings as above. ACT 112: Negative or not required by law. Electronically signed by: Narendra Doyle M.D. 10/16/2023 3:13 PM
[2023-10-16 15:16] LABS: Basophils # (auto) 0.02 K/uL (0.00-0.20); Basophils % (auto) 0.3 %; Eosinophils # (auto) 0.06 K/uL (0.00-0.50); Eosinophils % (auto) 0.8 %; Hematocrit (blood only) 40.9 % (37.0-47.0); Hemoglobin 12.4 g/dl (12.0-16.0); Immature Granulocytes # (auto) 0.03 K/uL (0.01-0.20); Immature Granulocytes % (auto) 0.4 %; Lymphocytes # (auto) 0.54 K/uL (1.20-3.40); Lymphocytes % (auto) 7.2 %; Mean Corpuscular Hemoglobin 25.4 pg (25.0-34.0); Mean Corpuscular Hgb Conc 30.3 g/dL (32.0-36.0); Mean Corpuscular Volume 83.8 fL (80.0-100.0); Mean Platelet Volume 10.5 fL (9.4-12.4); Monocytes # (auto) 0.13 K/uL (0.11-0.59); Monocytes % (auto) 1.7 %; Neutrophils # (auto) 6.67 K/uL (1.40-6.50); Neutrophils % (auto) 89.6 %; Platelet Count 270 K/uL (130-400); RDW Coefficient of Variation 16.7 % (11.5-14.5); RDW Standard Deviation 50.6 fL (36.4-46.3); Red Blood Count 4.88 M/uL (4.20-5.40); White Blood Count 7.45 K/ul (4.8-10.8)
[2023-10-16] MEDS ORDERED: methylPREDNISolone 60 MG in SYRINGE 1 ML IV STA (15:16)
[2023-10-16 15:18] LABS: Albumin Globulin Ratio 1.3 (0.9-2); Albumin Level 4.1 gm/dl (3.4-5.0); BUN Creatinine Ratio 23.5 (10-20); Bilirubin,Total 0.3 mg/dl (0.2-1.0); Calcium 9.4 mg/dl (8.6-10.3); Creatinine Clr Calc Pharmacy 86.5 ml/min; Est GFR (African American) 86.5 ml/min; Est GFR (Non-African American) 74.6 ml/min; Globulin 3.1 gm/dl (2.5-4.0); Magnesium 1.7 mg/dl (1.7-2.4); Potassium 3.9 mmol/L (3.5-5.1); Total Protein 7.2 gm/dl (6.0-8.3)
[2023-10-16] MEDS: ONDANSETRON INJ 2 MG/ML 2 ML VIAL IV STA (15:22)
[2023-10-16 15:23] LABS: Troponin I High Sensitivity 7.7 pg/ml (0-14)
[2023-10-16 15:37] LABS: INR 0.9 (0.9-1.1); Partial Thromboplastin Ratio 0.9; Partial Thromboplastin Time 25 Seconds (21-31); Prothrombin Time 10.1 Seconds (9.0-12.0)
[2023-10-16] MEDS: ACETAMINOPHEN 1,000 MG/100 ML VIAL IV STA (15:37)
[2023-10-16] MEDS: ALBUT/IPRATROP 3MG/0.5MG NEB 3 ML VIAL NEB ONE (15:38)
[2023-10-16] MEDS: CEFEPIME 20 ML IV ONE (15:41)
--- NOTE | 2023-10-16 15:42 | History & Physical Report ---
Date of Service October 16, 2023 Assessment & Plan (1) Acute on chronic hypoxic respiratory failure: Plan: Acute onset of SOB at rest and hypoxia around 1300 on 10/16/2023 [address] on her way to urology appointment for continue with urination, when she became hypoxic and vomited once In the setting of recent [place] ICU hospitalization (coded plus intubation) 2 weeks ago Patient was sent home on continuous supplemental oxygen (2L NC), but titrated down to 2L NC at night this past week Chest CTA revealed no evidence of pulmonary embolism; also noted bibasilar consolidation which could represent pneumonia/aspiration pneumonitis CXR revealed cardiomegaly with pulmonary vascular congestion and small bilateral pleural effusions No leukocytosis; afebrile Procalcitonin WNL BiPAP started AB.28/63/57/30, repeat upon transfer Cefepime and Doxy started in ED Admit to ICU A.m. 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 BiPAP BSG q6h while NPO, then switch to ACHS Adjust regimen as needed Pharmacy glycemic consult due to critical illness and steroid use (5) Obstructive sleep apnea (adult) (pediatric): Plan: Continue BiPAP Plan Disposition: Admit to ICU Full code N.p.o. for now while on BiPAP in the setting of recent vomiting VTE PPx: SCDs, will defer chemical DVT PPx to ICU History of Present Illness Chief Complaint: Urinary symptoms, hypoxia Primary Care Provider: Manju Khan MD Diana is a 68-year-old female with PMH of COPD, T2DM, JACQUIE, and recent [place] ICU hospitalization for urosepsis. Patient was coded and intubated in the [place] ED on 10/01 for acute on chronic hypoxic respiratory failure and urosepsis. Discharged on 10/04. She returned on 10/15 after developing acute onset of SOB at rest hypoxia while driving to a urology appointment. Patient reports that her burning with urination returned on the evening of , so she called to schedule an appointment. She then felt short of breath while driving her car to the appointment around 1300 on 10/15. One episode of vomiting secondary to dizziness on arrival. Patient does not believe she aspirated at this time. Patient has been using supplemental oxygen at home since her hospital discharge; 2L at bedtime over the past week. Patient reports that she took all of her regular morning medications, and that the only new medication was an antibiotic prescribed for her UTI. Patient is alert and oriented x 3 at time of admission, and CODE STATUS was reconfirmed; okay with intubation if necessary. Patient is 88% SpO2 on BiPAP at time of admission; tachycardic at 108 bpm; afebrile. ED course: DuoNeb 12 mL Cefepime 2000 mL IV Doxycycline 100 mg IV Methylprednisolone 60 mg IV Zofran 4 mg ROS: Patient endorses dizziness, lightheadedness, presyncope, night-sweats x 1 episode earlier this week, chest pressure, pleuritic CP, nausea, vomiting x 1 episode morning of 10/15, and burning with urination since evening of . Patient denies fever, chills, body aches, chest palpitations, cough, hemoptysis, abdominal pain, diarrhea, blood in urine/stool, back pain, or numbness/tingling going down arms or legs. Allergies Allergy/AdvReac Type Severity Reaction Status Date / Time amoxicillin [From Augmentin] AdvReac Intermediate nausea Verified 10/07/23 11:15 clavulanic acid AdvReac Intermediate nausea Verified 10/07/23 11:15 [From Augmentin] codeine AdvReac Intermediate Gastrointestinal Verified 10/07/23 11:15 Upset Home Medications Medication Instructions Recorded Confirmed Type aspirin 81 mg tablet,delayed 81 mg PO QAM 03/21/19 10/16/23 History release miscellaneous medical supply #1 ea 05/22/22 10/06/23 Rx metoprolol succinate 50 mg 50 mg PO QAM #90 tabs 11/03/22 10/16/23 Rx tablet,extended release 24 hr sertraline 100 mg tablet (Zoloft) 100 mg PO HS #90 tabs 11/03/22 10/16/23 Rx metformin 1,000 mg tablet 1,000 mg PO BID #180 tabs 12/03/22 10/16/23 Rx simvastatin 40 mg tablet 40 mg PO HS #90 tabs 09/16/23 10/16/23 Rx diphenhydramine 25 2 tab PO HS 10/01/23 10/16/23 History mg-acetaminophen 500 mg tablet (Tylenol PM Extra Strength) insulin aspart U-100 100 unit/mL 0 unit subcut UD 10/01/23 10/16/23 History (3 mL) subcutaneous pen (Novolog FlexPen U-100 Insulin aspart) cholecalciferol (vitamin D3) 125 125 mcg PO QAM 10/07/23 10/16/23 History mcg (5,000 unit) capsule mecobalamin (vitamin B12) 1,000 1,000 mcg PO DAILY 10/07/23 10/16/23 History mcg chewable tablet famotidine 40 mg tablet 40 mg PO PM 10/16/23 10/16/23 History insulin glargine U-300 conc 300 100 unit subcut HS 10/16/23 10/16/23 History unit/mL (3 mL) subcutaneous pen (Toujeo Max U-300 SoloStar) losartan 50 mg-hydrochlorothiazide 1 tab PO QAM 10/16/23 10/16/23 History 12.5 mg tablet Past Med/Surg History Medical History Morbid obesity Aspiration pneumonitis Acute hypoxic on chronic hypercapnic respiratory failure Hyperlipidemia Diabetes mellitus type 2 in obese Diabetes mellitus Type 2 Mediastinal lymphadenopathy History of COVID-19 05/2022; congestion and resolved. Inguinal adenopathy Esophageal dysphagia Osteoarthritis History of pancreatitis unk etiology Anxiety HLD (hyperlipidemia) HTN (hypertension) Sleep apnea unable to tolerate CPAP COPD (chronic obstructive pulmonary disease) no inh PONV (postoperative nausea and vomiting) Pulmonary nodule, left Peripheral neuropathy Chronic restrictive lung disease Bladder wall thickening Morbid obesity with BMI of 40.0-44.9, adult Hypertension Surgical History S/P cataract surgery History of lymph node biopsy History of esophagogastroduodenoscopy (EGD) S/P balloon dilatation of esophageal stricture History of tooth extraction History of wisdom tooth extraction History of tonsillectomy and adenoidectomy History of cardiac cath 2013 - no stents History of tubal ligation H/O colonoscopy Family History Unknown No problems noted. Mother Diabetes Kidney stone Hypertension Grandfather No problems noted. Aunt Breast cancer Maternal Great Aunt Grandfather (Maternal) Diabetes Other Family history non-contributory No family history of abnormal heart rhythm Denies family history of Ovarian cancer Prostate cancer Colorectal cancer Social History Smoking Status: Former smoker Tobacco Type: Cigarettes Age Started Using Tobacco: 14; Age Quit Using Tobacco: 54; packs per day: 2; Cigarettes Per Day: 50-60; Smoking End Date: 15 years ago; Second Hand Exposure: Yes; Do You Dip or Chew Tobacco: No; Tobacco Cessation Education Requested by Patient: No Hx Alcohol Use: No Hx Substance Use: No Preferred Language: Gambian Communication Ability: Effective Visual Impairment: No Limitations Hearing Ability: Normal Senior Product Analyst Required: No Beliefs That Will Affect Care: None marital status: Current Living Situation: Spouse current occupational status: employed current occupation: [employer] How many Children do You have: 1 Other Information That Helps Us Care for You: No Feels Safe at Home: Yes Safety Concerns: Feels Safe At This Time Childhood Exposure to Second-Hand Smoke: Yes Diet: regular caffeine: Yes (coffee) during the past year weight has: decreased > 10 lbs Dental Care, Regularly: No Physical Activity Frequency: Does not Exercise Seatbelt Use: never Sunscreen Use: No Assistive Devices: CPAP, Denture - Upper and Denture - Lower Review of Systems Review of Systems: See HPI above Physical Exam Physical Exam: General: Acute respiratory distress; 97% on BiPap; diaphoretic; pale; cooperative HEENT: normocephalic, atraumatic; no scleral icterus; PERRLA; vision and hearing intact Neck: supple;no lymphadenopathy; trachea midline Skin: warm, dry without signs of tenting; no cyanosis; no rashes, bruising, lesions, or erythema noted CV: chest wall NTP; RR, tachycardic at 119bpm; S1/S2 normal; no murmurs/rubs/gallops; pulses intact and symmetric at radial, DP, and PT Lungs: Acute respiratory distress; symmetrical chest wall expansion; clear breath sounds across all lung negron w/o adventitious sounds; no wheezing ABD: Soft, NTP; BS present; no rebound/guarding; no ascites; no distention; negative CVA tenderness MSK: no tics or fasciculations; nonpitting edema in LEs B/L, nonerythematous Neuro: A&Ox3; normal mood and affect; fluent speech; no focal deficits; sens ation grossly intact in the LEs b/l Results & Data Results & Data Vital Signs (Past 12 Hours) Vital Signs Temp Pulse Pulse Resp BP BP Pulse Ox 10/16/23 15:32 88 L 10/16/23 15:31 108 H 25 H 97 10/16/23 15:16 36.8 C 104 H 22 139/76 88 L 10/16/23 15:03 100 H 10/16/23 14:38 87 20 98 10/16/23 14:38 89 12 132/63 98 O2 Del Method O2 Flow Rate FiO2 10/16/23 15:32 BiPAP 10/16/23 15:31 60 10/16/23 15:16 Oxymask 15 10/16/23 15:03 10/16/23 14:38 Room Air 10/16/23 14:38 Oxymask 10 Laboratory Results Abnormal lab results 10/16/23 10/16/23 10/16/23 Range/Units 14:30 14:37 15:29 MCHC 30.3 L (32.0-36.0) g/dL RDW Std Deviation 50.6 H (36.4-46.3) fL RDW Coeff of Radha 16.7 H (11.5-14.5) % Neut # (Auto) 6.67 H (1.40-6.50) K/uL Lymph # (Auto) 0.54 L (1.20-3.40) K/uL POC pH 7.28 L (7.35-7.45) POC pCO2 63 H (35-46) mmHg POC pO2 57 L (80-95) mmHg POC HCO3 30 H (19-24) ellis/L POC Base Excess 3.0 H (-9-1.8) ellis/L POC ABG O2 Sat 85.0 L (90-95) % POC Chloride 96 L (101-112) mmol/L POC Total CO2 35 H 32 H (24-31) mmol/L POC Anion Gap 13.0 L (16-25) mmol/L POC BUN 23 H (7-18) mg/dl BUN/Creatinine Ratio 23.5 H (10-20) Glucose 118 H (70-99(Fasting)) mg/dl POC Glucose (other) 120 H (70-99) mg/dl Lactate 2.2 H* (0.4-2.0) mmol/L Diagnostic Findings Chest X-Ray 10/16/23 14:19 XR chest 1V portable CLINICAL HISTORY: Dyspnea COMPARISON STUDY: Chest CT October 01, 2023. FINDINGS: There is no pneumothorax. Possible small bilateral pleural effusions. Bibasilar opacities are present. Airspace opacities within lungs have improved since prior CT. Cardiomegaly with pulmonary vascular congestion. IMPRESSION: 1. Cardiomegaly with pulmonary vascular congestion. Possible small bilateral pleural effusions. 2. Bibasilar opacities, improved since prior CT. ACT 112: Negative or not required by law. Electronically signed by: Rolando Paz M.D. 10/16/2023 2:45 PM Chest CTA 10/16/23 14:24 CT ANGIOGRAM OF THE CHEST CLINICAL HISTORY: Dyspnea COMPARISON STUDY: Chest CT scans dated 10/01/2023 and 12/09/2018. TECHNIQUE: Following the IV administration of 118 cc of Optiray 320, CT angiogram of the chest was performed from the upper abdomen to the thoracic inlet utilizing the pulmonary embolus protocol. Images are reviewed in the axial, sagittal, and coronal planes. 3-D MIPS images are created and assessed. IV contrast was administered without complication. A dose lowering technique was utilized adhering to the principles of ALARA. CT DOSE: 881.15 mGy.cm FINDINGS: Thyroid: Mildly enlarged and heterogeneous. Thoracic aorta: There is atherosclerotic calcification of the thoracic aorta, which is normal in caliber and demonstrates 4-vessel variant arch anatomy. No dissection is seen. Pulmonary vasculature: The pulmonary trunk is normal in caliber. There are no filling defects identified in main, lobar, or segmental pulmonary branches to suggest pulmonary embolus. Evaluation of the peripheral branches is compromised by motion artifact. Heart: The heart is mildly enlarged and without pericardial effusion. There are coronary artery calcifications. Lungs and pleural spaces: There is mild emphysematous change. Mild interlobular septal thickening is noted. Evaluation of the lung parenchyma is degraded by motion artifact. Dependent consolidation is seen at both lung bases. There is also airspace consolidation in the right middle lobe and lingula. The trachea and central airways are clear. Trace pleural effusions are noted. A 6 mm right middle lobe nodule image #90 is new from 11/18/2022, as is an adjacent 3 mm right middle lobe nodule on image #93. 2-3 mm right upper lobe pulmonary nodules seen on images #162, #155, and #150 unchanged from older prior examinations and of low suspicion. Mediastinum: There are mildly enlarged mediastinal lymph nodes. A pretracheal node measures up to 16 mm short axis. Prevascular lymph nodes measure up to 10 mm in short axis, and AP window nodes measure up to 11 mm short axis. Gloria: Clear. Axillae: There is no axillary lymphadenopathy. Upper abdomen: There is a small hiatal hernia. Partially visualized upper abdominal viscera is within normal limits. Skeletal structures: The skeletal structures are osteopenic. Degenerative change is noted in the shoulders and spine. No lytic or blastic bony lesions are seen. IMPRESSION: 1. Motion degraded examination. 2. There is no evidence of pulmonary embolus in the main, lobar, or segmental pulmonary arteries. 3. Cardiomegaly and emphysema. Mild intralobular septal thickening suggests fluid overload/congestive change. Correlate clinically. 4. Trace pleural effusions. 5. Bibasilar consolidation as above. This likely represents pneumonia/aspiration pneumonitis. Clinical correlation will be required and radiographic follow-up to resolution is recommended. 6. There are 2 right middle lobe pulmonary nodules measuring up to 6 mm. These were not seen on 11/18/2022 and may be inflammatory. A follow-up chest CT in 3-4 months time is recommended for reassessment. 7. Mildly enlarged mediastinal lymph nodes have increased in size from 11/18/2022. These are likely reactive and can also be reassessed at follow-up. 8. Additional findings as above. ACT 112: Negative or not required by law. Electronically signed by: Narendra Doyle M.D. 10/16/2023 3:13 PM Code Status & VTE Plan Code Status Full code VTE Prophylaxis Plan VTE Prophylaxis will be ordered: Yes Supervising Physician Co-Signing Physician Notes I personally saw and examined the patient. I independently reviewed the labs, EKG, imaging, problem list, medication list, past medical history and family his tory. I verified all choi points and agree with Kirill Smyth PA-C with the following exceptions and/or additions: 68 year old female presents to the ER with sudden onset shortness of breath after recent ICU admission needing intubation for sepsis/pneumonia/UTI with negative blood cultures. Sudden onset of decline was just today and otherwise she had been doing well. Much improved since starting on BiPAP in the ER. O/E A&Ox3, HS increased rate, normal rhythm, no murmurs, using accessory muscle and unable to complete full sentences, no wheezing, coarse crackles bibasal, clear anteriorly, Abdo large but SNT, no areas of cellulitis noted, trace pitting pedal edema b/l A/P Acute hypoxic hypercapnic respiratory failure - only recently needed intubated in the ICU although she was doing a lot worse last admission. Discussed with Dr Al and given high risk of decompensation with high oxygen requirement and work of breathing will admit to the ICU at least overnight. Repeat POC ABG ordered to assess improvement on BiPAP. Her baseline is really room air - she has only recently required 2LPM O2 after her last admission. Pulmonary edema less likely contributory given BNP down and no lasix needed last admission. Sepsis - she technically meets SIRS criteria with tachypnea and tachycardia with potential source of pneumonia although no WBC/procalcitonin/fever to fit with this. 30ml/kg fluid bolus not given due to concern for pulmonary edema on CT although her BNP is down from prior and no lasix needed/given last admission therefore will carefully fluid bolus as her BP requires. Possible the lack of lasix was why she never got back to room air however. May have some flash pulmonary edema just from JACQUIE/obesity hypoventilation which should resolve with BiPAP use. Increasing lactate suspect due to hypoxia rather than fluid status. Pneumonia - MRSA nasal swab negative. Continue cefepime/doxycycline. Consider SLT consult once improving as concerns for repeated aspirations PG Care Time/CCT Total # of Minutes Spent Total Time Spent with Patient: Total time spent is greater than 50% in coordination of care (as documented) at patient's floor/unit and/or counseling patient: [place] [address] INT INP/OBS CARE 3/75MIN Patient Type Established Medical Decision Making High Complexity Diagnoses Acute on chronic hypoxic respiratory failure J96.21 Acute UTI N39.0 Sepsis A41.9 Diabetes mellitus type 2 in obese E11.69; E66.9 Obstructive sleep apnea (adult) (pediatric) G47.33
[2023-10-16 15:44] LABS: iSTAT Arterial Blood Gas HCO3 30 meg/L (19-24); iSTAT Arterial Blood Gas pCO2 63 mmHg (35-46); iSTAT Arterial Blood Gas pH 7.28 (7.35-7.45); iSTAT Arterial Blood Gas pO2 57 mmHg (80-95); iSTAT Carbon Dioxide 32 mmol/L (24-31); iSTAT Hematocrit 39 % (37-47); iSTAT Hemoglobin 13.3 g/dl (12.0-16.0); iSTAT Potassium 3.7 mmol/L (3.3-5.0); iSTAT Sodium 138 mmol/L (135-144)
[2023-10-16] MEDS: SODIUM CHLORIDE 0.9% 1,000 ML IV SCH (15:50)
[2023-10-16] MEDS: FUROSEMIDE 40 MG/4 ML VIAL IV STA (16:15)
[2023-10-16] MEDS: DOXYCYCLINE HYCLATE 100 MG in D5W MINI-B (NOW) IV ONE (16:15)
[2023-10-16 16:35] LABS: Appearance Urine Clear (Clear); Bacteria Urine Automated Negative (Negative); Bilirubin Urine Negative (Negative); Blood Urine Negative (Negative); Color Urine Yellow; Epithelial Cell Urine Auto >30 /lpf (0-5); Glucose Urine UA Negative (Negative); Ketones Urine Negative (Negative); Leukocyte Esterase Urine Negative (Negative); Nitrite Urine Negative (Negative); Protein Urine 1+ (Negative); Specific Gravity Urine > 1.045 (1.000-1.030); Urobilinogen Urine Negative (Negative)
[2023-10-16 16:54] LABS: Cast Urine Automated 0 /lpf (0-5)
[2023-10-16 17:17] LABS: Adenovirus PCR Not Detected (NotDetected); Bordetella parapertussis PCR Not Detected (NotDetected); Bordetella pertussis PCR Not Detected (NotDetected); Chlamydia pneumoniae PCR Not Detected (NotDetected); Coronavirus 229E PCR Not Detected (NotDetected); Coronavirus CoV-2 (COVID19)PCR Not Detected (NotDetected); Coronavirus HKU1 PCR Not Detected (NotDetected); Coronavirus NL63 PCR Not Detected (NotDetected); Coronavirus OC43PCR Not Detected (NotDetected); Human Metapneumovirus PCR Not Detected (NotDetected); Influenza A PCR Not Detected (NotDetected); Influenza B PCR Not Detected (NotDetected); Mycoplasma pneumoniae PCR Not Detected (NotDetected); Parainfluenza Virus 1 PCR Not Detected (NotDetected); Parainfluenza Virus 2 PCR Not Detected (NotDetected); Parainfluenza Virus 3 PCR Not Detected (NotDetected); Parainfluenza Virus 4 PCR Not Detected (NotDetected); Respiratory Syncytial VirusPCR Not Detected (NotDetected); Rhinovirus/Enterovirus PCR Not Detected (NotDetected)
--- NOTE | 2023-10-16 17:41 | Emergency Department Note ---
Impression & Plan Acute on chronic hypoxic respiratory failure, COPD (chronic obstructive pulmonary disease), Pneumonia ED Provider Note CHIEF COMPLAINT: respiratory failure HISTORY OF PRESENT ILLNESS: This 68-year-old patient with past medical history of diabetes, morbid obesity, GERD, hypertension, hypercholesterolemia presents to the emergency department with difficulty breathing. The patient states she felt that a UTI may be coming on and took a dose of Macrobid that she had at home. Patient went to urology today to give a urine sample and apparently had sudden onset of chest discomfort and shortness of breath. The patient was sent over here by ambulance. She has a history of approximately 2 weeks ago a very similar presentation where she "stopped breathing" and required intubation. Patient is noted to be hypoxic per nursing staff on arrival. She was placed on oxime mask at 11 L/min with saturations just over 90 to 92%. The patient is nonspecific with her complaints although states she does feel pressure on the chest. She does have some back pain upon asking. She is nauseated and did vomit x 1. Earlier today, the patient states she was feeling well and had no symptoms. REVIEW OF SYSTEMS: A review of systems was performed with positives and pertinent negatives listed in the history of present illness. 10 systems were reviewed and are otherwise negative. ALLERGIES: see below MEDICATIONS: see below PMH: see below SOCIAL HISTORY: see below DDx: Congestive heart failure, pneumonia, viral illness, UTI, electrolyte abnormality, acute coronary syndrome, PE among others. PHYSICAL EXAM: Vital signs reviewed. General: Chronically ill-appearing 68-year-old female, in significant respiratory discomfort. On oxy mask. HEENT: No scleral icterus, PERRLA, neck supple. Atraumatic. Lips and cheeks appear to be somewhat cyanotic. Cardiovascular: Regular rate and rhythm, no extra sounds. Pulmonary: Crackles at the bases bilaterally with faint scattered wheezes to the bilateral upper lung negron, increased work of breathing. Abdomen: Soft, obese nontender, nondistended, positive bowel sounds. Musculoskeletal: Atraumatic, moderate peripheral edema. Neurologic: Patient awake alert and oriented x 3, speech is clear Skin: Warm, dry, no rash EMERGENCY DEPARTMENT COURSE/MDM: This patient was evaluated and appeared to be in some respiratory discomfort. Patient was on an oxime mask at the time of my evaluation. I did take the patient off of oxygen altogether during my physical exam, she desaturated to the mid 80s quickly. Chest x-ray was obtained and reveals cardiomegaly with pulmonary vascular congestion. Given her recent hospitalization, CT scan of the chest was performed to rule out PE. This exam is read as no pulmonary emboli, emphysema with fluid overload, possible aspiration pneumonitis. Patient was given an hour-long DuoNeb treatment and 60 mg of IV Solu-Medrol. Blood cultures were sent and the patient was placed on cefepime and doxycycline IV after consultation with clinical pharmacist. Expanded coverage was placed for pulmonary infection due to her recent hospitalization. ABG was performed and reveals no significant hypercarbia however patient remains hypoxic. Patient was placed on BiPAP due to increased work of breathing and cyanosis. Patient's case was discussed with the hospitalist service who will evaluate the patient for admission and further management. MONITORING: An order for cardiac monitoring was placed and the patient is noted to be in a sinus rhythm 87 beats per minute. RADIOLOGY: Chest x-ray to my interpretation reveals cardiomegaly and pulmonary vascular congestion. Otherwise defer to radiology is over read. Chest CT per radiology reveals IMPRESSION: 1. Motion degraded examination. 2. There is no evidence of pulmonary embolus in the main, lobar, or segmental pulmonary arteries. 3. Cardiomegaly and emphysema. Mild intralobular septal thickening suggests fluid overload/congestive change. Correlate clinically. 4. Trace pleural effusions. 5. Bibasilar consolidation as above. This likely represents pneumonia/aspiration pneumonitis. Clinical correlation will be required and radiographic follow-up to resolution is recommended. 6. There are 2 right middle lobe pulmonary nodules measuring up to 6 mm. These were not seen on 11/18/2022 and may be inflammatory. A follow-up chest CT in 3-4 months time is recommended for reassessment. 7. Mildly enlarged mediastinal lymph nodes have increased in size from 11/18/2022. These are likely reactive and can also be reassessed at follow-up. 8. Additional findings as above. EKG: To my interpretation reveals normal sinus rhythm [address] segments are normal. No PVC, no PAC. QTc of 460. No significant changes found on previous dated October 03, 2023 DISPOSITION: Admission I have personally spent greater than 60 minutes of critical care time in the direct management of this patient. This includes bedside care, interpretation of diagnostic studies, and testing, discussion with consultants, patient, and family members, and other required patient management activities. This 60 minutes is in excess of all separately billable procedures. Past Med/Surg History Medical History Morbid obesity Aspiration pneumonitis Acute hypoxic on chronic hypercapnic respiratory failure Hyperlipidemia Diabetes mellitus type 2 in obese Diabetes mellitus Type 2 Mediastinal lymphadenopathy History of COVID-19 05/2022; congestion and resolved. Inguinal adenopathy Esophageal dysphagia Osteoarthritis History of pancreatitis unk etiology Anxiety HLD (hyperlipidemia) HTN (hypertension) Sleep apnea unable to tolerate CPAP COPD (chronic obstructive pulmonary disease) no inh PONV (postoperative nausea and vomiting) Pulmonary nodule, left Peripheral neuropathy Chronic restrictive lung disease Bladder wall thickening Morbid obesity with BMI of 40.0-44.9, adult Hypertension Surgical History S/P cataract surgery History of lymph node biopsy History of esophagogastroduodenoscopy (EGD) S/P balloon dilatation of esophageal stricture History of tooth extraction History of wisdom tooth extraction History of tonsillectomy and adenoidectomy History of cardiac cath 2013 - no stents History of tubal ligation H/O colonoscopy Family History Unknown No problems noted. Mother Diabetes Kidney stone Hypertension Grandfather No problems noted. Aunt Breast cancer Maternal Great Aunt Grandfather (Maternal) Diabetes Other Family history non-contributory No family history of abnormal heart rhythm Denies family history of Ovarian cancer Prostate cancer Colorectal cancer Social History Smoking Status: Former smoker Tobacco Type: Cigarettes Age Started Using Tobacco: 14; Age Quit Using Tobacco: 54; packs per day: 2; Cigarettes Per Day: 50-60; Smoking End Date: 15 years ago; Second Hand Exposure: Yes; Do You Dip or Chew Tobacco: No; Tobacco Cessation Education Requested by Patient: No Hx Alcohol Use: No Hx Substance Use: No Preferred Language: Bahraini Communication Ability: Effective Visual Impairment: No Limitations Hearing Ability: Normal Dietetic Aide Required: No Beliefs That Will Affect Care: None marital status: Current Living Situation: Spouse current occupational status: employed current occupation: [employer] How many Children do You have: 1 Other Information That Helps Us Care for You: No Feels Safe at Home: Yes Safety Concerns: Feels Safe At This Time Childhood Exposure to Second-Hand Smoke: Yes Diet: regular caffeine: Yes (coffee) during the past year weight has: decreased > 10 lbs Dental Care, Regularly: No Physical Activity Frequency: Does not Exercise Seatbelt Use: never Sunscreen Use: No Assistive Devices: CPAP, Denture - Upper and Denture - Lower Allergies Allergies Allergy/AdvReac Type Severity Reaction Status Date / Time amoxicillin [From Augmentin] AdvReac Intermediate nausea Verified 10/07/23 11:15 clavulanic acid AdvReac Intermediate nausea Verified 10/07/23 11:15 [From Augmentin] codeine AdvReac Intermediate Gastrointestinal Verified 10/07/23 11:15 Upset Home Meds Home Medications Medication Instructions Recorded Confirmed aspirin 81 mg tablet,delayed 81 mg PO QAM 03/21/19 10/16/23 release diphenhydramine 25 2 tab PO HS 10/01/23 10/16/23 mg-acetaminophen 500 mg tablet (Tylenol PM Extra Strength) insulin aspart U-100 100 unit/mL 0 unit subcut UD 10/01/23 10/16/23 (3 mL) subcutaneous pen (Novolog FlexPen U-100 Insulin aspart) cholecalciferol (vitamin D3) 125 125 mcg PO QAM 10/07/23 10/16/23 mcg (5,000 unit) capsule mecobalamin (vitamin B12) 1,000 1,000 mcg PO DAILY 10/07/23 10/16/23 mcg chewable tablet famotidine 40 mg tablet 40 mg PO PM 10/16/23 10/16/23 insulin glargine U-300 conc 300 100 unit subcut HS 10/16/23 10/16/23 unit/mL (3 mL) subcutaneous pen (Toujeo Max U-300 SoloStar) losartan 50 mg-hydrochlorothiazide 1 tab PO QAM 10/16/23 10/16/23 12.5 mg tablet Previous Rx's Medication Instructions Recorded miscellaneous medical supply #1 ea 05/22/22 metoprolol succinate 50 mg 50 mg PO QAM #90 tabs 11/03/22 tablet,extended release 24 hr sertraline 100 mg tablet (Zoloft) 100 mg PO HS #90 tabs 11/03/22 metformin 1,000 mg tablet 1,000 mg PO BID #180 tabs 12/03/22 simvastatin 40 mg tablet 40 mg PO HS #90 tabs 09/16/23 Results & Data (ED) Vital Signs Vital Signs - 24 hr 10/16/23 14:38 10/16/23 14:38 10/16/23 14:38 Temperature Temperature Source Pulse Rate 89 87 Pulse Rate [Finger] Pulse Rate from SpO2 Sensor Pulse Rhythm Regular Respiratory Rate 12 20 28 H Respiratory Effort / Characteristics Non-Labored Non-Labored Spontaneous Respiratory Depth Normal Respiratory Pattern Blood Pressure 132/63 Blood Pressure [Right Arm] Blood Pressure Mean 86 Blood Pressure Mean [Right Arm] Blood Pressure Position Lying Pulse Oximetry 98 98 90 Oxygen Delivery Method Oxymask Room Air Oxymask Oxygen Flow Rate 10 10 Fraction of Inspired Oxygen Sepsis Recent Fever Within 48 Hours No Sepsis New/Unexplained Change in Mental Status N/A Sepsis Action Taken by Nursing No Action Required 10/16/23 15:03 10/16/23 15:03 10/16/23 15:15 Temperature Temperature Source Pulse Rate 100 H 102 H 104 H Pulse Rate [Finger] Pulse Rate from SpO2 Sensor 102 H 102 H Pulse Rhythm Respiratory Rate 33 H 33 H Respiratory Effort / Characteristics Respiratory Depth Respiratory Pattern Blood Pressure Blood Pressure [Right Arm] Blood Pressure Mean Blood Pressure Mean [Right Arm] Blood Pressure Position Pulse Oximetry 91 86 L Oxygen Delivery Method Oxygen Flow Rate Fraction of Inspired Oxygen Sepsis Recent Fever Within 48 Hours Sepsis New/Unexplained Change in Mental Status Sepsis Action Taken by Nursing 10/16/23 15:15 10/16/23 15:16 10/16/23 15:16 Temperature 36.8 C Temperature Source Oral Pulse Rate 105 H Pulse Rate [Finger] 104 H Pulse Rate from SpO2 Sensor 97 H Pulse Rhythm Respiratory Rate 22 31 H Respiratory Effort / Characteristics Respiratory Depth Respiratory Pattern Blood Pressure 150/113 H Blood Pressure [Right Arm] 139/76 Blood Pressure Mean 128 Blood Pressure Mean [Right Arm] 97 Blood Pressure Position Pulse Oximetry 88 L 81 L Oxygen Delivery Method Oxymask Oxygen Flow Rate 15 Fraction of Inspired Oxygen Sepsis Recent Fever Within 48 Hours Sepsis New/Unexplained Change in Mental Status Sepsis Action Taken by Nursing 10/16/23 15:16 10/16/23 15:30 10/16/23 15:31 Temperature Temperature Source Pulse Rate 107 H 108 H Pulse Rate [Finger] Pulse Rate from SpO2 Sensor 102 H Pulse Rhythm Respiratory Rate 25 H 25 H Respiratory Effort / Characteristics Spontaneous Labored Short of Breath Respiratory Depth Normal Respiratory Pattern Tachypnea Blood Pressure 139/76 Blood Pressure [Right Arm] Blood Pressure Mean 127 Blood Pressure Mean [Right Arm] Blood Pressure Position Pulse Oximetry 82 L 97 Oxygen Delivery Method Oxygen Flow Rate Fraction of Inspired Oxygen 60 Sepsis Recent Fever Within 48 Hours Sepsis New/Unexplained Change in Mental Status Sepsis Action Taken by Nursing 10/16/23 15:31 10/16/23 15:31 10/16/23 15:32 Temperature Temperature Source Pulse Rate 107 H Pulse Rate [Finger] Pulse Rate from SpO2 Sensor 107 H Pulse Rhythm Respiratory Rate 27 H Respiratory Effort / Characteristics Respiratory Depth Respiratory Pattern Blood Pressure 164/73 H Blood Pressure [Right Arm] Blood Pressure Mean 74 Blood Pressure Mean [Right Arm] Blood Pressure Position Pulse Oximetry 89 L 88 L Oxygen Delivery Method BiPAP Oxygen Flow Rate Fraction of Inspired Oxygen Sepsis Recent Fever Within 48 Hours Sepsis New/Unexplained Change in Mental Status Sepsis Action Taken by Nursing 10/16/23 15:38 10/16/23 15:46 10/16/23 15:46 Temperature Temperature Source Pulse Rate 114 H Pulse Rate [Finger] 84 Pulse Rate from SpO2 Sensor 114 H Pulse Rhythm Respiratory Rate 31 H 29 H Respiratory Effort / Characteristics Spontaneous Labored Respiratory Depth Respiratory Pattern Blood Pressure 162/83 H Blood Pressure [Right Arm] Blood Pressure Mean 114 Blood Pressure Mean [Right Arm] Blood Pressure Position Pulse Oximetry 96 95 Oxygen Delivery Method BiPAP Oxygen Flow Rate Fraction of Inspired Oxygen 80 Sepsis Recent Fever Within 48 Hours Sepsis New/Unexplained Change in Mental Status Sepsis Action Taken by Nursing 10/16/23 16:00 10/16/23 16:00 10/16/23 16:15 Temperature Temperature Source Pulse Rate 115 H 111 H Pulse Rate [Finger] Pulse Rate from SpO2 Sensor 116 H 112 H Pulse Rhythm Respiratory Rate 22 27 H Respiratory Effort / Characteristics Respiratory Depth Respiratory Pattern Blood Pressure 146/71 H Blood Pressure [Right Arm] Blood Pressure Mean 80 Blood Pressure Mean [Right Arm] Blood Pressure Position Pulse Oximetry 100 99 Oxygen Delivery Method Oxygen Flow Rate Fraction of Inspired Oxygen Sepsis Recent Fever Within 48 Hours Sepsis New/Unexplained Change in Mental Status Sepsis Action Taken by Nursing 10/16/23 16:15 Temperature Temperature Source Pulse Rate Pulse Rate [Finger] Pulse Rate from SpO2 Sensor Pulse Rhythm Respiratory Rate Respiratory Effort / Characteristics Respiratory Depth Respiratory Pattern Blood Pressure 112/63 Blood Pressure [Right Arm] Blood Pressure Mean 72 Blood Pressure Mean [Right Arm] Blood Pressure Position Pulse Oximetry Oxygen Delivery Method Oxygen Flow Rate Fraction of Inspired Oxygen Sepsis Recent Fever Within 48 Hours Sepsis New/Unexplained Change in Mental Status Sepsis Action Taken by Longterm Medications Current Medication List: was personally reviewed by me Laboratory Data Attestation: I reviewed the patient's lab results. 10/16/23 14:30 10/16/23 14:30 Lab Results 10/16/23 10/16/23 10/16/23 Range/Units 14:30 14:37 15:27 WBC 7.45 (4.8-10.8) K/ul RBC 4.88 (4.20-5.40) M/uL Hgb 12.4 (12.0-16.0) g/dl POC Hgb 13.3 (12.0-16.0) g/dl Hct 40.9 (37.0-47.0) % POC Hct 39 (37-47) % MCV 83.8 (80.0-100.0) fL MCH 25.4 (25.0-34.0) pg MCHC 30.3 L (32.0-36.0) g/dL RDW Std Deviation 50.6 H (36.4-46.3) fL RDW Coeff of Radha 16.7 H (11.5-14.5) % Plt Count 270 (130-400) K/uL MPV 10.5 (9.4-12.4) fL Immature Gran % (Auto) 0.4 % Neut % (Auto) 89.6 % Lymph % (Auto) 7.2 % [place] % (Auto) 1.7 % Eos % (Auto) 0.8 % Baso % (Auto) 0.3 % Neut # (Auto) 6.67 H (1.40-6.50) K/uL Lymph # (Auto) 0.54 L (1.20-3.40) K/uL [place] # (Auto) 0.13 (0.11-0.59) K/uL Eos # (Auto) 0.06 (0.00-0.50) K/uL Baso # (Auto) 0.02 (0.00-0.20) K/uL Immature Gran # (Auto) 0.03 (0.01-0.20) K/uL PT 10.1 (9.0-12.0) Seconds INR 0.9 (0.9-1.1) APTT 25 (21-31) Seconds PTT Ratio 0.9 POC pH (7.35-7.45) POC pCO2 (35-46) mmHg POC pO2 (80-95) mmHg POC HCO3 (19-24) ellis/L POC Base Excess (-9-1.8) ellis/L POC ABG O2 Sat (90-95) % POC Sodium 139 (135-144) mmol/L Sodium 138 (136-145) mmol/L POC Potassium 3.8 (3.3-5.0) mmol/L Potassium 3.9 (3.5-5.1) mmol/L POC Chloride 96 L (101-112) mmol/L Chloride 99 (98-107) mmol/L Carbon Dioxide 30 (21-32) mmol/L POC Total CO2 35 H (24-31) mmol/L Anion Gap 9 (3-11) POC Anion Gap 13.0 L (16-25) mmol/L POC BUN 23 H (7-18) mg/dl BUN 19 (6-23) mg/dl Creatinine 0.81 (0.6-1.2) mg/dl POC Creatinine 0.8 (0.6-1.3) mg/dl Est Cr Clr Drug Dosing 86.5 ml/min Est GFR ( Amer) 86.5 ml/min Est GFR (Non-Af Amer) 74.6 ml/min BUN/Creatinine Ratio 23.5 H (10-20) Glucose 118 H (70-99(Fasting)) mg/dl POC Glucose (other) 120 H (70-99) mg/dl Lactate 2.2 H* (0.4-2.0) mmol/L Calcium 9.4 (8.6-10.3) mg/dl POC Ioniz Calcium Nan 1.18 (1.12-1.32) mmol/l Magnesium 1.7 (1.7-2.4) mg/dl Total Bilirubin 0.3 (0.2-1.0) mg/dl AST 15 (13-39) U/L ALT 8 (7-52) U/L Alkaline Phosphatase 48 (34-104) U/L Troponin I High Sens 7.7 (0-14) pg/ml B-Natriuretic Peptide 28 (0-100) pg/ml Total Protein 7.2 (6.0-8.3) gm/dl Albumin 4.1 (3.4-5.0) gm/dl Globulin 3.1 (2.5-4.0) gm/dl Albumin/Globulin Ratio 1.3 (0.9-2) Procalcitonin 0.06 (0-0.5) ng/ml Urine Color Urine Appearance (Clear) Urine pH (4.5-7.5) Ur Specific [place] (1.000-1.030) Urine Protein (Negative) Urine Glucose (UA) (Negative) Urine Ketones (Negative) Urine Blood (Negative) Urine Nitrite (Negative) Urine Bilirubin (Negative) Urine Urobilinogen (Negative) Ur Leukocyte Esterase (Negative) Urine WBC (Auto) (0-5) /hpf Urine RBC (Auto) (0-4) /hpf U Hyaline Cast (Auto) (0-5) /lpf U Epithel Cells (Auto) (0-5) /lpf Urine Bacteria (Auto) (Negative) Adenovirus (PCR) (NotDetected) B. pertussis DNA (PCR) (NotDetected) B.parapertussis DNA PCR (NotDetected) C. pneumoniae DNA (PCR) (NotDetected) Coronavirus OC43 (PCR) (NotDetected) Coronavirus HKU1 (PCR) (NotDetected) Coronavirus 229E (PCR) (NotDetected) SARS-CoV-2 (PCR) (NotDetected) Coronavirus NL63 (PCR) (NotDetected) Human Metapneumovir PCR (NotDetected) Influenza Type A (PCR) (NotDetected) Influenza Type B (PCR) (NotDetected) M. pneumoniae (PCR) (NotDetected) Parainfluenza 1 (PCR) (NotDetected) Parainfluenza 2 (PCR) (NotDetected) Parainfluenza 3 (PCR) (NotDetected) Parainfluenza 4 (PCR) (NotDetected) RSV (PCR) (NotDetected) Entero/Rhino (PCR) (NotDetected) 10/16/23 10/16/23 Range/Units 15:29 16:16 WBC (4.8-10.8) K/ul RBC (4.20-5.40) M/uL Hgb (12.0-16.0) g/dl POC Hgb 13.3 (12.0-16.0) g/dl Hct (37.0-47.0) % POC Hct 39 (37-47) % MCV (80.0-100.0) fL MCH (25.0-34.0) pg MCHC (32.0-36.0) g/dL RDW Std Deviation (36.4-46.3) fL RDW Coeff of Radha (11.5-14.5) % Plt Count (130-400) K/uL MPV (9.4-12.4) fL Immature Gran % (Auto) % Neut % (Auto) % Lymph % (Auto) % [place] % (Auto) % Eos % (Auto) % Baso % (Auto) % Neut # (Auto) (1.40-6.50) K/uL Lymph # (Auto) (1.20-3.40) K/uL [place] # (Auto) (0.11-0.59) K/uL Eos # (Auto) (0.00-0.50) K/uL Baso # (Auto) (0.00-0.20) K/uL Immature Gran # (Auto) (0.01-0.20) K/uL PT (9.0-12.0) Seconds INR (0.9-1.1) APTT (21-31) Seconds PTT Ratio POC pH 7.28 L (7.35-7.45) POC pCO2 63 H (35-46) mmHg POC pO2 57 L (80-95) mmHg POC HCO3 30 H (19-24) ellis/L POC Base Excess 3.0 H (-9-1.8) ellis/L POC ABG O2 Sat 85.0 L (90-95) % POC Sodium 138 (135-144) mmol/L Sodium (136-145) mmol/L POC Potassium 3.7 (3.3-5.0) mmol/L Potassium (3.5-5.1) mmol/L POC Chloride (101-112) mmol/L Chloride (98-107) mmol/L Carbon Dioxide (21-32) mmol/L POC Total CO2 32 H (24-31) mmol/L Anion Gap (3-11) POC Anion Gap (16-25) mmol/L POC BUN (7-18) mg/dl BUN (6-23) mg/dl Creatinine (0.6-1.2) mg/dl POC Creatinine (0.6-1.3) mg/dl Est Cr Clr Drug Dosing ml/min Est GFR ( Amer) ml/min Est GFR (Non-Af Amer) ml/min BUN/Creatinine Ratio (10-20) Glucose (70-99(Fasting)) mg/dl POC Glucose (other) (70-99) mg/dl Lactate (0.4-2.0) mmol/L Calcium (8.6-10.3) mg/dl POC Ioniz Calcium Nan (1.12-1.32) mmol/l Magnesium (1.7-2.4) mg/dl Total Bilirubin (0.2-1.0) mg/dl AST (13-39) U/L ALT (7-52) U/L Alkaline Phosphatase (34-104) U/L Troponin I High Sens (0-14) pg/ml B-Natriuretic Peptide (0-100) pg/ml Total Protein (6.0-8.3) gm/dl Albumin (3.4-5.0) gm/dl Globulin (2.5-4.0) gm/dl Albumin/Globulin Ratio (0.9-2) Procalcitonin (0-0.5) ng/ml Urine Color Yellow Urine Appearance Clear (Clear) Urine pH 7.0 (4.5-7.5) Ur Specific [place] > 1.045 H (1.000-1.030) Urine Protein 1+ H (Negative) Urine Glucose (UA) Negative (Negative) Urine Ketones Negative (Negative) Urine Blood Negative (Negative) Urine Nitrite Negative (Negative) Urine Bilirubin Negative (Negative) Urine Urobilinogen Negative (Negative) Ur Leukocyte Esterase Negative (Negative) Urine WBC (Auto) 5-10 H (0-5) /hpf Urine RBC (Auto) 5-10 H (0-4) /hpf U Hyaline Cast (Auto) 0 (0-5) /lpf U Epithel Cells (Auto) >30 H (0-5) /lpf Urine Bacteria (Auto) Negative (Negative) Adenovirus (PCR) Not Detected (NotDetected) B. pertussis DNA (PCR) Not Detected (NotDetected) B.parapertussis DNA PCR Not Detected (NotDetected) C. pneumoniae DNA (PCR) Not Detected (NotDetected) Coronavirus OC43 (PCR) Not Detected (NotDetected) Coronavirus HKU1 (PCR) Not Detected (NotDetected) Coronavirus 229E (PCR) Not Detected (NotDetected) SARS-CoV-2 (PCR) Not Detected (NotDetected) Coronavirus NL63 (PCR) Not Detected (NotDetected) Human Metapneumovir PCR Not Detected (NotDetected) Influenza Type A (PCR) Not Detected (NotDetected) Influenza Type B (PCR) Not Detected (NotDetected) M. pneumoniae (PCR) Not Detected (NotDetected) Parainfluenza 1 (PCR) Not Detected (NotDetected) Parainfluenza 2 (PCR) Not Detected (NotDetected) Parainfluenza 3 (PCR) Not Detected (NotDetected) Parainfluenza 4 (PCR) Not Detected (NotDetected) RSV (PCR) Not Detected (NotDetected) Entero/Rhino (PCR) Not Detected (NotDetected) Administered Medications Famotidine (Pepcid 20mg Iv Push) 20 mg in 5 mls @ 2.5 mls/min IV Q12H [facility] Stop: 11/15/23 20:59 Last Admin: 10/16/23 20:05 Dose: 2.5 mls/min Documented By: JESSICA Insulin Aspart (Insulin Aspart Per Unit Charge) 0 units SC ACHS [facility] Stop: 11/15/23 17:50 Last Admin: 10/16/23 20:19 Dose: 11 units Documented By: JESSICA Co-signed By: KIAN Admin: 10/16/23 18:41 Dose: 6 units Documented By: NITESH Co-signed By: DALTON Insulin Glargine (Lantus Per Unit Charge) 0 units SQ BID [facility]; Protocol Stop: 11/15/23 20:59 Last Admin: 10/16/23 20:20 Dose: 30 units Documented By: JESSICA Co-signed By: KIAN Miscellaneous (Icu Protocol For Hyperglycemia) 1 each N/A ACHS [facility] Stop: 10/18/23 17:50 Last Admin: 10/16/23 20:11 Dose: 1 each Documented By: Admin: 10/16/23 18:39 Dose: 1 each Documented By: NITESH Discontinued Medications Albuterol (Albut/Ipratrop 3mg/0.5mg Neb 3 Ml Vial) 3 ml NEB NOW STA; Protocol Stop: 10/16/23 14:36 Last Admin: 10/16/23 14:35 Dose: 3 ml Documented By: KATEY Albuterol (Albut/Ipratrop 3mg/0.5mg Neb 3 Ml Vial) Confirm Administered Dose 3 ml .ROUTE .STK-MED ONE Stop: 10/16/23 14:37 Last Admin: 10/16/23 15:15 Dose: Not Given Documented By: ROBERT Albuterol (Albut/Ipratrop 3mg/0.5mg Neb 3 Ml Vial) 12 ml NEB ONE ONE; Protocol Stop: 10/16/23 15:17 Last Admin: 10/16/23 15:38 Dose: 12 ml Documented By: ERICA Furosemide (Furosemide 40 Mg/4 Ml Vial) 40 mg IV ONE STA Stop: 10/16/23 15:57 Last Admin: 10/16/23 16:15 Dose: Not Given Documented By: SIOBHAN Sodium Chloride (Nss) 500 mls @ 999 mls/hr IV .Q31M ONE Stop: 10/16/23 15:01 Last Infusion: 10/16/23 15:49 Dose: Infused Documented By: Admin: 10/16/23 15:15 Dose: 999 mls/hr Documented By: ROBERT Sodium Chloride (Nss) 1,000 mls @ 125 mls/hr IV .Q8H JEROD Stop: 11/15/23 14:44 Last Admin: 10/16/23 15:50 Dose: Not Given Documented By: SIOBHAN Cefepime HCl (Maxipime) 20 mls @ 5 mls/min IV NOW ONE Stop: 10/16/23 15:33 Last Admin: 10/16/23 15:41 Dose: 5 mls/min Documented By: SIOBHAN Doxycycline Hyclate 100 mg/ (Dextrose) 100 mls @ 50 mls/hr IV NOW ONE Stop: 10/16/23 17:29 Last Infusion: 10/16/23 18:15 Dose: Infused Documented By: Admin: 10/16/23 16:15 Dose: 50 mls/hr Documented By: SIOBHAN Acetaminophen (Ofirmev) 1,000 mg in 100 mls @ 400 mls/hr IV NOW STA Stop: 10/16/23 15:48 Last Admin: 10/16/23 15:37 Dose: Not Given Documented By: ROBERT Lactated Ringer's (Lr) 500 mls @ 999 mls/hr IV .Q31M ONE Stop: 10/16/23 18:56 Last Infusion: 10/16/23 19:45 Dose: Infused Documented By: Admin: 10/16/23 19:14 Dose: 999 mls/hr Documented By: JESSICA Ioversol (Optiray 320 125ml) 118 ml IV ONCE ONE Stop: 10/16/23 14:58 Last Admin: 10/16/23 14:57 Dose: 118 ml Documented By: GEOVANNY Methylprednisolone (Methylprednisolone 40 Mg/Ml Vial) 60 mg IV ONE STA Stop: 10/16/23 15:40 Last Admin: 10/16/23 16:01 Dose: 60 mg Documented By: SIOBHAN Ondansetron HCl (Ondansetron Inj 2 Mg/Ml 2 Ml Vial) 4 mg IV NOW STA Stop: 10/16/23 14:27 Last Admin: 10/16/23 15:22 Dose: 4 mg Documented By: SIOBHAN Imaging Data Radiologist's Impression: Chest X-Ray 10/16/23 14:19 XR chest 1V portable CLINICAL HISTORY: Dyspnea COMPARISON STUDY: Chest CT October 01, 2023. FINDINGS: There is no pneumothorax. Possible small bilateral pleural effusions. Bibasilar opacities are present. Airspace opacities within lungs have improved since prior CT. Cardiomegaly with pulmonary vascular congestion. IMPRESSION: 1. Cardiomegaly with pulmonary vascular congestion. Possible small bilateral pleural effusions. 2. Bibasilar opacities, improved since prior CT. ACT 112: Negative or not required by law. Electronically signed by: Rolando Paz M.D. 10/16/2023 2:45 PM Chest CTA 10/16/23 14:24 CT ANGIOGRAM OF THE CHEST CLINICAL HISTORY: Dyspnea COMPARISON STUDY: Chest CT scans dated 10/01/2023 and 12/09/2018. TECHNIQUE: Following the IV administration of 118 cc of Optiray 320, CT angiogram of the chest was performed from the upper abdomen to the thoracic inlet utilizing the pulmonary embolus protocol. Images are reviewed in the axial, sagittal, and coronal planes. 3-D MIPS images are created and assessed. IV contrast was administered without complication. A dose lowering technique was utilized adhering to the principles of ALARA. CT DOSE: 881.15 mGy.cm FINDINGS: Thyroid: Mildly enlarged and heterogeneous. Thoracic aorta: There is atherosclerotic calcification of the thoracic aorta, which is normal in caliber and demonstrates 4-vessel variant arch anatomy. No dissection is seen. Pulmonary vasculature: The pulmonary trunk is normal in caliber. There are no filling defects identified in main, lobar, or segmental pulmonary branches to suggest pulmonary embolus. Evaluation of the peripheral branches is compromised by motion artifact. Heart: The heart is mildly enlarged and without pericardial effusion. There are coronary artery calcifications. Lungs and pleural spaces: There is mild emphysematous change. Mild interlobular septal thickening is noted. Evaluation of the lung parenchyma is degraded by motion artifact. Dependent consolidation is seen at both lung bases. There is also airspace consolidation in the right middle lobe and lingula. The trachea and central airways are clear. Trace pleural effusions are noted. A 6 mm right middle lobe nodule image #90 is new from 11/18/2022, as is an adjacent 3 mm right middle lobe nodule on image #93. 2-3 mm right upper lobe pulmonary nodules seen on images #162, #155, and #150 unchanged from older prior examinations and of low suspicion. Mediastinum: There are mildly enlarged mediastinal lymph nodes. A pretracheal node measures up to 16 mm short axis. Prevascular lymph nodes measure up to 10 mm in short axis, and AP window nodes measure up to 11 mm short axis. Gloria: Clear. Axillae: There is no axillary lymphadenopathy. Upper abdomen: There is a small hiatal hernia. Partially visualized upper abdominal viscera is within normal limits. Skeletal structures: The skeletal structures are osteopenic. Degenerative change is noted in the shoulders and spine. No lytic or blastic bony lesions are seen. IMPRESSION: 1. Motion degraded examination. 2. There is no evidence of pulmonary embolus in the main, lobar, or segmental pulmonary arteries. 3. Cardiomegaly and emphysema. Mild intralobular septal thickening suggests fluid overload/congestive change. Correlate clinically. 4. Trace pleural effusions. 5. Bibasilar consolidation as above. This likely represents pneumonia/aspiration pneumonitis. Clinical correlation will be required and radiographic follow-up to resolution is recommended. 6. There are 2 right middle lobe pulmonary nodules measuring up to 6 mm. These were not seen on 11/18/2022 and may be inflammatory. A follow-up chest CT in 3-4 months time is recommended for reassessment. 7. Mildly enlarged mediastinal lymph nodes have increased in size from 11/18/2022. These are likely reactive and can also be reassessed at follow-up. 8. Additional findings as above. ACT 112: Negative or not required by law. Electronically signed by: Nraendra Doyle M.D. 10/16/2023 3:13 PM Discharge Plan Visit Data Chief Complaint: Urinary Symptoms Stated Complaint: UTI SYMTOMS ED Provider: Rosario May Discharge Problem: Acute on chronic hypoxic respiratory failure, COPD (chronic obstructive pulmonary disease), Pneumonia Patient Disposition: Admitted As Inpatient Discharge Instructions Interventions: ED Discharge Assessment Last Done: 10/16/23 16:49 Discharge Problem: COPD (chronic obstructive pulmonary disease) Qualifiers: COPD type: COPD with acute lower respiratory infection Qualified Code(s): J44.0 - Chronic obstructive pulmonary disease with (acute) lower respiratory infection Pneumonia Qualifiers: Pneumonia type: due to unspecified organism Laterality: bilateral Lung location: unspecified part of lung Qualified Code(s): J18.9 - Pneumonia, unspecified organism
[2023-10-16] MEDS ORDERED: GLUCOSE 40% GEL 15 GM TUBE PO PRN (17:51)
[2023-10-16] MEDS ORDERED: GLUCOSE 10 TAB/TUBE PO PRN (17:51)
[2023-10-16] MEDS ORDERED: PHARMACY GLYCEMIC MGMT CONSULT PRN (17:51)
[2023-10-16] MEDS ORDERED: CARBOHYDRATES FOR HYPOGLYCEMIA PO PRN (17:51)
[2023-10-16] MEDS ORDERED: DEXTROSE 50% 50 ML SYRINGE IV PRN (17:51)
[2023-10-16] MEDS ORDERED: GLUCAGON FOR INJ 1 MG VIAL SQ PRN (17:51)
--- NOTE | 2023-10-16 18:10 | Pulmonary Consultation ---
Date of Consultation October 16, 2023 Assessment & Plan (1) Acute hypoxic on chronic hypercapnic respiratory failure: (2) Aspiration pneumonitis: (3) Morbid obesity: Plan 68-year-old female with a history of JACQUIE and noncompliance with CPAP, prior tobacco abuse, restrictive lung disease secondary to morbid obesity, hypertension and diastolic heart failure who was admitted to the ICU due to acute on chronic hypoxemic and hypercapnic respiratory failure. Respiratory failure appears secondary to aspiration continue with broad-spectrum antibiotics. Obtain MRSA screen. Follow blood cultures. Urinalysis without overt evidence of infection. No significant hemodynamic issues. Chest CTA completed today without evidence of pulmonary embolism. Mild cardiomegaly and pulmonary edema noted. Bibasilar infiltrates noted. Continue BiPAP with sleep and as needed. Maintain n.p.o. status for today and reevaluate tomorrow as long as respiratory status is improving. History of Present Illness Reason for Consultation: Acute hypoxic and hypercapnic respiratory failure Attending Physician: Manoj Smith MD History of Present Illness 68-year-old female with a past medical history of morbid obesity, JACQUIE, restrictive lung disease secondary to morbid obesity and GERD presenting to the hospital due to increasing shortness of breath. Patient relates that she recently started a new antibiotic and became nauseous earlier today. She had a vomiting episode and increasing shortness of breath. She was placed on BiPAP in the ER and started on antibiotics. She is now improving and has been weaned down to high flow oxygen. CT scan of the chest revealed several subcentimeter nodules and bilateral lower lobe infiltrates. Allergies Allergy/AdvReac Type Severity Reaction Status Date / Time amoxicillin [From Augmentin] AdvReac Intermediate nausea Verified 10/07/23 11:15 clavulanic acid AdvReac Intermediate nausea Verified 10/07/23 11:15 [From Augmentin] codeine AdvReac Intermediate Gastrointestinal Verified 10/07/23 11:15 Upset Home Medications Medication Instructions Recorded Confirmed Type aspirin 81 mg tablet,delayed 81 mg PO QAM 03/21/19 10/16/23 History release miscellaneous medical supply #1 ea 05/22/22 10/06/23 Rx metoprolol succinate 50 mg 50 mg PO QAM #90 tabs 11/03/22 10/16/23 Rx tablet,extended release 24 hr sertraline 100 mg tablet (Zoloft) 100 mg PO HS #90 tabs 11/03/22 10/16/23 Rx metformin 1,000 mg tablet 1,000 mg PO BID #180 tabs 12/03/22 10/16/23 Rx simvastatin 40 mg tablet 40 mg PO HS #90 tabs 09/16/23 10/16/23 Rx diphenhydramine 25 2 tab PO HS 10/01/23 10/16/23 History mg-acetaminophen 500 mg tablet (Tylenol PM Extra Strength) insulin aspart U-100 100 unit/mL 0 unit subcut UD 10/01/23 10/16/23 History (3 mL) subcutaneous pen (Novolog FlexPen U-100 Insulin aspart) cholecalciferol (vitamin D3) 125 125 mcg PO QAM 10/07/23 10/16/23 History mcg (5,000 unit) capsule mecobalamin (vitamin B12) 1,000 1,000 mcg PO DAILY 10/07/23 10/16/23 History mcg chewable tablet famotidine 40 mg tablet 40 mg PO PM 10/16/23 10/16/23 History insulin glargine U-300 conc 300 100 unit subcut HS 10/16/23 10/16/23 History unit/mL (3 mL) subcutaneous pen (Toujeo Max U-300 SoloStar) losartan 50 mg-hydrochlorothiazide 1 tab PO QAM 10/16/23 10/16/23 History 12.5 mg tablet Patient History Medical History Morbid obesity Aspiration pneumonitis Acute hypoxic on chronic hypercapnic respiratory failure Hyperlipidemia Diabetes mellitus type 2 in obese Diabetes mellitus Type 2 Mediastinal lymphadenopathy History of COVID-19 05/2022; congestion and resolved. Inguinal adenopathy Esophageal dysphagia Osteoarthritis History of pancreatitis unk etiology Anxiety HLD (hyperlipidemia) HTN (hypertension) Sleep apnea unable to tolerate CPAP COPD (chronic obstructive pulmonary disease) no inh PONV (postoperative nausea and vomiting) Pulmonary nodule, left Peripheral neuropathy Chronic restrictive lung disease Bladder wall thickening Morbid obesity with BMI of 40.0-44.9, adult Hypertension Surgical History S/P cataract surgery History of lymph node biopsy History of esophagogastroduodenoscopy (EGD) S/P balloon dilatation of esophageal stricture History of tooth extraction History of wisdom tooth extraction History of tonsillectomy and adenoidectomy History of cardiac cath 2013 - no stents History of tubal ligation H/O colonoscopy Family History Unknown No problems noted. Mother Diabetes Kidney stone Hypertension Grandfather No problems noted. Aunt Breast cancer Maternal Great Aunt Grandfather (Maternal) Diabetes Other Family history non-contributory No family history of abnormal heart rhythm Denies family history of Ovarian cancer Prostate cancer Colorectal cancer Social History Smoking Status: Former smoker Tobacco Type: Cigarettes Age Started Using Tobacco: 14; Age Quit Using Tobacco: 54; packs per day: 2; Cigarettes Per Day: 50-60; Smoking End Date: 15 years ago; Second Hand Exposure: Yes; Do You Dip or Chew Tobacco: No; Tobacco Cessation Education Requested by Patient: No Hx Alcohol Use: No Hx Substance Use: No Preferred Language: [place] Citizen Communication Ability: Effective Visual Impairment: No Limitations Hearing Ability: Normal Director Of Physical Therapy Required: No Beliefs That Will Affect Care: None marital status: Current Living Situation: Spouse current occupational status: employed current occupation: [employer] How many Children do You have: 1 Other Information That Helps Us Care for You: No Feels Safe at Home: Yes Safety Concerns: Feels Safe At This Time Childhood Exposure to Second-Hand Smoke: Yes Diet: regular caffeine: Yes (coffee) during the past year weight has: decreased > 10 lbs Dental Care, Regularly: No Physical Activity Frequency: Does not Exercise Seatbelt Use: never Sunscreen Use: No Assistive Devices: CPAP, Denture - Upper and Denture - Lower Review of Systems Review of Systems: All systems reviewed & are unremarkable except as noted in HPI & below Physical Exam Physical Exam: Constitutional: Patient appears to be of their stated age. Patient is in no apparent distress. Patient is well-developed. Eyes: Pupils are equal round and reactive to light. Conjunctivae are normal. Anicteric sclera. Ears nose, mouth and throat: BiPAP mask in place. Neck: Trachea is midline. Visual inspection is normal. Respiratory: Bibasilar crackles. Mildly increased work of breathing. Cardiovascular: Regular rate and rhythm. No murmurs. No edema. Gastrointestinal: Normal bowel sounds, soft, nontender and nondistended. No hepatosplenomegaly noted. Musculoskeletal: No cyanosis. Patient is able to move all extremities. Strength is 5 out of 5 in the upper and lower extremities. Skin: No rashes, warm dry and intact. Neurologic: No obvious focal neurological deficits seen. Psychiatric: Alert and oriented x3 with a euthymic affect. Results & Data Results & Data Vital Signs (Past 12 Hours) Vital Signs Temp Pulse Pulse Resp BP BP Pulse Ox 10/16/23 17:42 103 H 23 94 10/16/23 16:49 107 H 12 95/54 L 95 10/16/23 15:38 84 31 H 96 10/16/23 15:32 88 L 10/16/23 15:31 108 H 25 H 97 10/16/23 15:16 36.8 C 104 H 22 139/76 88 L 10/16/23 15:03 100 H 10/16/23 14:38 28 H 90 10/16/23 14:38 87 20 98 10/16/23 14:38 89 12 132/63 98 O2 Del Method O2 Flow Rate FiO2 10/16/23 17:42 High Flow Nasal Cannula 40 80 10/16/23 16:49 BiPAP 10/16/23 15:38 BiPAP 80 10/16/23 15:32 BiPAP 10/16/23 15:31 60 10/16/23 15:16 Oxymask 15 10/16/23 15:03 10/16/23 14:38 Oxymask 10 10/16/23 14:38 Room Air 10/16/23 14:38 Oxymask 10 PG Care Time/CCT Total # of Minutes Spent Total Time Spent with Patient: Total time spent is greater than 50% in coordination of care (as documented) at patient's floor/unit and/or counseling patient: Coding Level of Care Code 11895 INT INP/OBS CARE 3/75MIN Diagnoses Acute hypoxic on chronic hypercapnic respiratory failure J96.01; J96.12 Aspiration pneumonitis J69.0 Morbid obesity E66.01
[2023-10-16 18:34] LABS: iSTAT Allen Test Pass; iSTAT Art Bld Gas pCO2 Correct 53 mmHg (35-46); iSTAT Art Bld Gas pH Corrected 7.325 (7.35-7.45); iSTAT Arterial Blood Gas HCO3 28 meg/L (19-24); iSTAT Arterial Blood Gas pCO2 53 mmHg (35-46); iSTAT Arterial Blood Gas pH 7.33 (7.35-7.45); iSTAT Arterial Blood Gas pO2 74 mmHg (80-95); iSTAT Arterial Blood Gas pO2 C 74; iSTAT Carbon Dioxide 29 mmol/L (24-31); iSTAT FiO2 80 %; iSTAT Hematocrit 33 % (37-47); iSTAT Hemoglobin 11.2 g/dl (12.0-16.0); iSTAT Potassium 4.1 mmol/L (3.3-5.0); iSTAT Site R Radial; iSTAT Sodium 136 mmol/L (135-144)
[2023-10-16] MEDS: ICU Protocol for HYPERglycemia SCH (18:39)
[2023-10-16] MEDS: INSULIN ASPART PER UNIT CHARGE SC SCH (18:41)
[2023-10-16] MEDS: LACTATED RINGER'S 500 ML IV ONE (19:14)
[2023-10-16] MEDS: FAMOTIDINE 20MG IV PUSH 20 MG/5 ML SYR IV SCH (20:05)
[2023-10-16] MEDS: LANTUS PER UNIT CHARGE SQ SCH (20:20)
[2023-10-16] MEDS: CEFEPIME 2,000 MG in SYRINGE 0 ML IV SCH (23:47)
[2023-10-17] MEDS: INSULIN ASPART PER UNIT CHARGE SC SCH ×3 (00:02→11:53)
[2023-10-17] MEDS: DOXYCYCLINE HYCLATE 100 MG in DEXTROSE 5% MINI-B 100 ML IV SCH (03:46)
[2023-10-17 04:23] LABS: Hematocrit (blood only) 32.4 % (37.0-47.0); Hemoglobin 10.4 g/dl (12.0-16.0); Mean Corpuscular Hemoglobin 26.1 pg (25.0-34.0); Mean Corpuscular Hgb Conc 32.1 g/dL (32.0-36.0); Mean Corpuscular Volume 81.2 fL (80.0-100.0); Mean Platelet Volume 10.5 fL (9.4-12.4); Platelet Count 225 K/uL (130-400); RDW Coefficient of Variation 17.1 % (11.5-14.5); RDW Standard Deviation 50.3 fL (36.4-46.3); Red Blood Count 3.99 M/uL (4.20-5.40); White Blood Count 16.77 K/ul (4.8-10.8)
[2023-10-17 04:37] LABS: BUN Creatinine Ratio 27.4 (10-20); Calcium 8.5 mg/dl (8.6-10.3); Est GFR (African American) 62.5 ml/min; Est GFR (Non-African American) 53.9 ml/min; Magnesium 1.6 mg/dl (1.7-2.4); Potassium 4.8 mmol/L (3.5-5.1)
[2023-10-17 04:42] LABS: Basophils # (auto) 0.03 K/uL (0.00-0.20); Basophils % (auto) 0.2 %; Dohle Bodies 1+; Immature Granulocytes # (auto) 0.08 K/uL (0.01-0.20); Immature Granulocytes % (auto) 0.5 %; Lymphocytes # (auto) 0.25 K/uL (1.20-3.40); Lymphocytes % (auto) 1.5 %; Monocytes # (auto) 1.03 K/uL (0.11-0.59); Monocytes % (auto) 6.1 %; Neutrophils # (auto) 15.38 K/uL (1.40-6.50); Neutrophils % (auto) 91.7 %; Polychromasia 1+
[2023-10-17] MEDS: MAGNESIUM SULFATE / D5W 1 GM/100 ML BAG IV SCH (05:54)
--- NOTE | 2023-10-17 08:40 | Hospitalist Progress Note ---
Date of Service October 17, 2023 Assessment & Plan (1) Acute on chronic hypoxic respiratory failure: Plan: Attending: Dr. Davis Impression: 68-year-old female readmitted yesterday afternoon for shortness of breath and chest pain. Similar symptoms as compared to 2 weeks ago. Patient is found to be hypercapnic with hypoxia. She required mechanical ventilation her last admission. At this time she is stable with BiPAP therapy and high flow supplemental oxygen. No fever or chills. Elevated white count most likely secondary to methylprednisolone. Negative findings for ACS. Patient did have response there was adequate to furosemide yesterday. Patient continues on cefepime and doxycycline for questionable pneumonia and urinary tract infection. Patient did well overnight on BiPAP and high flow supplemental oxygen Continue empiric treatment for infection pending blood culture results x 2. Acute coronary syndrome ruled out with EKG and high-sensitivity troponin Echocardiogram 2 weeks ago with preserved left ventricular ejection fraction and no evidence of wall motion abnormalities. Pulmonary consulted. Appreciate Dr. Al's input Continue supportive care Scheduled with Dr. López 11/04/2023 at 15:15 (2) Acute UTI: Plan: UA positive on arrival Ross placed in ED Urine culture on 09/28/2023 was pansensitive Cefepime 2000 mg IV q8h Await culture and sensitivities Follows with Dr. Baumann [facility] [place] [facility] - scheduled for f/u 12/15/23 at 09:20 (3) Sepsis: Plan: Lactate 2.2-->4.1 on arrival Blood cultures ordered, pending IVF resuscitation started in ED Can continue doxycycline and cefepime for now Afebrile Elevated WBC most likely due to methlprednisolone (4) Diabetes mellitus type 2 in obese: Plan: Last A1c at 7.5% on 08/31/23 Glucose 118 on admission Hold metformin Patient is on significant insulin [employer] at home (insulin glargine 100 units daily) Continue Lantus 30 u BID while inpatient SSI; recommend BSG range 110-140mg/dL, CF 15, carb ratio 4 T2DM diet. BiPAP BSG q6h while NPO, then switch to ACHS Adjust regimen as needed Pharmacy glycemic consult due to critical illness and steroid use appreciated (5) Obstructive sleep apnea (adult) (pediatric): Plan: Continue BiPAP History of JACQUIE in the past but did not tolerate mask F/U with Dr. López 11/04/2023 in the office Plan Disposition: Admitted to ICU. Can downgrade to telemetry if ok with Dr. Al Full code Diet: was NPO while on BiPAP in the setting of recent vomiting. Patient AXOX3. Change to clear liquids until seen by critical care team VTE PPx: Continue SCDs. Defer chemical DVT PPx to [facility] Admission and Anticipated Discharge Date Admission Date: October 16, 2023 Supervising Physician Co-Signing Physician Notes Patient was seen and examined independently I discussed the case with Narendra BROWN I reviewed pertinent past medical social family history and also the plan of care and agree with the plan of care. Patient is dramatically better she feels this is a reaction Macrobid as it happened 2 times after she took Macrobid. She has no wheezes or crackles however she still is on significant oxygen supplementation. Working hard to get her home noninvasive positive pressure ventilation support. Any exceptions will be noted below Subjective Attending: Dr. Davis This is a 68-year-old female that was recently admitted for similar findings with shortness of breath and chest tightness. At that time she had a CTA of the chest which was negative for pulmonary embolus. She was intubated and did require mechanical ventilation. At that time she was seen by Dr. López in intensive care. She is scheduled to follow-up with him in the office within the next 2 weeks. Yesterday she presented to the urology department for follow- up for chronic UTI. She was noted to be extremely dyspneic and complained of chest pain. An ambulance was called and patient was transported to the emergency department for further evaluation. ABG was completed and showed that she had hypercapnic respiratory failure with hypoxia. She was admitted to telemetry. She has no arrhythmias and did well overnight with BiPAP. She currently is on high flow supplemental oxygen with no acute distress. Patient does have conversational dyspnea. She does continue to complain of circumferential chest pain which is similar to 2 weeks ago. Vital signs are currently stable with blood pressure 106/53 and heart rate at 85 bpm. She is afebrile. She is currently on high flow nasal cannula 40 L/min with an FiO2 of 65%. 2 weeks ago, she does report vomiting. She has no reports of vomiting this week. Transthoracic echocardiogram from 10/01/2023 reveals normal left ventricular size and systolic function. Left ventricular ejection fraction is estimated to be 60 to 65%. There is no evidence of regional wall motion abnormalities. Compared to prior echocardiogram 02/10/2022, left ventricular systolic function appears similar. There is no significant aortic valve stenosis. EKG from yesterday afternoon reveals normal sinus rhythm with a QTc of 460 ms. No significant change as compared to EKG from 10/03/2023. On 10/01/2023, high-sensitivity troponin was at 404.7 PG/mL. This has resolved. Current troponin is 7.7 PG/mL Magnesium is 1.6 mg/dL this morning. Other electrolytes are balanced. Review of Systems 2 Review of Systems: A total of 10 systems was reviewed and is negative other than as listed in the HPI Physical Exam 2 Physical Exam: GENERAL : No acute distress. Very pleasant. Positive for conversational dyspnea EYES: No icterus, gaze conjugate NOSE: No evidence of epistaxis MOUTH: No lesions or candidiasis. Mucosa is dry NECK: Supple. No transmitted wheezes. No stridor appreciated LUNGS: Significantly diminished. There are crackles at the bilateral bases. Very faint bronchospasm in the upper posterior negron HEART: Regular, rate controlled ABDOMEN: Soft, NT, ND, BS Present EXTREMITIES: No significant or asymmetrical LE edema, pedal pulses intact and equal bilaterally. NEURO: A&OX3 Results & Data Results & Data Vital Signs (Past 12 Hours) Vital Signs Temp Pulse Pulse Resp BP BP Pulse Ox 10/17/23 07:35 85 24 97 10/17/23 05:01 36.7 C 87 20 106/53 L 97 10/17/23 04:06 99 H 21 93 10/17/23 04:01 36.6 C 81 21 104/49 L 95 10/17/23 03:01 36.8 C 87 22 90/50 L 95 10/17/23 02:01 86 20 110/51 L 94 10/17/23 01:01 37.3 C 85 17 111/52 L 94 10/17/23 00:32 87 10/17/23 00:19 102 H 22 93 10/17/23 00:02 37.3 C 88 24 100/42 L 93 10/16/23 23:09 37.3 C 93 H 20 92/52 L 94 10/16/23 22:00 37.3 C 96 H 23 98/46 L 10/16/23 21:00 37.1 C 98 H 21 100/52 L 93 O2 Del Method O2 Flow Rate FiO2 10/17/23 07:35 High Flow Nasal Cannula 40 65 10/17/23 05:01 BiPAP 10/17/23 04:06 65 10/17/23 04:01 BiPAP 10/17/23 03:01 10/17/23 02:01 BiPAP 10/17/23 01:01 BiPAP 10/17/23 00:32 10/17/23 00:19 65 10/17/23 00:02 BiPAP 10/16/23 23:09 High Flow Nasal Cannula 10/16/23 22:00 10/16/23 21:00 High Flow Nasal Cannula Laboratory Results Abnormal lab results 10/16/23 10/16/23 10/16/23 Range/Units 14:30 14:37 15:29 WBC (4.8-10.8) K/ul RBC (4.20-5.40) M/uL Hgb (12.0-16.0) g/dl POC Hgb (12.0-16.0) g/dl Hct (37.0-47.0) % POC Hct (37-47) % MCHC 30.3 L (32.0-36.0) g/dL RDW Std Deviation 50.6 H (36.4-46.3) fL RDW Coeff of Radha 16.7 H (11.5-14.5) % Neut # (Auto) 6.67 H (1.40-6.50) K/uL Lymph # (Auto) 0.54 L (1.20-3.40) K/uL [place] # (Auto) (0.11-0.59) K/uL POC pH 7.28 L (7.35-7.45) POC pCO2 63 H (35-46) mmHg POC pO2 57 L (80-95) mmHg POC HCO3 30 H (19-24) ellis/L POC Base Excess 3.0 H (-9-1.8) ellis/L ABG pH (Temp Correct) (7.35-7.45) ABG pCO2 (Temp Corrct (35-46) mmHg POC ABG O2 Sat 85.0 L (90-95) % Sodium (136-145) mmol/L POC Chloride 96 L (101-112) mmol/L POC Total CO2 35 H 32 H (24-31) mmol/L POC Anion Gap 13.0 L (16-25) mmol/L POC BUN 23 H (7-18) mg/dl BUN (6-23) mg/dl BUN/Creatinine Ratio 23.5 H (10-20) Glucose 118 H (70-99(Fasting)) mg/dl POC Glucose (70-99) mg/dl POC Glucose (other) 120 H (70-99) mg/dl Lactate 2.2 H* (0.4-2.0) mmol/L Calcium (8.6-10.3) mg/dl Magnesium (1.7-2.4) mg/dl Ur Specific [place] (1.000-1.030) Urine Protein (Negative) Urine WBC (Auto) (0-5) /hpf Urine RBC (Auto) (0-4) /hpf U Epithel Cells (Auto) (0-5) /lpf 10/16/23 10/16/23 10/16/23 Range/Units 16:16 16:55 18:08 WBC (4.8-10.8) K/ul RBC (4.20-5.40) M/uL Hgb (12.0-16.0) g/dl POC Hgb (12.0-16.0) g/dl Hct (37.0-47.0) % POC Hct (37-47) % MCHC (32.0-36.0) g/dL RDW Std Deviation (36.4-46.3) fL RDW Coeff of Radha (11.5-14.5) % Neut # (Auto) (1.40-6.50) K/uL Lymph # (Auto) (1.20-3.40) K/uL [place] # (Auto) (0.11-0.59) K/uL POC pH (7.35-7.45) POC pCO2 (35-46) mmHg POC pO2 (80-95) mmHg POC HCO3 (19-24) ellis/L POC Base Excess (-9-1.8) ellis/L ABG pH (Temp Correct) (7.35-7.45) ABG pCO2 (Temp Corrct (35-46) mmHg POC ABG O2 Sat (90-95) % Sodium (136-145) mmol/L POC Chloride (101-112) mmol/L POC Total CO2 (24-31) mmol/L POC Anion Gap (16-25) mmol/L POC BUN (7-18) mg/dl BUN (6-23) mg/dl BUN/Creatinine Ratio (10-20) Glucose (70-99(Fasting)) mg/dl POC Glucose 235 H (70-99) mg/dl POC Glucose (other) (70-99) mg/dl Lactate 4.1 H* (0.4-2.0) mmol/L Calcium (8.6-10.3) mg/dl Magnesium (1.7-2.4) mg/dl Ur Specific [place] > 1.045 H (1.000-1.030) Urine Protein 1+ H (Negative) Urine WBC (Auto) 5-10 H (0-5) /hpf Urine RBC (Auto) 5-10 H (0-4) /hpf U Epithel Cells (Auto) >30 H (0-5) /lpf 10/16/23 10/16/23 10/16/23 Range/Units 18:22 20:08 23:49 WBC (4.8-10.8) K/ul RBC (4.20-5.40) M/uL Hgb (12.0-16.0) g/dl POC Hgb 11.2 L (12.0-16.0) g/dl Hct (37.0-47.0) % POC Hct 33 L (37-47) % MCHC (32.0-36.0) g/dL RDW Std Deviation (36.4-46.3) fL RDW Coeff of Radha (11.5-14.5) % Neut # (Auto) (1.40-6.50) K/uL Lymph # (Auto) (1.20-3.40) K/uL [place] # (Auto) (0.11-0.59) K/uL POC pH 7.33 L (7.35-7.45) POC pCO2 53 H (35-46) mmHg POC pO2 74 L (80-95) mmHg POC HCO3 28 H (19-24) ellis/L POC Base Excess 2.0 H (-9-1.8) ellis/L ABG pH (Temp Correct) 7.325 L (7.35-7.45) ABG pCO2 (Temp Corrct 53 H (35-46) mmHg POC ABG O2 Sat (90-95) % Sodium (136-145) mmol/L POC Chloride (101-112) mmol/L POC Total CO2 (24-31) mmol/L POC Anion Gap (16-25) mmol/L POC BUN (7-18) mg/dl BUN (6-23) mg/dl BUN/Creatinine Ratio (10-20) Glucose (70-99(Fasting)) mg/dl POC Glucose 302 H* 248 H (70-99) mg/dl POC Glucose (other) (70-99) mg/dl Lactate (0.4-2.0) mmol/L Calcium (8.6-10.3) mg/dl Magnesium (1.7-2.4) mg/dl Ur Specific [place] (1.000-1.030) Urine Protein (Negative) Urine WBC (Auto) (0-5) /hpf Urine RBC (Auto) (0-4) /hpf U Epithel Cells (Auto) (0-5) /lpf 10/17/23 10/17/23 10/17/23 Range/Units 03:44 03:54 08:22 WBC 16.77 H (4.8-10.8) K/ul RBC 3.99 L (4.20-5.40) M/uL Hgb 10.4 L (12.0-16.0) g/dl POC Hgb (12.0-16.0) g/dl Hct 32.4 L (37.0-47.0) % POC Hct (37-47) % MCHC (32.0-36.0) g/dL RDW Std Deviation 50.3 H (36.4-46.3) fL RDW Coeff of Radha 17.1 H (11.5-14.5) % Neut # (Auto) 15.38 H (1.40-6.50) K/uL Lymph # (Auto) 0.25 L (1.20-3.40) K/uL [place] # (Auto) 1.03 H (0.11-0.59) K/uL POC pH (7.35-7.45) POC pCO2 (35-46) mmHg POC pO2 (80-95) mmHg POC HCO3 (19-24) ellis/L POC Base Excess (-9-1.8) ellis/L ABG pH (Temp Correct) (7.35-7.45) ABG pCO2 (Temp Corrct (35-46) mmHg POC ABG O2 Sat (90-95) % Sodium 135 L (136-145) mmol/L POC Chloride (101-112) mmol/L POC Total CO2 (24-31) mmol/L POC Anion Gap (16-25) mmol/L POC BUN (7-18) mg/dl BUN 29 H (6-23) mg/dl BUN/Creatinine Ratio 27.4 H (10-20) Glucose 223 H (70-99(Fasting)) mg/dl POC Glucose 210 H 214 H (70-99) mg/dl POC Glucose (other) (70-99) mg/dl Lactate (0.4-2.0) mmol/L Calcium 8.5 L (8.6-10.3) mg/dl Magnesium 1.6 L (1.7-2.4) mg/dl Ur Specific [place] (1.000-1.030) Urine Protein (Negative) Urine WBC (Auto) (0-5) /hpf Urine RBC (Auto) (0-4) /hpf U Epithel Cells (Auto) (0-5) /lpf 10/17/23 03:54 10/17/23 03:54 Diagnostic Findings Chest X-Ray 10/16/23 14:19 XR chest 1V portable CLINICAL HISTORY: Dyspnea COMPARISON STUDY: Chest CT October 01, 2023. FINDINGS: There is no pneumothorax. Possible small bilateral pleural effusions. Bibasilar opacities are present. Airspace opacities within lungs have improved since prior CT. Cardiomegaly with pulmonary vascular congestion. IMPRESSION: 1. Cardiomegaly with pulmonary vascular congestion. Possible small bilateral pleural effusions. 2. Bibasilar opacities, improved since prior CT. ACT 112: Negative or not required by law. Electronically signed by: Rolando Paz M.D. 10/16/2023 2:45 PM Chest CTA 10/16/23 14:24 CT ANGIOGRAM OF THE CHEST CLINICAL HISTORY: Dyspnea COMPARISON STUDY: Chest CT scans dated 10/01/2023 and 12/09/2018. TECHNIQUE: Following the IV administration of 118 cc of Optiray 320, CT angiogram of the chest was performed from the upper abdomen to the thoracic inlet utilizing the pulmonary embolus protocol. Images are reviewed in the axial, sagittal, and coronal planes. 3-D MIPS images are created and assessed. IV contrast was administered without complication. A dose lowering technique was utilized adhering to the principles of ALARA. CT DOSE: 881.15 mGy.cm FINDINGS: Thyroid: Mildly enlarged and heterogeneous. Thoracic aorta: There is atherosclerotic calcification of the thoracic aorta, which is normal in caliber and demonstrates 4-vessel variant arch anatomy. No dissection is seen. Pulmonary vasculature: The pulmonary trunk is normal in caliber. There are no filling defects identified in main, lobar, or segmental pulmonary branches to suggest pulmonary embolus. Evaluation of the peripheral branches is compromised by motion artifact. Heart: The heart is mildly enlarged and without pericardial effusion. There are coronary artery calcifications. Lungs and pleural spaces: There is mild emphysematous change. Mild interlobular septal thickening is noted. Evaluation of the lung parenchyma is degraded by motion artifact. Dependent consolidation is seen at both lung bases. There is also airspace consolidation in the right middle lobe and lingula. The trachea and central airways are clear. Trace pleural effusions are noted. A 6 mm right middle lobe nodule image #90 is new from 11/18/2022, as is an adjacent 3 mm right middle lobe nodule on image #93. 2-3 mm right upper lobe pulmonary nodules seen on images #162, #155, and #150 unchanged from older prior examinations and of low suspicion. Mediastinum: There are mildly enlarged mediastinal lymph nodes. A pretracheal node measures up to 16 mm short axis. Prevascular lymph nodes measure up to 10 mm in short axis, and AP window nodes measure up to 11 mm short axis. Gloria: Clear. Axillae: There is no axillary lymphadenopathy. Upper abdomen: There is a small hiatal hernia. Partially visualized upper abdominal viscera is within normal limits. Skeletal structures: The skeletal structures are osteopenic. Degenerative change is noted in the shoulders and spine. No lytic or blastic bony lesions are seen. IMPRESSION: 1. Motion degraded examination. 2. There is no evidence of pulmonary embolus in the main, lobar, or segmental pulmonary arteries. 3. Cardiomegaly and emphysema. Mild intralobular septal thickening suggests fluid overload/congestive change. Correlate clinically. 4. Trace pleural effusions. 5. Bibasilar consolidation as above. This likely represents pneumonia/aspiration pneumonitis. Clinical correlation will be required and radiographic follow-up to resolution is recommended. 6. There are 2 right middle lobe pulmonary nodules measuring up to 6 mm. These were not seen on 11/18/2022 and may be inflammatory. A follow-up chest CT in 3-4 months time is recommended for reassessment. 7. Mildly enlarged mediastinal lymph nodes have increased in size from 11/18/2022. These are likely reactive and can also be reassessed at follow-up. 8. Additional findings as above. ACT 112: Negative or not required by law. Electronically signed by: Narendra Doyle M.D. 10/16/2023 3:13 PM ECG Additional Comments: PG Care Time/CCT Total # of Minutes Spent Total Time Spent with Patient: Total time spent is greater than 50% in coordination of care (as documented) at patient's floor/unit and/or counseling patient:20 minutes Coding Level of Care Code 28233 SUB INP/OBS CARE 2/35MIN Diagnoses Acute on chronic hypoxic respiratory failure J96.21 Acute UTI N39.0 Sepsis A41.9 Diabetes mellitus type 2 in obese E11.69; E66.9 Obstructive sleep apnea (adult) (pediatric) G47.33 Time Spent (min) 36 Comment 20 minutes spent face to face plus d/w care team and chart review/note completion
--- NOTE | 2023-10-17 08:42 | Electrocardiogram Report ---
Test Reason : Blood Pressure : / mmHG Vent. Rate : 081 BPM Atrial Rate : 081 BPM P-R Int : 136 ms QRS Dur : 070 ms QT Int : 396 ms P-R-T Axes : 038 032 054 degrees QTc Int : 460 ms Normal sinus rhythm Normal ECG When compared with ECG of 03-OCT-2023 09:55, No significant change was found Confirmed by Steve Maddox ([id number]) on 10/17/2023 8:42:13 AM Referred By: Manju Khan Confirmed By:Steve Maddox
[2023-10-17] MEDS: METOPROLOL SUCC 50MG EXT REL TAB PO SCH (08:43)
[2023-10-17] MEDS: ASPIRIN 81 MG ECTAB PO SCH (08:43)
--- NOTE | 2023-10-17 09:16 | Critical Care Progress Note ---
Date of Service October 17, 2023 Assessment & Plan (1) Acute hypoxic on chronic hypercapnic respiratory failure: (2) Aspiration pneumonitis: (3) Morbid obesity: Plan 68-year-old female with a history of JACQUIE and noncompliance with CPAP, prior tobacco abuse, restrictive lung disease secondary to morbid obesity, hypertension and diastolic heart failure who was admitted to the ICU due to acute on chronic hypoxemic and hypercapnic respiratory failure. Respiratory failure appears secondary to aspiration continue with broad-spectrum antibiotics. MRSA screen negative. Vancomycin discontinued follow blood cultures. Urinalysis without overt evidence of infection. No significant hemodynamic issues. Chest CTA completed today without evidence of pulmonary embolism. Mild cardiomegaly and pulmonary edema noted. Bibasilar infiltrates noted. Continue BiPAP with sleep and as needed. Patient weaned down to high flow and probably can be weaned further later today. Patient would benefit from a home noninvasive ventilator. Will consult case management. Due to chronic hypercapnic respiratory failure consequent to COPD, the patient now requires a noninvasive home ventilator. Bilevel therapy with and without a rate would be ineffective as patient requires a volume targeted mode. Ventilation is required to decrease work of breathing and improve pulmonary status. Interruption of ventilator support would lead to decline of health status. NIMV settings should be AVAPS-AE; Breath rate: auto; Inspiratory time: auto; Sigh: off; Tidal Volume: [500], PS min: [4-10 PS max: 12-20]; EPAP min: [6-10]; EPAP max: [10-16]; AVAPS rate: [14 during sleep and as needed] Increase diet as tolerated. DVT prophylaxis started with Lovenox 40 mg twice daily. Consider PT and OT consultation as she improves. Patient is stable for downgrade to PCU status. Transfer order has been placed. Admission and Anticipated Discharge Date Admission Date: October 16, 2023 Subjective Patient sitting up in bed today with significantly improved oxygenation. She is down to 25 L and 50% FiO2 saturating in the mid to low 90s. She denies any chest pain. She does have some mild abdominal discomfort. No fevers, chills or night sweats. Cough is improved. Review of Systems Review of Systems: All systems reviewed & are unremarkable except as noted in HPI & below Physical Exam 2 Physical Exam: Constitutional: Patient appears to be of their stated age. Patient is in no apparent distress. Patient is well-developed. Eyes: Pupils are equal round and reactive to light. Conjunctivae are normal. Anicteric sclera. Ears nose, mouth and throat: High flow nasal cannula in place. Neck: Trachea is midline. Visual inspection is normal. Respiratory: Bibasilar crackles. No increased work of breathing. Cardiovascular: Regular rate and rhythm. No murmurs. No edema. Gastrointestinal: Normal bowel sounds, soft, nontender and nondistended. No hepatosplenomegaly noted. Musculoskeletal: No cyanosis. Patient is able to move all extremities. Strength is 5 out of 5 in the upper and lower extremities. Skin: No rashes, warm dry and intact. Neurologic: No obvious focal neurological deficits seen. Psychiatric: Alert and oriented x3 with a euthymic affect. Results & Data Results & Data Vital Signs (Past 12 Hours) Vital Signs Temp Pulse Pulse Resp BP BP Pulse Ox 10/17/23 09:03 10/17/23 08:01 107/50 L 10/17/23 08:01 87 20 94 10/17/23 08:00 87 19 94 10/17/23 07:35 85 24 97 10/17/23 07:00 118/54 L 10/17/23 07:00 86 20 99 10/17/23 06:01 87 21 98 10/17/23 06:01 107/54 L 10/17/23 06:00 83 22 97 10/17/23 05:01 36.7 C 87 20 106/53 L 97 10/17/23 04:06 99 H 21 93 10/17/23 04:01 36.6 C 81 21 104/49 L 95 10/17/23 03:01 36.8 C 87 22 90/50 L 95 10/17/23 02:01 86 20 110/51 L 94 10/17/23 01:01 37.3 C 85 17 111/52 L 94 10/17/23 00:32 87 10/17/23 00:19 102 H 22 93 10/17/23 00:02 37.3 C 88 24 100/42 L 93 10/16/23 23:09 37.3 C 93 H 20 92/52 L 94 10/16/23 22:00 37.3 C 96 H 23 98/46 L O2 Del Method O2 Flow Rate FiO2 10/17/23 09:03 High Flow Nasal Cannula 25 10/17/23 08:01 10/17/23 08:01 10/17/23 08:00 10/17/23 07:35 High Flow Nasal Cannula 40 65 10/17/23 07:00 10/17/23 07:00 10/17/23 06:01 10/17/23 06:01 10/17/23 06:00 10/17/23 05:01 BiPAP 10/17/23 04:06 65 10/17/23 04:01 BiPAP 10/17/23 03:01 10/17/23 02:01 BiPAP 10/17/23 01:01 BiPAP 10/17/23 00:32 10/17/23 00:19 65 10/17/23 00:02 BiPAP 10/16/23 23:09 High Flow Nasal Cannula 10/16/23 22:00 Coding Level of Care Code 91882 SUB INP/OBS CARE 235MIN Diagnoses Acute hypoxic on chronic hypercapnic respiratory failure J96.01; J96.12 Aspiration pneumonitis J69.0 Morbid obesity E66.01
--- NOTE | 2023-10-17 10:12 | Pharmacy Report ---
Pharmacy Glycemic Short Note 2 - Date of Service October 17, 2023 - Glycemic Short BSG Results (Last 24 hours): 10/16/23 10/16/23 10/16/23 14:30 14:37 18:08 Glucose 118 H POC Glucose 235 H POC Glucose (other) 120 H 10/16/23 10/16/23 10/17/23 20:08 23:49 03:44 Glucose POC Glucose 302 H* 248 H 210 H POC Glucose (other) 10/17/23 10/17/23 03:54 08:22 Glucose 223 H POC Glucose 214 H POC Glucose (other) OUTPATIENT ANTIDIABETIC REGIMEN: * Toujeo 100units SQ HS * NovoLog 35 units with breakfast, 30 units with lunch, 25 units HS, 25 units/day sliding scale * Metformin 1000mg PO BID ASSESSMENT: * 68 yo F PMH of JACQUIE, restrictive lung disease secondary to morbid obesity, hypertension and diastolic heart failure who was admitted to the ICU due to acute on chronic hypoxemic and hypercapnic respiratory failure. On Doxy + Cefepime. * Type 2 DM on 215 units of insulin/day as outpatient. Splitting basal BID at this time d/t critical status. Patient is improving and has been downgraded from ICU. Starting clear liquid diet with breakfast. * Blood sugar elevated when consulted last night partially d/t 60mg IV Solu- Medrol dose received. PLAN FOR INPATIENT GLYCEMIC CONTROL: * Hold outpatient oral diabetes medications * Basal insulin * Lantus 25-35 units SQ BID * Bolus insulin * NovoLog per scale ACHS or Q6hrs while NPO * Goal Range: Low 110 mg/dL - High 140 mg/dL * Correction Factor: 15 mg/dL/unit * Nutritional / Prandial insulin per carb ratio of 1 unit per 4 grams CHO consumed
[2023-10-17] MEDS: ENOXAPARIN INJ 40 MG/0.4 ML SYR SQ SCH (10:24)
[2023-10-17] MEDS: MAGNESIUM SULFATE / D5W 1 GM/100 ML BAG IV ONE (11:58)
[2023-10-18 06:35] LABS: Basophils # (auto) 0.06 K/uL (0.00-0.20); Basophils % (auto) 0.7 %; Eosinophils # (auto) 0.29 K/uL (0.00-0.50); Eosinophils % (auto) 3.2 %; Hematocrit (blood only) 34.3 % (37.0-47.0); Hemoglobin 10.7 g/dl (12.0-16.0); Immature Granulocytes # (auto) 0.04 K/uL (0.01-0.20); Immature Granulocytes % (auto) 0.4 %; Lymphocytes # (auto) 0.68 K/uL (1.20-3.40); Lymphocytes % (auto) 7.4 %; Mean Corpuscular Hgb Conc 31.2 g/dL (32.0-36.0); Mean Corpuscular Volume 83.3 fL (80.0-100.0); Mean Platelet Volume 10.6 fL (9.4-12.4); Monocytes # (auto) 0.92 K/uL (0.11-0.59); Monocytes % (auto) 10.1 %; Neutrophils # (auto) 7.14 K/uL (1.40-6.50); Neutrophils % (auto) 78.2 %; Platelet Count 226 K/uL (130-400); RDW Coefficient of Variation 17.1 % (11.5-14.5); Red Blood Count 4.12 M/uL (4.20-5.40); White Blood Count 9.13 K/ul (4.8-10.8)
[2023-10-18 06:54] LABS: Calcium 9.1 mg/dl (8.6-10.3); Potassium 4.3 mmol/L (3.5-5.1)
[2023-10-18 07:14] LABS: BUN Creatinine Ratio 31.5 (10-20); Creatinine Clr Calc Pharmacy 94.4 ml/min; Est GFR (African American) 98.1 ml/min; Est GFR (Non-African American) 84.6 ml/min
[2023-10-18] MEDS: POLYETHYLENE (MIRALAX) 17 GM PACK PO ONE (11:35)
[2023-10-18] MEDS: SENNA 8.6 MG TAB PO ONE (13:31)
--- NOTE | 2023-10-18 16:44 | Hospitalist Progress Note ---
Date of Service October 18, 2023 Assessment & Plan (1) Acute on chronic hypoxic respiratory failure: Plan: 68-year-old female readmitted 10/16/23 for shortness of breath and chest pain. Similar symptoms as compared to 2 weeks ago when she was intubated . Patient did well supported on BiPAP and high flow supplemental oxygen Continue empiric treatment for infection pending blood culture results x 2. Acute coronary syndrome ruled out with EKG and high-sensitivity troponin Echocardiogram 2 weeks ago with preserved left ventricular ejection fraction and no evidence of wall motion abnormalities. Scheduled with Dr. López 11/04/2023 at 15:15 (2) Acute UTI: Plan: UA positive on arrival Ross placed in ED Urine culture on 09/28/2023 was pansensitive Cefepime 2000 mg IV q8h culture not sent on presentation Follows with Dr. 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 BiPAP BSG q6h while NPO, then switch to ACHS (5) Obstructive sleep apnea (adult) (pediatric): Plan: Continue BiPAP History of JACQUIE in the past but did not tolerate mask F/U with Dr. López 11/04/2023 in the office Plan Full code working with CM to try to get home bipap Admission and Anticipated Discharge Date Admission Date: October 16, 2023 Subjective pt is much better than on presentation still on higher oxygen supplementation Physical Exam Physical Exam: lungs are clear, cardiac exam is distant Results & Data Results & Data Vital Signs (Past 12 Hours) Vital Signs Temp Pulse Resp BP Pulse Ox O2 Del Method O2 Flow Rate 10/18/23 15:44 97.3 F L 82 20 151/81 H 97 High Flow Nasal Cannula 6 10/18/23 11:49 97.5 F L 84 22 136/82 94 High Flow Nasal Cannula 6 10/18/23 08:00 Nasal Cannula 6 10/18/23 07:40 98.1 F 87 20 137/84 93 High Flow Nasal Cannula 6 PG Care Time/CCT Total # of Minutes Spent Total Time Spent with Patient: Total time spent is greater than 50% in coordination of care (as documented) at patient's floor/unit and/or counseling patient: Coding Level of Care Code 60290 SUB INP/OBS CARE 2/35MIN Diagnoses Acute on chronic hypoxic respiratory failure J96.21 Acute UTI N39.0 Sepsis A41.9 Diabetes mellitus type 2 in obese E11.69; E66.9 Obstructive sleep apnea (adult) (pediatric) G47.33
[2023-10-19 06:12] LABS: Basophils # (auto) 0.06 K/uL (0.00-0.20); Eosinophils # (auto) 0.25 K/uL (0.00-0.50); Eosinophils % (auto) 4.1 %; Hematocrit (blood only) 31.5 % (37.0-47.0); Hemoglobin 9.8 g/dl (12.0-16.0); Immature Granulocytes # (auto) 0.02 K/uL (0.01-0.20); Immature Granulocytes % (auto) 0.3 %; Lymphocytes # (auto) 0.77 K/uL (1.20-3.40); Lymphocytes % (auto) 12.5 %; Mean Corpuscular Hemoglobin 25.5 pg (25.0-34.0); Mean Corpuscular Hgb Conc 31.1 g/dL (32.0-36.0); Mean Corpuscular Volume 81.8 fL (80.0-100.0); Mean Platelet Volume 10.3 fL (9.4-12.4); Monocytes # (auto) 0.66 K/uL (0.11-0.59); Monocytes % (auto) 10.7 %; Neutrophils # (auto) 4.38 K/uL (1.40-6.50); Neutrophils % (auto) 71.4 %; Platelet Count 212 K/uL (130-400); RDW Coefficient of Variation 16.4 % (11.5-14.5); Red Blood Count 3.85 M/uL (4.20-5.40); White Blood Count 6.14 K/ul (4.8-10.8)
[2023-10-19 06:38] LABS: Creatinine Clr Calc Pharmacy 94.7 ml/min; Est GFR (African American) 98.1 ml/min; Est GFR (Non-African American) 84.6 ml/min; Potassium 4.3 mmol/L (3.5-5.1)
[2023-10-19] MEDS: POLYETHYLENE (MIRALAX) 17 GM PACK PO SCH (08:15)
[2023-10-19] MEDS: LANTUS PER UNIT CHARGE SQ SCH (08:19)
--- NOTE | 2023-10-19 08:41 | Pharmacy Report ---
Pharmacy Glycemic Short Note 2 - Date of Service October 19, 2023 - Glycemic Short BSG Results (Last 24 hours): 10/18/23 10/18/23 10/18/23 12:10 16:34 20:23 Glucose POC Glucose 196 H 132 H 150 H 10/19/23 10/19/23 05:43 07:35 Glucose 159 H POC Glucose 116 H OUTPATIENT ANTIDIABETIC REGIMEN: * Toujeo 100units SQ HS * NovoLog 35 units with breakfast, 30 units with lunch, 25 units HS, 25 units/day sliding scale * Metformin 1000mg PO BID HbA1c: 7.5% (08/31/23) ASSESSMENT: 10/19/23: * BSGs reasonably well-controlled over past 48 hours w/ hyperglycemia noted at lunch-time * Received 103 units of insulin yesterday (60 units of basal and 43 units of prandial/correctional bolus) * Remains on cefepime and doxycycline, diet advanced to T2DM yesterday and continues today * Fasting BSG of 116 mg/dL this morning - will continue current basal * Do not anticipate any changes to regimen today - will tighten Novolog parameters w/ breakfast tomorrow 10/17/23: * 68 yo F PMH of JACQUIE, restrictive lung disease secondary to morbid obesity, hypertension and diastolic heart failure who was admitted to the ICU due to acute on chronic hypoxemic and hypercapnic respiratory failure. On Doxy + Cefepime. * Type 2 DM on 215 units of insulin/day as outpatient. Splitting basal BID at this time d/t critical status. Patient is improving and has been downgraded from ICU. Starting clear liquid diet with breakfast. * Blood sugar elevated when consulted last night partially d/t 60mg IV Solu- Medrol dose received. PLAN FOR INPATIENT GLYCEMIC CONTROL: * Hold outpatient oral diabetes medications * Basal insulin * Lantus 30 units SQ BID * Bolus insulin * NovoLog per scale ACHS or Q6hrs while NPO * Goal Range: Low 110 mg/dL - High 140 mg/dL * Correction Factor: 12 mg/dL/unit * Nutritional / Prandial insulin per carb ratio of 1 unit per 4 grams CHO consumed
[2023-10-19] MEDS ORDERED: LANTUS PER UNIT CHARGE SQ SCH (09:00)
--- NOTE | 2023-10-19 18:19 | Hospitalist Progress Note ---
Date of Service October 19, 2023 Assessment & Plan (1) Acute on chronic hypoxic respiratory failure: Plan: 68-year-old female readmitted 10/16/23 for shortness of breath and chest pain. Similar symptoms as compared to 2 weeks ago when she was intubated . Patient did well supported on BiPAP and high flow supplemental oxygen Continue empiric treatment for infection blood culture results negative x 2. Acute coronary syndrome ruled out with EKG and high-sensitivity troponin Echocardiogram 2 weeks ago with preserved left ventricular ejection fraction and no evidence of wall motion abnormalities. Scheduled with Dr. López 11/04/2023 at 15:15 (2) Acute UTI: Plan: UA positive on arrival Ross placed in ED Urine culture on 09/28/2023 was pansensitive Cefepime 2000 mg IV q8h culture not sent on presentation [place]. 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 BiPAP BSG q6h while NPO, then switch to ACHS (5) Obstructive sleep apnea (adult) (pediatric): Plan: Continue BiPAP History of JACQUIE in the past but did not tolerate mask F/U with Dr. López 11/04/2023 in the office Plan Full code working with CM to try to get home bipap Admission and Anticipated Discharge Date Admission Date: October 16, 2023 Subjective pt is much better than on presentation tapering oxygen, committed to wear home NIPPV Physical Exam Physical Exam: lungs are clear, cardiac exam is distant Results & Data Results & Data Vital Signs (Past 12 Hours) Vital Signs Temp Pulse Resp BP BP Pulse Ox O2 Del Method 10/19/23 15:42 98.1 F 80 16 147/77 H 97 Nasal Cannula 10/19/23 12:15 98.2 F 63 18 151/78 H 139/69 95 Nasal Cannula, Other 10/19/23 08:00 Nasal Cannula 10/19/23 08:00 97.5 F L 70 20 144/72 H 140/76 97 High Flow Nasal Cannula O2 Flow Rate 10/19/23 15:42 5 10/19/23 12:15 5 10/19/23 08:00 6 10/19/23 08:00 6 Laboratory Results review cbc review chemistry PG Care Time/CCT Total # of Minutes Spent Total Time Spent with Patient: Total time spent is greater than 50% in coordination of care (as documented) at patient's floor/unit and/or counseling patient: Coding Level of Care Code 75711 SUB INP/OBS CARE 2/35MIN Diagnoses Acute on chronic hypoxic respiratory failure J96.21 Acute UTI N39.0 Sepsis A41.9 Diabetes mellitus type 2 in obese E11.69; E66.9 Obstructive sleep apnea (adult) (pediatric) G47.33
[2023-10-19] MEDS: DOXYCYCLINE HYCLATE 100 MG CAP PO SCH (20:59)
[2023-10-20] MEDS: INSULIN ASPART PER UNIT CHARGE SC SCH ×2 (08:52→13:03)
[2023-10-20] MEDS: LANTUS PER UNIT CHARGE SQ SCH (08:52)
[2023-10-20] MEDS: FUROSEMIDE INJ 20 MG/2 ML VIAL IV ONE (10:28)
[2023-10-20] MEDS: predniSONE 10 MG TABLET PO ONE (13:01)
[2023-10-20] MEDS: CETIRIZINE HCL 10 MG TABLET PO ONE (13:02)
[2023-10-20] MEDS: FAMOTIDINE 20MG IV PUSH 20 MG/5 ML SYR IV STA (13:49)
--- NOTE | 2023-10-20 17:35 | Hospitalist Progress Note ---
Date of Service October 20, 2023 Assessment & Plan (1) Acute on chronic hypoxic respiratory failure: Plan: 68-year-old female readmitted 10/16/23 for shortness of breath and chest pain. Similar symptoms as compared to 2 weeks ago when she was intubated . Patient did well supported on BiPAP and high flow supplemental oxygen Continue empiric treatment for infection , de esclate to doxy, ? of Cefepime cross reacted to pcn allergy and caused reddened legs blood culture results negative x 2. Acute coronary syndrome ruled out with EKG and high-sensitivity troponin Echocardiogram 2 weeks ago with preserved left ventricular ejection fraction and no evidence of wall motion abnormalities. given some lasix to help with oxygen tapering Scheduled with Dr. López 11/04/2023 at 15:15 (2) Acute UTI: Plan: UA positive on arrival Ross placed in ED Urine culture on 09/28/2023 was pansensitive culture not sent on presentation Follows with Dr. 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 BiPAP BSG q6h while NPO, then switch to ACHS (5) Obstructive sleep apnea (adult) (pediatric): Plan: Continue BiPAP History of JACQUIE in the past but did not tolerate mask, trying to work with home unit for fitment F/U with Dr. López 11/04/2023 in the office Plan rash, consider drug reaction, will try one dose prednisone, one dose zyrtec is on pepcid, Full code working with CM to try to get home bipap Admission and Anticipated Discharge Date Admission Date: October 16, 2023 Subjective pt is much better than on presentation tapering oxygen, committed to wear home NIPPV did have issues with home bipap unit, also developed itching and some erythema to legs Physical Exam Physical Exam: lungs are clear, cardiac exam is distant legs are some reddening and some trace edema Results & Data Results & Data Vital Signs (Past 12 Hours) Vital Signs Temp Pulse Pulse Resp BP Pulse Ox O2 Del Method 10/20/23 17:00 98.6 F 83 18 130/63 98 Nasal Cannula 10/20/23 15:00 84 10/20/23 12:10 98.4 F 82 20 138/68 98 Nasal Cannula 10/20/23 08:00 Nasal Cannula 10/20/23 08:00 98.8 F 79 18 140/70 96 Nasal Cannula 10/20/23 07:00 83 O2 Flow Rate 10/20/23 17:00 5 10/20/23 15:00 10/20/23 12:10 5 10/20/23 08:00 5 10/20/23 08:00 5 10/20/23 07:00 PG Care Time/CCT Total # of Minutes Spent Total Time Spent with Patient: Total time spent is greater than 50% in coordination of care (as documented) at patient's floor/unit and/or counseling patient: Coding Level of Care Code 76214 SUB INP/OBS CARE 2/35MIN Diagnoses Acute on chronic hypoxic respiratory failure J96.21 Acute UTI N39.0 Sepsis A41.9 Diabetes mellitus type 2 in obese E11.69; E66.9 Obstructive sleep apnea (adult) (pediatric) G47.33
[2023-10-20] MEDS: FAMOTIDINE 20 MG TAB PO SCH (20:53)
[2023-10-20] MEDS ORDERED: FAMOTIDINE 20MG IV PUSH 20 MG/5 ML SYR IV SCH (21:00)
[2023-10-20] MEDS: MELATONIN 3 MG TAB PO ONE (22:21)
[2023-10-21] MEDS: FUROSEMIDE 20 MG TAB PO SCH (08:21)
[2023-10-21 08:30] LABS: BUN Creatinine Ratio 33.3 (10-20); Calcium 9.5 mg/dl (8.6-10.3); Creatinine Clr Calc Pharmacy 104.8 ml/min; Est GFR (African American) 105.2 ml/min; Est GFR (Non-African American) 90.8 ml/min; Magnesium 1.7 mg/dl (1.7-2.4)
--- NOTE | 2023-10-21 13:58 | Pharmacy Report ---
Pharmacy Glycemic Short Note 2 - Date of Service October 21, 2023 - Glycemic Short BSG Results (Last 24 hours): 10/20/23 10/20/23 10/20/23 16:59 20:09 20:50 Glucose POC Glucose 135 H 169 H 189 H 10/21/23 10/21/23 10/21/23 07:09 07:27 11:49 Glucose 163 H POC Glucose 171 H 264 H OUTPATIENT ANTIDIABETIC REGIMEN: * Toujeo 100units SQ HS * NovoLog 35 units with breakfast, 30 units with lunch, 25 units HS, 25 units/day sliding scale * Metformin 1000mg PO BID HbA1c: 7.5% (08/31/23) ASSESSMENT: 10/21/23: * Blood sugars remain elevated, ranging 135-226 mg/dL yesterday w/ fasting BSG of 171 mg/dL this morning * Received 145 units of insulin (~50/50 basal/bolus split) * Will further tighten Novolog parameters in AM and increase basal scale today 10/19/23: * BSGs reasonably well-controlled over past 48 hours w/ hyperglycemia noted at lunch-time * Received 103 units of insulin yesterday (60 units of basal and 43 units of prandial/correctional bolus) * Remains on cefepime and doxycycline, diet advanced to T2DM yesterday and continues today * Fasting BSG of 116 mg/dL this morning - will continue current basal * Do not anticipate any changes to regimen today - will tighten Novolog parameters w/ breakfast tomorrow 10/17/23: * 68 yo F PMH of JACQUIE, restrictive lung disease secondary to morbid obesity, hypertension and diastolic heart failure who was admitted to the ICU due to acute on chronic hypoxemic and hypercapnic respiratory failure. On Doxy + Cefepime. * Type 2 DM on 215 units of insulin/day as outpatient. Splitting basal BID at this time d/t critical status. Patient is improving and has been downgraded from ICU. Starting clear liquid diet with breakfast. * Blood sugar elevated when consulted last night partially d/t 60mg IV Solu- Medrol dose received. PLAN FOR INPATIENT GLYCEMIC CONTROL: * Hold outpatient oral diabetes medications * Basal insulin * Lantus 35-40-45 units SQ BID (see EHR for details) * Bolus insulin * NovoLog per scale ACHS or Q6hrs while NPO * Goal Range: Low 110 mg/dL - High 140 mg/dL * Correction Factor: 8 mg/dL/unit w/ breakfast, 12 mg/dL/unit w/ lunch, dinner, and HS * Nutritional / Prandial insulin per carb ratio of 1 unit per 2 grams CHO consumed w/ breakfast, and 1 unit per 4 grams CHO consumed with lunch, dinner, and at HS
--- NOTE | 2023-10-21 14:59 | Discharge Summary ---
Date of Service October 21, 2023 Admission HPI Per Admitting Provider Diana is a 68-year-old female with PMH of COPD, T2DM, JACQUIE, and recent [place] ICU hospitalization for urosepsis. Patient was coded and intubated in the [place] ED on 10/01 for acute on chronic hypoxic respiratory failure and urosepsis. Discharged on 10/04. She returned on 10/15 after developing acute onset of SOB at rest hypoxia while driving to a urology appointment. Patient reports that her burning with urination returned on the evening of , so she called to schedule an appointment. She then felt short of breath while driving her car to the appointment around 1300 on 10/15. One episode of vomiting secondary to dizzin ess on arrival. Patient does not believe she aspirated at this time. Patient has been using supplemental oxygen at home since her hospital discharge; 2L at bedtime over the past week. Patient reports that she took all of her regular morning medications, and that the only new medication was an antibiotic prescribed for her UTI. Patient is alert and oriented x 3 at time of admission, and CODE STATUS was reconfirmed; okay with intubation if necessary. Patient is 88% SpO2 on BiPAP at time of admission; tachycardic at 108 bpm; afebrile. ED course: DuoNeb 12 mL Cefepime 2000 mL IV Doxycycline 100 mg IV Methylprednisolone 60 mg IV Zofran 4 mg ROS: Patient endorses dizziness, lightheadedness, presyncope, night-sweats x 1 episode earlier this week, chest pressure, pleuritic CP, nausea, vomiting x 1 episode morning of 10/15, and burning with urination since evening of . Patient denies fever, chills, body aches, chest palpitations, cough, hemoptysis, abdominal pain, diarrhea, blood in urine/stool, back pain, or numbness/tingling going down arms or legs. Principal Diagnosis acute on chronic hypoxic respiratory failure sepsis from a urinary source resolved possible reaction to Macrobid Discharge Exam pt is now able to tolerate her Bipap, did sleep on it, and will be home Discharge Data Allergies Allergy/AdvReac Type Severity Reaction Status Date / Time amoxicillin [From Augmentin] AdvReac Intermediate nausea Verified 10/07/23 11:15 clavulanic acid AdvReac Intermediate nausea Verified 10/07/23 11:15 [From Augmentin] codeine AdvReac Intermediate Gastrointestinal Verified 10/07/23 11:15 Upset Consultations 10/16/23 17:51 Consult Information Technology Coordinator Routine Ordered Studies 10/16/23 14:24 CT angio chest PE protocol Stat Hospital Course (1) Acute on chronic hypoxic respiratory failure: 68-year-old female readmitted 10/16/23 for shortness of breath and chest pain. Similar symptoms as compared to 2 weeks ago when she was intubated . Patient did well supported on BiPAP and high flow supplemental oxygen Continue empiric treatment for infection , de esclate to doxy, ? of Cefepime cross reacted to pcn allergy and caused reddened legs blood culture results negative x 2. doxycycline LD 10/23/23 Acute coronary syndrome ruled out with EKG and high-sensitivity troponin Echocardiogram 2 weeks ago with preserved left ventricular ejection fraction and no evidence of wall motion abnormalities. given some lasix to help with oxygen tapering Scheduled with Dr. López 11/04/2023 at 15:15 (2) Acute UTI: UA positive on arrival Ross placed in ED Urine culture on 09/28/2023 was pansensitive, did have cefepime while inpt culture not sent on presentation [place] [facility] [place] [facility] [place] scheduled for f/u 12/15/23 at 09:20 (3) Sepsis: Lactate 2.2-->4.1 on arrival, concern for pneumonia or urinary source Blood cultures negative to date IVF resuscitation Can continue doxycycline to complete course for pneumonia, with concern for gram negative pneumonia (4) Diabetes mellitus type 2 in obese: Last A1c at 7.5% on 08/31/23 Glucose 118 on admission resume home insulin and metformin (5) Obstructive sleep apnea (adult) (pediatric): Continue BiPAP History of JACQUIE in the past but did not tolerate mask, trying to work with home unit for fitment F/U with Dr. López 11/04/2023 in the office Plan rash, consider drug reaction, improved with one dose prednisone, one dose zyrtec is on pepcid, Full code Total Time Total Time Spent Total Time Spent (In Minutes): greater than 30 minutes were needed to create this discharge Discharge Plan Discharge Items Patient Disposition: Home - Home Health Services Reason For Visit: ACUTE HYPOXIA, UROSEPSIS Discharge Diagnosis: acute on chronic hypoxic respiratory failure sepsis from a urinary source resolved possible reaction to Macrobid Activity: Resume your previous activity Non-emergency contact: Primary Care Provider Call non-emergency contact if: your symptoms worsen Follow-up/Referrals: Manju Khan MD [Primary Care Provider] - Diet: Low Sodium (2gm) Addtl Attending Provider Instructions: please wear your Bipap at night and be in contact with your primary care provider please take your lasix daily and watch your fluid and salt intake Addtl [employer] Provider Instructions: please resume your home insulin regiment and metformin , start metformin on 10/22/23 Pending Studies at Discharge: No Stand-Alone Forms: My [facility] [place], Smoking Cessation Medications and DC Order Prescriptions: New doxycycline hyclate 100 mg Capsule 100 mg PO BID Qty: 5 0RF furosemide 20 mg Tablet 20 mg PO QAM Qty: 30 0RF Continued sertraline [Zoloft] 100 mg tablet 100 mg PO HS Qty: 90 3RF metoprolol succinate 50 mg tablet extended release 24 hr 50 mg PO QAM Qty: 90 3RF Rx Instructions: TAKE ONE TABLET BY MOUTH ONE TIME DAILY metformin 1,000 mg tablet 1,000 mg PO BID Qty: 180 3RF Rx Instructions: TAKE ONE TABLET BY MOUTH TWICE DAILY simvastatin 40 mg tablet 40 mg PO HS Qty: 90 1RF cholecalciferol (vitamin D3) 125 mcg (5,000 unit) capsule 125 mcg PO QAM mecobalamin (vitamin B12) 1,000 mcg tablet,chewable 1,000 mcg PO DAILY aspirin 81 mg tablet,delayed release (DR/EC) 81 mg PO QAM insulin aspart U-100 [Novolog FlexPen U-100 Insulin] 100 unit/mL (3 mL) insulin pen 0 unit subcut UD Rx Instructions: 35 u @breakfast 30 u @ lunch 25 u @ bedtime sliding scale 25u @ supper famotidine 40 mg tablet 40 mg PO PM insulin glargine U-300 conc [Toujeo Max U-300 SoloStar] 300 unit/mL (3 mL) insulin pen 100 unit subcut HS Discontinued diphenhydramine-acetaminophen [Tylenol PM Extra Strength] 25-500 mg Tablet 2 tab PO HS losartan-hydrochlorothiazide 50-12.5 mg tablet 1 tab PO QAM Rx Instructions: Take ONE tablet by mouth once daily. No Action (DME) miscellaneous medical supply Misc See Rx Instructions .ROUTE .MEDSUPPLY Qty: 1 0RF Rx Instructions: pulse oximeter to be used as needed. J98.4, U07.1 Discharge Orders: Discharge Order (Routine); Ordered 10/21/23 Ordered By: Jhonathan Davis Admission Data Admit Date/Time: 10/16/23 16:18 Attending Provider: Jhonathan Davis Admit Provider: Manoj Smith Primary Care Provider: Manju Khan Other Providers: Sherman Al Coding Level of Care Code 73062 INP/OBS DISCH >30 MIN Diagnoses Acute on chronic hypoxic respiratory failure J96.21 Acute UTI N39.0 Sepsis A41.9 Diabetes mellitus type 2 in obese E11.69; E66.9 Obstructive sleep apnea (adult) (pediatric) G47.33
[2023-10-21] MEDS ORDERED: LANTUS PER UNIT CHARGE SQ SCH (21:00)
== END 2023-10-21 16:13 | disposition home health service (06) | DRG 871 ==
LOC: ED 14:06 → SUATTDRO 16:18 → 1E 16:18 → 4W 10-17 21:59